=== PATIENT | female | born 1950 | race Caucasian/White ===

== ENCOUNTER 2017-04-26 21:26 | Inpatient (IN) | payer MEDICARE, MEDICAID ==
[~2017-04-26] VITALS: Ht 154.9 cm; Wt 53.8 kg
[~2017-04-26 21:26] MED LIST: 1-ME1LIQ PO; ATOR10 PO; BACL10TA PO; BUSP7.5T4 PO; CARB200 PO; CITA-48 PO; FURO1TAB93 PO; GABA600T PO; LACO100 PO; PROP40TA3 PO; SERT-132 PO; TEMA15 PO; TOPA25TA8 PO
[2017-04-26 21:36] VITALS: BP 155/82; PULSE 63; RESP 17; TEMP 98.3; O2SAT 96
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
[2017-04-26] MEDS ORDERED: SODIUM CHLOR 0.9% 1000 ML INJ 1,000 ML IV SCH (21:52)
[2017-04-26] MEDS ORDERED: SODIUM CHLORIDE 0.9% FLUSH 5 ML FLUSH IV FLUSH PRN (22:00)
[2017-04-26 22:24] LABS: AUTOMATED NEUTROPHIL # 6.6 TH/MM3 (1.8-7.7); BASOPHIL # 0.1 TH/MM3 (0-0.2); BASOPHIL % 0.7 % (0.0-2.0); EOSINOPHIL # 0.1 TH/MM3 (0-0.4); EOSINOPHIL % 1.3 % (0.0-4.0); HEMATOCRIT 46.9 % (35.0-46.0); HEMO FLAGS DIFF FINAL; LYMPH % 19.6 % (9.0-44.0); MEAN CELL VOLUME 92.7 FL (80.0-100.0); MEAN CORPUSCULAR HEMOGLOBIN 30.8 PG (27.0-34.0); MEAN CORPUSCULAR HGB CONC 33.2 % (32.0-36.0); MONO % 12.4 % (0.0-8.0); PLATELET COUNT 186 TH/MM3 (150-450); RED BLOOD COUNT 5.06 MIL/MM3 (4.00-5.30); RED CELL DISTRIBUTION WIDTH 13.2 % (11.6-17.2)
--- NOTE | 2017-04-26 22:25 | RADRPT ---
EXAM DATE/TIME: 04/26/2017 21:51 [facility] COMPARISON: CHEST SINGLE AP, June 24, 2016, 9:10. INDICATIONS : Altered mental status. MEDICAL HISTORY : Hypertension. Seizures. SURGICAL HISTORY : Fusion, cervical. Inguinal hernia repair. Brain surgery ENCOUNTER: Initial ACUITY: 1 day PAIN SCORE: Non-responsive. LOCATION: Bilateral chest FINDINGS: A single view of the chest demonstrates the lungs to be symmetrically aerated without evidence of mas s, infiltrate or effusion. The cardiomediastinal contours are unremarkable. Osseous structures are intact. CONCLUSION: No acute disease. Casa Turk MD on April 26, 2017 at 22:24 Board Certified Radiologist. This report was verified electronically.
[2017-04-26] MEDS ORDERED: NALOXONE HCL 0.4 MG/ML AMP IV PUSH ONE (22:30)
[2017-04-26 22:32] VITALS: RESP 14; O2SAT 100
[2017-04-26 22:34] VITALS: BP 141/67; PULSE 57; RESP 14; O2SAT 100
[2017-04-26 22:39] LABS: ALT (GPT) 23 U/L (10-53)
[2017-04-26] MEDS ORDERED: SODIUM CHLOR 0.9% 1000 ML INJ 1,000 ML IV ONE (22:45)
[2017-04-26 22:49] LABS: ALKALINE PHOSPHATASE 192 U/L (45-117); ANION GAP 6 MEQ/L (5-15); AST (GOT) 31 U/L (15-37); BICARBONATE 23.6 MEQ/L (21.0-32.0); BLOOD UREA NITROGEN 18 MG/DL (7-18); CHLORIDE 109 MEQ/L (98-107); GLOMERULAR FILTRATION RATE 65 ML/MIN (>89); SODIUM (NA) 139 MEQ/L (136-145); TOTAL BILIRUBIN ADULT 0.4 MG/DL (0.2-1.0)
[2017-04-26 23:02] LABS: ACETAMINOPHEN LESS THAN 2.0 MCG/ML (10.0-30.0); CREATINE KINASE 86 U/L (26-192); POTASSIUM 5.4 MEQ/L (3.5-5.1)
[2017-04-26 23:13] LABS: AMPHETAMINE, URINE NEG (NEG); BARBITURATES, URINE NEG (NEG); COCAINE, URINE NEG (NEG)
[2017-04-26 23:25] LABS: PROTHROMBIN TIME - PATIENT 10.5 SEC (9.8-11.6)
[2017-04-26 23:35] LABS: BLOOD, URINE NEG (NEG); COMMENT (UR) CATH-CULT NOT IND; CULTURE IF INDICATED CATH CULTURE NOT IND; GLUCOSE,URINE NEG (NEG); HYALINE CAST, URINE 28 /lpf (RARE); KETONE, URINE NEG (NEG); MUCUS URINE FEW /lpf (OCC); NITRITE,URINE NEG (NEG); PH, URINE 5.5 (5.0-8.5); SQUAMOUS EPITHELIAL CELL URINE 1 /hpf (0-5); URINE COLOR YELLOW (YELLW/STRAW)
[2017-04-26 23:36] VITALS: BP 146/77; PULSE 62; RESP 16; TEMP 97; O2SAT 96
--- NOTE | 2017-04-26 23:55 | RADRPT ---
EXAM DATE/TIME: 04/26/2017 23:43 [facility] COMPARISON: CT BRAIN W/O CONTRAST, July 25, 2016, 16:14. INDICATIONS : Altered mental status. RADIATION DOSE: 30.83 CTDIvol (mGy) MEDICAL HISTORY : Seizures. Cardiovascular disease Hypertension.Ulcer. Hepatitis. CVA. SURGICAL HISTORY : Tonsillectomy. Cervical surgery. ENCOUNTER: Initial ACUITY: 1 day PAIN SCALE: Non-responsive LOCATION: Bilateral cranial TECHNIQUE: Multiple contiguous axial images were obtained of the head. Using automated exposure control and adj ustment of the mA and/or kV according to patient size, radiation dose was kept as low as reasonably a chievable to obtain optimal diagnostic quality images. DICOM format image data is available electro nically for review and comparison. FINDINGS: CEREBRUM: Areas of low attenuation seen throughout the white matter. The ventricles are normal for age. No deann dence of midline shift, mass lesion, hemorrhage or acute infarction. No extra-axial fluid collection s are seen. POSTERIOR FOSSA: The cerebellum and brainstem are intact. The 4th ventricle is midline. The cerebellopontine angle i s unremarkable. EXTRACRANIAL: The visualized portion of the orbits is intact. SKULL: The calvaria is intact. No evidence of skull fracture. CONCLUSION: 1. Chronic ischemic small vessel vasculopathy. 2. No change from previous study. James Coleman MD on April 26, 2017 at 23:53 Board Certified Radiologist. This report was verified electronically.
[2017-04-27] VITALS (13 sets, daily range): BP systolic 149–210; BP diastolic 83–108; PULSE 64–74; RESP 12–20; TEMP 97.6–98.9; O2SAT 95–100
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
[2017-04-27] MEDS ORDERED: MAGNESIUM HYDROXIDE SUSP 30 ML CUP PO PRN (00:15)
[2017-04-27] MEDS ORDERED: MISCELLANEOUS NURSING INFORMATION XX SCH (00:15)
[2017-04-27] MEDS ORDERED: CHLORHEXIDINE GLUCONATE 2 % 1 PACK (2 CLOTHS) TOP PRN (00:15)
[2017-04-27] MEDS ORDERED: ONDANSETRON HCL 4 MG/2 ML VIAL IV PRN (00:15)
[2017-04-27] MEDS ORDERED: LACTULOSE SYRUP 20 GM/30 ML CUP PO PRN (00:15)
[2017-04-27] MEDS ORDERED: BISACODYL 10 MG SUPP RECTAL PRN (00:15)
[2017-04-27] MEDS ORDERED: SENNOSIDES 8.6 MG TAB PO PRN (00:15)
[2017-04-27] MEDS ORDERED: RESP: ALBUTEROL 2.5 MG/IPRATROPIUM 0.5 MG NEB (PRN) INH (00:15)
[2017-04-27] MEDS: SODIUM CHLOR 0.9% 1000 ML INJ 1,000 ML IV SCH ×2 (00:43→12:59)
[2017-04-27] MEDS: CHLORHEXIDINE GLUCONATE 2 % 1 PACK (2 CLOTHS) TOP SCH ×2 (04:00→22:39)
[2017-04-27 04:34] LABS: AUTOMATED NEUTROPHIL # 4.8 TH/MM3 (1.8-7.7); BASOPHIL % 0.5 % (0.0-2.0); EOSINOPHIL # 0.1 TH/MM3 (0-0.4); EOSINOPHIL % 1.6 % (0.0-4.0); HEMO FLAGS DIFF FINAL; LYMPH % 26.4 % (9.0-44.0); LYMPHOCYTE # 2.2 TH/MM3 (1.0-4.8); MEAN CELL VOLUME 93.6 FL (80.0-100.0); MEAN CORPUSCULAR HEMOGLOBIN 30.3 PG (27.0-34.0); MEAN CORPUSCULAR HGB CONC 32.4 % (32.0-36.0); MONO % 13.8 % (0.0-8.0); NEUT % 57.7 % (16.0-70.0); PLATELET COUNT 164 TH/MM3 (150-450); RED CELL DISTRIBUTION WIDTH 13.1 % (11.6-17.2); WHITE BLOOD COUNT 8.4 TH/MM3 (4.0-11.0)
[2017-04-27 04:59] LABS: ALKALINE PHOSPHATASE 164 U/L (45-117); ALT (GPT) 19 U/L (10-53); ANION GAP 4 MEQ/L (5-15); AST (GOT) 17 U/L (15-37); BICARBONATE 26.2 MEQ/L (21.0-32.0); BLOOD UREA NITROGEN 13 MG/DL (7-18); CHLORIDE 113 MEQ/L (98-107); GLOMERULAR FILTRATION RATE 99 ML/MIN (>89); POTASSIUM 4.3 MEQ/L (3.5-5.1); SODIUM (NA) 143 MEQ/L (136-145); TOTAL BILIRUBIN ADULT 0.3 MG/DL (0.2-1.0)
[2017-04-27] MEDS: DOCUSATE SODIUM 50 MG/SENNA 8.6 MG TAB PO SCH ×2 (08:28→20:07)
[2017-04-27] MEDS: PANTOPRAZOLE SODIUM 40 MG VIAL IV SCH (08:28)
[2017-04-27] MEDS ORDERED: PROPRANOLOL HCL 40 MG TAB PO SCH (09:00)
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
[2017-04-27] MEDS ORDERED: PROPRANOLOL HCL 40 MG TAB PO ONE (11:15)
[2017-04-27] MEDS: hydrALAZINE HCL 20 MG/ML VIAL IV PUSH PRN ×3 (13:00→20:08)
--- NOTE | 2017-04-27 13:39 | EKG ---
Date Performed: 04/26/2017 Time Performed: 22:41:12 PTAGE: 66 years EKG: SINUS BRADYCARDIA PROLONGED QT INTERVAL IRBBB ABNORMAL ECG PREVIOUS TRACING : 07/25/2016 12.43 Compared to the previous tracing, QTC is longer DOCTOR: Juancarlos Prado Interpretating Date/Time 04/27/2017 13:38:17
[2017-04-27] MEDS: PROPRANOLOL HCL 80 MG TAB PO SCH (20:07)
[2017-04-27] MEDS: ATORVASTATIN 10 MG TAB PO SCH (20:13)
[2017-04-28] VITALS (14 sets, daily range): BP systolic 145–213; BP diastolic 76–109; PULSE 65–74; RESP 14–30; TEMP 98–98.7; O2SAT 95–99
[2017-04-28] MEDS: hydrALAZINE HCL 20 MG/ML VIAL IV PUSH PRN ×3 (00:13→23:11)
[2017-04-28] MEDS: amLODIPine BESYLATE 5 MG TAB PO SCH ×2 (03:37→08:38)
[2017-04-28] MEDS: SODIUM CHLOR 0.9% 1000 ML INJ 1,000 ML IV SCH (05:32)
[2017-04-28] MEDS: LABETALOL HCL 100 MG/20 ML VIAL IV PUSH PRN ×3 (05:32→21:45)
[2017-04-28] MEDS: PROPRANOLOL HCL 80 MG TAB PO SCH ×2 (08:38→20:48)
[2017-04-28] MEDS: DOCUSATE SODIUM 50 MG/SENNA 8.6 MG TAB PO SCH (08:38)
[2017-04-28] MEDS: PANTOPRAZOLE SODIUM 40 MG VIAL IV SCH (08:38)
--- NOTE | 2017-04-28 09:20 | HHI.PR ---
Subjective Remarks Follow-up toxic encephalopathy and now labile BP 04/28/17-patient seen and examined, alert and oriented 3, taking by mouth without any compression or nausea and vomiting. Denies any headaches, visual change or heart palpitation. BP slightly. Objective Vitals Vital Signs Date Time Temp Pulse Resp B/P Pulse Ox O2 Delivery O2 Flow Rate FiO2 04/28/17 08:00 68 04/28/17 06:00 65 04/28/17 04:00 66 04/28/17 04:00 98.4 69 22 175/86 99 04/28/17 02:00 66 04/28/17 00:00 98.5 65 14 213/105 99 04/28/17 00:00 65 04/27/17 22:00 65 04/27/17 20:00 71 04/27/17 20:00 98.9 71 19 210/108 98 04/27/17 20:00 95 04/27/17 18:00 72 04/27/17 16:00 98.4 67 16 151/89 100 04/27/17 16:00 67 04/27/17 14:00 71 04/27/17 12:00 98.7 65 15 152/83 97 04/27/17 12:00 65 04/27/17 10:00 72 I/O 04/27/17 04/27/17 04/27/17 04/28/17 04/28/17 04/28/17 07:00 15:00 23:00 07:00 15:00 23:00 Intake Total 650 ml 730 ml 275 ml 580 ml Output Total 401 ml 700 ml 400 ml 451 ml Balance 249 ml 30 ml -125 ml 129 ml Intake Oral 0 ml 50 ml IV Total 650 ml 730 ml 225 ml 580 ml Output Urine Total 401 ml 700 ml 400 ml 450 ml Stool Total 1 ml # Bowel Movements 0 2 1 Result Diagram: 04/27/179 04/27/17418 Imaging Last Impressions Head CT 04/26/172151 Signed Impressions: Service Date/Time: Wednesday, April 26, 2017 23:43 - CONCLUSION: 1. Chronic ischemic small vessel vasculopathy. 2. No change from previous study. James Coleman MD Chest X-Ray 04/26/172151 Signed Impressions: Service Date/Time: Wednesday, April 26, 2017 21:51 - CONCLUSION: No acute disease. Caas Turk MD Objective Remarks GENERAL: NAD and having breakfast SKIN: Warm and dry. HEAD: Normocephalic. EYES: No scleral icterus. No injection or drainage. NECK: Supple, trachea midline. No JVD or lymphadenopathy. CARDIOVASCULAR: Regular rate and rhythm without murmurs, gallops, or rubs. RESPIRATORY: Breath sounds equal bilaterally. No accessory muscle use. GASTROINTESTINAL: Abdomen soft, non-tender, nondistended. MUSCULOSKELETAL: No cyanosis, or edema. BACK: Nontender without obvious deformity. No CVA tenderness. A/P Problem List: (1) Toxic encephalopathy ICD Code: G92 Status: Resolved (2) Benign labile hypertension ICD Code: I10 Status: Acute (3) Seizure disorder ICD Code: G40.909 Status: Chronic Assessment and Plan 66-year-old female with Toxic encephalopathy Resolved, patient's alert and oriented [address] negative on admission, UDS negative and alcohol level within normal limits Appreciate input from psychiatry, will recommend outpatient follow-up at [facility] Benign labile hypertension Hep-Lock IV fluid Continue Norvasc 5 mg and propranolol 80 mg twice a day History of seizure disorder Check EEG Resume antiepileptic drugs including Tegretol and Vimpat Hyperlipidemia Continue with statin DVT prophylaxis Bilateral SCDs Transfer to Med/Surg James Lynne MD Apr 28, 2017 09:20
[2017-04-28] MEDS: REMOVE OLD PATCH T-DERMAL SCH (10:30)
[2017-04-28] MEDS ORDERED: SERT-132 PO (11:01)
[2017-04-28] MEDS ORDERED: NEUR600T PO (11:01)
[2017-04-28] MEDS ORDERED: TOPA25TA8 PO (11:01)
[2017-04-28] MEDS ORDERED: CITA40TA4 PO (11:01)
[2017-04-28] MEDS ORDERED: BUSP1TAB PO (11:01)
[2017-04-28] MEDS ORDERED: PROP40TA3 PO (11:01)
[2017-04-28] MEDS ORDERED: VIST25CA PO (11:01)
[2017-04-28] MEDS ORDERED: AMLO10TA2 PO (11:01)
[2017-04-28] MEDS ORDERED: BACL10TA PO ×2 (11:01)
[2017-04-28] MEDS ORDERED: CARB100C PO (11:01)
[2017-04-28] MEDS: NICOTINE 14 MG/24 HR PATCH T-DERMAL SCH (11:12)
[2017-04-28] MEDS: ATORVASTATIN 10 MG TAB PO SCH (20:44)
[2017-04-28] MEDS: TOPIRAMATE 25 MG TAB PO SCH (20:45)
[2017-04-29] VITALS (23 sets, daily range): BP systolic 140–176; BP diastolic 76–95; PULSE 64–75; RESP 16–35; TEMP 97.6–98.7; O2SAT 63–96
[2017-04-29] MEDS: hydrALAZINE HCL 20 MG/ML VIAL IV PUSH PRN ×2 (03:10→07:23)
[2017-04-29] MEDS: CHLORHEXIDINE GLUCONATE 2 % 1 PACK (2 CLOTHS) TOP SCH (04:00)
[2017-04-29] MEDS ORDERED: ENALAPRILAT 2.5 MG/2 ML VIAL IV PUSH PRN ×2 (04:15→07:45)
[2017-04-29] MEDS: amLODIPine BESYLATE 5 MG TAB PO SCH ×2 (04:27→07:31)
[2017-04-29] MEDS: PANTOPRAZOLE SODIUM 40 MG VIAL IV SCH (07:31)
[2017-04-29] MEDS: PROPRANOLOL HCL 80 MG TAB PO SCH ×2 (07:31→20:58)
[2017-04-29] MEDS: NICOTINE 14 MG/24 HR PATCH T-DERMAL SCH (07:31)
[2017-04-29] MEDS: REMOVE OLD PATCH T-DERMAL SCH (07:36)
--- NOTE | 2017-04-29 09:05 | HHI.PR ---
Subjective Remarks Follow-up toxic encephalopathy and now labile BP 04/28/17-patient seen and examined, alert and oriented 3, taking by mouth without any compression or nausea and vomiting. Denies any headaches, visual change or heart palpitation. BP slightly. 04/29/17-patient seen and examined, BP up but patient denies any headache or shortness of breath. No seizure activity. Objective Vitals Vital Signs Date Time Temp Pulse Resp B/P Pulse Ox O2 Delivery O2 Flow Rate FiO2 04/29/17 08:11 63 04/29/17 06:00 71 04/29/17 04:00 66 04/29/17 04:00 98.0 69 18 172/89 96 04/29/17 02:00 65 04/29/17 00:00 98.3 64 16 169/89 94 04/29/17 00:00 64 04/28/17 22:00 66 04/28/17 20:00 74 04/28/17 20:00 98.1 74 18 175/91 95 04/28/17 19:03 95 21 04/28/17 18:00 71 04/28/17 17:00 148/76 04/28/17 16:00 98.4 66 30 182/90 95 04/28/17 16:00 72 04/28/17 14:00 71 04/28/17 12:00 67 04/28/17 12:00 98.0 67 18 145/80 97 04/28/17 10:00 68 I/O 04/28/17 04/28/17 04/28/17 04/29/17 04/29/17 04/29/17 07:00 15:00 23:00 07:00 15:00 23:00 Intake Total 580 ml 1050 ml 120 ml 60 ml Output Total 451 ml 277 ml 400 ml 250 ml Balance 129 ml 773 ml -280 ml -190 ml Intake Oral 100 ml 120 ml 60 ml IV Total 580 ml 950 ml 0 ml 0 ml Output Urine Total 450 ml 275 ml 400 ml 250 ml Stool Total 1 ml 2 ml # Bowel Movements 0 0 Result Diagram: 04/27/17 0419 04/27/17 0419 Objective Remarks GENERAL: NAD and having breakfast SKIN: Warm and dry. HEAD: Normocephalic. EYES: No scleral icterus. No injection or drainage. NECK: Supple, trachea midline. No JVD or lymphadenopathy. CARDIOVASCULAR: Regular rate and rhythm without murmurs, gallops, or rubs. RESPIRATORY: Breath sounds equal bilaterally. No accessory muscle use. GASTROINTESTINAL: Abdomen soft, non-tender, nondistended. MUSCULOSKELETAL: No cyanosis, or edema. BACK: Nontender without obvious deformity. No CVA tenderness. A/P Problem List: (1) Toxic encephalopathy ICD Code: G92 Status: Resolved (2) Benign labile hypertension ICD Code: I10 Status: Acute (3) Seizure disorder ICD Code: G40.909 Status: Chronic Assessment and Plan 66-year-old female with Toxic encephalopathy Resolved Head CT negative on admission, UDS negative and alcohol level within normal limits Appreciate input from psychiatry, will recommend outpatient follow-up at [facility] Benign labile hypertension Continue Norvasc 10 mg and propranolol 80 mg twice a day Add lisinopril 5 mg daily Clonidine and Vasotec when necessary History of seizure disorder Continue antiepileptic drug Hyperlipidemia Continue with statin DVT prophylaxis Bilateral SCDs Transfer to Med/Surg James Lynne MD Apr 29, 2017 09:05
[2017-04-29] MEDS ORDERED: cloNIDine HCL 0.1 MG TAB PO PRN (09:15)
[2017-04-29] MEDS: LISINOPRIL 5 MG TAB PO SCH (09:29)
[2017-04-29] MEDS: TOPIRAMATE 25 MG TAB PO SCH (20:58)
[2017-04-29] MEDS: ATORVASTATIN 10 MG TAB PO SCH (20:58)
[2017-04-30] VITALS (10 sets, daily range): BP systolic 155–182; BP diastolic 75–98; PULSE 57–75; RESP 16–18; TEMP 97.3–97.9; O2SAT 95–97
[2017-04-30] MEDS: CHLORHEXIDINE GLUCONATE 2 % 1 PACK (2 CLOTHS) TOP SCH (03:14)
[2017-04-30] MEDS: PANTOPRAZOLE SODIUM 40 MG VIAL IV SCH (08:13)
[2017-04-30] MEDS: amLODIPine BESYLATE 5 MG TAB PO SCH (08:13)
[2017-04-30] MEDS: LISINOPRIL 5 MG TAB PO SCH (08:13)
[2017-04-30] MEDS: NICOTINE 14 MG/24 HR PATCH T-DERMAL SCH (08:14)
[2017-04-30] MEDS: REMOVE OLD PATCH T-DERMAL SCH (08:14)
[2017-04-30] MEDS: PROPRANOLOL HCL 80 MG TAB PO SCH ×2 (09:47→20:04)
--- NOTE | 2017-04-30 12:41 | HHI.PR ---
Subjective Remarks Follow-up toxic encephalopathy and now labile BP 04/28/17-patient seen and examined, alert and oriented 3, taking by mouth without any compression or nausea and vomiting. Denies any headaches, visual change or heart palpitation. BP slightly. 04/29/17-patient seen and examined, BP up but patient denies any headache or shortness of breath. No seizure activity. 04/30/17-patient seen and examined, no acute event overnight and patient stable. BP Slightly up Objective Vitals Vital Signs Date Time Temp Pulse Resp B/P Pulse Ox O2 Delivery O2 Flow Rate FiO2 04/30/17 12:00 97.8 62 18 174/94 97 Automatic Cuff 04/30/17 10:34 170/93 04/30/17 08:51 21 04/30/17 08:00 97.9 62 18 182/87 96 04/30/17 04:00 97.9 64 18 158/93 95 04/30/17 00:00 97.7 57 18 155/75 95 04/29/17 20:00 75 04/29/17 20:00 97.6 71 18 148/82 94 04/29/17 17:41 95 21 04/29/17 16:00 98.7 67 20 167/89 95 04/29/17 13:15 98.5 69 17 150/81 95 I/O 04/29/17 04/29/17 04/29/17 04/30/17 04/30/17 04/30/17 07:00 15:00 23:00 07:00 15:00 23:00 Intake Total 60 ml Output Total 250 ml Balance -190 ml Intake Oral 60 ml IV Total 0 ml Output Urine Total 250 ml # Voids 2 3 # Bowel Movements 0 Result Diagram: 04/27/17 0419 04/27/17 0419 Imaging Last Impressions Head CT 04/26/172151 Signed Impressions: Service Date/Time: Wednesday, April 26, 2017 23:43 - CONCLUSION: 1. Chronic ischemic small vessel vasculopathy. 2. No change from previous study. James Coleman MD Chest X-Ray 04/26/172151 Signed Impressions: Service Date/Time: Wednesday, April 26, 2017 21:51 - CONCLUSION: No acute disease. Casa Turk MD Objective Remarks GENERAL: NAD SKIN: Warm and dry. HEAD: Normocephalic. EYES: No scleral icterus. No injection or drainage. NECK: Supple, trachea midline. No JVD or lymphadenopathy. CARDIOVASCULAR: Regular rate and rhythm without murmurs, gallops, or rubs. RESPIRATORY: Breath sounds equal bilaterally. No accessory muscle use. GASTROINTESTINAL: Abdomen soft, non-tender, nondistended. MUSCULOSKELETAL: No cyanosis, or edema. BACK: Nontender without obvious deformity. No CVA tenderness. Procedures None A/P Problem List: (1) Toxic encephalopathy ICD Code: G92 Status: Resolved (2) Benign labile hypertension ICD Code: I10 Status: Acute (3) Seizure disorder ICD Code: G40.909 Status: Chronic Assessment and Plan 66-year-old female with Toxic encephalopathy Resolved Head CT negative on admission, UDS negative and alcohol level within normal limits Appreciate input from psychiatry, will recommend outpatient follow-up at [facility] Benign labile hypertension Continue Norvasc 10 mg and propranolol 80 mg twice a day Increase lisinopril to 10 mg daily Clonidine and Vasotec when necessary History of seizure disorder Continue antiepileptic drug Hyperlipidemia Continue with statin DVT prophylaxis Bilateral SCDs James Lynne MD Apr 30, 2017 12:41
[2017-04-30] MEDS ORDERED: LISINOPRIL 5 MG TAB PO ONE (14:15)
[2017-04-30] MEDS: ATORVASTATIN 10 MG TAB PO SCH (20:04)
[2017-04-30] MEDS: TOPIRAMATE 25 MG TAB PO SCH (20:05)
[2017-04-30] MEDS: LISINOPRIL 10 MG TAB PO SCH (21:00)
[2017-05-01] VITALS: BP 150/92; PULSE 58; RESP 18; TEMP 97.9; O2SAT 93
[2017-05-01] MEDS: CHLORHEXIDINE GLUCONATE 2 % 1 PACK (2 CLOTHS) TOP SCH (03:15)
[2017-05-01 04:00] VITALS: BP 158/92; PULSE 59; RESP 16; TEMP 98.3; O2SAT 96
[2017-05-01 08:00] VITALS: BP 159/89; PULSE 64; PULSE 82; RESP 18; TEMP 98.1; O2SAT 96
[2017-05-01] MEDS: PANTOPRAZOLE SODIUM 40 MG VIAL IV SCH (08:31)
[2017-05-01] MEDS: amLODIPine BESYLATE 5 MG TAB PO SCH (08:31)
[2017-05-01] MEDS: NICOTINE 14 MG/24 HR PATCH T-DERMAL SCH (08:31)
[2017-05-01] MEDS: PROPRANOLOL HCL 80 MG TAB PO SCH (08:31)
[2017-05-01] MEDS: LISINOPRIL 10 MG TAB PO SCH (08:31)
--- NOTE | 2017-05-01 08:53 | HHI.PR ---
Subjective Remarks Follow-up toxic encephalopathy and now labile BP 04/28/17-patient seen and examined, alert and oriented 3, taking by mouth without any compression or nausea and vomiting. Denies any headaches, visual change or heart palpitation. BP slightly. 04/29/17-patient seen and examined, BP up but patient denies any headache or shortness of breath. No seizure activity. 04/30/17-patient seen and examined, no acute event overnight and patient stable. BP Slightly up 05/01/17-patient seen and examined, BP improving and no acute event overnight; taking by mouth without any complication nausea and vomiting. Objective Vitals Vital Signs Date Time Temp Pulse Resp B/P Pulse Ox O2 Delivery O2 Flow Rate FiO2 05/01/17 08:00 98.1 64 18 159/89 96 05/01/17 04:00 98.3 59 16 158/92 96 05/01/17 00:00 97.9 58 18 150/92 93 04/30/17 20:14 68 04/30/17 20:00 97.5 75 16 158/80 96 04/30/17 18:09 96 21 04/30/17 16:00 97.3 71 18 178/98 96 04/30/17 12:00 97.8 62 18 174/94 97 Automatic Cuff 04/30/17 10:34 170/93 I/O 04/30/17 04/30/17 04/30/17 05/01/17 05/01/17 05/01/17 07:00 15:00 23:00 07:00 15:00 23:00 Intake Total 600 ml 240 ml 186 ml Output Total 300 ml 100 ml 800 ml Balance 300 ml 140 ml -614 ml Intake Oral 600 ml 240 ml 180 ml IV Total 6 ml Output Urine Total 300 ml 100 ml 800 ml # Voids 3 # Bowel Movements 1 1 0 Result Diagram: 04/27/179 04/27/17418 Imaging Last Impressions Head CT 04/26/172151 Signed Impressions: Service Date/Time: Wednesday, April 26, 2017 23:43 - CONCLUSION: 1. Chronic ischemic small vessel vasculopathy. 2. No change from previous study. James Coleman MD Chest X-Ray 04/26/172151 Signed Impressions: Service Date/Time: Saturday, April 26, 2017 21:51 - CONCLUSION: No acute disease. Casa Turk MD Objective Remarks GENERAL: NAD SKIN: Warm and dry. HEAD: Normocephalic. EYES: No scleral icterus. No injection or drainage. NECK: Supple, trachea midline. No JVD or lymphadenopathy. CARDIOVASCULAR: Regular rate and rhythm without murmurs, gallops, or rubs. RESPIRATORY: Breath sounds equal bilaterally. No accessory muscle use. GASTROINTESTINAL: Abdomen soft, non-tender, nondistended. MUSCULOSKELETAL: No cyanosis, or edema. BACK: Nontender without obvious deformity. No CVA tenderness. Procedures None A/P Problem List: (1) Toxic encephalopathy ICD Code: G92 Status: Resolved (2) Benign labile hypertension ICD Code: I10 Status: Acute (3) Seizure disorder ICD Code: G40.909 Status: Chronic Assessment and Plan 66-year-old female with Toxic encephalopathy Resolved Head CT negative on admission, UDS negative and alcohol level within normal limits Appreciate input from psychiatry, will recommend outpatient follow-up at [facility] Benign labile hypertension-improving Continue Norvasc 10 mg, lisinopril 10 mg twice a day and propranolol 80 mg twice a day Clonidine and Vasotec when necessary History of seizure disorder Continue antiepileptic drug Hyperlipidemia Continue with statin DVT prophylaxis Bilateral SCDs James Lynne MD May 01, 2017 08:53
--- NOTE | 2017-05-01 08:55 | HHI.FF ---
Face to Face Verification Diagnosis: (1) HTN (hypertension) (2) Metabolic encephalopathy (3) Toxic encephalopathy Physical Therapy Order: Evaluate and Treat Home Health Nursing Order: Signs/symptoms of disease process I have seen patient Fiona Bone on 05/01/17. My clinical findings support the need for the requested home health care services because: Deconditioned w/ increased weakness I certify that my clinical findings support that this patient is homebound because: Poor cardiac reserve James Lynne MD May 01, 2017 08:55
[2017-05-01] MEDS ORDERED: LISI10TA3 PO (08:58)
[2017-05-01] MEDS ORDERED: PROP80TA PO (08:58)
[2017-05-01] MEDS ORDERED: LIPI10TA PO (08:58)
[2017-05-01] MEDS ORDERED: LISINOPRIL 10 MG TAB PO SCH (09:00)
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
[2017-05-01 11:50] VITALS: O2SAT 98
[2017-05-01 12:00] VITALS: BP 159/91; PULSE 59; RESP 18; TEMP 97.6; O2SAT 94
== END 2017-05-01 12:45 | disposition home health service (06) | DRG 917 ==
LOC: NEPE 21:26 → NEDA 04-27 00:04 → HIMN 04-27 01:15 → N04B 04-29 13:17
PROVIDERS: ADMIT Hospitalist; ATTEND Hospitalist
DX: T50.904A Poisoning by unspecified drugs, medicaments and biological substances, undetermined, initial encounter (principal); G92 Toxic encephalopathy; F05 Delirium due to known physiological condition; I10 Essential (primary) hypertension; F32.9 Major depressive disorder, single episode, unspecified; F41.9 Anxiety disorder, unspecified; E78.5 Hyperlipidemia, unspecified; G40.909 Epilepsy, unspecified, not intractable, without status epilepticus; F17.210 Nicotine dependence, cigarettes, uncomplicated; Z86.73 Personal history of transient ischemic attack (TIA), and cerebral infarction without residual deficits
CPT/HCPCS: 70450; 71010; 80053; 80156; 80307; 81001; 82140; 82550; 83605; 83735; 84100; 84443; 84484; 85025; 85610; 87641; 93005; 96361; 96374; C9113; J0360; J2310; J2405; J7030

== ENCOUNTER 2017-11-02 11:43 | Inpatient (IN) | payer MEDICARE, MEDICAID ==
[~2017-11-02] VITALS: Ht 160 cm; Wt 65.0 kg
[~2017-11-02 11:43] MED LIST changes: -1-ME1LIQ PO; +AMLO10TA2 PO; -ATOR10 PO; -BACL10TA PO; -BUSP7.5T4 PO; +CARB100C PO; -CARB200 PO; -CITA-48 PO; +CITA40TA4 PO; -FURO1TAB93 PO; -GABA600T PO; -LACO100 PO; +LIPI10TA PO; +LISI10TA3 PO; +NEUR600T PO; -PROP40TA3 PO; +PROP80TA PO; -TEMA15 PO; -TOPA25TA8 PO; +TOPI25 PO
[2017-11-02] MEDS ORDERED: SODIUM CHLOR 0.9% 1000 ML INJ 1,000 ML IV SCH (11:55)
[2017-11-02] MEDS ORDERED: PANTOPRAZOLE INJ 80 MG in SODIUM CHLORIDE 0.9% INJ 35 ML IV ONE (12:00)
[2017-11-02] MEDS ORDERED: SODIUM CHLOR 0.9% 250 ML INJ 250 ML IV ONE (12:00)
[2017-11-02] MEDS ORDERED: SODIUM CHLORIDE 0.9% FLUSH 10 ML FLUSH IV FLUSH PRN ×2 (12:00→16:15)
--- NOTE | 2017-11-02 12:04 | PD ---
HPI Chief Complaint: Altered Mental Status Time Seen by Provider: 11:54 Travel History International Travel<30 days: No Contact w/Intl Traveler<30days: No Traveled to known affect area: No History of Present Illness HPI 67-year-old female patient brought in by EMS with reports of altered mental status, and hemotemesis in the ambulance. Patient was unresponsive at first according to EMS, and last seen normal last evening. She was found this morning sleeping in the recliner. EMS was called. During transport the patient had sudden onset of violent hematemesis, and started to ask questions. Patient does have history of this in the past. No previous history of hematemesis. Patient has history of seizure disorder. Patient has history of possible psych issues. Patient is not a good historian. She reports no complaints of pain. She is allergic to aspirin, cyclobenzaprine, and fish. PFSH Past Medical History Arthritis: No Asthma: No Autoimmune Disease: No Blood Disorders: No Anxiety: Yes Depression: Yes Heart Rhythm Problems: No Cancer: No Cardiovascular Problems: Yes High Cholesterol: No Chest Pain: No Congestive Heart Failure: No COPD: No Cerebrovascular Accident: Yes Diabetes: No Diminished Hearing: No Endocrine: No Gastrointestinal Disorders: Yes GERD: No Glaucoma: No Genitourinary: No Headaches: Yes Hepatitis: Yes (TYPE UNKNOWN) Hiatal Hernia: No Hypertension: Yes Immune Disorder: No Implanted Vascular Access Dvce: No Kidney Stones: No Musculoskeletal: No Neurologic: Yes Psychiatric: Yes Reproductive: No Respiratory: Yes Immunizations Current: Yes Migraines: Yes Myocardial Infarction: No Renal Failure: No Seizures: Yes Sickle Cell Disease: No Sleep Apnea: No Thyroid Disease: No Ulcer: Yes Menopausal: Yes : 3 Para: 3 Past Surgical History Abdominal Surgery: No AICD: No Cardiac Surgery: No Ear Surgery: No Endocrine Surgery: No Eye Surgery: No Genitourinary Surgery: No Gynecologic Surgery: No Neurologic Surgery: Yes (S/P C4-5 SURGERY) Oral Surgery: No Pacemaker: No Thoracic Surgery: No Tonsillectomy: Yes Other Surgery: Yes (REPAIR BRAIN ANEURYSM) Social History Alcohol Use: No Tobacco Use: Yes (1 PPD) Substance Use: No (PT DENIES) Allergies-Medications (Allergen,Severity, Reaction): Coded Allergies: aspirin (Verified Allergy, Severe, Seizures/ HIVES, 11/02/17) cyclobenzaprine (Verified Allergy, Severe, 11/02/17) Uncoded Allergies: fish (Adverse Reaction, Unknown, unknown reaction at age 7, 12/04/12) Reported Meds & Prescriptions Reported Meds & Active Scripts Active Reported Phenergan (Promethazine HCl) 25 Mg Tablet 25 Mg PO ONCE Aspirin 81 Mg Chew 81 Mg CHEW DAILY Topiramate 25 Mg Tab 25 Mg PO BID Furosemide 40 Mg Tab 40 Mg PO DAILY Calcium Acetate (Phosphate Binder) 667 Mg Cap 667 Mg PO TID Trazodone (Trazodone HCl) 100 Mg Tablet 100 Mg PO HS Baclofen 10 Mg Tab 10 Mg PO TID Hydroxyzine HCl 25 Mg Tab 25 Mg PO TID Amlodipine (Amlodipine Besylate) 10 Mg Tab 10 Mg PO DAILY Neurontin (Gabapentin) 600 Mg Tab 600 Mg PO TID Carbamazepine 100 Mg Chew 100 Mg PO TID Citalopram (Citalopram Hydrobromide) 40 Mg Tab 40 Mg PO DAILY Review of Systems ROS Limitations: Clinical Condition, Altered Mental Status, Poor Historian General / Constitutional: No: Fever Eyes: No: Visual changes HENT: No: Headaches Cardiovascular: No: Chest Pain or Discomfort Respiratory: No: Shortness of Breath Gastrointestinal: No: Abdominal Pain Genitourinary: No: Dysuria Musculoskeletal: No: Pain Skin: No Rash Neurologic: No: Weakness Psychiatric: No: Depression Endocrine: No: Polydipsia Hematologic/Lymphatic: No: Easy Bruising Physical Exam Exam Limitations: Clinical Condition, Altered Mental Status, Poor Historian Narrative GENERAL: Patient appears altered, but alert. She is not answering questions appropriately. Patient, covered with hematemesis. SKIN: Warm and dry. Normal color. Normal turgor. HEAD: Atraumatic. Normocephalic. EYES: Pupils equal and round. No scleral icterus. No injection or drainage. ENT: No nasal bleeding or discharge. Mucous membranes pink and moist. Pharynx is clear. NECK: Trachea midline. Supple. CARDIOVASCULAR: Regular rate and rhythm. RESPIRATORY: No accessory muscle use. Clear to auscultation. Breath sounds equal bilaterally. GASTROINTESTINAL: Abdomen soft, non-tender, nondistended. Hepatic and splenic margins not palpable. MUSCULOSKELETAL: Extremities without clubbing, cyanosis, or edema. No obvious deformities. NEUROLOGICAL: Awake and alert. No obvious cranial nerve deficits. Motor grossly within normal limits. Five out of 5 muscle strength in the arms and legs. PSYCHIATRIC: Patient has decreased mental status, and asking the same question over and over. Appears confused, possibly postictal. Data Data Last Documented VS Vital Signs Date Time Temp Pulse Resp B/P (MAP) Pulse Ox O2 Delivery O2 Flow Rate FiO2 11/02/17 14:00 70 13 174/97 (122) 98 Nasal Cannula 2.00 11/02/17 12:11 97.8 Orders Orders Electrocardiogram (11/02/17 11:55) Ammonia (11/02/17 11:55) Complete Blood Count With Diff (11/02/17 11:55) Comprehensive Metabolic Panel (11/02/17 11:55) Creatine Kinase (Cpk) (11/02/17 11:55) Prothrombin Time / Inr (Pt) (11/02/17 11:55) Act Partial Throm Time (Ptt) (11/02/17 11:55) Troponin I (11/02/17 11:55) Urinalysis - C+S If Indicated (11/02/17 11:55) Lactic Acid Sepsis Protocol (11/02/17 11:55) Chest, Single Ap (11/02/17 11:55) Ct Brain W/O Iv Contrast(Rout) (11/02/17 11:55) Blood Glucose (11/02/17 11:55) Ecg Monitoring (11/02/17 11:55) Iv Access Insert/Monitor (11/02/17 11:55) Cath For Specimen (11/02/17 11:55) Oximetry (11/02/17 11:55) Sodium Chloride 0.9% Flush (Ns Flush) (11/02/17 12:00) Sodium Chlor 0.9% 1000 Ml Inj (Ns 1000 M (11/02/17 11:55) Drug Screen, Random Urine (11/02/17 11:55) Alcohol (Ethanol) (11/02/17 11:55) Tylenol (Acetaminophen) (11/02/17 11:55) Salicylates (Aspirin) (11/02/17 11:55) Lipase (11/02/17 11:55) Ct Abd/Pel W Iv Contrast(Rout) (11/02/17 11:55) Pantoprazole Inj (Protonix Inj) (11/02/17 12:00) Type And Screen (11/02/17 11:58) Sodium Chlor 0.9% 250 Ml Inj (Ns 250 Ml (11/02/17 12:00) Carbamazepine (Tegretol) (11/02/17 12:20) Pantoprazole Inj (Protonix Inj) (11/02/17 13:00) Lorazepam Inj (Ativan Inj) (11/02/17 14:30) Iohexol 350 Inj (Omnipaque 350 Inj) (11/02/17 14:20) Sodium Chlorid 0.9% 500 Ml Inj (Ns 500 M (11/02/17 14:30) Labs Laboratory Tests Test 11/02/17 12:30 White Blood Count 11.6 TH/MM3 Red Blood Count 4.96 MIL/MM3 Hemoglobin 15.4 GM/DL Hematocrit 45.3 % Mean Corpuscular Volume 91.4 FL Mean Corpuscular Hemoglobin 31.1 PG Mean Corpuscular Hemoglobin Concent 34.0 % Red Cell Distribution Width 13.7 % Platelet Count 218 TH/MM3 Mean Platelet Volume 8.7 FL Neutrophils (%) (Auto) 77.1 % Lymphocytes (%) (Auto) 14.8 % Monocytes (%) (Auto) 6.7 % Eosinophils (%) (Auto) 0.8 % Basophils (%) (Auto) 0.6 % Neutrophils # (Auto) 9.0 TH/MM3 Lymphocytes # (Auto) 1.7 TH/MM3 Monocytes # (Auto) 0.8 TH/MM3 Eosinophils # (Auto) 0.1 TH/MM3 Basophils # (Auto) 0.1 TH/MM3 CBC Comment DIFF FINAL Differential Comment Prothrombin Time 10.6 SEC Prothromb Time International Ratio 1.0 RATIO Activated Partial Thromboplast Time 22.1 SEC Urine Color YELLOW Urine Turbidity CLEAR Urine pH 5.5 Urine Specific [place] 1.023 Urine Protein TRACE mg/dL Urine Glucose (UA) NEG mg/dL Urine Ketones NEG mg/dL Urine Occult Blood NEG Urine Nitrite NEG Urine Bilirubin NEG Urine Urobilinogen LESS THAN 2.0 MG/DL Urine Leukocyte Esterase NEG Urine RBC 1 /hpf Urine WBC 1 /hpf Urine Squamous Epithelial Cells 1 /hpf Urine Renal Epithelial Cells <1 /hpf Urine Hyaline Casts 52 /lpf Urine Mucus FEW /lpf Microscopic Urinalysis Comment CATH-CULT NOT IND Blood Urea Nitrogen 31 MG/DL Creatinine 0.98 MG/DL Random Glucose 118 MG/DL Total Protein 8.5 GM/DL Albumin 4.1 GM/DL Calcium Level 8.8 MG/DL Alkaline Phosphatase 191 U/L Aspartate Amino Transf (AST/SGOT) 18 U/L Alanine Aminotransferase (ALT/SGPT) 34 U/L Total Bilirubin 0.3 MG/DL Sodium Level 139 MEQ/L Potassium Level 4.1 MEQ/L Chloride Level 106 MEQ/L Carbon Dioxide Level 28.0 MEQ/L Anion Gap 5 MEQ/L Estimat Glomerular Filtration Rate 57 ML/MIN Lactic Acid Level 1.1 mmol/L Ammonia 36 MCMOL/L Total Creatine Kinase 41 U/L Troponin I LESS THAN 0.02 NG/ML Lipase 71 U/L Salicylates Level 3.3 MG/DL Urine Opiates Screen NEG Acetaminophen Level LESS THAN 2.0 MCG/ML Urine Barbiturates Screen NEG Carbamazepine (Tegretol) Level 6.5 MCG/ML Urine Amphetamines Screen NEG Urine Benzodiazepines Screen NEG Urine Cocaine Screen NEG Urine Cannabinoids Screen NEG Ethyl Alcohol Level LESS THAN 3 MG/DL MDM Medical Decision Making Medical Screen Exam Complete: Yes Emergency Medical Condition: Yes Medical Record Reviewed: Yes Differential Diagnosis Altered mental status. CVA. Varicocele bleeding. Hematemesis. Pancreatitis. Renal failure. Delirium. Seizure disorder. Narrative Course Patient somewhat delirious at first exam. Not answering questions appropriately. Labs ordered including CBC, CMP, lipase, cardiac panel, PT PTT and INR, urinalysis, urine drug screen, acetaminophen level, aspirin level, EtOH level, ammonia level, phenytoin level. CT of the head, chest x-ray, EKG, and abdominal/pelvis CT with IV contrast is ordered. EKG shows normal sinus rhythm without ST changes. Chest x-ray shows mild patchy atelectasis/consolidation at the left lung base otherwise no acute findings. Labs show mild leukocytosis of 11.6, hemoglobin 15.4. Coagulation studies are normal. Chemistries show lactic acid 1.1. BUN is 31, creatinine is 0.98, GFR is 57, glucose 118. Alkaline phosphatase elevated at 191. Ammonia level is 36. First troponin is less than 0.02. Lipase is 71 Urinalysis is unremarkable. Urine drug screen is negative. Salicylates 3.3, acetaminophen less than 2.0, ethyl alcohol is less than 3. Carbamazepine level is 6.5. 1420 hrs., patient is reassessed and found to be alert and oriented. She is complaining of pain and realized and feeling that she "can't breathe". She is somewhat histrionic. She complains of some discomfort in her abdomen palpation , but it is nonspecific. I suspect some psychiatric underlying issues based on this exam. Patient is given lorazepam [address] showed no acute process per radiologist. Abdominal pelvis CT shows no acute findings. Call was placed to the hospitalist for admission. Diagnosis Primary Impression: Altered mental status Qualified Codes: R41.0 - Disorientation, unspecified Additional Impression: Hematemesis/vomiting blood Qualified Codes: K92.0 - Hematemesis Admitting Information Admitting Physician Requests: Observation Condition: Stable Jean Pierre Ricci Nov 02, 2017 12:04
[2017-11-02] MEDS ORDERED: CALC1CAP PO (12:10)
[2017-11-02] MEDS ORDERED: TOPI25TA7 PO (12:10)
[2017-11-02] MEDS ORDERED: BACL10TA PO (12:10)
[2017-11-02] MEDS ORDERED: HYDR-3133 PO (12:10)
[2017-11-02] MEDS ORDERED: PROM25TA10 PO (12:10)
[2017-11-02] MEDS ORDERED: TRAZ100T10 PO (12:10)
[2017-11-02] MEDS ORDERED: FURO40TA PO (12:10)
[2017-11-02] MEDS ORDERED: ASPI-516 CHEW (12:10)
[2017-11-02 12:11] VITALS: BP 173/116; PULSE 81; RESP 15; TEMP 97.8; TEMP 98.8; O2SAT 100
--- NOTE | 2017-11-02 12:17 | PD ---
Physical Exam Narrative I, Dr. Wheatley, have reviewed the advance practice practitioner's documentation and am in agreement, met with the patient face to face, made the diagnosis, and the medical decision making was done by me. *My assessment and Findings: Patient is a 67 year old female who comes in due to unresponsiveness and coffee ground emesis. She was found sitting in her recliner not responding appropriately by a friend. She has been here multiple times for this in the past. She does have history of seizures and alcoholism. While in the ambulance she had an episode of vomiting, and it was coffee ground emesis. She is awake and alert, but does not provide much history. She is moving all of her extremities. Abdomen is soft and nontender. Data Data Last Documented VS Vital Signs Date Time Temp Pulse Resp B/P (MAP) Pulse Ox O2 Delivery O2 Flow Rate FiO2 11/02/17 14:00 70 13 174/97 (122) 98 Nasal Cannula 2.00 11/02/17 12:11 97.8 Orders Orders Electrocardiogram (11/02/17 11:55) Ammonia (11/02/17 11:55) Complete Blood Count With Diff (11/02/17 11:55) Comprehensive Metabolic Panel (11/02/17 11:55) Creatine Kinase (Cpk) (11/02/17 11:55) Prothrombin Time / Inr (Pt) (11/02/17 11:55) Act Partial Throm Time (Ptt) (11/02/17 11:55) Troponin I (11/02/17 11:55) Urinalysis - C+S If Indicated (11/02/17 11:55) Lactic Acid Sepsis Protocol (11/02/17 11:55) Chest, Single Ap (11/02/17 11:55) Ct Brain W/O Iv Contrast(Rout) (11/02/17 11:55) Blood Glucose (11/02/17 11:55) Ecg Monitoring (11/02/17 11:55) Iv Access Insert/Monitor (11/02/17 11:55) Cath For Specimen (11/02/17 11:55) Oximetry (11/02/17 11:55) Sodium Chloride 0.9% Flush (Ns Flush) (11/02/17 12:00) Sodium Chlor 0.9% 1000 Ml Inj (Ns 1000 M (11/02/17 11:55) Drug Screen, Random Urine (11/02/17 11:55) Alcohol (Ethanol) (11/02/17 11:55) Tylenol (Acetaminophen) (11/02/17 11:55) Salicylates (Aspirin) (11/02/17 11:55) Lipase (11/02/17 11:55) Ct Abd/Pel W Iv Contrast(Rout) (11/02/17 11:55) Pantoprazole Inj (Protonix Inj) (11/02/17 12:00) Type And Screen (11/02/17 11:58) Sodium Chlor 0.9% 250 Ml Inj (Ns 250 Ml (11/02/17 12:00) Carbamazepine (Tegretol) (11/02/17 12:20) Pantoprazole Inj (Protonix Inj) (11/02/17 13:00) Lorazepam Inj (Ativan Inj) (11/02/17 14:30) Iohexol 350 Inj (Omnipaque 350 Inj) (11/02/17 14:20) Sodium Chlorid 0.9% 500 Ml Inj (Ns 500 M (11/02/17 14:30) Haloperidol Inj (Haldol Inj) (11/02/17 15:30) Admit Order (Ed Use Only) (11/02/17 15:30) Labs Laboratory Tests Test 11/02/17 12:30 White Blood Count 11.6 TH/MM3 Red Blood Count 4.96 MIL/MM3 Hemoglobin 15.4 GM/DL Hematocrit 45.3 % Mean Corpuscular Volume 91.4 FL Mean Corpuscular Hemoglobin 31.1 PG Mean Corpuscular Hemoglobin Concent 34.0 % Red Cell Distribution Width 13.7 % Platelet Count 218 TH/MM3 Mean Platelet Volume 8.7 FL Neutrophils (%) (Auto) 77.1 % Lymphocytes (%) (Auto) 14.8 % Monocytes (%) (Auto) 6.7 % Eosinophils (%) (Auto) 0.8 % Basophils (%) (Auto) 0.6 % Neutrophils # (Auto) 9.0 TH/MM3 Lymphocytes # (Auto) 1.7 TH/MM3 Monocytes # (Auto) 0.8 TH/MM3 Eosinophils # (Auto) 0.1 TH/MM3 Basophils # (Auto) 0.1 TH/MM3 CBC Comment DIFF FINAL Differential Comment Prothrombin Time 10.6 SEC Prothromb Time International Ratio 1.0 RATIO Activated Partial Thromboplast Time 22.1 SEC Urine Color YELLOW Urine Turbidity CLEAR Urine pH 5.5 Urine Specific [place] 1.023 Urine Protein TRACE mg/dL Urine Glucose (UA) NEG mg/dL Urine Ketones NEG mg/dL Urine Occult Blood NEG Urine Nitrite NEG Urine Bilirubin NEG Urine Urobilinogen LESS THAN 2.0 MG/DL Urine Leukocyte Esterase NEG Urine RBC 1 /hpf Urine WBC 1 /hpf Urine Squamous Epithelial Cells 1 /hpf Urine Renal Epithelial Cells <1 /hpf Urine Hyaline Casts 52 /lpf Urine Mucus FEW /lpf Microscopic Urinalysis Comment CATH-CULT NOT IND Blood Urea Nitrogen 31 MG/DL Creatinine 0.98 MG/DL Random Glucose 118 MG/DL Total Protein 8.5 GM/DL Albumin 4.1 GM/DL Calcium Level 8.8 MG/DL Alkaline Phosphatase 191 U/L Aspartate Amino Transf (AST/SGOT) 18 U/L Alanine Aminotransferase (ALT/SGPT) 34 U/L Total Bilirubin 0.3 MG/DL Sodium Level 139 MEQ/L Potassium Level 4.1 MEQ/L Chloride Level 106 MEQ/L Carbon Dioxide Level 28.0 MEQ/L Anion Gap 5 MEQ/L Estimat Glomerular Filtration Rate 57 ML/MIN Lactic Acid Level 1.1 mmol/L Ammonia 36 MCMOL/L Total Creatine Kinase 41 U/L Troponin I LESS THAN 0.02 NG/ML Lipase 71 U/L Salicylates Level 3.3 MG/DL Urine Opiates Screen NEG Acetaminophen Level LESS THAN 2.0 MCG/ML Urine Barbiturates Screen NEG Carbamazepine (Tegretol) Level 6.5 MCG/ML Urine Amphetamines Screen NEG Urine Benzodiazepines Screen NEG Urine Cocaine Screen NEG Urine Cannabinoids Screen NEG Ethyl Alcohol Level LESS THAN 3 MG/DL MDM Supervised Visit with IZABELLA: Yes Narrative Course CT head shows no acute abnormalities. Hgb is within normal limits. Patient had to be sedated due to agitation and pulling out her IVs, being unsafe. Given Protonix. She will be admitted for further management. Diagnosis Primary Impression: Hematemesis/vomiting blood Qualified Codes: K92.0 - Hematemesis Additional Impression: Altered mental status Qualified Codes: R41.0 - Disorientation, unspecified Admitting Information Admitting Physician Requests: Admit Lyubov Wheatley MD Nov 02, 2017 12:17
--- NOTE | 2017-11-02 12:38 | RADRPT ---
EXAM DATE/TIME: 11/02/2017 12:01 [facility] COMPARISON: CHEST SINGLE AP, April 26, 2017, 21:51. INDICATIONS : Syncope MEDICAL HISTORY : Hypertension. Seizures. SURGICAL HISTORY : Fusion, cervical. Inguinal hernia repair. Brain surgery ENCOUNTER: Initial ACUITY: 1 day PAIN SCORE: 0/10 LOCATION: chest FINDINGS: Single AP view of the chest. Patchy atelectasis versus consolidation left lung base. Lungs otherwise clear. Cardiomediastinal silhouette within normal limits. No evidence of pleural effusion or pneumoth orax. CONCLUSION: Mild patchy atelectasis/consolidation at the left lung base. Walter Mclaughlin MD on November 02, 2017 at 12:35 Board Certified Radiologist. This report was verified electronically.
[2017-11-02 12:48] LABS: BASOPHIL # 0.1 TH/MM3 (0-0.2); BASOPHIL % 0.6 % (0.0-2.0); EOSINOPHIL # 0.1 TH/MM3 (0-0.4); EOSINOPHIL % 0.8 % (0.0-4.0); HEMATOCRIT 45.3 % (35.0-46.0); HEMOGLOBIN 15.4 GM/DL (11.6-15.3); LYMPH % 14.8 % (9.0-44.0); LYMPHOCYTE # 1.7 TH/MM3 (1.0-4.8); MEAN CELL VOLUME 91.4 FL (80.0-100.0); MEAN CORPUSCULAR HEMOGLOBIN 31.1 PG (27.0-34.0); MEAN PLATELET VOLUME 8.7 FL (7.0-11.0); MONO % 6.7 % (0.0-8.0); MONOCYTE # 0.8 TH/MM3 (0-0.9); NEUT % 77.1 % (16.0-70.0); PLATELET COUNT 218 TH/MM3 (150-450); RED BLOOD COUNT 4.96 MIL/MM3 (4.00-5.30); RED CELL DISTRIBUTION WIDTH 13.7 % (11.6-17.2); WHITE BLOOD COUNT 11.6 TH/MM3 (4.0-11.0)
[2017-11-02 13:00] LABS: PROTHROMBIN TIME - PATIENT 10.6 SEC (9.8-11.6)
[2017-11-02 13:16] LABS: BILIRUBIN, URINE NEG (NEG); BLOOD, URINE NEG (NEG); GLUCOSE,URINE NEG (NEG); HYALINE CAST, URINE 52 /lpf (RARE); KETONE, URINE NEG (NEG); MUCUS URINE FEW /lpf (OCC); NITRITE,URINE NEG (NEG); PH, URINE 5.5 (5.0-8.5); RENAL EPITHELIAL CELLS <1 /hpf; SQUAMOUS EPITHELIAL CELL URINE 1 /hpf (0-5); URINE COLOR YELLOW (YELLW/STRAW); URINE LEUKOCYTE ESTERASE NEG (NEG)
[2017-11-02 13:27] LABS: ALBUMIN 4.1 GM/DL (3.4-5.0); ALKALINE PHOSPHATASE 191 U/L (45-117); ALT (GPT) 34 U/L (10-53); AST (GOT) 18 U/L (15-37); BLOOD UREA NITROGEN 31 MG/DL (7-18); CALCIUM 8.8 MG/DL (8.5-10.1); CHLORIDE 106 MEQ/L (98-107); CREATININE 0.98 MG/DL (0.50-1.00); GLOMERULAR FILTRATION RATE 57 ML/MIN (>89); GLUCOSE,RANDOM 118 MG/DL (74-106); LIPASE 71 U/L (73-393); SODIUM (NA) 139 MEQ/L (136-145); TOTAL BILIRUBIN ADULT 0.3 MG/DL (0.2-1.0); TOTAL PROTEIN 8.5 GM/DL (6.4-8.2); TROPONIN I LESS THAN 0.02 NG/ML (0.02-0.05)
[2017-11-02 13:31] LABS: ACETAMINOPHEN LESS THAN 2.0 MCG/ML (10.0-30.0)
[2017-11-02] MEDS: PANTOPRAZOLE INJ 80 MG in SODIUM CHLORIDE 0.9% INJ 100 ML IV SCH (13:53)
[2017-11-02 14:00] VITALS: BP 174/97; PULSE 70; RESP 13; O2SAT 98
[2017-11-02] MEDS ORDERED: IOHEXOL 350 MG/ML 10 ML VIAL (for RAD DIAG) IVCONTRAST ONE (14:20)
[2017-11-02] MEDS ORDERED: SODIUM CHLORID 0.9% 500 ML INJ 500 ML IV ONE (14:30)
[2017-11-02] MEDS ORDERED: LORazepam 2 MG/ML VIAL IV PUSH ONE (14:30)
--- NOTE | 2017-11-02 14:31 | RADRPT ---
EXAM DATE/TIME: 11/02/2017 13:53 [facility] COMPARISON: CT BRAIN W/O CONTRAST, April 26, 2017, 23:43. INDICATIONS : Altered mental status. RADIATION DOSE: 56.35 CTDIvol (mGy) MEDICAL HISTORY : Stroke. Seizures. Hypertension. SURGICAL HISTORY : brain aneurysm repair ENCOUNTER: Initial ACUITY: 1 day PAIN SCALE: 7/10 LOCATION: Bilateral head TECHNIQUE: Multiple contiguous axial images were obtained of the head. Using automated exposure control and adj ustment of the mA and/or kV according to patient size, radiation dose was kept as low as reasonably a chievable to obtain optimal diagnostic quality images. DICOM format image data is available electro nically for review and comparison. FINDINGS: CEREBRUM: There is mild atrophic change again noted with sulcal and ventricular prominence. Prominent decreased attenuation is noted throughout the deep white matter. This appears mildly more prominent. No eviden ce of midline shift, mass lesion, hemorrhage or acute infarction. No extra-axial fluid collections a re seen. POSTERIOR FOSSA: The cerebellum and brainstem are intact. The 4th ventricle is midline. The cerebellopontine angle i s unremarkable. EXTRACRANIAL: The visualized portion of the orbits is intact. SKULL: The calvaria is intact. No evidence of skull fracture. CONCLUSION: 1. No acute hemorrhage, mass or acute infarction. 2. Atrophy and chronic small vessel ischemic change. Casa Turk MD on November 02, 2017 at 14:27 Board Certified Radiologist. This report was verified electronically.
--- NOTE | 2017-11-02 14:47 | RADRPT ---
EXAM DATE/TIME: 11/02/2017 13:57 [facility] COMPARISON: No previous studies available for comparison. INDICATIONS : Vomiting and abdominal pain. IV CONTRAST: 75 cc Omnipaque 350 (iohexol) IV ORAL CONTRAST: No oral contrast ingested. RADIATION DOSE: 6.77 CTDIvol (mGy) MEDICAL HISTORY : Seizures. Stroke Hypertension. SURGICAL HISTORY : None. ENCOUNTER: Initial ACUITY: 1 day PAIN SCALE: 7/10 LOCATION: Bilateral abdomen TECHNIQUE: Volumetric scanning of the abdomen and pelvis was performed. Using automated exposure control and ad justment of the mA and/or kV according to patient size, radiation dose was kept as low as reasonably achievable to obtain optimal diagnostic quality images. DICOM format image data is available electro nically for review and comparison. FINDINGS: LOWER LUNGS: There are areas of consolidation in both lower lobes. There is no pleural effusion. LIVER: Homogeneous density without lesion. There is no dilation of the biliary tree. No calcified gallston es. There is mild hepatic steatosis. SPLEEN: Normal size without lesion. PANCREAS: Within normal limits. KIDNEYS: Normal in size and shape. There is no solid mass, stone or hydronephrosis. There is a small cysts ex tending off the lower pole of left kidney. ADRENAL GLANDS: There is thickening of the left adrenal gland without focal mass. VASCULAR: There is no aortic aneurysm. BOWEL/MESENTERY: There is a moderate size retrocardiac hiatal hernia. Multiple diverticuli are present greatest in the sigmoid colon with no definite inflammatory change. No oral contrast was given limiting the sensitiv ity of the exam. The stomach, small bowel, and colon demonstrate no acute abnormality. There is no f ree intraperitoneal air or fluid. ABDOMINAL WALL: Within normal limits. RETROPERITONEUM: There is no lymphadenopathy. BLADDER: No wall thickening or mass. REPRODUCTIVE: Within normal limits. INGUINAL: There is no lymphadenopathy or hernia. MUSCULOSKELETAL: Mild degenerative change and scoliosis are present. There is a sclerotic foci in the posterior left s frankie of the L4 vertebral body measuring approximately 5 mm in CONCLUSION: 1. Mild diverticulosis with no inflammatory change. 2. Moderate amount of stool present in the colon. 3. Consolidation in both posterior lung bases which could be infectious or inflammatory. 4. Moderate size retrocardiac hiatal hernia. 5. Mild hepatic cyst steatosis. 6. Mild thickening of left adrenal gland which could indicate hyperplasia. There is no focal mass. 7. Small 5 mm sclerotic foci in the left side of the L4 vertebral body which is nonspecific but likel y represents a small bone island. Casa Turk MD on November 02, 2017 at 14:37 Board Certified Radiologist. This report was verified electronically.
[2017-11-02] MEDS ORDERED: HALOPERIDOL LACTATE 5 MG/ML AMP IM ONE (15:30)
[2017-11-02 16:05] VITALS: BP 165/97; PULSE 83; RESP 16; O2SAT 99
[2017-11-02] MEDS ORDERED: NALOXONE HCL 0.4 MG/ML AMP IV PUSH PRN (16:15)
[2017-11-02] MEDS ORDERED: BISACODYL 10 MG SUPP RECTAL PRN (16:15)
[2017-11-02] MEDS ORDERED: SENNOSIDES 8.6 MG TAB PO PRN (16:15)
[2017-11-02] MEDS ORDERED: MAGNESIUM HYDROXIDE SUSP 30 ML CUP PO PRN (16:15)
[2017-11-02] MEDS ORDERED: LACTULOSE SYRUP 20 GM/30 ML CUP PO PRN (16:15)
[2017-11-02] MEDS ORDERED: LORazepam 1 MG TAB PO PRN (16:15)
[2017-11-02] MEDS ORDERED: FLUMAZENIL 0.5 MG/5 ML VIAL IV PUSH PRN (16:15)
[2017-11-02] MEDS ORDERED: LORazepam 2 MG TAB PO PRN (16:15)
[2017-11-02] MEDS ORDERED: ONDANSETRON HCL 4 MG/2 ML VIAL IVP PRN (16:15)
[2017-11-02] MEDS ORDERED: LORazepam 2 MG/ML VIAL IV PUSH PRN ×3 (16:15)
--- NOTE | 2017-11-02 17:17 | HHI.HP ---
HPI Service Family Medicine Primary Care Physician No Primary Care Physician Admission Diagnosis Altered Menatal Status/Hematemesis Diagnoses: International Travel<30 Days: No Contact w/Intl Traveler<30days: No History of Present Illness Patient received lorazepam and haloperidol prior to my evaluation. Patient is a 67-year-old female patient with history of seizure and remote brain aneurysm brought in by EMS with reports of being found at home with altered mental status (i.e. unresponsive), and hematemesis x 1 in the ambulance. Patient states she is here because "I fell" but does not answer further questions. She denies pain initially then states she has abdominal pain but does not elaborate. No other history was able to be obtained as patient falls asleep quickly. On review of medication bottles at bedside, patient's PCP is Dr. Dakota Jimenez who practices on [facility]. Patient takes carbamazepine, gabapentin, and trazodone suggesting she may have a [id number] seizure disorder. She is also on antihypertensive and antidepressant. Of note, patient was admitted in April 2017 for altered mental status, found down similar to presenting complaint today. She became responsive within 6 hr of admission. Per ED note: "Patient was unresponsive at first according to EMS, and last seen normal last evening. She was found this morning sleeping in the recliner. EMS was called. During transport the patient had sudden onset of violent hematemesis, and started to ask questions." Review of Systems ROS Limitations: Clinical Condition, Intoxication, Altered Mental Status Past Family Social History Past Medical History Unable to obtain history, per EMR: HTN Seizure Disorder Brain Aneurysm Past Surgical History Unable to obtain history, per EMR: Aneurysm clip? Reported Medications Unable to obtain history, per medications at bedside: Reported Meds & Active Scripts Active Reported Phenergan (Promethazine HCl) 25 Mg Tablet 25 Mg PO ONCE Aspirin 81 Mg Chew 81 Mg CHEW DAILY Topiramate 25 Mg Tab 25 Mg PO BID Furosemide 40 Mg Tab 40 Mg PO DAILY Calcium Acetate (Phosphate Binder) 667 Mg Cap 667 Mg PO TID Trazodone (Trazodone HCl) 100 Mg Tablet 100 Mg PO HS Baclofen 10 Mg Tab 10 Mg PO TID Hydroxyzine HCl 25 Mg Tab 25 Mg PO TID Amlodipine (Amlodipine Besylate) 10 Mg Tab 10 Mg PO DAILY Neurontin (Gabapentin) 600 Mg Tab 600 Mg PO TID Carbamazepine 100 Mg Chew 100 Mg PO TID Citalopram (Citalopram Hydrobromide) 40 Mg Tab 40 Mg PO DAILY Allergies: Coded Allergies: aspirin (Verified Allergy, Severe, Seizures/ HIVES, 11/02/17) cyclobenzaprine (Verified Allergy, Severe, 11/02/17) Uncoded Allergies: fish (Adverse Reaction, Unknown, unknown reaction at age 7, 12/04/12) Active Ordered Medications Inpatient Medications Bisacodyl (Dulcolax Supp) 10 mg DAILY PRN RECTAL SEVERE CONSITIPATION; Start at 16:15 Flumazenil (Romazicon Inj) 0.2 mg Q1M PRN IV PUSH SEE LABEL COMMENTS; Start at 16:15 Haloperidol Lactate (Haldol Inj) 5 mg ONCE ONCE IM Last administered on at 15:37; Start 11/02/17 at 15:30; Stop 11/02/17 at 15:31; Status DC Lactulose (Lactulose Liq) 30 ml DAILY PRN PO SEVERE CONSITIPATION; Start at 16:15 Lorazepam (Ativan Inj) 2 mg Q15M PRN IV PUSH CIWA > 20; Start 11/02/17 at 16:15 Lorazepam (Ativan) 2 mg Q2H PRN PO CIWA 11-14; Start 11/02/17 at 16:15 Magnesium Hydroxide (Milk Of Magnesia Liq) 30 ml Q12H PRN PO Mild constipation ; Start 11/02/17 at 16:15 Naloxone HCl (Narcan Inj) 0.4 mg UNSCH PRN IV PUSH SEE LABEL COMMENTS; Start at 16:15 Ondansetron HCl (Zofran Inj) 4 mg Q6H PRN IVP NAUSEA OR VOMITING; Start at 16:15 Pantoprazole Sodium 80 mg/ Sodium Chloride 100 ml @ 10 mls/hr CONTINUOUS IV Last administered on 11/02/17at 13:53; Start 11/02/17 at 13:00 Senna/Docusate Sodium (Skylar-Colace) 1 tab BID PO ; Start 11/02/17 at 21:00 Sennosides (Senokot) 17.2 mg Q12H PRN PO Moderate constipation; Start 11/02/17 at 16:15 Sodium Chloride (NS Flush) 2 ml BID IV FLUSH ; Start 11/02/17 at 21:00 Family History Unable to obtain history Social History Unable to obtain history Physical Exam Vital Signs Vital Signs Date Time Temp Pulse Resp B/P (MAP) Pulse Ox O2 Delivery O2 Flow Rate FiO2 11/02/17 16:05 83 16 165/97 (119) 99 Room Air 11/02/17 14:00 70 13 174/97 (122) 98 Nasal Cannula 2.00 11/02/17 12:11 100 11/02/17 12:11 97.8 81 15 173/116 (135) 100 Physical Exam GENERAL: This is a well-nourished, well-developed patient who is somnolent but intermittently arousable. SKIN: No rashes, ecchymoses or lesions. Cool and dry. No jaundice. Crusted vomitus, pink on chin. HEAD: Atraumatic. Normocephalic. No temporal or scalp tenderness. EYES: Pupils equal round and reactive, approximately 4mm. Extraocular motions intact. No scleral icterus. Mild conjunctival injection, no drainage. ENT: Nose without bleeding, purulent drainage or septal hematoma. Throat without erythema, tonsillar hypertrophy or exudate. Uvula midline. Airway patent. NECK: Trachea midline. No JVD or lymphadenopathy. Supple, nontender, no meningeal signs. CARDIOVASCULAR: Regular rate and rhythm without murmurs, gallops, or rubs. RESPIRATORY: Clear to auscultation on anterior lung foreman. Breath sounds equal bilaterally. No wheezes, rales, or rhonchi. GASTROINTESTINAL: Abdomen soft, non-tender, nondistended. Normal bowel sounds. No hepato-splenomegaly, or palpable masses. No guarding. MUSCULOSKELETAL: Extremities without clubbing, cyanosis, or edema. No joint tenderness, effusion, or edema noted. No calf tenderness. Negative Homans sign bilaterally. NEUROLOGICAL: Intermittently arousable. No obvious focal deficits but unable to perform full evaluation due to somnolence. Speech incomprehensible. Localizes to pain in UEs and LEs bilaterally. Laboratory Laboratory Tests Test 11/02/17 12:30 White Blood Count 11.6 Red Blood Count 4.96 Hemoglobin 15.4 Hematocrit 45.3 Mean Corpuscular Volume 91.4 Mean Corpuscular Hemoglobin 31.1 Mean Corpuscular Hemoglobin Concent 34.0 Red Cell Distribution Width 13.7 Platelet Count 218 Mean Platelet Volume 8.7 Neutrophils (%) (Auto) 77.1 Lymphocytes (%) (Auto) 14.8 Monocytes (%) (Auto) 6.7 Eosinophils (%) (Auto) 0.8 Basophils (%) (Auto) 0.6 Neutrophils # (Auto) 9.0 Lymphocytes # (Auto) 1.7 Monocytes # (Auto) 0.8 Eosinophils # (Auto) 0.1 Basophils # (Auto) 0.1 CBC Comment DIFF FINAL Differential Comment Prothrombin Time 10.6 Prothromb Time International Ratio 1.0 Activated Partial Thromboplast Time 22.1 Urine Color YELLOW Urine Turbidity CLEAR Urine pH 5.5 Urine Specific Landers 1.023 Urine Protein TRACE Urine Glucose (UA) NEG Urine Ketones NEG Urine Occult Blood NEG Urine Nitrite NEG Urine Bilirubin NEG Urine Urobilinogen LESS THAN 2.0 Urine Leukocyte Esterase NEG Urine RBC 1 Urine WBC 1 Urine Squamous Epithelial Cells 1 Urine Renal Epithelial Cells <1 Urine Hyaline Casts 52 Urine Mucus FEW Microscopic Urinalysis Comment CATH-CULT NOT IND Blood Urea Nitrogen 31 Creatinine 0.98 Random Glucose 118 Total Protein 8.5 Albumin 4.1 Calcium Level 8.8 Alkaline Phosphatase 191 Aspartate Amino Transf (AST/SGOT) 18 Alanine Aminotransferase (ALT/SGPT) 34 Total Bilirubin 0.3 Sodium Level 139 Potassium Level 4.1 Chloride Level 106 Carbon Dioxide Level 28.0 Anion Gap 5 Estimat Glomerular Filtration Rate 57 Lactic Acid Level 1.1 Ammonia 36 Total Creatine Kinase 41 Troponin I LESS THAN 0.02 Lipase 71 Salicylates Level 3.3 Urine Opiates Screen NEG Acetaminophen Level LESS THAN 2.0 Urine Barbiturates Screen NEG Carbamazepine (Tegretol) Level 6.5 Urine Amphetamines Screen NEG Urine Benzodiazepines Screen NEG Urine Cocaine Screen NEG Urine Cannabinoids Screen NEG Ethyl Alcohol Level LESS THAN 3 Result Diagram: 11/02/17 1230 11/02/17 1230 Imaging Last Impressions Head CT 11/02/17 1155 Signed Impressions: Service Date/Time: Thursday, November 02, 2017 13:53 - CONCLUSION: 1. No acute hemorrhage, mass or acute infarction. 2. Atrophy and chronic small vessel ischemic change. Casa Turk MD Chest X-Ray 11/02/17 1155 Signed Impressions: Service Date/Time: Thursday, November 02, 2017 12:01 - CONCLUSION: Mild patchy atelectasis/consolidation at the left lung base. Walter Mclaughlin MD Abdomen/Pelvis CT 11/02/17 1155 Signed Impressions: Service Date/Time: Thursday, November 02, 2017 13:57 - CONCLUSION: 1. Mild diverticulosis with no inflammatory change. 2. Moderate amount of stool present in the colon. 3. Consolidation in both posterior lung bases which could be infectious or inflammatory. 4. Moderate size retrocardiac hiatal hernia. 5. Mild hepatic cyst steatosis. 6. Mild thickening of left adrenal gland which could indicate hyperplasia. There is no focal mass. 7. Small 5 mm sclerotic foci in the left side of the L4 vertebral body which is nonspecific but likely represents a small bone island. MD Veda Doty VTE Risk Assessment Veda VTE Risk Assessment: Mod/High Risk (score >= 2) VTE Pharm Contraindication: Hemorrhage Caprini Risk Assessment Model Point Value = 1 Point Value = 2 Point Value = 3 Point Value = 5 Age 41-60 Minor surgery BMI > 25 kg/m2 Swollen legs Varicose veins or History of unexplained or recurrent spontaneous Oral contraceptives or hormone replacement Sepsis (< 1 month) Serious lung disease, including pneumonia (< 1 month) Abnormal pulmonary function Acute myocardial infarction Congestive heart failure (< 1 month) History of inflammatory bowel disease Medical patient at bed rest Age 61-74 Arthroscopic surgery Major open surgery (> 45 min) Laparoscopic surgery (> 45 min) Malignancy Confined to bed (> 72 hours) Immobilizing plaster cast Central venous access Age >= 75 History of VTE Family history of VTE Factor V Leiden Prothrombin [id number] Lupus anticoagulant Anticardiolipin antibodies Elevated serum homocysteine Heparin-induced thrombocytopenia Other congenital or acquired thrombophilia Stroke (< 1 month) Elective arthroplasty Hip, pelvis, or leg fracture Acute spinal cord injury (< 1 month) Prophylaxis Regimen Total Risk Factor Score Risk Level Prophylaxis Regimen 0-1 Low Early ambulation 2 Moderate Order ONE of the following: *Sequential Compression Device (SCD) *Heparin 5000 units SQ BID 3-4 Higher Order ONE of the following medications: *Heparin 5000 units SQ TID *Enoxaparin/Lovenox 40 mg SQ daily (WT < 150 kg, CrCl > 30 mL/min) *Enoxaparin/Lovenox 30 mg SQ daily (WT < 150 kg, CrCl > 10-29 mL/min) *Enoxaparin/Lovenox 30 mg SQ BID (WT < 150 kg, CrCl > 30 mL/min) AND/OR *Sequential Compression Device (SCD) 5 or more Highest Order ONE of the following medications: *Heparin 5000 units SQ TID (Preferred with Epidurals) *Enoxaparin/Lovenox 40 mg SQ daily (WT < 150 kg, CrCl > 30 mL/min) *Enoxaparin/Lovenox 30 mg SQ daily (WT < 150 kg, CrCl > 10-29 mL/min) *Enoxaparin/Lovenox 30 mg SQ BID (WT < 150 kg, CrCl > 30 mL/min) AND *Sequential Compression Device (SCD) Assessment and Plan Assessment and Plan 67 year old female with hematemesis and altered mental status. History of seizure disorder, remote aneurysm, and HTN based on EMR review and med review. Admitted as inpt for further workup. Code Status Full Code Discussed Condition With Radhames PONCE, Dr. Wheatley Problem List: (1) Hematemesis/vomiting blood ICD Codes: K92.0 - Hematemesis Status: Acute Plan: Unknown etiology CBC wnl, plts nl, INR nl Give get Hemoccult, check H&H q6hr IVF @ 125 cc/hr Monitor VS closely Gastroenterology consulted (2) Altered mental status ICD Codes: R41.82 - Altered mental status Status: Acute Plan: Altered mental status, Armando Coma Scale = 11 on my exam. Neuro exam difficult to complete but no focal deficits noted. She is also status-post Ativan and Haldol on my exam. No obvious evidence of stroke and CT head normal. Further workup indicated as she was found down in the field with unclear etiology. Differential diagnosis includes stroke/TIA, toxic disturbance, seizure , infection, electrolyte imbalance. Toxic/Electrolyte Disturbance workup * Ammonia unremarkable * UDS negative, EtOH <3 * Order TSH, magnesium * Carbamazepine level normal * CIWA protocol with Rally Pack CVA workup * NPO * Neuro checks q4hr * CT head wnl * HOB flat * PT, OT, speech evaluation * MRI/MRA/US carotids * Neuro consult * A1c, lipid profile * cardiac enzymes, EKG trending Infection workup * CBC showing no leukocytosis * CXR possible patchy infiltrate in left lung base but no hypoxia, no increased work of breathing. Will consider empiric treatment for CAP if indicated by clinical status changes. * UA wnl * Will order blood cultures (3) Seizure disorder ICD Codes: G40.909 - Seizure disorder Status: Chronic Plan: Appears to have chronic seizure disorder based on med rec. No active evidence of tonic clonic seizure. Patient may be post-ictal but was reportedly agitated on arrival to ED * Will hold home meds at this time given PO. * EEG * CVA imaging as above * Neurology consulted (4) HTN (hypertension) ICD Codes: I10 - Hypertension Status: Chronic Plan: On amlopidine at home. Will hold for now, allow permissive HTN to SBP 220 give possibility for ischemic stroke, and re-introduce antihypertensives in 24hr (5) Fluids/Electrolytes/Nutrition/Prophylaxis Status: Acute Plan: Fluids: NS @ 125ml/hr Electrolytes: monitor and replete as needed Nutrition: NPO pending workup for CVA, AMS, GIB DVT Prophylaxis: SCDs, hematemesis prior to ED arrival --> hold anticoagulation GI Prophylaxis: Protonix PRN anti-HTN: permissive HTN, enalaprilat PRN SBP > 220 Physician Certification 2 Midnight Certification Type: Admission for Inpatient Services Order for Inpatient Services The services are ordered in accordance with Medicare regulations or non- Medicare payer requirements, as applicable. In the case of services not specified as inpatient-only, they are appropriately provided as inpatient services in accordance with the 2-midnight benchmark. Estimated LOS (days): 3 days is the estimated time the patient will need to remain in the hospital, assuming treatment plan goals are met and no additional complications. Post-Hospital Plan: Not yet determined Problem Qualifiers (1) Hematemesis/vomiting blood: Qualified Codes: K92.0 - Hematemesis (2) Altered mental status: (3) HTN (hypertension): Qualified Codes: I10 - Essential (primary) hypertension Anika Waters MD Nov 02, 2017 17:17
[2017-11-02] MEDS: SODIUM CHLOR 0.9% 1000 ML INJ 1,000 ML IV SCH (17:19)
--- NOTE | 2017-11-02 18:05 | RADRPT ---
EXAM DATE/TIME: 11/02/2017 17:21 [place] COMPARISON: US CAROTID ARTERIES, July 26, 2016, 14:02. INDICATIONS : Cerebrovascular accident. MEDICAL HISTORY : CVA. Seizures. Head trama. Migraines. Hypertension. Ulcer. Hepatitis. Hemotemesis. SURGICAL HISTORY : Tonsillectomy. C4-C5 surgery. Repair brain aneurysm. ENCOUNTER: Initial ACUITY: 1 day PAIN SCORE: 0/10 LOCATION: Bilateral neck PEAK SYSTOLIC VELOCITIES (cm/sec): ICA/CCA RATIO: Right: 1.4 Left: 2.1 ICA: Right: 85 Left: 98 CCA: Right: 59 Left: 48 ECA: Right: 51 Left: 30 VERTEBRAL: Right: 49 antegrade Left: 49 antegrade Elevated flow velocities and ICA/CCA ratios have been found to correlate with increased degrees of vessel stenosis, calculated as percentage of diameter relative to a normal segment of distal ICA/CCA FINDINGS: RIGHT CAROTID: Mild facet plaquing is again noted in the carotid bulb and proximal internal carotid artery with no e vidence of stenosis. The waveforms and velocities are within normal limits with no spectral broadenin g or turbulence. LEFT CAROTID: Of moderate plaquing is present in the bulb with areas of posterior shadowing. There is no abnormal t urbulence. There is mild spectral broadening of the waveform distally. VERTEBRAL ARTERIES: Antegrade flow is seen in both vertebral arteries. MISCELLANEOUS: None. CONCLUSION: 1. Mild to moderate plaquing bilaterally with the systolic ratio on the left remaining in the 50-60% diameter stenosis range however the velocities are in the less than 50% diameter stenosis range. The findings do not appear significantly changed.milder. 2. There is milder stenosis in the right internal carotid artery. This is stable as well. Casa Turk MD on November 02, 2017 at 17:58 Board Certified Radiologist. This report was verified electronically.
[2017-11-02 18:11] VITALS: O2SAT 98
[2017-11-02 18:16] VITALS: BP 152/79; PULSE 92; RESP 16; O2SAT 98
[2017-11-02] MEDS ORDERED: MULTIVITAMIN INJ 10 ML, THIAMINE INJ 100 MG, FOLIC ACID INJ 1 MG in SODIUM CHLORID 0.9%... IV ONE (19:45)
[2017-11-02] MEDS: DOCUSATE SODIUM 50 MG/SENNA 8.6 MG TAB PO SCH (20:22)
[2017-11-02] MEDS: SODIUM CHLORIDE 0.9% FLUSH 10 ML FLUSH IV FLUSH SCH (20:22)
[2017-11-02 20:53] LABS: HEMATOCRIT 40.5 % (35.0-46.0); HEMOGLOBIN 13.5 GM/DL (11.6-15.3)
[2017-11-02 21:30] LABS: MAGNESIUM 1.9 MG/DL (1.5-2.5)
[2017-11-02 21:33] LABS: TROPONIN I LESS THAN 0.02 NG/ML (0.02-0.05)
[2017-11-02 21:50] VITALS: BP 188/87; PULSE 87; RESP 18; TEMP 98.5; O2SAT 98
[2017-11-02] MEDS: LORazepam 2 MG/ML VIAL IV PUSH PRN (23:19)
[2017-11-03 02:10] LABS: AUTOMATED NEUTROPHIL # 12.5 TH/MM3 (1.8-7.7); BASOPHIL # 0.1 TH/MM3 (0-0.2); BASOPHIL % 0.4 % (0.0-2.0); HEMATOCRIT 42.3 % (35.0-46.0); LYMPH % 5.9 % (9.0-44.0); LYMPHOCYTE # 0.8 TH/MM3 (1.0-4.8); MEAN CELL VOLUME 90.9 FL (80.0-100.0); MEAN CORPUSCULAR HEMOGLOBIN 30.2 PG (27.0-34.0); MEAN CORPUSCULAR HGB CONC 33.2 % (32.0-36.0); MEAN PLATELET VOLUME 8.3 FL (7.0-11.0); MONO % 3.9 % (0.0-8.0); MONOCYTE # 0.5 TH/MM3 (0-0.9); NEUT % 89.8 % (16.0-70.0); PLATELET COUNT 207 TH/MM3 (150-450); RED BLOOD COUNT 4.66 MIL/MM3 (4.00-5.30); RED CELL DISTRIBUTION WIDTH 13.4 % (11.6-17.2); WHITE BLOOD COUNT 13.9 TH/MM3 (4.0-11.0)
[2017-11-03 02:35] LABS: ALBUMIN 3.7 GM/DL (3.4-5.0); ALKALINE PHOSPHATASE 193 U/L (45-117); ALT (GPT) 28 U/L (10-53); AST (GOT) 21 U/L (15-37); BICARBONATE 22.8 MEQ/L (21.0-32.0); BLOOD UREA NITROGEN 24 MG/DL (7-18); CALCIUM 7.9 MG/DL (8.5-10.1); CHLORIDE 109 MEQ/L (98-107); CREATININE 0.82 MG/DL (0.50-1.00); GLOMERULAR FILTRATION RATE 70 ML/MIN (>89); GLUCOSE,RANDOM 188 MG/DL (74-106); SODIUM (NA) 141 MEQ/L (136-145); TOTAL BILIRUBIN ADULT 0.5 MG/DL (0.2-1.0); TOTAL PROTEIN 7.8 GM/DL (6.4-8.2); TROPONIN I LESS THAN 0.02 NG/ML (0.02-0.05)
[2017-11-03] MEDS: LORazepam 2 MG/ML VIAL IV PUSH PRN (03:31)
[2017-11-03 04:13] VITALS: PULSE 97
[2017-11-03 04:43] VITALS: BP 197/107; PULSE 96; RESP 18; O2SAT 96
[2017-11-03] MEDS: PANTOPRAZOLE INJ 80 MG in SODIUM CHLORIDE 0.9% INJ 100 ML IV SCH (04:53)
[2017-11-03] MEDS: SODIUM CHLOR 0.9% 1000 ML INJ 1,000 ML IV SCH ×2 (04:53→08:11)
[2017-11-03 08:39] VITALS: BP 203/108; PULSE 98; RESP 18; TEMP 97.8; O2SAT 98
[2017-11-03] MEDS ORDERED: BACLOFEN 10 MG TAB PO SCH (09:15)
[2017-11-03] MEDS ORDERED: PILL SPLITTER OTHER PRN (09:30)
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
[2017-11-03] MEDS ORDERED: ENALAPRILAT 1.25 MG/ML VIAL IV PUSH PRN (10:45)
[2017-11-03] MEDS ORDERED: LORazepam 2 MG/ML VIAL IV PUSH PRN (11:15)
[2017-11-03 11:31] VITALS: BP 211/111; PULSE 92; RESP 16; TEMP 97.8; O2SAT 98
--- NOTE | 2017-11-03 11:50 | PD.CONS ---
HPI History of Present Illness This is a 67 year old female with hx seizure disorder, brain aneurysm who was found unresponsive and brougth by EMS. GI has been consulted for hematemesis, she had 1 episode in the ambulance. She is unable to provide a history or any meaningful information. per EMR she has multiple ER visits for similar episodes of AMS and seizures. Tox screen was negative. CT abd showed diverticulosis, moderate stool in colon, consolidation post lung bases, hiatal hernia, mild fatty liver. (Carolin Trinh) PFSH Past Medical History seizure disorder HTN brain aneurysm Past Surgical History surgery for brain aneursym (Carolin Trinh) Coded Allergies: aspirin (Verified Allergy, Severe, Seizures/ HIVES, 11/02/17) cyclobenzaprine (Verified Allergy, Severe, 11/02/17) Uncoded Allergies: fish (Adverse Reaction, Unknown, unknown reaction at age 7, 12/04/12) Family History unobtainable Social History unobtainable (Carolin Trinh) Review of Systems noncontributory (Carolin Trinh) GI Exam Vitals I&O Vital Signs Date Time Temp Pulse Resp B/P (MAP) Pulse Ox O2 Delivery O2 Flow Rate FiO2 11/03/17 08:39 97.8 98 18 203/108 (139) 98 11/03/17 04:43 96 18 197/107 (137) 96 11/03/17 04:25 Nasal Cannula 3.00 11/03/17 04:13 97 11/02/17 21:50 98.5 87 18 188/87 (120) 98 11/02/17 20:01 11/02/17 18:16 92 16 152/79 (103) 98 Room Air 11/02/17 18:11 98 Nasal Cannula 3.00 11/02/17 16:05 83 16 165/97 (119) 99 Room Air 11/02/17 14:00 70 13 174/97 (122) 98 Nasal Cannula 2.00 11/02/17 12:11 100 11/02/17 12:11 97.8 81 15 173/116 (135) 100 I/O 11/02/17 11/02/17 11/02/17 11/03/17 11/03/17 11/03/17 07:00 15:00 23:00 07:00 15:00 23:00 Intake Total 1000 ml 535 ml Balance 1000 ml 535 ml Intake IV Total 1000 ml 535 ml # Voids 1 2 # Bowel Movements 2 Imaging Last Impressions Head CT 11/02/17 1155 Signed Impressions: Service Date/Time: Thursday, November 02, 2017 13:53 - CONCLUSION: 1. No acute hemorrhage, mass or acute infarction. 2. Atrophy and chronic small vessel ischemic change. Casa Turk MD Chest X-Ray 11/02/17 1155 Signed Impressions: Service Date/Time: Thursday, November 02, 2017 12:01 - CONCLUSION: Mild patchy atelectasis/consolidation at the left lung base. Walter Mclaughlin MD Abdomen/Pelvis CT 11/02/17 1155 Signed Impressions: Service Date/Time: Thursday, November 02, 2017 13:57 - CONCLUSION: 1. Mild diverticulosis with no inflammatory change. 2. Moderate amount of stool present in the colon. 3. Consolidation in both posterior lung bases which could be infectious or inflammatory. 4. Moderate size retrocardiac hiatal hernia. 5. Mild hepatic cyst steatosis. 6. Mild thickening of left adrenal gland which could indicate hyperplasia. There is no focal mass. 7. Small 5 mm sclerotic foci in the left side of the L4 vertebral body which is nonspecific but likely represents a small bone island. Casa Turk MD Carotid Artery Ultrasound 11/02/17 0000 Signed Impressions: Service Date/Time: Thursday, November 02, 2017 17:21 - CONCLUSION: 1. Mild to moderate plaquing bilaterally with the systolic ratio on the left remaining in the 50-60%% diameter stenosis range however the velocities are in the less than 50%% diameter stenosis range. The findings do not appear significantly changed.milder. 2. There is milder stenosis in the right internal carotid artery. This is stable as well. Casa Turk MD Laboratory Test 11/02/17 12:30 11/02/17 20:10 11/03/17 01:53 White Blood Count 11.6 TH/MM3 13.9 TH/MM3 Red Blood Count 4.96 MIL/MM3 4.66 MIL/MM3 Hemoglobin 15.4 GM/DL 13.5 GM/DL 14.0 GM/DL Hematocrit 45.3 % 40.5 % 42.3 % Mean Corpuscular Volume 91.4 FL 90.9 FL Mean Corpuscular Hemoglobin 31.1 PG 30.2 PG Mean Corpuscular Hemoglobin Concent 34.0 % 33.2 % Red Cell Distribution Width 13.7 % 13.4 % Platelet Count 218 TH/MM3 207 TH/MM3 Mean Platelet Volume 8.7 FL 8.3 FL Neutrophils (%) (Auto) 77.1 % 89.8 % Lymphocytes (%) (Auto) 14.8 % 5.9 % Monocytes (%) (Auto) 6.7 % 3.9 % Eosinophils (%) (Auto) 0.8 % 0.0 % Basophils (%) (Auto) 0.6 % 0.4 % Neutrophils # (Auto) 9.0 TH/MM3 12.5 TH/MM3 Lymphocytes # (Auto) 1.7 TH/MM3 0.8 TH/MM3 Monocytes # (Auto) 0.8 TH/MM3 0.5 TH/MM3 Eosinophils # (Auto) 0.1 TH/MM3 0.0 TH/MM3 Basophils # (Auto) 0.1 TH/MM3 0.1 TH/MM3 CBC Comment DIFF FINAL DIFF FINAL Differential Comment Prothrombin Time 10.6 SEC Prothromb Time International Ratio 1.0 RATIO Activated Partial Thromboplast Time 22.1 SEC Urine Color YELLOW Urine Turbidity CLEAR Urine pH 5.5 Urine Specific [place] 1.023 Urine Protein TRACE mg/dL Urine Glucose (UA) NEG mg/dL Urine Ketones NEG mg/dL Urine Occult Blood NEG Urine Nitrite NEG Urine Bilirubin NEG Urine Urobilinogen LESS THAN 2.0 MG/DL Urine Leukocyte Esterase NEG Urine RBC 1 /hpf Urine WBC 1 /hpf Urine Squamous Epithelial Cells 1 /hpf Urine Renal Epithelial Cells <1 /hpf Urine Hyaline Casts 52 /lpf Urine Mucus FEW /lpf Microscopic Urinalysis Comment CATH-CULT NOT IND Blood Urea Nitrogen 31 MG/DL 24 MG/DL Creatinine 0.98 MG/DL 0.82 MG/DL Random Glucose 118 MG/DL 188 MG/DL Total Protein 8.5 GM/DL 7.8 GM/DL Albumin 4.1 GM/DL 3.7 GM/DL Calcium Level 8.8 MG/DL 7.9 MG/DL Alkaline Phosphatase 191 U/L 193 U/L Aspartate Amino Transf (AST/SGOT) 18 U/L 21 U/L Alanine Aminotransferase (ALT/SGPT) 34 U/L 28 U/L Total Bilirubin 0.3 MG/DL 0.5 MG/DL Sodium Level 139 MEQ/L 141 MEQ/L Potassium Level 4.1 MEQ/L 3.5 MEQ/L Chloride Level 106 MEQ/L 109 MEQ/L Carbon Dioxide Level 28.0 MEQ/L 22.8 MEQ/L Anion Gap 5 MEQ/L 9 MEQ/L Estimat Glomerular Filtration Rate 57 ML/MIN 70 ML/MIN Lactic Acid Level 1.1 mmol/L Ammonia 36 MCMOL/L Total Creatine Kinase 41 U/L 39 U/L 61 U/L Troponin I LESS THAN 0.02 NG/ML LESS THAN 0.02 NG/ML LESS THAN 0.02 NG/ML Lipase 71 U/L Salicylates Level 3.3 MG/DL Urine Opiates Screen NEG Acetaminophen Level LESS THAN 2.0 MCG/ML Urine Barbiturates Screen NEG Carbamazepine (Tegretol) Level 6.5 MCG/ML Urine Amphetamines Screen NEG Urine Benzodiazepines Screen NEG Urine Cocaine Screen NEG Urine Cannabinoids Screen NEG Ethyl Alcohol Level LESS THAN 3 MG/DL Magnesium Level 1.9 MG/DL Thyroid Stimulating Hormone 3rd Gen 2.610 uIU/ML Date/Time Source Procedure Growth Status 11/02/17 20:10 Blood Peripheral Aerobic Blood Culture - Preliminary NO GROWTH IN 1 DAY Resulted 11/02/17 20:10 Blood Peripheral Anaerobic Blood Culture - Preliminary NO GROWTH IN 1 DAY Resulted 11/03/17 06:30 Stool Stool Stool Occult Blood (KIMMY) Pending Received Physical Examination HEENT: normocephalic; atraumatic; no jaundice. traces tried blood seen on face and neck CHEST: diminished CARDIAC: RRR ABDOMEN: Soft, mildly distended, nontender; no hepatosplenomegaly; bowel sounds are present in all four quadrants. EXTREMITIES: No clubbing, cyanosis, or edema. SKIN: Normal; no rash; no jaundice. 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 unable to get hx. do not see any notes or procedures from our service in EMR. HH WNL at this time. BP is elevated. CT as above. ST recs puree diet and thin liquids - isolated elevation ALP - unclear significance. ?medication vs fatty liver - leukocytosis - mild - AMS - unclear etiology, hx seizure disorder, Hypertensive PLAN - EGD when pt more alert and stable - control BP - pureed diet - monitor HH - notify GI of active bleeding - further recs to follow - supportive care pt seen by myself and Dr Hanley and this note is written on his behalf (Carolin Trinh) Physician Comments Patient seen and examined Agree with above Continue with current supportive care Monitor labs Patient still complaining of nausea and abdominal discomfort we will proceed with upper endoscopy tomorrow (Grady Hanley MD) Carolin Trinh Nov 03, 2017 11:50 Grady Hanley MD Nov 03, 2017 23:43
[2017-11-03] MEDS: GABAPENTIN 300 MG CAP PO SCH ×2 (13:00→15:17)
--- NOTE | 2017-11-03 15:12 | EKG ---
Date Performed: 11/02/2017 Time Performed: 12:13:18 PTAGE: 67 years EKG: Sinus rhythm POSSIBLE LEFT ATRIAL ENLARGEMENT Since previous tracing, no significant change noted BORDERLINE ECG PREVIOUS TRACING : 04/26/2017 22.41 DOCTOR: Shady Waters Interpretating Date/Time 11/03/2017 15:10:11
--- NOTE | 2017-11-03 15:12 | EKG ---
Date Performed: 11/02/2017 Time Performed: 18:54:36 PTAGE: 67 years EKG: Sinus rhythm POSSIBLE LEFT ATRIAL ENLARGEMENT Since previous tracing, no significant change noted BORDERLINE ECG PREVIOUS TRACING : 11/02/2017 12.13 DOCTOR: Shady Waters Interpretating Date/Time 11/03/2017 15:11:13
[2017-11-03] MEDS: SODIUM CHLORIDE 0.9% FLUSH 10 ML FLUSH IV FLUSH SCH ×2 (15:16→22:59)
[2017-11-03] MEDS: TOPIRAMATE 25 MG TAB PO SCH ×2 (15:17→22:58)
[2017-11-03] MEDS: DOCUSATE SODIUM 50 MG/SENNA 8.6 MG TAB PO SCH ×2 (15:17→22:59)
--- NOTE | 2017-11-03 15:52 | EKG ---
Date Performed: 11/03/2017 Time Performed: 01:55:49 PTAGE: 67 years EKG: Sinus rhythm Since previous tracing, no significant change noted NORMAL ECG PREVIOUS TRACING : 10/23/2017 18.54.36 DOCTOR: Shady Waters Interpretating Date/Time 11/03/2017 15:51:43
[2017-11-03 16:12] LABS: HEMATOCRIT 49.3 % (35.0-46.0); HEMOGLOBIN 16.8 GM/DL (11.6-15.3)
--- NOTE | 2017-11-03 16:13 | RADRPT ---
EXAM DATE/TIME: 11/03/2017 14:15 [facility] COMPARISON: MRI BRAIN W/O CONTRAST, November 03, 2017, 14:15. INDICATIONS : Stroke. MEDICAL HISTORY : Cerebrovascular disease. Seizures. Hypertension. SURGICAL HISTORY : Fusion, cervical. ENCOUNTER: Initial ACUITY: 1 day PAIN SCORE: Nonresponsive. LOCATION: Bilateral cranial Please note a normal MRA of the brain does not entirely exclude the possibility of a small aneurysm, nor the possibility of distal intracranial vessel disease. TECHNIQUE: 3D time of flight MRA was performed. Source images, multiplanar STS MIP, and 3D volume MIP reconstru ctions were reviewed. FINDINGS: The study is mildly degraded by patient motion. Grossly, the anterior circulation is intact without e vidence of major vessel occlusion or stenosis. No definite aneurysm or vascular malformation is ident ified. There appears to be mild tapering of the proximal basilar artery. The distal right vertebral a rtery is not seen, potentially terminating in the PICA. CONCLUSION: Motion degraded exam grossly negative for acute process. Jayro Flores MD on November 03, 2017 at 16:06 Board Certified Radiologist. This report was verified electronically.
--- NOTE | 2017-11-03 16:26 | RADRPT ---
EXAM DATE/TIME: 11/03/2017 14:15 [facility] COMPARISON: MRI BRAIN W & W/O CONTRAST, July 26, 2016, 16:26. INDICATIONS : CVA. MEDICAL HISTORY : Hypertension. Seizures. Cerebrovascular disease. SURGICAL HISTORY : Fusion, cervical. ENCOUNTER: Initial ACUITY: 1 day PAIN SCORE: 2/10 LOCATION: Bilateral cranial TECHNIQUE: Multiplanar, multisequence MRI of the brain was performed without contrast. FINDINGS: CEREBRUM: The ventricles are normal for age. No evidence of midline shift, mass lesion, hemorrhage or acute in farction. No extraaxial fluid collections are seen. The pituitary gland and suprasellar cistern are normal in configuration. WHITE MATTER: Stable pronounced T2 prolongation in the periventricular white matter. POSTERIOR FOSSA: The cerebellum and brainstem are intact. The 4th ventricle is midline. The cerebellopontine angle is unremarkable. The cerebellar tonsils are normal in position. DIFFUSION IMAGING: No focal areas of restricted diffusion are seen. No evidence of acute infarction. EXTRACRANIAL: The visualized portions of the orbits and paranasal sinuses are unremarkable. CONCLUSION: Stable prominent chronic appearing white matter signal changes. No acute intracranial findings. Jayro Flores MD on November 03, 2017 at 16:10 Board Certified Radiologist. This report was verified electronically.
--- NOTE | 2017-11-03 19:09 | MG ---
cc: GAYLE MARTIN Lab No: Date: 11/03/2017 Age: Sex: F Race: ELECTROENCEPHALOGRAM NUMBER [id number] INTRODUCTION Change in mental status. Found unresponsive. MEDICATIONS Ativan. DESCRIPTION Diffuse alpha and beta rhythms are noted. The patient appears to be in some stage II sleep with diffuse sleep spindles. The recording overall is synchronous and symmetric. No hemisphere asymmetries are noted. Diffuse 7 Hz slowing is seen with drowsiness. Hyperventilation is not performed. Some bitemporal muscle artifact is seen. Photic stimulation was performed without significant posterior driving. IMPRESSION Essentially unremarkable awake and stage II sleep EEG. No evidence for focal or diffuse abnormality. MD ROLF Vela/KK /6:26 PM /6:49 PM
[2017-11-03] MEDS ORDERED: MULTIVITAMIN INJ 10 ML, THIAMINE INJ 100 MG, FOLIC ACID INJ 1 MG in SODIUM CHLORID 0.9%... IV SCH (20:00)
[2017-11-03] MEDS ORDERED: GABAPENTIN 300 MG CAP PO SCH ×2 (21:00)
[2017-11-03 22:06] VITALS: BP 128/82; PULSE 100; RESP 16; TEMP 98.2; O2SAT 95
[2017-11-03 22:17] LABS: HEMATOCRIT 41.2 % (35.0-46.0)
--- NOTE | 2017-11-03 23:19 | MB ---
cc: LITZY CLARKE MD PHD DATE OF CONSULTATION: 11/03/2017 REASON FOR CONSULTATION: Mental status changes. History of seizure. HISTORY OF PRESENT ILLNESS: Ms. Bone is a 67 year-old woman who has a history of previous subdural hematoma and seizure disorder. She states she has been having difficulty with balance and falling, recently fell and she states struck her head. She was found at home with alteration in mental, unresponsiveness with hematemesis. PAST MEDICAL HISTORY: History of subdural hematoma operated on in the past. History of seizure disorder secondary to that. MEDICATIONS AT HOME: 1. Phenergan as needed. 2. Aspirin 81 mg daily. 3. Topamax 25 mg b.i.d. 4. Lasix 40 mg daily. 5. Calcium acetate. 6. Trazodone 100 mg daily. 7. Baclofen 10 mg t.i.d. 8. Hydroxyzine 25 mg t.i.d. 9. Amlodipine 10 mg daily. 10. Neurontin 600 mg t.i.d. 11. Carbamazepine 100 mg t.i.d. 12. Citalopram 40 milligrams daily. ALLERGIES: ASPIRIN CYCLOBENZAPRINE. FISH NEUROLOGIC EXAMINATION Blood pressure is 197/107, more recent blood pressure 188/87. Pulse 87, respirations 18, temperature 90.5 degrees. Higher cortical function, she is alert, oriented x3. Speech is normal. Follows commands. Remote memory intact. Cranial nerves are intact. Motor exam she has 5/5 strength of all extremities in both upper extremities. She is weak in the right lower extremity at 4/5 which she states is chronic from previous subdural hematoma. She has normal strength in the left leg. IMAGING STUDIES: CT scan of the brain, chronic changes, no acute change. Carotid ultrasound 50 to 60% stenosis on the left internal carotid artery, does not appear to be hemodynamically significant. MRI of the brain, chronic white matter changes consistent with ischemic demyelinization, no acute change. MRA of the brain, there is motion artifact, no gross abnormality identified. Abdomen/pelvic CT scan, mild diverticulosis with no inflammatory changes. Consolidation posterior lung bases bilaterally. Mild hepatic cystic steatosis, thickening left adrenal gland, no focal mass. LABORATORY DATA White count 11,600, hemoglobin 15.4, hematocrit 45%, platelet count 218,000. Sodium is 141, potassium 3.5, chloride 109, CO2 is 22.8. The BUN is 24, creatinine 0.82, GFR 70, glucose 188, calcium 7.9, AST 21, ALT 28, alk phos 193, TSH 2.6. Tegretol level 6.5. Salicylate 3.3. UA, pH is 5.5, specific gravity 1.023. PT 10.6, INR 1, APTT 22.1. IMPRESSION Mental status change, possible seizure with postictal state. She did have an EEG which is normal. Her Tegretol level is within the therapeutic range. For the possibility of seizure, recommend increasing gabapentin to 600 milligrams b.i.d., 1200 milligrams hs. MD ASHLEY Felipe/KIERRA /8:07 PM /10:42 PM
[2017-11-04] MEDS: SODIUM CHLOR 0.9% 1000 ML INJ 1,000 ML IV SCH (03:31)
[2017-11-04] MEDS: PANTOPRAZOLE INJ 80 MG in SODIUM CHLORIDE 0.9% INJ 100 ML IV SCH (04:29)
[2017-11-04 06:56] LABS: HEMATOCRIT 36.5 % (35.0-46.0); HEMOGLOBIN 12.4 GM/DL (11.6-15.3)
[2017-11-04] MEDS ORDERED: POVIDONE IODINE 5% (ANTISEPSIS KIT) 4 APPLICATIONS EACH NARE PRN (07:15)
[2017-11-04] MEDS ORDERED: LACTATED RINGER'S 1000 ML IV PRN (07:15)
[2017-11-04] MEDS ORDERED: METOPROLOL TARTRATE 25 MG TAB PO PRN (07:15)
[2017-11-04] MEDS ORDERED: SODIUM CHLORID 0.9% 500 ML IV PRN (07:15)
[2017-11-04] MEDS ORDERED: CHLORHEXIDINE GLUCONATE 2 % 1 PACK (2 CLOTHS) TOPICAL PRN (07:15)
[2017-11-04 07:23] LABS: BICARBONATE 26.8 MEQ/L (21.0-32.0); CREATININE 0.76 MG/DL (0.50-1.00)
[2017-11-04 08:00] VITALS: BP 126/71; PULSE 82; RESP 17; TEMP 98; O2SAT 93
[2017-11-04] MEDS: SODIUM CHLORIDE 0.9% FLUSH 10 ML FLUSH IV FLUSH SCH (08:15)
[2017-11-04] MEDS: DOCUSATE SODIUM 50 MG/SENNA 8.6 MG TAB PO SCH (08:15)
[2017-11-04] MEDS: TOPIRAMATE 25 MG TAB PO SCH (08:16)
[2017-11-04] MEDS: GABAPENTIN 300 MG CAP PO SCH ×2 (08:18→14:31)
[2017-11-04 09:40] VITALS: BP 126/71; PULSE 82; RESP 18; O2SAT 95
[2017-11-04] MEDS ORDERED: ENALAPRILAT 1.25 MG/ML VIAL IV PUSH PRN (11:00)
--- NOTE | 2017-11-04 11:15 | HHI.FPPN ---
Subjective Remarks No acute events overnight. Vital signs significant for elevated BP but this was with permissive hypertension. Now improved this morning. This morning patient is much more awake and aware of what happened. She reports that prior to this admission, she was with her boyfriend and then fell and hit her head. However she reports that she was okay at that time. She then reports being in her chair and being found with foam in her mouth. She denies taking an overdose of her medication. She believes that she had a seizure. This morning she denies any soreness and feels well enough to move around. Patient also denies any alcohol use. Reports last use was back in 1988. Patient does report feeling well enough to be discharged home today if EGD is unremarkable. (Pamela Park MD, R3) Objective Vitals Vital Signs Date Time Temp Pulse Resp B/P (MAP) Pulse Ox O2 Delivery O2 Flow Rate FiO2 11/04/17 09:40 82 18 126/71 (89) 95 11/04/17 08:00 98.0 82 17 126/71 (89) 93 11/03/17 22:06 98.2 100 16 128/82 (97) 95 11/03/17 11:31 97.8 92 16 211/111 (144) 98 I/O 11/03/17 11/03/17 11/03/17 11/04/17 11/04/17 11/04/17 07:00 15:00 23:00 07:00 15:00 23:00 # Voids 2 1 # Bowel Movements 2 (Pamela Park MD, R3) Result Diagram: 11/04/17 0535 11/04/17 0535 Objective Remarks GEN: Well-developed, well-nourished patient. No acute distress. CV: Regular rate and rhythm without obvious murmurs LUNGS: Clear to auscultation bilaterally. Normal respiratory effort. No wheezes , rales, rhonchi. GI: Non distended EXT: No edema. No calf tenderness. NEURO/PSYCH: Awake, alert. Appropriate insight and judgment. Normal speech (Pamela Park MD, R3) A/P Assessment and Plan 67 year old female with hematemesis and altered mental status. History of seizure disorder, remote aneurysm, and HTN based on EMR review and med review. Admitted as inpt for further workup. Discharge Planning Today or tomorrow pending EGD results and patient's ability to ambulate without issue. theo Welsh ([facility], R[facility]) Attending Attestation Patient seen and examined. Case reviewed and discussed with the resident team. Agree with plan of care as discussed with me and documented in the resident note. she is a different person today where she is alert and conversant and back to normal today (Myriam Welsh MD) Problem List: (1) Hematemesis/vomiting blood ICD Codes: K92.0 - Hematemesis Status: Resolved Plan: Etiology of hematemesis unknown. No recurrence while hospitalized. -H&H stable -No coagulopathy noted -Hemoccult negative Gastroenterology consulted: appreciate recommendations * EGD today (2) Altered mental status ICD Codes: R41.82 - Altered mental status Status: Resolved Plan: Altered mental status on admission that slowly improved and resolved 11/04. No obvious focal deficits on initial exam but this is difficult due to altered mental status. Stroke evaluation including MRI, MRA, head CT unremarkable. Carotid ultrasound with left stenosis around 50-60% but this is stable from prior imaging. Etiology likely post ictal due to seizure. UDS unremarkable and patient denies overdose of medication. -Electrolytes, troponins, CK, TSH unremarkable -Carbamazepine level normal -seizure precautions -UA and blood cultures unremarkable. Neuro consulted: Appreciate recommendations * EEG normal * Suspect mental changes due to possible seizure with postictal state. * Recommend increasing gabapentin 600mg BID and 1200mg HS Imaging: * Carotid US: mild to moderate plaquing bilaterally with the systolic ratio on the left reaminin in the 50-60% diameter stenosis range however the velocities are in the less than 50% diameter stenosis range. The findings do not appear significantly changed, milder. There is milder stenosis in the right internal carotid artery. This is stable as well * Head CT: no acute process * CXR: mild patchy atelectasis/consolidation at the left lung base * Head MRA: grossly negative for acute process * Brain MRI: Stable prominent chronic appearing white matter signal changes. No acute intracranial findings Medications: * Carbamazepine 100mg TID * gabapentin 600mg BID and 1200mg HS * Topiramate 25mg BID * resume home amlodipine 11/05/17 (3) Seizure disorder ICD Codes: G40.909 - Seizure disorder Status: Chronic Plan: Appears to have chronic seizure disorder based on med rec. No active evidence of tonic clonic seizure. Patient likely post ictal. -See more detailed plan above (4) HTN (hypertension) ICD Codes: I10 - Hypertension Status: Chronic Plan: Resume home amlodipine (5) Fluids/Electrolytes/Nutrition/Prophylaxis Status: Acute Plan: Fluids: PO fluidsafter EGD Electrolytes: monitor and replete as needed Nutrition: heart healthy after EGD DVT Prophylaxis: SCDs, hematemesis prior to ED arrival --> hold anticoagulation GI Prophylaxis: Protonix (Pamela Park MD, R3) Problem Qualifiers (1) Hematemesis/vomiting blood: Qualified Codes: K92.0 - Hematemesis (2) Altered mental status: (3) HTN (hypertension): Qualified Codes: I10 - Essential (primary) hypertension Pamela Park MD, R3 Nov 04, 2017 11:15 Myriam Welsh MD Nov 04, 2017 14:39
[2017-11-04] MEDS ORDERED: LIDOCAINE HCL 1% PF 5 ML SYRINGE OTHER ONE (12:00)
[2017-11-04] MEDS ORDERED: PROPOFOL 200 MG/20 ML AMP IV ONE (12:00)
[2017-11-04] MEDS ORDERED: PROT40TA PO (13:18)
[2017-11-04] MEDS ORDERED: NEUR300C PO ×2 (13:18)
--- NOTE | 2017-11-04 13:20 | HHI.DCPOC ---
Discharge Care Plan Diagnosis: (1) Seizure (2) Altered mental status (3) Gastritis (4) Hematemesis/vomiting blood Goals to Promote Your Health * To prevent worsening of your condition and complications * To maintain your health at the optimal level Directions to Meet Your Goals Take your medications as prescribed Follow your dietary instruction Follow activity as directed Keep your appointments as scheduled Take your immunizations and boosters as scheduled If your symptoms worsen call your PCP, if no PCP go to Urgent Care Center or Emergency Room Smoking is Dangerous to Your Health. Avoid second hand smoke Call the 24-hour hour crisis hotline for domestic abuse at Pamela Park MD, R3 Nov 04, 2017 13:20
--- NOTE | 2017-11-04 13:38 | PD.PROCEDR ---
GI Procedure PROCEDURE PERFORMED EGD with biopsy INDICATION FOR PROCEDURE Hematemesis, PROCEDURE: The procedure, risks and benefits were discussed with Ms. Bone and informed consent was obtained. Anesthesia sedated her with Diprivan. She was placed in the left lateral decubitus position. EGD: The Pentax videoscope was introduced through the oropharynx and advanced to the second portion of the duodenum under direct visualization. Retroflexion was performed in the stomach. FINDINGS: The esophagus this appeared to be unremarkable except for a mild Schatzki ring at the GE junction The stomach there was a [id number] hiatal hernia there was also patchy erythema in the antrum but no ulcerations and no erosions no blood or bleeding the rest of the stomach was unremarkable antral biopsies were taken further evaluation The duodenum this was normal ESTIMATED BLOOD LOSS: None SPECIMENS REMOVED: Gastric biopsy COMPLICATIONS: None IMPRESSION: Mild Schatzki ring Mild to moderate hiatal hernia Mild gastritis PLAN: Await biopsy Advance diet Continue with current supportive care Monitor labs Grady Hanley MD Nov 04, 2017 13:38
--- NOTE | 2017-11-04 13:52 | HHI.DS ---
Discharge Summary Admission Date Nov 02, 2017 at 16:17 Discharge Date: Nov 04, 2017 Admitting Diagnosis Altered Menatal Status/Hematemesis (1) Hematemesis/vomiting blood Plan: Etiology of hematemesis unknown. No recurrence while hospitalized. -H&H stable -No coagulopathy noted -Hemoccult negative Gastroenterology consulted: appreciate recommendations * EGD today ICD Codes: K92.0 - Hematemesis Status: Resolved (2) Altered mental status Plan: Altered mental status on admission that slowly improved and resolved 11/04. No obvious focal deficits on initial exam but this is difficult due to altered mental status. Stroke evaluation including MRI, MRA, head CT unremarkable. Carotid ultrasound with left stenosis around 50-60% but this is stable from prior imaging. Etiology likely post ictal due to seizure. UDS unremarkable and patient denies overdose of medication. -Electrolytes, troponins, CK, TSH unremarkable -Carbamazepine level normal -seizure precautions -UA and blood cultures unremarkable. Neuro consulted: Appreciate recommendations * EEG normal * Suspect mental changes due to possible seizure with postictal state. * Recommend increasing gabapentin 600mg BID and 1200mg HS Imaging: * Carotid US: mild to moderate plaquing bilaterally with the systolic ratio on the left reaminin in the 50-60% diameter stenosis range however the velocities are in the less than 50% diameter stenosis range. The findings do not appear significantly changed, milder. There is milder stenosis in the right internal carotid artery. This is stable as well * Head CT: no acute process * CXR: mild patchy atelectasis/consolidation at the left lung base * Head MRA: grossly negative for acute process * Brain MRI: Stable prominent chronic appearing white matter signal changes. No acute intracranial findings Medications: * Carbamazepine 100mg TID * gabapentin 600mg BID and 1200mg HS * Topiramate 25mg BID * resume home amlodipine 11/05/17 ICD Codes: R41.82 - Altered mental status Status: Resolved (3) Seizure disorder Plan: Appears to have chronic seizure disorder based on med rec. No active evidence of tonic clonic seizure. Patient likely post ictal. -See more detailed plan above ICD Codes: G40.909 - Seizure disorder Status: Chronic (4) HTN (hypertension) Plan: Resume home amlodipine ICD Codes: I10 - Hypertension Status: Chronic (5) Fluids/Electrolytes/Nutrition/Prophylaxis Plan: Fluids: PO fluidsafter EGD Electrolytes: monitor and replete as needed Nutrition: heart healthy after EGD DVT Prophylaxis: SCDs, hematemesis prior to ED arrival --> hold anticoagulation GI Prophylaxis: Protonix Status: Acute [facility]ants GI Neurology Procedures EGD Brief History Ms Bone is a 67-year-old female patient with history of seizure and remote brain aneurysm as well as incorrectly taking her meds in the past brought in by EMS with reports of being found at home with altered mental status (i.e. unresponsive), and hematemesis x 1 in the ambulance. Patient stated she was here because "I fell" but did not answer further questions. She denied pain initially then states she has abdominal pain but did not elaborate. No other history was able to be obtained as patient fell asleep quickly. On review of medication bottles at bedside, patient's PCP is Dr. Dakota Jimenez who practices on [facility]. Patient takes carbamazepine, gabapentin, and trazodone suggesting she may have a [id number] seizure disorder. She is also on antihypertensive and antidepressant. Of note, patient was admitted in April 2017 for altered mental status, found down similar to presenting complaint today. She became responsive within 6 hr of admission. She was seen by Psychiatry who did not find her to be suicidal and at that time she reported taking 2 restoril pills Today, Ms Bone was more talkative than on admission but still was oriented only to her name. Her history is therefore unreliable, but she denied taking any meds to excess at this time. She denied taking Baclofen. However, she thought she was at home with her 3 roommates. "I had a seizure and I touched it. " Per history from her boyfriend on the phone, she reportedly takes too much medicine about 3 times a year and he calls the ambulance and then she improves and is fine for awhile. I did not speak to her boyfriend but he had called and spoke to her nurse who reported this information. CBC/BMP: 11/04/17 0535 11/04/17 0535 Significant Findings Laboratory Tests Test 11/02/17 12:30 11/02/17 20:10 11/03/17 01:53 11/03/17 15:51 White Blood Count 11.6 TH/MM3 (4.0-11.0) 13.9 TH/MM3 (4.0-11.0) Hemoglobin 15.4 GM/DL (11.6-15.3) 16.8 GM/DL (11.6-15.3) Neutrophils (%) (Auto) 77.1 % (16.0-70.0) 89.8 % (16.0-70.0) Neutrophils # (Auto) 9.0 TH/MM3 (1.8-7.7) 12.5 TH/MM3 (1.8-7.7) Activated Partial Thromboplast Time 22.1 SEC (24.3-30.1) Urine Mucus FEW /lpf (OCC) Blood Urea Nitrogen 31 MG/DL (7-18) 24 MG/DL (7-18) Random Glucose 118 MG/DL (74-106) 188 MG/DL (74-106) Total Protein 8.5 GM/DL (6.4-8.2) Alkaline Phosphatase 191 U/L (45-117) 193 U/L (45-117) Estimat Glomerular Filtration Rate 57 ML/MIN (>89) 70 ML/MIN (>89) Ammonia 36 MCMOL/L (11-32) Troponin I LESS THAN 0.02 NG/ML LESS THAN 0.02 NG/ML LESS THAN 0.02 NG/ML Lipase 71 U/L (73-393) Acetaminophen Level LESS THAN 2.0 MCG/ML Lymphocytes (%) (Auto) 5.9 % (9.0-44.0) Lymphocytes # (Auto) 0.8 TH/MM3 (1.0-4.8) Calcium Level 7.9 MG/DL (8.5-10.1) Chloride Level 109 MEQ/L (98-107) Hematocrit 49.3 % (35.0-46.0) Test 11/03/17 21:53 11/04/17 05:35 Calcium Level 8.0 MG/DL (8.5-10.1) Potassium Level 3.1 MEQ/L (3.5-5.1) Chloride Level 110 MEQ/L (98-107) Estimat Glomerular Filtration Rate 76 ML/MIN (>89) Imaging Last Impressions Head Magnetic Resonance Angiography 11/03/17 0000 Signed Impressions: Service Date/Time: Friday, November 03, 2017 14:15 - CONCLUSION: Motion degraded exam grossly negative for acute process. Jayro Flores MD Brain MRI 11/03/17 0000 Signed Impressions: Service Date/Time: Friday, November 03, 2017 14:15 - CONCLUSION: Stable prominent chronic appearing white matter signal changes. No acute intracranial findings. Jayro Flores MD Head CT 11/02/17 1155 Signed Impressions: Service Date/Time: Thursday, November 02, 2017 13:53 - CONCLUSION: 1. No acute hemorrhage, mass or acute infarction. 2. Atrophy and chronic small vessel ischemic change. Casa Turk MD Chest X-Ray 11/02/17 1155 Signed Impressions: Service Date/Time: Thursday, November 02, 2017 12:01 - CONCLUSION: Mild patchy atelectasis/consolidation at the left lung base. Walter Mclaughlin MD Abdomen/Pelvis CT 11/02/17 1155 Signed Impressions: Service Date/Time: Thursday, November 02, 2017 13:57 - CONCLUSION: 1. Mild diverticulosis with no inflammatory change. 2. Moderate amount of stool present in the colon. 3. Consolidation in both posterior lung bases which could be infectious or inflammatory. 4. Moderate size retrocardiac hiatal hernia. 5. Mild hepatic cyst steatosis. 6. Mild thickening of left adrenal gland which could indicate hyperplasia. There is no focal mass. 7. Small 5 mm sclerotic foci in the left side of the L4 vertebral body which is nonspecific but likely represents a small bone island. Casa Turk MD Carotid Artery Ultrasound 11/02/17 0000 Signed Impressions: Service Date/Time: Thursday, November 02, 2017 17:21 - CONCLUSION: 1. Mild to moderate plaquing bilaterally with the systolic ratio on the left remaining in the 50-60%% diameter stenosis range however the velocities are in the less than 50%% diameter stenosis range. The findings do not appear significantly changed.milder. 2. There is milder stenosis in the right internal carotid artery. This is stable as well. Casa Turk MD PE at Discharge GEN: Well-developed, well-nourished patient. No acute distress. CV: Regular rate and rhythm without obvious murmurs LUNGS: Clear to auscultation bilaterally. Normal respiratory effort. No wheezes , rales, rhonchi. GI: Non distended EXT: No edema. No calf tenderness. NEURO/PSYCH: Awake, alert. Appropriate insight and judgment. Normal speech Hospital Course 67 year old female with hematemesis and altered mental status. History of seizure disorder, remote aneurysm, and HTN. Admitted due to hematemesis and altered mental status. Suspect symptoms were related to seizure and postictal state. Patient was also noted to have hematemesis on admission so an EGD was performed which showed mild gastritis and mild schatzki ring. In relation to patient's seizure, EEG was normal. Neurology was consulted which increased her nightly gabapentin. Altered mental status progressively improved during hospitalization and she was back to her baseline on day of discharge. Stroke workup was also initiated on admission due to altered mental status but was unremarkable. Patient was discharged in stable condition. Pt Condition on Discharge: Stable Discharge Disposition: Discharge Home Discharge Instructions DIET: Follow Instructions for: Heart Healthy Diet Activities you can perform: Regular-No Restrictions Other Activity Instructions: NO DRIVING, SWIMMING, OR BATHS UNTIL CLEARED BY NEUROLOGY Follow up Referrals: Gastroenterology - 1 Week with Grady Hanley MD Neurology - 1 Week with Gasper Scott MD PhD PCP Follow-up - 1 Week with Dakota Jimenez DO New Medications: Pantoprazole (Protonix) 40 Mg Tab 40 MG PO DAILY for Reflux, #30 TAB 0 Refills Gabapentin (Neurontin) 300 Mg Cap 600 MG PO DAILY@0900,1500, #60 CAP Gabapentin (Neurontin) 300 Mg Cap 1200 MG PO HS, #30 CAP Continued Medications: Amlodipine (Amlodipine) 10 Mg Tab 10 MG PO DAILY for Blood Pressure Management, #30 TAB 0 Refills Calcium Acetate (Phosphate Binder) (Calcium Acetate (Phosphate Binder)) 667 Mg Cap 667 MG PO TID for Hyperphosphatemia, #90 CAP 0 Refills Carbamazepine (Carbamazepine) 100 Mg Chew 100 MG PO TID, #90 TAB 0 Refills Citalopram (Citalopram) 40 Mg Tab 40 MG PO DAILY for Control Depression, #30 TAB 0 Refills Furosemide (Furosemide) 40 Mg Tab 40 MG PO DAILY, #30 TAB 0 Refills Topiramate (Topiramate) 25 Mg Tab 25 MG PO BID for Control Seizures, #60 TAB 0 Refills Discontinued Medications: Aspirin (Aspirin) 81 Mg Chew 81 MG CHEW DAILY, TAB 0 Refills Baclofen (Baclofen) 10 Mg Tab 10 MG PO TID for Muscle Spasm, TAB 0 Refills Gabapentin (Neurontin) 600 Mg Tab 600 MG PO TID, #90 TAB 0 Refills Hydroxyzine HCl (Hydroxyzine HCl) 25 Mg Tab 25 MG PO TID, TAB 0 Refills Promethazine (Phenergan) 25 Mg Tablet 25 MG PO ONCE for Nausea/Vomiting, #1 TAB 0 Refills Trazodone (Trazodone) 100 Mg Tablet 100 MG PO HS for Control Depression, #30 TAB 0 Refills Pamela Park MD, R3 Nov 04, 2017 13:52
== END 2017-11-04 15:51 | disposition home or self-care (01) | DRG 101 ==
LOC: NEPE 11:43 → NEDA 15:36 → OBSVTOIN 16:17 → NEPGCP 19:53
PROVIDERS: ADMIT Family Medicine; ATTEND Family Medicine
PROC: 0DB78ZX Excision of Stomach, Pylorus, Via Natural or Artificial Opening Endoscopic, Diagnostic (ICD-10-PCS; principal; 2017-11-04 12:37)
DX: G40.909 Epilepsy, unspecified, not intractable, without status epilepticus (principal); K92.0 Hematemesis; K76.0 Fatty (change of) liver, not elsewhere classified; K22.2 Esophageal obstruction; I10 Essential (primary) hypertension; K44.9 Diaphragmatic hernia without obstruction or gangrene; K29.70 Gastritis, unspecified, without bleeding; K57.90 Diverticulosis of intestine, part unspecified, without perforation or abscess without bleeding; F17.210 Nicotine dependence, cigarettes, uncomplicated; F32.9 Major depressive disorder, single episode, unspecified; F41.9 Anxiety disorder, unspecified; R40.2423 Glasgow coma scale score 9-12, at hospital admission; R45.1 Restlessness and agitation; Z86.73 Personal history of transient ischemic attack (TIA), and cerebral infarction without residual deficits; Z91.81 History of falling
CPT/HCPCS: 70450; 70544; 70551; 71045; 74177; 76937; 80048; 80053; 80156; 80307; 81001; 82140; 82272; 82550; 82948; 83605; 83690; 83735; 84443; 84484; 85014; 85018; 85025; 85610; 85730; 86850; 86900; 86901; 87040; 88305; 88312; 93005; 93880; 95819; 96361; 96365; 96375; C9113; J1630; J2060; J3411; J7030; J7040; P9612; Q9967

== ENCOUNTER 2017-11-28 10:02 | Inpatient (IN) | payer MEDICARE, MEDICAID ==
[~2017-11-28] VITALS: Ht 157.5 cm; Wt 62.5 kg
[2017-11-28] VITALS (11 sets, daily range): BP systolic 134–245; BP diastolic 69–119; PULSE 58–68; RESP 12–14; TEMP 98.3–98.5; O2SAT 98–100
[~2017-11-28 10:02] MED LIST changes: +CALC1CAP PO; +FURO40TA PO; -LIPI10TA PO; -LISI10TA3 PO; +NEUR300C PO; -NEUR600T PO; -PROP80TA PO; +PROT40TA PO; -SERT-132 PO; -TOPI25 PO; +TOPI25TA7 PO
[2017-11-28] MEDS ORDERED: SODIUM CHLORID 0.9% 500 ML INJ 500 ML IV ONE (10:30)
[2017-11-28] MEDS ORDERED: SODIUM CHLORIDE 0.9% FLUSH 10 ML FLUSH IV FLUSH PRN (10:30)
--- NOTE | 2017-11-28 10:30 | PD ---
HPI Chief Complaint: OD/ Ingestion Time Seen by Provider: 10:23 Travel History International Travel<30 days: No Contact w/Intl Traveler<30days: No Traveled to known affect area: No History of Present Illness HPI 67-year-old female patient with history of seizures, hypertension, multiple episodes of altered mental status suspected to be either seizure related or overdoses, brought in by EMS today because boyfriend found her disoriented and lethargic. Patient was not able to give me any further history in the ER. She was given Narcan in the field without significant improvement in mental status. There is no history that we know off of her having a seizure today. Modifying Factors: None Associated Signs & Symptoms: Altered mental status Risk Factors: Previous admission for altered mental status, history of seizures PFSH Past Medical History Medical History: Unable to Obtain Arthritis: No Asthma: No Autoimmune Disease: No Blood Disorders: No Anxiety: Yes Depression: Yes Heart Rhythm Problems: No Cancer: No Cardiovascular Problems: Yes High Cholesterol: No Chest Pain: No Congestive Heart Failure: No COPD: No Cerebrovascular Accident: Yes Diabetes: No Diminished Hearing: No Endocrine: No Gastrointestinal Disorders: Yes GERD: No Glaucoma: No Genitourinary: No Headaches: Yes Hepatitis: Yes (TYPE UNKNOWN) Hiatal Hernia: No Hypertension: Yes Immune Disorder: No Implanted Vascular Access Dvce: No Kidney Stones: No Musculoskeletal: No Neurologic: Yes Psychiatric: Yes Reproductive: No Respiratory: Yes Immunizations Current: Yes Migraines: Yes Myocardial Infarction: No Renal Failure: No Seizures: Yes Sickle Cell Disease: No Sleep Apnea: No Thyroid Disease: No Ulcer: Yes Tetanus Vaccination: > 5 Years ?: Unknown Menopausal: Yes : 3 Para: 3 Past Surgical History Surgical History: Unable to Obtain Abdominal Surgery: No AICD: No Cardiac Surgery: No Ear Surgery: No Endocrine Surgery: No Eye Surgery: No Genitourinary Surgery: No Gynecologic Surgery: No Neurologic Surgery: Yes (S/P C4-5 SURGERY) Oral Surgery: No Pacemaker: No Thoracic Surgery: No Tonsillectomy: Yes Other Surgery: Yes (REPAIR BRAIN ANEURYSM) Social History Alcohol Use: No Tobacco Use: No Substance Use: Yes Allergies-Medications (Allergen,Severity, Reaction): Coded Allergies: aspirin (Verified Allergy, Severe, Seizures/ HIVES, 11/02/17) cyclobenzaprine (Verified Allergy, Severe, 11/02/17) Uncoded Allergies: fish (Adverse Reaction, Unknown, unknown reaction at age 7, 12/04/12) Reported Meds & Prescriptions Reported Meds & Active Scripts Active Protonix (Pantoprazole Sodium) 40 Mg Tab 40 Mg PO DAILY Neurontin (Gabapentin) 300 Mg Cap 1,200 Mg PO HS Neurontin (Gabapentin) 300 Mg Cap 600 Mg PO DAILY@0900,1500 Reported Topiramate 25 Mg Tab 25 Mg PO BID Furosemide 40 Mg Tab 40 Mg PO DAILY Calcium Acetate (Phosphate Binder) 667 Mg Cap 667 Mg PO TID Amlodipine (Amlodipine Besylate) 10 Mg Tab 10 Mg PO DAILY Carbamazepine 100 Mg Chew 100 Mg PO TID Citalopram (Citalopram Hydrobromide) 40 Mg Tab 40 Mg PO DAILY Review of Systems ROS Limitations: Altered Mental Status Physical Exam Narrative GENERAL: Well-developed elderly white female patient currently in mild distress. Poorly arousable to painful stimuli. SKIN: Focused skin assessment warm/dry. HEAD: Atraumatic. Normocephalic. EYES: Pupils equal and round. No scleral icterus. No injection or drainage. ENT: No nasal bleeding or discharge. Mucous membranes pink and moist. Poor gag reflex. But present. Airway intact. NECK: Trachea midline. No JVD. CARDIOVASCULAR: Regular rate and rhythm. No murmur appreciated. RESPIRATORY: No accessory muscle use. Clear to auscultation. Breath sounds equal bilaterally. GASTROINTESTINAL: Abdomen soft, non-tender, nondistended. Hepatic and splenic margins not palpable. MUSCULOSKELETAL: No obvious deformities. No clubbing. No cyanosis. No edema. NEUROLOGICAL: Lethargic, not following commands. PSYCHIATRIC: Lethargic, unable to evaluate Data Data Last Documented VS Vital Signs Date Time Temp Pulse Resp B/P (MAP) Pulse Ox O2 Delivery O2 Flow Rate FiO2 11/28/17 12:16 61 12 190/98 (128) 98 Nasal Cannula 2.00 11/28/17 10:20 98.3 Orders Orders Electrocardiogram (11/28/17 10:23) Complete Blood Count With Diff (11/28/17 10:23) Comprehensive Metabolic Panel (11/28/17 10:23) Prothrombin Time / Inr (Pt) (11/28/17 10:23) Act Partial Throm Time (Ptt) (11/28/17 10:23) Troponin I (11/28/17 10:23) Thyroid Stimulating Hormone (11/28/17 10:23) Urinalysis - C+S If Indicated (11/28/17 10:23) Blood Culture (11/28/17 10:23) Chest, Single Ap (11/28/17 10:23) Ct Brain W/O Iv Contrast(Rout) (11/28/17 10:23) Blood Glucose (11/28/17 10:23) Ecg Monitoring (11/28/17 10:23) Iv Access Insert/Monitor (11/28/17 10:23) Cath For Specimen (11/28/17 10:23) Oximetry (11/28/17 10:23) Sodium Chloride 0.9% Flush (Ns Flush) (11/28/17 10:30) Drug Screen, Random Urine (11/28/17 10:23) Alcohol (Ethanol) (11/28/17 10:23) Sodium Chlorid 0.9% 500 Ml Inj (Ns 500 M (11/28/17 10:30) Naloxone Inj (Narcan Inj) (11/28/17 11:00) Admit Order (Ed Use Only) (11/28/17 13:04) Labs Laboratory Tests Test 11/28/17 10:33 White Blood Count 10.0 TH/MM3 Red Blood Count 4.65 MIL/MM3 Hemoglobin 14.5 GM/DL Hematocrit 42.9 % Mean Corpuscular Volume 92.2 FL Mean Corpuscular Hemoglobin 31.2 PG Mean Corpuscular Hemoglobin Concent 33.9 % Red Cell Distribution Width 13.3 % Platelet Count 233 TH/MM3 Mean Platelet Volume 9.0 FL Neutrophils (%) (Auto) 61.3 % Lymphocytes (%) (Auto) 25.2 % Monocytes (%) (Auto) 9.9 % Eosinophils (%) (Auto) 2.8 % Basophils (%) (Auto) 0.8 % Neutrophils # (Auto) 6.1 TH/MM3 Lymphocytes # (Auto) 2.5 TH/MM3 Monocytes # (Auto) 1.0 TH/MM3 Eosinophils # (Auto) 0.3 TH/MM3 Basophils # (Auto) 0.1 TH/MM3 CBC Comment AUTO DIFF Differential Comment AUTO DIFF CONFIRMED Platelet Estimate NORMAL Platelet Morphology Comment NORMAL Red Cell Morphology Comment NORMAL Urine Color YELLOW Urine Turbidity CLEAR Urine pH 5.5 Urine Specific [place] 1.015 Urine Protein NEG mg/dL Urine Glucose (UA) NEG mg/dL Urine Ketones NEG mg/dL Urine Occult Blood NEG Urine Nitrite NEG Urine Bilirubin NEG Urine Urobilinogen 2.0 MG/DL Urine Leukocyte Esterase TRACE Urine RBC LESS THAN 1 /hpf Urine WBC 1 /hpf Urine Hyaline Casts 18 /lpf Urine Mucus FEW /lpf Microscopic Urinalysis Comment CULT NOT INDICATED Blood Urea Nitrogen 18 MG/DL Creatinine 0.80 MG/DL Random Glucose 83 MG/DL Total Protein 6.7 GM/DL Albumin 3.2 GM/DL Calcium Level 7.4 MG/DL Alkaline Phosphatase 143 U/L Aspartate Amino Transf (AST/SGOT) 23 U/L Alanine Aminotransferase (ALT/SGPT) 15 U/L Total Bilirubin 0.3 MG/DL Sodium Level 142 MEQ/L Potassium Level 3.9 MEQ/L Chloride Level 109 MEQ/L Carbon Dioxide Level 27.8 MEQ/L Anion Gap 5 MEQ/L Estimat Glomerular Filtration Rate 72 ML/MIN Protein Corrected Calcium 7.6 MG/DL Troponin I LESS THAN 0.02 NG/ML Thyroid Stimulating Hormone 3rd Gen 4.410 uIU/ML Urine Opiates Screen NEG Urine Barbiturates Screen NEG Urine Amphetamines Screen NEG Urine Benzodiazepines Screen NEG Urine Cocaine Screen NEG Urine Cannabinoids Screen NEG Ethyl Alcohol Level LESS THAN 3 MG/DL MDM Medical Decision Making Medical Screen Exam Complete: Yes Emergency Medical Condition: Yes Medical Record Reviewed: Yes Interpretation(s) EKG shows sinus rhythm at a rate of 60 bpm with no signs of acute ST changes. Laboratory Tests Test 11/28/17 10:33 Monocytes (%) (Auto) 9.9 % (0.0-8.0) Monocytes # (Auto) 1.0 TH/MM3 (0-0.9) Urine Leukocyte Esterase TRACE (NEG) Urine Mucus FEW /lpf (OCC) Albumin 3.2 GM/DL (3.4-5.0) Calcium Level 7.4 MG/DL (8.5-10.1) Alkaline Phosphatase 143 U/L (45-117) Chloride Level 109 MEQ/L (98-107) Estimat Glomerular Filtration Rate 72 ML/MIN (>89) Protein Corrected Calcium 7.6 MG/DL (8.5-10.1) Troponin I LESS THAN 0.02 NG/ML Thyroid Stimulating Hormone 3rd Gen 4.410 uIU/ML (0.358-3.740) Last [address] 11/28/17 1023 Signed Impressions: Service Date/Time: Tuesday, November 28, 2017 11:25 - CONCLUSION: Negative for acute process. Emerson Pulido MD FACR Chest X-Ray 11/28/17 1023 Signed Impressions: Service Date/Time: Tuesday, November 28, 2017 10:42 - CONCLUSION: 1. Bibasilar streakiness consistent with atelectasis and/or mild infiltrates. Clinical correlation is recommended. 2. Small hiatal hernia. Waldo Morales MD Differential Diagnosis Altered mental status: Post ictal versus acute intracranial processes versus medication overdose Narrative Course CAT scan does not show any signs of acute intracranial injuries. Lab work did not indicate significant metabolic issues. She is not intoxicated. She was observed in the ER for several hours without improvement. I have reviewed previous admissions and she has had similar admissions before. At this point, my plan would be to admit her for further evaluation. Case is discussed with [facility] hospitalist for admission. Diagnosis Primary Impression: Altered mental status Admitting Information Admitting Physician Requests: Admit Riley Raymond MD Nov 28, 2017 10:30
[2017-11-28 10:58] LABS: AUTOMATED NEUTROPHIL # 6.1 TH/MM3 (1.8-7.7); BASOPHIL # 0.1 TH/MM3 (0-0.2); BASOPHIL % 0.8 % (0.0-2.0); EOSINOPHIL # 0.3 TH/MM3 (0-0.4); EOSINOPHIL % 2.8 % (0.0-4.0); HEMATOCRIT 42.9 % (35.0-46.0); HEMOGLOBIN 14.5 GM/DL (11.6-15.3); LYMPH % 25.2 % (9.0-44.0); LYMPHOCYTE # 2.5 TH/MM3 (1.0-4.8); MEAN CELL VOLUME 92.2 FL (80.0-100.0); MEAN CORPUSCULAR HEMOGLOBIN 31.2 PG (27.0-34.0); MEAN CORPUSCULAR HGB CONC 33.9 % (32.0-36.0); MONO % 9.9 % (0.0-8.0); NEUT % 61.3 % (16.0-70.0); PLATELET COUNT 233 TH/MM3 (150-450); RED BLOOD COUNT 4.65 MIL/MM3 (4.00-5.30); RED CELL DISTRIBUTION WIDTH 13.3 % (11.6-17.2)
[2017-11-28] MEDS ORDERED: NALOXONE HCL 2 MG/2 ML VIAL IV PUSH ONE (11:00)
[2017-11-28 11:03] LABS: BILIRUBIN, URINE NEG (NEG); BLOOD, URINE NEG (NEG); GLUCOSE,URINE NEG (NEG); HYALINE CAST, URINE 18 /lpf (RARE); KETONE, URINE NEG (NEG); MUCUS URINE FEW /lpf (OCC); NITRITE,URINE NEG (NEG); PH, URINE 5.5 (5.0-8.5); URINE COLOR YELLOW (YELLW/STRAW); URINE LEUKOCYTE ESTERASE TRACE (NEG)
[2017-11-28 11:24] LABS: ALBUMIN 3.2 GM/DL (3.4-5.0); ALT (GPT) 15 U/L (10-53); AST (GOT) 23 U/L (15-37); BICARBONATE 27.8 MEQ/L (21.0-32.0); BLOOD UREA NITROGEN 18 MG/DL (7-18); CALCIUM 7.4 MG/DL (8.5-10.1); CHLORIDE 109 MEQ/L (98-107); GLOMERULAR FILTRATION RATE 72 ML/MIN (>89); GLUCOSE,RANDOM 83 MG/DL (74-106); SODIUM (NA) 142 MEQ/L (136-145)
[2017-11-28 11:30] LABS: ALKALINE PHOSPHATASE 143 U/L (45-117); CALCIUM-PROTEIN CORRECTED 7.6 MG/DL (8.5-10.1); TOTAL BILIRUBIN ADULT 0.3 MG/DL (0.2-1.0); TOTAL PROTEIN 6.7 GM/DL (6.4-8.2); TROPONIN I LESS THAN 0.02 NG/ML (0.02-0.05)
--- NOTE | 2017-11-28 11:44 | RADRPT ---
EXAM DATE/TIME: 11/28/2017 11:25 [facility] COMPARISON: CT BRAIN W/O CONTRAST, November 02, 2017, 13:53. INDICATIONS : Altered mental status, possible overdose. RADIATION DOSE: 44.34 CTDIvol (mGy) MEDICAL HISTORY : Cerebrovascular disease. Seizures. Cardiovascular diseaseHypertension, Hepatitis SURGICAL HISTORY : None. ENCOUNTER: Initial ACUITY: 1 day PAIN SCALE: 0/10 LOCATION: cranial TECHNIQUE: Multiple contiguous axial images were obtained of the head. Using automated exposure control and adj ustment of the mA and/or kV according to patient size, radiation dose was kept as low as reasonably a chievable to obtain optimal diagnostic quality images. DICOM format image data is available electro nically for review and comparison. FINDINGS: CEREBRUM: The ventricles are normal for age. No evidence of midline shift, mass lesion, hemorrhage or acute in farction. No extra-axial fluid collections are seen. Minimal white matter changes. POSTERIOR FOSSA: The cerebellum and brainstem are intact. The 4th ventricle is midline. The cerebellopontine angle i s unremarkable. EXTRACRANIAL: The visualized portion of the orbits is intact. SKULL: The calvaria is intact. No evidence of skull fracture. CONCLUSION: Negative for acute process. Emerson Pulido MD FACR on November 28, 2017 at 11:41 Board Certified Radiologist. This report was verified electronically.
--- NOTE | 2017-11-28 11:54 | RADRPT ---
EXAM DATE/TIME: 11/28/2017 10:42 [facility] COMPARISON: CT ABDOMEN & PELVIS W CONTRAST, November 02, 2017, 13:57. CHEST SINGLE AP, November 02, 2017, 12:01. INDICATIONS : Altered mental status. MEDICAL HISTORY : Unresponsive. SURGICAL HISTORY : Unresponsive. ENCOUNTER: Initial ACUITY: 1 day PAIN SCORE: Non-responsive. LOCATION: Bilateral chest FINDINGS: Bibasilar streakiness is noted consistent with atelectasis and/or mild infiltrates. Clinical correlat ion is recommended. The heart is stable. A small hiatal hernia is noted. Hardware is noted within the lower cervical spine. CONCLUSION: 1. Bibasilar streakiness consistent with atelectasis and/or mild infiltrates. Clinical correlation is recommended. 2. Small hiatal hernia. Waldo Morales MD on November 28, 2017 at 11:51 Board Certified Radiologist. This report was verified electronically.
--- NOTE | 2017-11-28 14:39 | EKG ---
Date Performed: 11/28/2017 Time Performed: 10:21:02 PTAGE: 67 years EKG: Sinus rhythm POSSIBLE LEFT ATRIAL ENLARGEMENT POSSIBLE RIGHT VENTRICULAR CONDUCTION DELAY PROLONGED QT INTERVAL S danitza previous tracing, no significant change noted ABNORMAL ECG PREVIOUS TRACING : 11/03/2017 01.55 DOCTOR: Moni Glez Interpretating Date/Time 11/28/2017 14:39:38
[2017-11-28] MEDS: GABAPENTIN 300 MG CAP PO SCH (15:16)
--- NOTE | 2017-11-28 15:18 | HHI.HP ---
HPI Service [facility] Primary Care Physician Dakota Jimenez DO Admission Diagnosis Altered mental status Diagnoses: Chief Complaint: change in mental status Travel History International Travel<30 Days: No Contact w/Intl Traveler <30 Da: No Traveled to Known Affected Are: No History of Present Illness Patient is a 67 years old female with known history of hypertension, Seizure disorder who was brought in by apparently for change in mental status. She was found by sitting outside their home unresponsive. [facility] was called and was given Narcan IV with no response. At the ER- was given another dose on Narcan with no response, Head CT was negative. Urine tox screen was negative. Earlier per staff- a family member was here- and no reported witnessed seizure. On initial evaluation by ER- was obtunded- BPs were elevated with highest BP recorded at 245/119 Right now on evaluation,seen with ER staff nurse, patient awakened to call of her name,now ff simple commands. She denies any headaches, nausea or vomiting. she is amnesic of event. She did remember that she took a sleeping pill last evening. Does not recall name though. She states she up and ambulates independently. Denies any recent fever, URI symptoms. Patient admitted for evaluation and management. Review of Systems Constitutional: DENIES: Fever, Weight loss, Chills, Change in appetite Eyes: DENIES: Blurred vision, Double Vision Ears, nose, mouth, throat: DENIES: Tinnitus, Ear Pain, Epistaxis, Odynophagia Respiratory: DENIES: Cough, Hemoptysis, Sputum production, Shortness of breath Cardiovascular: DENIES: Chest pain, Palpitations, Dyspnea on Exertion, Lower Extremity Edema, Orthopnea Gastrointestinal: DENIES: Black stools, Bloody stools, Difficulty Swallowing, Anorexia Genitourinary: DENIES: Urgency, Hematuria, Vaginal discharge Musculoskeletal: DENIES: Joint pain, Stiffness Integumentary: DENIES: Pruritus Hematologic/lymphatic: DENIES: Bruising Immunologic/allergic: DENIES: Urticaria Neurologic: DENIES: Headache, Speech Problems, Tremor Psychiatric: DENIES: Suicidal Ideation, Homicidal Ideation Past Family Social History Past Medical History HYpertension Seziure disorder Allergies: Coded Allergies: aspirin (Verified Allergy, Severe, Seizures/ HIVES, 11/02/17) cyclobenzaprine (Verified Allergy, Severe, 11/02/17) Uncoded Allergies: fish (Adverse Reaction, Unknown, unknown reaction at age 7, 12/04/12) Social History sttes smokes 1/2-1 pack per day denies any alcohol or substance use or any pain meds use Physical Exam Vital Signs Vital Signs Date Time Temp Pulse Resp B/P (MAP) Pulse Ox O2 Delivery O2 Flow Rate FiO2 11/28/17 14:38 59 12 206/100 (135) 99 Nasal Cannula 2.00 11/28/17 13:08 62 13 191/108 (135) 100 Nasal Cannula 2.00 11/28/17 12:16 61 12 190/98 (128) 98 Nasal Cannula 2.00 11/28/17 11:22 68 12 182/101 (128) 98 Room Air 11/28/17 10:23 61 16 98 Room Air 11/28/17 10:20 98.3 61 14 182/105 (130) 98 Physical Exam GENERAL: more awake and able to stte her name, year 2019, "L[place]" and "Trump - president", ff all simple commands SKIN: No rashes, ecchymoses or lesions. Cool and dry. HEAD: Atraumatic. Normocephalic. No temporal or scalp tenderness. EYES: Pupils equal round and reactive. Extraocular motions intact. No scleral icterus. ENT: Nose without bleeding, Throat without erythema, tonsillar hypertrophy or exudate. Uvula midline. Airway patent. Good gag NECK: Trachea midline. No JVD or lymphadenopathy. Supple, nontender, no meningeal signs. CARDIOVASCULAR: Regular rate and rhythm without murmurs, RESPIRATORY: Clear to auscultation. Breath sounds equal bilaterally. No wheezes , rales, or rhonchi. GASTROINTESTINAL: Abdomen soft, non-tender, MUSCULOSKELETAL: Extremities without clubbing, cyanosis, or edema. No joint tenderness, effusion, or edema noted. No calf tenderness. Negative Homans sign bilaterally. NEUROLOGICAL: Cranial nerves II through XII intact. Motor and sensory grossly within normal limits. Five out of 5 muscle strength in all muscle groups. Normal speech. Laboratory Laboratory Tests Test 11/28/17 10:33 11/28/17 13:50 White Blood Count 10.0 Red Blood Count 4.65 Hemoglobin 14.5 Hematocrit 42.9 Mean Corpuscular Volume 92.2 Mean Corpuscular Hemoglobin 31.2 Mean Corpuscular Hemoglobin Concent 33.9 Red Cell Distribution Width 13.3 Platelet Count 233 Mean Platelet Volume 9.0 Neutrophils (%) (Auto) 61.3 Lymphocytes (%) (Auto) 25.2 Monocytes (%) (Auto) 9.9 Eosinophils (%) (Auto) 2.8 Basophils (%) (Auto) 0.8 Neutrophils # (Auto) 6.1 Lymphocytes # (Auto) 2.5 Monocytes # (Auto) 1.0 Eosinophils # (Auto) 0.3 Basophils # (Auto) 0.1 CBC Comment AUTO DIFF Differential Comment AUTO DIFF CONFIRMED Platelet Estimate NORMAL Platelet Morphology Comment NORMAL Red Cell Morphology Comment NORMAL Urine Color YELLOW Urine Turbidity CLEAR Urine pH 5.5 Urine Specific [place] 1.015 Urine Protein NEG Urine Glucose (UA) NEG Urine Ketones NEG Urine Occult Blood NEG Urine Nitrite NEG Urine Bilirubin NEG Urine Urobilinogen 2.0 Urine Leukocyte Esterase TRACE Urine RBC LESS THAN 1 Urine WBC 1 Urine Hyaline Casts 18 Urine Mucus FEW Microscopic Urinalysis Comment CULT NOT INDICATED Blood Urea Nitrogen 18 Creatinine 0.80 Random Glucose 83 Total Protein 6.7 Albumin 3.2 Calcium Level 7.4 Alkaline Phosphatase 143 Aspartate Amino Transf (AST/SGOT) 23 Alanine Aminotransferase (ALT/SGPT) 15 Total Bilirubin 0.3 Sodium Level 142 Potassium Level 3.9 Chloride Level 109 Carbon Dioxide Level 27.8 Anion Gap 5 Estimat Glomerular Filtration Rate 72 Protein Corrected Calcium 7.6 Troponin I LESS THAN 0.02 Thyroid Stimulating Hormone 3rd Gen 4.410 Urine Opiates Screen NEG Urine Barbiturates Screen NEG Urine Amphetamines Screen NEG Urine Benzodiazepines Screen NEG Urine Cocaine Screen NEG Urine Cannabinoids Screen NEG Ethyl Alcohol Level LESS THAN 3 Blood Gas Puncture Site RT BRACHIAL Blood Gas Patient Temperature 98.6 Blood Gas HCO3 30 Blood Gas Base Excess 4.8 Blood Gas Oxygen Saturation 91 Arterial Blood pH 7.37 Arterial Blood Partial Pressure CO2 54 Arterial Blood Partial Pressure O2 137 Arterial Blood Oxygen Content 17.4 Arterial Blood Carboxyhemoglobin 7.2 Arterial Blood Methemoglobin 0.8 Blood Gas Hemoglobin 13.4 Oxygen Delivery Device NASAL CANNULA Blood Gas Liter Flow 2 Blood Gas Inspired Oxygen 28 Date/Time Source Procedure Growth Status 11/28/17 11:17 Blood Peripheral Aerobic Blood Culture Pending Received 11/28/17 11:17 Blood Peripheral Anaerobic Blood Culture Pending Received Result Diagram: 11/28/17 1033 11/28/17 1033 Caprini VTE Risk Assessment Caprini VTE Risk Assessment: No/Low Risk (score <= 1) Caprini Risk Assessment Model Point Value = 1 Point Value = 2 Point Value = 3 Point Value = 5 Age 41-60 Minor surgery BMI > 25 kg/m2 Swollen legs Varicose veins or History of unexplained or recurrent spontaneous Oral contraceptives or hormone replacement Sepsis (< 1 month) Serious lung disease, including pneumonia (< 1 month) Abnormal pulmonary function Acute myocardial infarction Congestive heart failure (< 1 month) History of inflammatory bowel disease Medical patient at bed rest Age 61-74 Arthroscopic surgery Major open surgery (> 45 min) Laparoscopic surgery (> 45 min) Malignancy Confined to bed (> 72 hours) Immobilizing plaster cast Central venous access Age >= 75 History of VTE Family history of VTE Factor V Leiden Prothrombin 10205P Lupus anticoagulant Anticardiolipin antibodies Elevated serum homocysteine Heparin-induced thrombocytopenia Other congenital or acquired thrombophilia Stroke (< 1 month) Elective arthroplasty Hip, pelvis, or leg fracture Acute spinal cord injury (< 1 month) Prophylaxis Regimen Total Risk Factor Score Risk Level Prophylaxis Regimen 0-1 Low Early ambulation 2 Moderate Order ONE of the following: *Sequential Compression Device (SCD) *Heparin 5000 units SQ BID 3-4 Higher Order ONE of the following medications: *Heparin 5000 units SQ TID *Enoxaparin/Lovenox 40 mg SQ daily (WT < 150 kg, CrCl > 30 mL/min) *Enoxaparin/Lovenox 30 mg SQ daily (WT < 150 kg, CrCl > 10-29 mL/min) *Enoxaparin/Lovenox 30 mg SQ BID (WT < 150 kg, CrCl > 30 mL/min) AND/OR *Sequential Compression Device (SCD) 5 or more Highest Order ONE of the following medications: *Heparin 5000 units SQ TID (Preferred with Epidurals) *Enoxaparin/Lovenox 40 mg SQ daily (WT < 150 kg, CrCl > 30 mL/min) *Enoxaparin/Lovenox 30 mg SQ daily (WT < 150 kg, CrCl > 10-29 mL/min) *Enoxaparin/Lovenox 30 mg SQ BID (WT < 150 kg, CrCl > 30 mL/min) AND *Sequential Compression Device (SCD) Assessment and Plan Assessment and Plan 67 years old female admitted for Altered mental status- Hypertensive encephalopathy History of seizure disorder - no reported seiziures start HCTZ 25 mg po daily start IV Vasotec 1.25 mg IV q 6 prn SBP > 150. Transition to po in am when fully awake start on home Amlodipine 10 mg po daily continue on SZ medications- Topamax, Carbamazepine, Neurontin consider Cardene drip if no improvement in BP and DC amlodipine if initiated Check CK level Hypocalcemia check vitamin d levels Mildly elevated TSH- possible subclinical hypothyroidism check free thryoid hormone level, recheck TSH start replacement if confirms or recheck TSH in 6-8 weeks as OP PT/OT consult TEDs PPI Nursing - requested to do a bedside swallowing- if pass- start diet Physician Certification 2 Midnight Certification Type: Admission for Inpatient Services Order for Inpatient Services The services are ordered in accordance with Medicare regulations or non- Medicare payer requirements, as applicable. In the case of services not specified as inpatient-only, they are appropriately provided as inpatient services in accordance with the 2-midnight benchmark. Estimated LOS (days): 3 days is the estimated time the patient will need to remain in the hospital, assuming treatment plan goals are met and no additional complications. Post-Hospital Plan: Sergio Álvarez MD Nov 28, 2017 15:18
[2017-11-28] MEDS: ENALAPRILAT 1.25 MG/ML VIAL IV PUSH PRN ×2 (15:29→19:41)
[2017-11-28] MEDS ORDERED: niCARdipine INJ 25 MG in SODIUM CHLOR 0.9% 250 ML INJ 240 ML IV PRN (15:45)
[2017-11-28] MEDS: HYDROCHLOROTHIAZIDE 25 MG TAB PO SCH (17:46)
[2017-11-28] MEDS: TOPIRAMATE 25 MG TAB PO SCH (19:41)
[2017-11-28 21:08] LABS: PROTHROMBIN TIME - PATIENT 10.4 SEC (9.8-11.6)
[2017-11-29] VITALS (13 sets, daily range): BP systolic 130–168; BP diastolic 64–96; PULSE 59–71; RESP 12–22; TEMP 97.5–98.2; O2SAT 96–100
[2017-11-29] MEDS ORDERED: hydrALAZINE HCL 20 MG/ML VIAL IV PUSH ONE (00:15)
[2017-11-29] MEDS: ENALAPRILAT 1.25 MG/ML VIAL IV PUSH PRN (06:19)
--- NOTE | 2017-11-29 07:59 | HHI.PR ---
Subjective Remarks patient now is very much awake and alert, very interactive and spontaneous in speech vehemently denied any substance abuse or taking pain meds states she takes Amlodipine for BP and occasionally Baclofen- - no pain meds at all Objective Vitals Vital Signs Date Time Temp Pulse Resp B/P (MAP) Pulse Ox O2 Delivery O2 Flow Rate FiO2 11/29/17 06:00 67 11/29/17 04:00 65 11/29/17 04:00 98.0 65 15 165/81 (109) 97 11/29/17 02:00 71 11/29/17 00:00 98.1 59 22 168/82 (110) 96 11/29/17 00:00 59 11/28/17 22:00 59 11/28/17 20:00 98.5 58 12 134/69 (90) 99 11/28/17 20:00 99 Nasal Cannula 2.00 11/28/17 20:00 58 11/28/17 19:17 60 16 169/82 (111) 100 Nasal Cannula 2.00 11/28/17 17:53 62 12 158/88 (111) 100 Nasal Cannula 2.00 11/28/17 15:56 61 14 158/85 (109) 100 Nasal Cannula 2.00 11/28/17 15:32 63 12 245/119 (161) 100 Nasal Cannula 2.00 11/28/17 14:38 59 12 206/100 (135) 99 Nasal Cannula 2.00 11/28/17 13:08 62 13 191/108 (135) 100 Nasal Cannula 2.00 11/28/17 12:16 61 12 190/98 (128) 98 Nasal Cannula 2.00 11/28/17 11:22 68 12 182/101 (128) 98 Room Air 11/28/17 10:23 61 16 98 Room Air 11/28/17 10:20 98.3 61 14 182/105 (130) 98 I/O 11/28/17 11/28/17 11/28/17 11/29/17 11/29/17 11/29/17 07:00 15:00 23:00 07:00 15:00 23:00 Intake Total 500 ml 240 ml Output Total 800 ml Balance 500 ml -560 ml Intake Oral 240 ml IV Total 500 ml Output Urine Total 800 ml # Voids 2 # Bowel Movements 2 Result Diagram: 11/28/17 1033 11/28/17 1033 Imaging Last Impressions Head CT 11/28/17 1023 Signed Impressions: Service Date/Time: Tuesday, November 28, 2017 11:25 - CONCLUSION: Negative for acute process. Emerson Pulido MD FACR Chest X-Ray 11/28/17 1023 Signed Impressions: Service Date/Time: Tuesday, November 28, 2017 10:42 - CONCLUSION: 1. Bibasilar streakiness consistent with atelectasis and/or mild infiltrates. Clinical correlation is recommended. 2. Small hiatal hernia. Waldo Morales MD Objective Remarks awake and alert, speech clear and spontaneousl anicteric lungs clear regular rhythm abdomen soft, nontender extremities no edema neuro exam- unremarkable A/P Assessment and Plan 67 years old female admitted for Altered mental status- Hypertensive encephalopathy- MS improved History of seizure disorder - no reported seizures HCTZ 25 mg po daily continue home Amlodipine 10 mg po daily Add enalapril 5 mg po bid continue on SZ medications- Topamax, Carbamazepine, Neurontin Hypocalcemia check vitamin d levels- pending Mildly elevated TSH- possible subclinical hypothyroidism check free thryoid hormone level, recheck TSH- pending start replacement if confirms or recheck TSH in 6-8 weeks as OP PT/OT consult . Out of bed- ambulate TEDs PPI Transfer to medical floor Sergio Ramirez MD Nov 29, 2017 07:59
[2017-11-29] MEDS: HYDROCHLOROTHIAZIDE 25 MG TAB PO SCH (08:14)
[2017-11-29] MEDS: PANTOPRAZOLE SOD 40 MG DELAYED RELEASE TAB PO SCH (08:14)
[2017-11-29] MEDS: TOPIRAMATE 25 MG TAB PO SCH ×2 (08:14→21:53)
[2017-11-29] MEDS: GABAPENTIN 300 MG CAP PO SCH ×2 (08:18→18:08)
[2017-11-29 09:10] LABS: BICARBONATE 28.7 MEQ/L (21.0-32.0); CALCIUM 8.8 MG/DL (8.5-10.1); CHOLESTEROL/ HDL RATIO 4.73 RATIO; CREATININE 0.68 MG/DL (0.50-1.00); FREE T3 2.13 PG/ML (2.18-3.98); FREE T4 0.71 NG/DL (0.76-1.46); HDL CHOLESTEROL 53.4 MG/DL (40.0-60.0)
[2017-11-29] MEDS ORDERED: INFLUENZA VIRUS VACCINE (QUADRIVALENT) 0.5 ML SYR IM ONE (10:00)
[2017-11-29] MEDS ORDERED: PNEUMOCOCCAL POLYVALENT INJ 25 MCG/0.5 ML SYR IM ONE (10:00)
[2017-11-29] MEDS: ENALAPRIL MALEATE 5 MG TAB PO SCH ×2 (10:17→21:53)
[2017-11-29] MEDS ORDERED: POTASSIUM CHLORIDE 10 MEQ CONTROLLED RELEASE TAB PO ONE (18:00)
--- NOTE | 2017-11-29 20:44 | MG ---
cc: EREN STEINBERG M.D. Lab No: [id number] Date: Age: 67 Sex: F Race: REFERRING: Ashley. ROOM: 520. With photic stimulation. Awake, drowsy, asleep study. Alert and oriented. CT negative. EEG 11/03/17 shows awake study with stage II sleep. Was found by her boyfriend disoriented, lethargic, given Narcan without improvement with a history of seizures and change in mental status suspected to be due to seizures. On Apresoline, Pravachol, Topamax, Norvasc. DESCRIPTION OF THE RECORD: The patient has a background rhythm of 8-9 Hz and 20 to 30 microvolts. The senior mechanical technician is asking her to relax. She was breathing heavily. There is muscle artifact from that but overall symmetrical background when she is relaxed. EKG looks sinus. She tends to fall asleep. There is some background slowing and continuous muscle artifact. Photic stimulation does elicit a posterior driving response. Towards the end, there were a couple of stage reversals seen at F3, C3, C3, P3 and P301 as well as FV17, F7, F3. This all corresponds to the left hemisphere. This is towards the end of epoch 122. I did not see any other ones after that or before. There may be a focus for seizures in the patient but she already is on antiepileptic medication. No active event; however clinical correlation. MD DARRON Golden/MONIKA /8:07 PM /8:26 PM
[2017-11-29] MEDS: CALCIUM/VITAMIN D 250 MG/125 U TAB PO SCH (21:54)
[2017-11-30] VITALS: PULSE 65
[2017-11-30 04:00] VITALS: PULSE 66
[2017-11-30 05:30] VITALS: BP 122/62; PULSE 64; RESP 18; TEMP 97.6; O2SAT 97
[2017-11-30 08:00] VITALS: BP 149/83; PULSE 65; PULSE 75; RESP 18; TEMP 98.7; O2SAT 95
[2017-11-30] MEDS: HYDROCHLOROTHIAZIDE 25 MG TAB PO SCH (08:04)
[2017-11-30] MEDS: CALCIUM/VITAMIN D 250 MG/125 U TAB PO SCH (08:04)
[2017-11-30] MEDS: PANTOPRAZOLE SOD 40 MG DELAYED RELEASE TAB PO SCH (08:04)
[2017-11-30] MEDS: ENALAPRIL MALEATE 5 MG TAB PO SCH (08:05)
[2017-11-30] MEDS: GABAPENTIN 300 MG CAP PO SCH (08:05)
[2017-11-30] MEDS: TOPIRAMATE 25 MG TAB PO SCH (08:05)
[2017-11-30] MEDS ORDERED: LEVOTHYROXINE SODIUM 25 MCG TAB PO SCH (08:45)
--- NOTE | 2017-11-30 08:50 | HHI.PR ---
Subjective Remarks awake and alert, no complains of headaches, nausea or vomiting no neck pain up and ambulating no swallowing difficulties Objective Vitals Vital Signs Date Time Temp Pulse Resp B/P (MAP) Pulse Ox O2 Delivery O2 Flow Rate FiO2 11/30/17 08:00 98.7 75 18 149/83 (105) 95 11/30/17 05:30 97.6 64 18 122/62 (82) 97 11/30/17 04:00 66 11/30/17 00:00 65 11/29/17 23:45 98.1 69 19 130/64 (86) 97 11/29/17 21:50 98.2 70 18 139/69 (92) 98 11/29/17 18:00 66 11/29/17 16:00 66 11/29/17 16:00 98.2 66 14 149/74 (99) 99 11/29/17 14:00 71 11/29/17 12:00 97.5 65 13 153/74 (100) 100 11/29/17 12:00 65 11/29/17 10:00 67 I/O 11/29/17 11/29/17 11/29/17 11/30/17 11/30/17 11/30/17 07:00 15:00 23:00 07:00 15:00 23:00 Intake Total 240 ml 650 ml 450 ml Output Total 800 ml 1000 ml Balance -560 ml -350 ml 450 ml Intake Oral 240 ml 650 ml 450 ml Output Urine Total 800 ml 1000 ml # Voids 2 1 3 # Bowel Movements 2 0 0 Result Diagram: 11/28/17 1033 11/29/17 0721 Imaging Last Impressions Head CT 11/28/17 1023 Signed Impressions: Service Date/Time: Tuesday, November 28, 2017 11:25 - CONCLUSION: Negative for acute process. Emerson Pulido MD FACR Chest X-Ray 11/28/17 1023 Signed Impressions: Service Date/Time: Tuesday, November 28, 2017 10:42 - CONCLUSION: 1. Bibasilar streakiness consistent with atelectasis and/or mild infiltrates. Clinical correlation is recommended. 2. Small hiatal hernia. Waldo Morales MD Objective Remarks awake and alert, speech clear and spontaneous, interactive anicteric lungs clear, no rales or wheezes regular rhythm abdomen soft, nontender extremities no edema neuro exam- unremarkable gait steady A/P Assessment and Plan 67 years old female admitted for Altered mental status- Hypertensive encephalopathy- MS improved. BP improved History of seizure disorder - no reported seizures HCTZ 25 mg po daily continue home Amlodipine 10 mg po daily Added enalapril 5 mg po bid continue on SZ medications- Topamax, Carbamazepine, Neurontin advise patient to ff up with neurologist- states from last visit - she was supoose to ff up with Dr. Choe- advise her to call for appt ff up with PCP- Dr. Jimenez HYpokalemia- replaced recheck pending Hypocalcemia Vit D deficiency Oscal + VIt supplements HYpothyroidism start synthroid 25 mcg po daily recheck thyroid hormones in 6 weeks as OP c/o PCP Home with Incentive spirometry- instructions Up and ambulating possible DC today Sergio Ramirez MD Nov 30, 2017 08:50
[2017-11-30] MEDS ORDERED: HYDR25TA5 PO (09:17)
[2017-11-30] MEDS ORDERED: ENAL5TAB PO (09:17)
[2017-11-30] MEDS ORDERED: LEVO25TA4 PO (09:17)
[2017-11-30] MEDS ORDERED: LIPI10TA PO (09:17)
[2017-11-30 09:39] LABS: BICARBONATE 29.1 MEQ/L (21.0-32.0); CREATININE 0.93 MG/DL (0.50-1.00)
[2017-11-30] MEDS ORDERED: ATORVASTATIN 10 MG TAB PO SCH (21:00)
[2017-11-30] MEDS ORDERED: GABAPENTIN 400 MG CAP PO SCH (21:00)
== END 2017-11-30 13:00 | disposition home or self-care (01) | DRG 79 ==
LOC: NEPE 10:02 → NEDA 13:07 → OBSVTOIN 13:08 → HIMN 19:25 → N05A 11-29 19:19
PROVIDERS: ADMIT Internal Medicine; ATTEND Internal Medicine
DX: I67.4 Hypertensive encephalopathy (principal); E55.9 Vitamin D deficiency, unspecified; G40.909 Epilepsy, unspecified, not intractable, without status epilepticus; E03.9 Hypothyroidism, unspecified; F17.210 Nicotine dependence, cigarettes, uncomplicated; E87.6 Hypokalemia
CPT/HCPCS: 36600; 70450; 71045; 80048; 80053; 80061; 80307; 81001; 82306; 82550; 82652; 82805; 84439; 84443; 84481; 84484; 85025; 85610; 85730; 87040; 87641; 93005; 95819; 96361; 96374; J0360; J2310; J7040; P9612

== ENCOUNTER 2018-02-10 12:47 | Inpatient (IN) | payer MEDICARE, MEDICAID ==
[2018-02-10] VITALS (7 sets, daily range): BP systolic 161–240; BP diastolic 75–119; PULSE 64–89; RESP 12–22; TEMP 97.7; O2SAT 92–98
[~2018-02-10 12:47] MED LIST changes: +ENAL5TAB PO; -FURO40TA PO; +HYDR25TA5 PO; +LEVO25TA4 PO; +LIPI10TA PO
[2018-02-10] MEDS ORDERED: SODIUM CHLORIDE 0.9% FLUSH 10 ML FLUSH IVF PRN (13:15)
[2018-02-10] MEDS ORDERED: ONDANSETRON HCL 4 MG/2 ML VIAL IV PUSH ONE ×2 (13:15→16:00)
[2018-02-10] MEDS ORDERED: hydrALAZINE HCL 20 MG/ML VIAL IV PUSH ONE ×4 (13:15→22:30)
[2018-02-10] MEDS ORDERED: SODIUM CHLOR 0.9% 1000 ML INJ 1,000 ML IV ONE (13:45)
--- NOTE | 2018-02-10 13:56 | RADRPT ---
EXAM DATE/TIME: 02/10/2018 13:27 [place] COMPARISON: CHEST SINGLE AP, November 28, 2017, 10:42. INDICATIONS : Syncope, brought in by evac MEDICAL HISTORY : Cerebrovascular disease. Cardiovascular disease. Hypertension. seizures, hepatitis SURGICAL HISTORY : None. ENCOUNTER: Initial ACUITY: 1 day PAIN SCORE: Non-responsive. LOCATION: Bilateral chest FINDINGS: The lungs are clear. Cardiomediastinal silhouette within normal limits. No evidence of pleural effusi on or pneumothorax. CONCLUSION: No acute cardiopulmonary disease identified. Walter Mclaughlin MD on February 10, 2018 at 13:53 Board Certified Radiologist. This report was verified electronically.
--- NOTE | 2018-02-10 13:58 | PD ---
HPI Chief Complaint: Altered Mental Status Time Seen by Provider: 13:08 Travel History International Travel<30 days: No Contact w/Intl Traveler<30days: No Traveled to known affect area: No History of Present Illness HPI 67-year-old female that presents to the ED for evaluation of altered mental status. Report given by EVAC is the patient apparently became altered today. Patient has a history of seizures and per medical record substance abuse. She has been here before with similar symptoms. Unclear history however. Patient apparently had an injury to her head but nobody is able to tell how it happened. Apparently patient lives with 2 other individuals and they could not really give us a history as to what happened to her head. Apparently patient has been altered and has been vomiting. Patient herself cannot give much history. She appears to be dry heaving as well as vomiting on my exam. There is question whether patient has been off her medications for 2 days. Per report that was given she has been off her Tegretol for 2 days. She does appear to have a significant bruise to the left side of her eye. Denies take any blood thinners. No abdominal pain. No chest pain. Patient was put in a cervical collar by ED. History again is limited as patient herself is altered and cannot really give much history. PFSH Past Medical History Arthritis: No Asthma: No Autoimmune Disease: No Blood Disorders: No Anxiety: Yes Depression: Yes Heart Rhythm Problems: No Cancer: No Cardiovascular Problems: Yes High Cholesterol: No Chest Pain: No Congestive Heart Failure: No COPD: No Cerebrovascular Accident: Yes Diabetes: No Diminished Hearing: No Endocrine: No Gastrointestinal Disorders: Yes GERD: No Glaucoma: No Genitourinary: No Headaches: Yes Hepatitis: Yes (TYPE UNKNOWN) Hiatal Hernia: No Hypertension: Yes Immune Disorder: No Implanted Vascular Access Dvce: No Kidney Stones: No Musculoskeletal: No Neurologic: Yes Psychiatric: Yes Reproductive: No Respiratory: Yes Immunizations Current: Yes Migraines: Yes Myocardial Infarction: No Renal Failure: No Seizures: Yes Sickle Cell Disease: No Sleep Apnea: No Thyroid Disease: No Ulcer: Yes Menopausal: Yes : 3 Para: 3 Past Surgical History Abdominal Surgery: No AICD: No Cardiac Surgery: No Ear Surgery: No Endocrine Surgery: No Eye Surgery: No Genitourinary Surgery: No Gynecologic Surgery: No Neurologic Surgery: Yes (S/P C4-5 SURGERY) Oral Surgery: No Pacemaker: No Thoracic Surgery: No Tonsillectomy: Yes Other Surgery: Yes (REPAIR BRAIN ANEURYSM) Social History Alcohol Use: No Tobacco Use: No Substance Use: No Allergies-Medications (Allergen,Severity, Reaction): Coded Allergies: aspirin (Verified Allergy, Severe, Seizures/ HIVES, 11/02/17) cyclobenzaprine (Verified Allergy, Severe, 11/02/17) Uncoded Allergies: fish (Adverse Reaction, Unknown, unknown reaction at age 7, 12/04/12) Reported Meds & Prescriptions Reported Meds & Active Scripts Active Reported Hydroxyzine Pamoate 25 Mg Cap 25 Mg PO Q8HR PRN Omeprazole 20 Mg Tab 20 Mg PO DAILY Zoloft (Sertraline HCl) 50 Mg Tab 50 Mg PO HS Neurontin (Gabapentin) 600 Mg Tab 600 Mg PO TID Aspirin Adult Low Strength (Aspirin) 81 Mg Tabdr 81 Mg PO DAILY Lasix (Furosemide) 40 Mg Tab 40 Mg PO DAILY Phenergan (Promethazine HCl) 25 Mg Tablet 25 Mg PO Q8HR PRN Amlodipine (Amlodipine Besylate) 10 Mg Tab 10 Mg PO DAILY Carbamazepine 100 Mg Chew 100 Mg PO TID Citalopram (Citalopram Hydrobromide) 40 Mg Tab 40 Mg PO DAILY Review of Systems ROS Limitations: Altered Mental Status, Poor Historian Except as stated in HPI: all other systems reviewed are Neg Physical Exam Exam Limitations: Altered Mental Status, Poor Historian Narrative GENERAL: SKIN: Warm and dry. HEAD: Atraumatic. Normocephalic. EYES: Pupils equal and round 4 mm reactive to light and accommodation. No scleral icterus. No injection or drainage. ENT: No nasal bleeding or discharge. Mucous membranes pink and moist. Tongue is midline. No uvula deviation. NECK: Trachea midline. No JVD. CARDIOVASCULAR: Regular rate and rhythm. No murmurs, S3, S4. RESPIRATORY: No accessory muscle use. Clear to auscultation. Breath sounds equal bilaterally. GASTROINTESTINAL: Abdomen soft, non-tender, nondistended. Hepatic and splenic margins not palpable. MUSCULOSKELETAL: Extremities without clubbing, cyanosis, or edema. No obvious deformities. Full range of motion of the upper and lower extremities bilaterally. 2+ pulses bilaterally. NEUROLOGICAL: Awake and alert. No obvious cranial nerve deficits. Motor grossly within normal limits. Five out of 5 muscle strength in the arms and legs. Normal speech. PSYCHIATRIC: Altered mood and affect; insight and judgment minimal Data Data Last Documented VS Vital Signs Date Time Temp Pulse Resp B/P (MAP) Pulse Ox O2 Delivery O2 Flow Rate FiO2 02/10/18 17:24 81 16 161/75 (103) 98 Room Air 02/10/18 16:20 2.00 02/10/18 12:59 97.7 Orders Orders Complete Blood Count With Diff (02/10/18 13:04) Prothrombin Time / Inr (Pt) (02/10/18 13:04) Act Partial Throm Time (Ptt) (02/10/18 13:04) Type And Screen (02/10/18 13:04) Ct Brain W/O Iv Contrast(Rout) (02/10/18 13:04) Ct Cerv Spine W/O Contrast (02/10/18 13:04) Iv Access Insert/Monitor (02/10/18 13:04) Ecg Monitoring (02/10/18 13:04) Oximetry (02/10/18 13:04) Oxygen Administration (02/10/18 13:04) Sodium Chloride 0.9% Flush (Ns Flush) (02/10/18 13:15) Ondansetron Inj (Zofran Inj) (02/10/18 13:15) Ckmb (Isoenzyme) Profile (02/10/18 13:08) Troponin I (02/10/18 13:08) Blood Culture (02/10/18 13:08) Lipase (02/10/18 13:08) Urinalysis - C+S If Indicated (02/10/18 13:08) Cath For Specimen (02/10/18 13:08) Magnesium (Mg) (02/10/18 13:08) Thyroid Stimulating Hormone (02/10/18 13:08) Chest, Single Ap (02/10/18 13:08) Topiramate (Topamax) (02/10/18 13:11) Carbamazepine (Tegretol) (02/10/18 13:11) Drug Screen, Random Urine (02/10/18 13:12) Hydralazine Inj (Apresoline Inj) (02/10/18 13:15) Sodium Chlor 0.9% 1000 Ml Inj (Ns 1000 M (02/10/18 13:45) Hepatic Functional Panel (02/10/18 14:17) Alcohol (Ethanol) (02/10/18 14:17) Basic Metabolic Panel (Bmp) (02/10/18 14:17) Ondansetron Inj (Zofran Inj) (02/10/18 16:00) Hydralazine Inj (Apresoline Inj) (02/10/18 16:00) Ammonia (02/10/18 16:03) Ct Abd/Pel W Iv Contrast(Rout) (02/10/18 ) Lactic Acid (02/10/18 17:11) Hydralazine Inj (Apresoline Inj) (02/10/18 17:15) Metoclopramide Inj (Reglan Inj) (02/10/18 17:45) Iohexol 350 Inj (Omnipaque 350 Inj) (02/10/18 18:00) Ciprofloxacin 400 Mg Premix (Cipro 400 M (02/10/18 18:30) Metronidazole 500 Mg Inj (Flagyl 500 Mg (02/10/18 18:30) Mra Brain W/O Contrast (Cow) (02/10/18 ) Admit Order (Ed Use Only) (02/10/18 19:38) Labs Laboratory Tests Test 02/10/18 14:17 02/10/18 16:09 02/10/18 17:30 02/10/18 18:30 White Blood Count 17.5 TH/MM3 Red Blood Count 4.75 MIL/MM3 Hemoglobin 14.5 GM/DL Hematocrit 44.0 % Mean Corpuscular Volume 92.5 FL Mean Corpuscular Hemoglobin 30.4 PG Mean Corpuscular Hemoglobin Concent 32.9 % Red Cell Distribution Width 12.6 % Platelet Count 303 TH/MM3 Mean Platelet Volume 8.9 FL Neutrophils (%) (Auto) 69.9 % Lymphocytes (%) (Auto) 19.0 % Monocytes (%) (Auto) 5.6 % Eosinophils (%) (Auto) 4.8 % Basophils (%) (Auto) 0.7 % Neutrophils # (Auto) 12.2 TH/MM3 Lymphocytes # (Auto) 3.3 TH/MM3 Monocytes # (Auto) 1.0 TH/MM3 Eosinophils # (Auto) 0.8 TH/MM3 Basophils # (Auto) 0.1 TH/MM3 CBC Comment DIFF FINAL Differential Comment Prothrombin Time 10.1 SEC Prothromb Time International Ratio 1.0 RATIO Activated Partial Thromboplast Time 21.0 SEC Blood Urea Nitrogen 20 MG/DL Creatinine 0.92 MG/DL Random Glucose 156 MG/DL Total Protein 7.6 GM/DL Albumin 3.8 GM/DL Calcium Level 8.9 MG/DL Magnesium Level 2.2 MG/DL Alkaline Phosphatase 165 U/L Aspartate Amino Transf (AST/SGOT) 22 U/L Alanine Aminotransferase (ALT/SGPT) 21 U/L Total Bilirubin 0.3 MG/DL Direct Bilirubin 0.1 MG/DL Sodium Level 146 MEQ/L Potassium Level 3.4 MEQ/L Chloride Level 111 MEQ/L Carbon Dioxide Level 25.7 MEQ/L Anion Gap 9 MEQ/L Estimat Glomerular Filtration Rate 61 ML/MIN Indirect Bilirubin 0.2 MG/DL Total Creatine Kinase 92 U/L Troponin I LESS THAN 0.02 NG/ML Lipase 124 U/L Thyroid Stimulating Hormone 3rd Gen 1.650 uIU/ML Carbamazepine (Tegretol) Level 8.5 MCG/ML Ethyl Alcohol Level LESS THAN 3 MG/DL Ammonia 16 MCMOL/L Urine Color YELLOW Urine Turbidity CLEAR Urine pH 5.5 Urine Specific [place] 1.020 Urine Protein TRACE mg/dL Urine Glucose (UA) NEG mg/dL Urine Ketones NEG mg/dL Urine Occult Blood NEG Urine Nitrite NEG Urine Bilirubin NEG Urine Urobilinogen LESS THAN 2.0 MG/DL Urine Leukocyte Esterase NEG Urine RBC 2 /hpf Urine WBC 2 /hpf Urine Squamous Epithelial Cells <1 /hpf Urine Hyaline Casts 5 /lpf Urine Mucus FEW /lpf Microscopic Urinalysis Comment CULT NOT INDICATED Urine Opiates Screen NEG Urine Barbiturates Screen NEG Urine Amphetamines Screen NEG Urine Benzodiazepines Screen NEG Urine Cocaine Screen NEG Urine Cannabinoids Screen NEG Lactic Acid Level 1.6 mmol/L [facility] Medical Decision Making Medical Screen Exam Complete: Yes Emergency Medical Condition: Yes Medical Record Reviewed: Yes Interpretation(s) CBC & BMP Diagram 02/10/18 14:17 Total Protein 7.6, Albumin 3.8, Calcium Level 8.9, Magnesium Level 2.2, Alkaline Phosphatase 165 H, Aspartate Amino Transf (AST/SGOT) 22, Alanine Aminotransferase (ALT/SGPT) 21, Total Bilirubin 0.3, Direct Bilirubin 0.1 Last Impressions Chest X-Ray 02/10/18 1308 Signed Impressions: Service Date/Time: Saturday, February 10, 2018 13:27 - CONCLUSION: No acute cardiopulmonary disease identified. Walter Mclaughlin MD Head CT 02/10/18 1304 Signed Impressions: Service Date/Time: Saturday, February 10, 2018 14:32 - CONCLUSION: Left frontal scalp hematoma and superior aspect left intraorbital hematoma. No acute intracranial findings. Walter Mclaughlin MD Cervical Spine CT 02/10/18 1304 Signed Impressions: Service Date/Time: Saturday, February 10, 2018 14:32 - CONCLUSION: 1. No evidence of fracture. 2. Status post anterior fusion C5-6. 3. Multilevel degenerative findings unchanged from 06/24/2016 Walter Mclaughlin MD Abdomen/Pelvis CT 02/10/18 0000 Signed Impressions: Service Date/Time: Saturday, February 10, 2018 17:54 - CONCLUSION: 1. Apparent acute proctitis, etiology uncertain but presumably infectious or inflammatory. No abscess, perforation or obstruction. 2. Diverticulosis of the sigmoid colon without diverticulitis. 3. Moderate to large hiatal hernia again noted. Jayro Fisher MD troponin and CKMB WNL EKG shows sinus rhythm with no sign of acute ischemia or arrythmia read by me and attending. Differential Diagnosis Altered mental status versus seizure versus drug abuse versus delirium versus metabolic encephalopathy versus weakness versus hypertensive emergency Narrative Course 67-year-old female that presents to the ED for evaluation of altered mental status. Patient was properly examined and was found to have signs and symptoms consistent appears to be altered mental status. Unclear etiology. Patient does have multiple comorbidities. Labs and imaging order. Patient was given IV fluids as well as Zofran here. Given hydralazine for hypertension. Labs and imaging showed what appears to be injury to the left thigh with possible intra- orbital hematoma on the superior orbit as well as elevated white blood cell count and proctitis. My attending evaluated the patient and recommends admission for further eval. Patient still altered although her blood pressure has improved with the hydralazine. Patient still having some nausea and vomiting. Case was discussed with Dr. Cheng who recommended that we speak with ophthalmology and have MRA as per Dr. Cheng she is concerned for possible aneurysm as patient has a history of it on her chart. She did had recent MRIs that were essentially unremarkable for this in October but the MRI was not the best modality secondary to patient moving. I discussed the case with Dr. Kraus who recommends that at this time there is no much to do out other than observe. She states that she will follow the patient while admitted. Case discussed with Dr. Lieberman who agrees to admission. MRI has been ordered but has not been done yet. Diagnosis Primary Impression: Altered mental status Qualified Codes: R41.82 - Altered mental status, unspecified Additional Impressions: Seizure disorder Traumatic hematoma of left orbit Qualified Codes: S05.12XA - Contusion of eyeball and orbital tissues, left eye , initial encounter Head injury, acute Qualified Codes: S09.90XA - Unspecified injury of head, initial encounter Admitting Information Admitting Physician Requests: Observation Eloy Fry Feb 10, 2018 13:58
[2018-02-10 14:34] LABS: AUTOMATED NEUTROPHIL # 12.2 TH/MM3 (1.8-7.7); BASOPHIL # 0.1 TH/MM3 (0-0.2); BASOPHIL % 0.7 % (0.0-2.0); EOSINOPHIL # 0.8 TH/MM3 (0-0.4); EOSINOPHIL % 4.8 % (0.0-4.0); HEMOGLOBIN 14.5 GM/DL (11.6-15.3); LYMPHOCYTE # 3.3 TH/MM3 (1.0-4.8); MEAN CELL VOLUME 92.5 FL (80.0-100.0); MEAN CORPUSCULAR HEMOGLOBIN 30.4 PG (27.0-34.0); MEAN CORPUSCULAR HGB CONC 32.9 % (32.0-36.0); MEAN PLATELET VOLUME 8.9 FL (7.0-11.0); MONO % 5.6 % (0.0-8.0); NEUT % 69.9 % (16.0-70.0); PLATELET COUNT 303 TH/MM3 (150-450); RED BLOOD COUNT 4.75 MIL/MM3 (4.00-5.30); RED CELL DISTRIBUTION WIDTH 12.6 % (11.6-17.2); WHITE BLOOD COUNT 17.5 TH/MM3 (4.0-11.0)
[2018-02-10 14:49] LABS: PROTHROMBIN TIME - PATIENT 10.1 SEC (9.8-11.6)
[2018-02-10 15:05] LABS: ALBUMIN 3.8 GM/DL (3.4-5.0); ALT (GPT) 21 U/L (10-53); AST (GOT) 22 U/L (15-37); BICARBONATE 25.7 MEQ/L (21.0-32.0); BLOOD UREA NITROGEN 20 MG/DL (7-18); CALCIUM 8.9 MG/DL (8.5-10.1); CHLORIDE 111 MEQ/L (98-107); CREATININE 0.92 MG/DL (0.50-1.00); DIRECT BILIRUBIN ADULT 0.1 MG/DL (0.0-0.2); GLOMERULAR FILTRATION RATE 61 ML/MIN (>89); GLUCOSE,RANDOM 156 MG/DL (74-106); MAGNESIUM 2.2 MG/DL (1.5-2.5); SODIUM (NA) 146 MEQ/L (136-145)
[2018-02-10 15:13] LABS: ALKALINE PHOSPHATASE 165 U/L (45-117); INDIRECT BILIRUBIN 0.2 MG/DL (0.0-0.8); TOTAL BILIRUBIN ADULT 0.3 MG/DL (0.2-1.0); TOTAL PROTEIN 7.6 GM/DL (6.4-8.2); TROPONIN I LESS THAN 0.02 NG/ML (0.02-0.05)
--- NOTE | 2018-02-10 15:17 | RADRPT ---
EXAM DATE/TIME: 02/10/2018 14:32 [facility] COMPARISON: CT BRAIN W/O CONTRAST, November 28, 2017, 11:25. INDICATIONS : Left facial hematoma with unknown injury. RADIATION DOSE: 65.35 CTDIvol (mGy) MEDICAL HISTORY : Cerebrovascular disease. Seizures. Hypertension. SURGICAL HISTORY : Spine surgery ENCOUNTER: Initial ACUITY: 1 day PAIN SCALE: 4/10 LOCATION: cranial TECHNIQUE: Multiple contiguous axial images were obtained of the head. Using automated exposure control and adj ustment of the mA and/or kV according to patient size, radiation dose was kept as low as reasonably a chievable to obtain optimal diagnostic quality images. DICOM format image data is available electro nically for review and comparison. FINDINGS: CEREBRUM: The ventricles are normal for age. No evidence of midline shift, mass lesion, hemorrhage or acute in farction. No extra-axial fluid collections are seen. Symmetric prominent periventricular white matte r hypodensity unchanged. POSTERIOR FOSSA: The cerebellum and brainstem are intact. The 4th ventricle is midline. The cerebellopontine angle i s unremarkable. EXTRACRANIAL: Prominent left preorbital soft tissue hematoma. SKULL: Prominent left frontal scalp hematoma. Hyperdensity is seen at the superior aspect of the left orbit likely representing intraorbital hematoma. The globe is round and symmetric. CONCLUSION: Left frontal scalp hematoma and superior aspect left intraorbital hematoma. No acute intracranial findings. Walter Mclaughlin MD on February 10, 2018 at 15:11 Board Certified Radiologist. This report was verified electronically.
--- NOTE | 2018-02-10 15:21 | RADRPT ---
EXAM DATE/TIME: 02/10/2018 14:32 [facility] COMPARISON: CT CERVICAL SPINE W/O CONTRAST, June 24, 2016, 8:57. INDICATIONS : Left facial hematoma with unknown injury. RADIATION DOSE: 37.10 CTDIvol (mGy) MEDICAL HISTORY : Cerebrovascular disease. Seizures. SURGICAL HISTORY : Spine surgery ENCOUNTER: Initial ACUITY: 1 day PAIN SCALE: 4/10 LOCATION: neck TECHNIQUE: Volumetric scanning of the cervical spine was performed. Multiplanar reconstructions i n the sagittal, coronal and oblique axial planes were performed. Using automated exposure control a nd adjustment of the mA and/or kV according to patient size, radiation dose was kept as low as reason ably achievable to obtain optimal diagnostic quality images. DICOM format image data is available e lectronically for review and comparison. FINDINGS: VERTEBRAE: Anterior fusion hardware at C5-6. Hardware intact. Advanced bone bridging between the vertebral bodies at this level. No evidence of fracture. ALIGNMENT: No evidence of subluxation. Multilevel degenerative findings are unchanged from the prior study of 06/24/2016. CONCLUSION: 1. No evidence of fracture. 2. Status post anterior fusion C5-6. 3. Multilevel degenerative findings unchanged from 06/24/2016 Walter Mclaughlin MD on February 10, 2018 at 15:15 Board Certified Radiologist. This report was verified electronically.
[2018-02-10] MEDS ORDERED: METOCLOPRAMIDE HCL 10 MG/2 ML VIAL IV PUSH ONE (17:45)
[2018-02-10] MEDS ORDERED: IOHEXOL 350 MG/ML 10 ML VIAL (for RAD DIAG) IVCONTRAST ONE (18:00)
[2018-02-10 18:18] LABS: BILIRUBIN, URINE NEG (NEG); BLOOD, URINE NEG (NEG); GLUCOSE,URINE NEG (NEG); HYALINE CAST, URINE 5 /lpf (RARE); KETONE, URINE NEG (NEG); MUCUS URINE FEW /lpf (OCC); NITRITE,URINE NEG (NEG); PH, URINE 5.5 (5.0-8.5); SQUAMOUS EPITHELIAL CELL URINE <1 /hpf (0-5); URINE COLOR YELLOW (YELLW/STRAW); URINE LEUKOCYTE ESTERASE NEG (NEG)
--- NOTE | 2018-02-10 18:28 | RADRPT ---
EXAM DATE/TIME: 02/10/2018 17:54 [facility] COMPARISON: CT ABDOMEN & PELVIS W CONTRAST, November 02, 2017, 13:57. INDICATIONS : Abdominal pain IV CONTRAST: 92 cc Omnipaque 350 (iohexol) IV ORAL CONTRAST: No oral contrast ingested. RADIATION DOSE: 16.26 CTDIvol (mGy) MEDICAL HISTORY : Seizures. Hypertension. Hepatitis.Ulcer SURGICAL HISTORY : Brain anerurysm repair, c4-c5 surgery ENCOUNTER: Initial ACUITY: 1 day PAIN SCALE: 7/10 LOCATION: Abdomen TECHNIQUE: Volumetric scanning of the abdomen and pelvis was performed. Using automated exposure control and ad justment of the mA and/or kV according to patient size, radiation dose was kept as low as reasonably achievable to obtain optimal diagnostic quality images. DICOM format image data is available electro nically for review and comparison. FINDINGS: LOWER LUNGS: The visualized lower lungs are clear. LIVER: Homogeneous density without lesion. There is no dilation of the biliary tree. No calcified gallston es. SPLEEN: Normal size without lesion. PANCREAS: Within normal limits. KIDNEYS: Normal in size and shape. 12 mm cyst left lower pole unchanged. There is no solid mass, stone or hyd ronephrosis. ADRENAL GLANDS: Within normal limits. VASCULAR: There is no aortic aneurysm. BOWEL/MESENTERY: The perirectal fat is mildly indurated, for example series 2 image 74. Rectal wall has mild to modera te thickening Moderate to large hiatal hernia again noted. There is diverticulosis of the sigmoid col on without evidence of acute diverticulitis. ABDOMINAL WALL: Within normal limits. RETROPERITONEUM: There is no lymphadenopathy. BLADDER: No wall thickening or mass. REPRODUCTIVE: Within normal limits. INGUINAL: There is no lymphadenopathy or hernia. MUSCULOSKELETAL: No acute bony abnormality. CONCLUSION: 1. Apparent acute proctitis, etiology uncertain but presumably infectious or inflammatory. No abscess , perforation or obstruction. 2. Diverticulosis of the sigmoid colon without diverticulitis. 3. Moderate to large hiatal hernia again noted. Jayro Fisher MD on February 10, 2018 at 18:22 Board Certified Radiologist. This report was verified electronically.
[2018-02-10] MEDS ORDERED: CIPROFLOXACIN 400 MG PREMIX 200 ML IV ONE (18:30)
[2018-02-10] MEDS ORDERED: metroNIDAZOLE 500 MG INJ 100 ML IV ONE (18:30)
--- NOTE | 2018-02-10 18:53 | PD ---
Physical Exam Narrative GENERAL: 67-year-old female who appears drowsy but awakens to voice SKIN: Focused skin assessment warm/dry. HEAD: Atraumatic. Normocephalic. EYES: Pupils equal and round. No scleral icterus. No injection or drainage. ENT: No nasal bleeding or discharge. Mucous membranes pink and moist.extraocular movements intact, Extraocular movement intact NECK: Trachea midline. No meningeal signs CARDIOVASCULAR: Regular rate and rhythm. No murmur appreciated. RESPIRATORY: No accessory muscle use. Clear to auscultation. Breath sounds equal bilaterally. GASTROINTESTINAL: Abdomen soft, non-tender, nondistended MUSCULOSKELETAL: No obvious deformities. No clubbing. No cyanosis. NEUROLOGICAL: Awake and alert to name. Follows commands, moves extremities. Clear speech. Data Data Last Documented VS Vital Signs Date Time Temp Pulse Resp B/P (MAP) Pulse Ox O2 Delivery O2 Flow Rate FiO2 02/10/18 17:24 81 16 161/75 (103) 98 Room Air 02/10/18 16:20 2.00 02/10/18 12:59 97.7 Orders Orders Complete Blood Count With Diff (02/10/18 13:04) Prothrombin Time / Inr (Pt) (02/10/18 13:04) Act Partial Throm Time (Ptt) (02/10/18 13:04) Type And Screen (02/10/18 13:04) Ct Brain W/O Iv Contrast(Rout) (02/10/18 13:04) Ct Cerv Spine W/O Contrast (02/10/18 13:04) Iv Access Insert/Monitor (02/10/18 13:04) Ecg Monitoring (02/10/18 13:04) Oximetry (02/10/18 13:04) Oxygen Administration (02/10/18 13:04) Sodium Chloride 0.9% Flush (Ns Flush) (02/10/18 13:15) Ondansetron Inj (Zofran Inj) (02/10/18 13:15) Ckmb (Isoenzyme) Profile (02/10/18 13:08) Troponin I (02/10/18 13:08) Blood Culture (02/10/18 13:08) Lipase (02/10/18 13:08) Urinalysis - C+S If Indicated (02/10/18 13:08) Cath For Specimen (02/10/18 13:08) Magnesium (Mg) (02/10/18 13:08) Thyroid Stimulating Hormone (02/10/18 13:08) Chest, Single Ap (02/10/18 13:08) Topiramate (Topamax) (02/10/18 13:11) Carbamazepine (Tegretol) (02/10/18 13:11) Drug Screen, Random Urine (02/10/18 13:12) Hydralazine Inj (Apresoline Inj) (02/10/18 13:15) Sodium Chlor 0.9% 1000 Ml Inj (Ns 1000 M (02/10/18 13:45) Hepatic Functional Panel (02/10/18 14:17) Alcohol (Ethanol) (02/10/18 14:17) Basic Metabolic Panel (Bmp) (02/10/18 14:17) Ondansetron Inj (Zofran Inj) (02/10/18 16:00) Hydralazine Inj (Apresoline Inj) (02/10/18 16:00) Ammonia (02/10/18 16:03) Ct Abd/Pel W Iv Contrast(Rout) (02/10/18 ) Lactic Acid (02/10/18 17:11) Hydralazine Inj (Apresoline Inj) (02/10/18 17:15) Metoclopramide Inj (Reglan Inj) (02/10/18 17:45) Iohexol 350 Inj (Omnipaque 350 Inj) (02/10/18 18:00) Ciprofloxacin 400 Mg Premix (Cipro 400 M (02/10/18 18:30) Metronidazole 500 Mg Inj (Flagyl 500 Mg (02/10/18 18:30) Labs Laboratory Tests Test 02/10/18 14:17 02/10/18 16:09 02/10/18 17:30 02/10/18 18:30 White Blood Count 17.5 TH/MM3 Red Blood Count 4.75 MIL/MM3 Hemoglobin 14.5 GM/DL Hematocrit 44.0 % Mean Corpuscular Volume 92.5 FL Mean Corpuscular Hemoglobin 30.4 PG Mean Corpuscular Hemoglobin Concent 32.9 % Red Cell Distribution Width 12.6 % Platelet Count 303 TH/MM3 Mean Platelet Volume 8.9 FL Neutrophils (%) (Auto) 69.9 % Lymphocytes (%) (Auto) 19.0 % Monocytes (%) (Auto) 5.6 % Eosinophils (%) (Auto) 4.8 % Basophils (%) (Auto) 0.7 % Neutrophils # (Auto) 12.2 TH/MM3 Lymphocytes # (Auto) 3.3 TH/MM3 Monocytes # (Auto) 1.0 TH/MM3 Eosinophils # (Auto) 0.8 TH/MM3 Basophils # (Auto) 0.1 TH/MM3 CBC Comment DIFF FINAL Differential Comment Prothrombin Time 10.1 SEC Prothromb Time International Ratio 1.0 RATIO Activated Partial Thromboplast Time 21.0 SEC Blood Urea Nitrogen 20 MG/DL Creatinine 0.92 MG/DL Random Glucose 156 MG/DL Total Protein 7.6 GM/DL Albumin 3.8 GM/DL Calcium Level 8.9 MG/DL Magnesium Level 2.2 MG/DL Alkaline Phosphatase 165 U/L Aspartate Amino Transf (AST/SGOT) 22 U/L Alanine Aminotransferase (ALT/SGPT) 21 U/L Total Bilirubin 0.3 MG/DL Direct Bilirubin 0.1 MG/DL Sodium Level 146 MEQ/L Potassium Level 3.4 MEQ/L Chloride Level 111 MEQ/L Carbon Dioxide Level 25.7 MEQ/L Anion Gap 9 MEQ/L Estimat Glomerular Filtration Rate 61 ML/MIN Indirect Bilirubin 0.2 MG/DL Total Creatine Kinase 92 U/L Troponin I LESS THAN 0.02 NG/ML Lipase 124 U/L Thyroid Stimulating Hormone 3rd Gen 1.650 uIU/ML Carbamazepine (Tegretol) Level 8.5 MCG/ML Ethyl Alcohol Level LESS THAN 3 MG/DL Ammonia 16 MCMOL/L Urine Color YELLOW Urine Turbidity CLEAR Urine pH 5.5 Urine Specific [place] 1.020 Urine Protein TRACE mg/dL Urine Glucose (UA) NEG mg/dL Urine Ketones NEG mg/dL Urine Occult Blood NEG Urine Nitrite NEG Urine Bilirubin NEG Urine Urobilinogen LESS THAN 2.0 MG/DL Urine Leukocyte Esterase NEG Urine RBC 2 /hpf Urine WBC 2 /hpf Urine Squamous Epithelial Cells <1 /hpf Urine Hyaline Casts 5 /lpf Urine Mucus FEW /lpf Microscopic Urinalysis Comment CULT NOT INDICATED Urine Opiates Screen NEG Urine Barbiturates Screen NEG Urine Amphetamines Screen NEG Urine Benzodiazepines Screen NEG Urine Cocaine Screen NEG Urine Cannabinoids Screen NEG MDM Supervised Visit with IZABELLA: Yes Interpretation(s) CBC & BMP Diagram 02/10/18 14:17 Total Protein 7.6, Albumin 3.8, Calcium Level 8.9, Magnesium Level 2.2, Alkaline Phosphatase 165 H, Aspartate Amino Transf (AST/SGOT) 22, Alanine Aminotransferase (ALT/SGPT) 21, Total Bilirubin 0.3, Direct Bilirubin 0.1 Last 24 hours Impressions Chest X-Ray 02/10/18 1308 Signed Impressions: Service Date/Time: Saturday, February 10, 2018 13:27 - CONCLUSION: No acute cardiopulmonary disease identified. Walter Mclaughlin MD Head CT 02/10/18 1304 Signed Impressions: Service Date/Time: Saturday, February 10, 2018 14:32 - CONCLUSION: Left frontal scalp hematoma and superior aspect left intraorbital hematoma. No acute intracranial findings. Walter Mclaughlin MD Cervical Spine CT 02/10/18 1304 Signed Impressions: Service Date/Time: Saturday, February 10, 2018 14:32 - CONCLUSION: 1. No evidence of fracture. 2. Status post anterior fusion C5-6. 3. Multilevel degenerative findings unchanged from 06/24/2016 Walter Mclaughlin MD Abdomen/Pelvis CT 02/10/18 0000 Signed Impressions: Service Date/Time: Saturday, February 10, 2018 17:54 - CONCLUSION: 1. Apparent acute proctitis, etiology uncertain but presumably infectious or inflammatory. No abscess, perforation or obstruction. 2. Diverticulosis of the sigmoid colon without diverticulitis. 3. Moderate to large hiatal hernia again noted. Jayro Fisher MD Narrative Course I, Dr. mendzoa, have reviewed the advance practice practitioner's documentation and am in agreement, met with the patient face to face, made the diagnosis, and the medical decision making was done by me. *My assessment and Findings: 67-year-old female presents with altered mental status and vomiting. Patient has had to receive multiple doses of antiemetics here. Patient has also had to receive IV antihypertensives as patient cannot keep down her oral home medications. Patient has leukocytosis and proctitis also found and was given antibiotic coverage for this. She will be admitted for further care. Will discuss intraorbital hematoma with ophthalmology Diagnosis Primary Impression: Altered mental status Qualified Codes: R41.82 - Altered mental status, unspecified Additional Impressions: Proctitis Vomiting Qualified Codes: R11.10 - Vomiting, unspecified Hypertensive urgency Fall Qualified Codes: W19.XXXA - Unspecified fall, initial encounter Alyssa Mendoza MD Feb 10, 2018 18:53
[2018-02-10] MEDS ORDERED: OMEP20TA93 PO (19:03)
[2018-02-10] MEDS ORDERED: HYDR1CAP30 PO (19:03)
[2018-02-10] MEDS ORDERED: FURO1TAB60 PO (19:03)
[2018-02-10] MEDS ORDERED: PROM25TA10 PO (19:03)
[2018-02-10] MEDS ORDERED: NEUR600T PO (19:03)
[2018-02-10] MEDS ORDERED: ASPI81TA16 PO (19:03)
[2018-02-10] MEDS ORDERED: ZOLO50TA PO (19:03)
[2018-02-10] MEDS ORDERED: LORazepam 2 MG/ML VIAL IV PUSH PRN (20:30)
[2018-02-10] MEDS ORDERED: SODIUM CHLORIDE 0.9% FLUSH 10 ML FLUSH IV FLUSH PRN (20:30)
[2018-02-10] MEDS ORDERED: NALOXONE HCL 0.4 MG/ML AMP IV PUSH PRN (20:30)
[2018-02-10] MEDS ORDERED: LORazepam 2 MG/ML VIAL IV PUSH ONE ×2 (20:45→22:30)
[2018-02-10] MEDS: SODIUM CHLORIDE 0.9% FLUSH 10 ML FLUSH IV FLUSH SCH (20:49)
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
[2018-02-10] MEDS ORDERED: POTASSIUM CHLORIDE 20 MEQ CONTROLLED RELEASE TAB PO ONE (22:00)
[2018-02-10] MEDS ORDERED: AZITHROMYCIN 250 MG TAB PO ONE (22:00)
--- NOTE | 2018-02-10 22:16 | RADRPT ---
EXAM DATE/TIME: 02/10/2018 20:48 This report includes an Addendum and supersedes previous reports for this exam. [facility] COMPARISON: No previous studies available for comparison. INDICATIONS : Aneurysm. MEDICAL HISTORY : Hypertension. Cardiovascular disease Cerebrovascular disease. SURGICAL HISTORY : Fusion, cervical. Tonsillectomy. Brain aneurysm repair. ENCOUNTER: Initial ACUITY: 1 day PAIN SCORE: Nonresponsive. LOCATION: Bilateral cranial TECHNIQUE: Multiplanar, multisequence MRI of the brain was performed without contrast. FINDINGS: CEREBRUM: The ventricles are normal for age. No evidence of midline shift, mass lesion, hemorrhage or acute in farction. No extraaxial fluid collections are seen. The pituitary gland and suprasellar cistern are normal in configuration. WHITE MATTER: Moderate to severe chronic-appearing flair signal abnormality seen in the periventricular white matte r of both cerebral hemispheres. POSTERIOR FOSSA: The cerebellum and brainstem are intact. The 4th ventricle is midline. The cerebellopontine angle is unremarkable. The cerebellar tonsils are normal in position. DIFFUSION IMAGING: No focal areas of restricted diffusion are seen. No evidence of acute infarction. EXTRACRANIAL: Diffuse but frontal predominant scalp hematoma demonstrated. Patient has had previous collin hole's of the left cranial vertex. CONCLUSION: Large scalp hematoma and diffuse chronic white matter changes. No acute intracranial abnormality demo nstrated. No perceptible aneurysm. MRA to follow. Jayro Fisher MD on February 10, 2018 at 22:12 Board Certified Radiologist. This report was verified electronically. ADDENDUM: Crescentic shaped mass without perceptible enhancement seen in the superior aspect of the left orbit. This is extraconal. It measures approximately 13 mm in maximal thickness and approximately 33 mm in diameter. This appears to be a hematoma. There is some mass effect on the extraocular muscles, especi ally superior rectus. The optic nerve and orbital apex are not significantly involved. Jayro Fisher MD on February 10, 2018 at 22:40 Board Certified Radiologist. This report was verified electronically.
--- NOTE | 2018-02-10 22:18 | RADRPT ---
EXAM DATE/TIME: 02/10/2018 20:48 [facility] COMPARISON: No previous studies available for comparison. INDICATIONS : Aneurysm. MEDICAL HISTORY : Hypertension. Cerebrovascular disease. Cardiovascular disease. SURGICAL HISTORY : Tonsillectomy. Fusion, cervical. Repair Brain Aneurysm. ENCOUNTER: Initial ACUITY: 1 day PAIN SCORE: Nonresponsive. LOCATION: Bilateral cranial Please note a normal MRA of the brain does not entirely exclude the possibility of a small aneurysm, nor the possibility of distal intracranial vessel disease. TECHNIQUE: 3D time of flight MRA was performed. Source images, multiplanar STS MIP, and 3D volume MIP reconstru ctions were reviewed. FINDINGS: There is excellent visualization of the major intracranial arteries out to the second-order branch ve ssels. There is no evidence for aneurysm, vessel truncation or stenosis, and no evidence for vascula r malformation. CONCLUSION: No acute abnormality seen of the intracranial arteries. No aneurysm. Jayro Fisher MD on February 10, 2018 at 22:15 Board Certified Radiologist. This report was verified electronically.
[2018-02-10] MEDS: SERTRALINE HCL 50 MG TAB PO SCH (23:50)
[2018-02-10] MEDS: SODIUM CHLOR 0.9% 1000 ML INJ 1,000 ML IV SCH (23:51)
[2018-02-10] MEDS: PANTOPRAZOLE SOD 20 MG DELAYED RELEASE TAB PO SCH (23:51)
[2018-02-11] VITALS (10 sets, daily range): BP systolic 152–191; BP diastolic 74–92; PULSE 68–88; RESP 13–24; TEMP 98.1–98.9; O2SAT 95–99
[2018-02-11] MEDS ORDERED: LORazepam 2 MG/ML VIAL IV PUSH ONE (02:00)
[2018-02-11] MEDS: ONDANSETRON HCL 4 MG/2 ML VIAL IVP PRN ×4 (04:55→20:37)
[2018-02-11 06:14] LABS: AUTOMATED NEUTROPHIL # 14.1 TH/MM3 (1.8-7.7); BASOPHIL % 0.1 % (0.0-2.0); HEMATOCRIT 41.5 % (35.0-46.0); HEMOGLOBIN 13.8 GM/DL (11.6-15.3); LYMPH % 5.3 % (9.0-44.0); LYMPHOCYTE # 0.8 TH/MM3 (1.0-4.8); MEAN CELL VOLUME 92.9 FL (80.0-100.0); MEAN CORPUSCULAR HEMOGLOBIN 30.9 PG (27.0-34.0); MEAN CORPUSCULAR HGB CONC 33.3 % (32.0-36.0); MEAN PLATELET VOLUME 8.5 FL (7.0-11.0); MONOCYTE # 0.9 TH/MM3 (0-0.9); NEUT % 88.6 % (16.0-70.0); PLATELET COUNT 257 TH/MM3 (150-450); RED BLOOD COUNT 4.47 MIL/MM3 (4.00-5.30); RED CELL DISTRIBUTION WIDTH 13.2 % (11.6-17.2); WHITE BLOOD COUNT 15.9 TH/MM3 (4.0-11.0)
[2018-02-11 06:37] LABS: BICARBONATE 25.7 MEQ/L (21.0-32.0); CALCIUM 8.1 MG/DL (8.5-10.1); CREATININE 0.67 MG/DL (0.50-1.00)
[2018-02-11] MEDS ORDERED: GABAPENTIN 300 MG CAP PO SCH (09:00)
[2018-02-11] MEDS: SODIUM CHLORIDE 0.9% FLUSH 10 ML FLUSH IV FLUSH SCH ×2 (09:00→20:37)
--- NOTE | 2018-02-11 09:23 | MB ---
cc: Shady Mayers MD DATE: 02/11/2018 HISTORY OF PRESENT ILLNESS: I actually saw the patient back in 2015 with a history of seizures. She was seeing Dr. Giles on and off for a history of grand mal seizures with some incontinence and tongue biting. She has been admitted several times with confusion here thought to be postictal state including at that time. I noted that her sedimentation rate had been normal in 2004. SUNG and rheumatoid factor had been negative. Urine drug screen in the past negative. Alcohol level normal. She had been on Tegretol and had a Tegretol level of 3.2 when I saw her. UA was unremarkable. Troponin, CPK, B12, ABG in the past have been normal. MRA of the [place] had been negative. Carotid ultrasound showed some mild stenosis on the left 50-69%. Had extensive white matter changes on MRI films, possibly a small cortically based infarct on the left. Old craniotomy on the left. Old subdural hematoma I thought. She was also seen by and 10/2017, she had been falling. She was found unresponsive with hematemesis at home. She was weak in the right leg, he thought which was old. MRI of the brain showed no acute change. Carotid ultrasound showed 50 to 60% stenosis on the left. CT was negative. MRA of the brain was normal. Sodium was normal. TSH normal. Tegretol was 6.5. He increased the gabapentin to 600 b.i.d. and 1200 at bedtime. She was on Topamax 25 b.i.d. at that time, trazodone, Baclofen 10 mg t.i.d., amlodipine, Neurontin 600 t.i.d. and Tegretol 100 t.i.d. along with 40 of citalopram. On this current admission, she came in for mental status change, unable to answer questions, brought in by EMS. She lives with 2 roommates. She has bilateral ecchymosis. She had been off her medications for the previous 2 days according to the roommate. Recent medications: Hydroxyzine, omeprazole, Zoloft 50 at bedtime, Neurontin 600 t.i.d., 81 of aspirin, Lasix, Phenergan, amlodipine, Tegretol 100 t.i.d., and citalopram. She had some phase reverses on the left frontocentral head region on an EEG in 11/2017. The ER noted that she had been vomiting on this admission. She was dry heaving and vomiting in the ER. She had been off her Tegretol for 2 days. PHYSICAL EXAM: On exam, afebrile 88, 16, blood pressure 240/119 to 161/81, sinus rhythm. HEENT: She has bilateral ecchymosis around her eyes. NEUROLOGIC: She moves all of her extremities well. She will not let me examine her. She says "get away from me" when I try to examine her and yells out. Does not open her eyes for me. She will not follow any commands for me currently. LABORATORY DATA: CBC shows a white count of 15.9, otherwise normal. ABG 7.37, 54, 137 in November. RPR has been negative in the past. SUNG and rheumatoid factor has been negative in the past. Urine drug screen yesterday normal. UA yesterday negative. Tegretol yesterday 8.5. Basic metabolic profile was essentially normal. Calcium was 8.1. LFTs are normal. Ammonia level 16. CPK and troponin normal. Lipase, TSH normal. B12 was normal in 2007. Coags are negative. She had a chest x-ray yesterday that was negative. She had a cervical spine CT that showed anterior fusion C5-6 with no fracture. She had a CAT scan of the brain done. Left frontal scalp hematoma, left intraorbital hematoma according to the report. CT does show a lot of white matter changes and possibly some blood in the superior aspect of the orbit on the left. She had an MRI of her brain done yesterday that showed basically the same thing as the CT. MRA [place] was read as normal. She had an MRA of her neck done in 2016 that showed mild plaque bilaterally. No major stenosis. Review of the MRI of the brain films shows white matter changes, no major or new abnormalities noted. No intracranial hemorrhage is seen, but on the GRE there is one small spot in the right frontal lobe deep which I suspect is probably old and in fact does show up on an old MRI from 2016. IMPRESSION: Probably another seizure. She has not been well controlled as far as I can tell. She is in here about every year or every other year with a seizure or at least postictal. We will recheck an EEG on her. Increase her Tegretol to 2 pills twice a day. Follow her Tegretol level, increase her gabapentin to 1200 t.i.d. Have physical therapy ambulate her and also check a standing blood pressure on her. I would recommend having ophthalmology see her with the changes on the CT in the orbit. MD ROLF Byrd/DANIELLE , 08:51 AM , 09:22 AM
[2018-02-11] MEDS: GABAPENTIN 300 MG CAP PO SCH ×3 (10:02→18:00)
[2018-02-11] MEDS: PANTOPRAZOLE SOD 20 MG DELAYED RELEASE TAB PO SCH (10:02)
[2018-02-11] MEDS: FUROSEMIDE 40 MG TAB PO SCH (10:02)
[2018-02-11] MEDS: CITALOPRAM HYDROBROMIDE 40 MG TAB PO SCH (10:02)
[2018-02-11] MEDS: SODIUM CHLOR 0.9% 1000 ML INJ 1,000 ML IV SCH (10:03)
[2018-02-11 11:34] LABS: CARBAMAZEPINE (TEGRETOL) 4.1 MCG/ML (4.0-12.0)
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
[2018-02-11] MEDS ORDERED: hydrALAZINE HCL 20 MG/ML VIAL IV PUSH PRN (12:00)
[2018-02-11] MEDS ORDERED: PROCHLORPERAZINE INJ 10 MG/2 ML VIAL IV PUSH ONE (13:00)
[2018-02-11] MEDS: 1/2 NS + KCL 20 MEQ INJ 1,000 ML IV SCH ×2 (13:41→20:41)
--- NOTE | 2018-02-11 13:47 | PD.CONS ---
History of Present Illness Service Ophthalmology Consult Requested By Reason for Consult orbital hematoma OS Primary Care Physician Unknown Diagnoses: History of Present Illness 67 yo F with a h/o hypertension and seizure disorder brought to the ED for evaluation of altered mental status. Working diagnosis is most likely another seizure. She is currently having projectile vomiting and has restraints on, so answering questions and being cooperative with the exam was difficult. She does not complain of any pain or change in vision. No significant ocular history. CT Head - Left frontal scalp hematoma and superior aspect left intraorbital hematoma. No acute intracranial findings. MRI brain - Crescentic shaped mass without perceptible enhancement seen in the superior aspect of the left orbit. This is extraconal. It measures approximately 13 mm in maximal thickness and approximately 33 mm in diameter. This appears to be a hematoma. There is some mass effect on the extraocular muscles, especially superior rectus. The optic nerve and orbital apex are not significantly involved. Past Family Social History Allergies: Coded Allergies: aspirin (Verified Allergy, Severe, Seizures/ HIVES, 11/02/17) cyclobenzaprine (Verified Allergy, Severe, 11/02/17) Uncoded Allergies: fish (Adverse Reaction, Unknown, unknown reaction at age 7, 12/04/12) Physical Exam Vital Signs Vital Signs Date Time Temp Pulse Resp B/P (MAP) Pulse Ox O2 Delivery O2 Flow Rate FiO2 02/11/18 11:07 98.9 81 20 179/84 (115) 95 02/11/18 07:46 98.5 88 16 191/92 (125) 95 02/11/18 05:25 98.2 75 16 161/81 (107) 97 02/11/18 00:35 98.9 84 16 183/84 (117) 99 02/10/18 22:50 74 16 186/92 (123) 94 Nasal Cannula 2.00 02/10/18 21:49 79 18 202/96 (131) 98 Room Air 02/10/18 21:38 89 22 195/118 (143) 98 Nasal Cannula 2.00 02/10/18 17:24 81 16 161/75 (103) 98 Room Air 02/10/18 16:20 67 12 223/98 (139) 98 Nasal Cannula 2.00 02/10/18 16:19 98 Nasal Cannula 2.00 02/10/18 13:54 64 21 221/109 (146) 92 Nasal Cannula 2.00 Physical Exam Va sc at near OD 20/200, OS 20/200 EOM full OU, no diplopia CVF unable Pupils 2-1 no APD OU IOP normal to palpation OU Anterior exam OD - eyelid ecchymoses, BRODY, K clear, AC deep, pupil round, lens clear OS - eyelid ecchymoses and edema, BRODY, K clear, AC deep, pupil round, lens clear Laboratory Laboratory Tests Test 02/10/18 14:17 02/10/18 16:09 02/10/18 17:30 02/10/18 18:30 White Blood Count 17.5 Red Blood Count 4.75 Hemoglobin 14.5 Hematocrit 44.0 Mean Corpuscular Volume 92.5 Mean Corpuscular Hemoglobin 30.4 Mean Corpuscular Hemoglobin Concent 32.9 Red Cell Distribution Width 12.6 Platelet Count 303 Mean Platelet Volume 8.9 Neutrophils (%) (Auto) 69.9 Lymphocytes (%) (Auto) 19.0 Monocytes (%) (Auto) 5.6 Eosinophils (%) (Auto) 4.8 Basophils (%) (Auto) 0.7 Neutrophils # (Auto) 12.2 Lymphocytes # (Auto) 3.3 Monocytes # (Auto) 1.0 Eosinophils # (Auto) 0.8 Basophils # (Auto) 0.1 CBC Comment DIFF FINAL Differential Comment Prothrombin Time 10.1 Prothromb Time International Ratio 1.0 Activated Partial Thromboplast Time 21.0 Blood Urea Nitrogen 20 Creatinine 0.92 Random Glucose 156 Total Protein 7.6 Albumin 3.8 Calcium Level 8.9 Magnesium Level 2.2 Alkaline Phosphatase 165 Aspartate Amino Transf (AST/SGOT) 22 Alanine Aminotransferase (ALT/SGPT) 21 Total Bilirubin 0.3 Direct Bilirubin 0.1 Sodium Level 146 Potassium Level 3.4 Chloride Level 111 Carbon Dioxide Level 25.7 Anion Gap 9 Estimat Glomerular Filtration Rate 61 Indirect Bilirubin 0.2 Total Creatine Kinase 92 Troponin I LESS THAN 0.02 Lipase 124 Thyroid Stimulating Hormone 3rd Gen 1.650 Carbamazepine (Tegretol) Level 8.5 Ethyl Alcohol Level LESS THAN 3 Ammonia 16 Urine Color YELLOW Urine Turbidity CLEAR Urine pH 5.5 Urine Specific [place] 1.020 Urine Protein TRACE Urine Glucose (UA) NEG Urine Ketones NEG Urine Occult Blood NEG Urine Nitrite NEG Urine Bilirubin NEG Urine Urobilinogen LESS THAN 2.0 Urine Leukocyte Esterase NEG Urine RBC 2 Urine WBC 2 Urine Squamous Epithelial Cells <1 Urine Hyaline Casts 5 Urine Mucus FEW Microscopic Urinalysis Comment CULT NOT INDICATED Urine Opiates Screen NEG Urine Barbiturates Screen NEG Urine Amphetamines Screen NEG Urine Benzodiazepines Screen NEG Urine Cocaine Screen NEG Urine Cannabinoids Screen NEG Chlamydia trachomatis DNA (PCR) NOT DETECTED Neisseria gonorrhoeae DNA (PCR) NOT DETECTED Lactic Acid Level 1.6 Test 02/11/18 05:09 02/11/18 10:30 White Blood Count 15.9 Red Blood Count 4.47 Hemoglobin 13.8 Hematocrit 41.5 Mean Corpuscular Volume 92.9 Mean Corpuscular Hemoglobin 30.9 Mean Corpuscular Hemoglobin Concent 33.3 Red Cell Distribution Width 13.2 Platelet Count 257 Mean Platelet Volume 8.5 Neutrophils (%) (Auto) 88.6 Lymphocytes (%) (Auto) 5.3 Monocytes (%) (Auto) 6.0 Eosinophils (%) (Auto) 0.0 Basophils (%) (Auto) 0.1 Neutrophils # (Auto) 14.1 Lymphocytes # (Auto) 0.8 Monocytes # (Auto) 0.9 Eosinophils # (Auto) 0.0 Basophils # (Auto) 0.0 CBC Comment DIFF FINAL Differential Comment Blood Urea Nitrogen 14 Creatinine 0.67 Random Glucose 146 Calcium Level 8.1 Sodium Level 145 Potassium Level 3.3 Chloride Level 109 Carbon Dioxide Level 25.7 Anion Gap 10 Estimat Glomerular Filtration Rate 88 Erythrocyte Sedimentation Rate 15 Vitamin B12 Level 486 Carbamazepine (Tegretol) Level 4.1 Date/Time Source Procedure Growth Status 02/10/18 14:17 Blood Peripheral Aerobic Blood Culture - Preliminary NO GROWTH IN 1 DAY Resulted 02/10/18 14:17 Blood Peripheral Anaerobic Blood Culture - Preliminary NO GROWTH IN 1 DAY Resulted 02/11/18 12:03 Gastric Gastric Occult Blood Pending Received Result Diagram: 02/11/18 0509 02/11/18 0509 Assessment and Plan Problem List: (1) Traumatic hematoma of left orbit ICD Codes: S05.12XA - Contusion of eyeball and orbital tissues, left eye, initial encounter Status: Acute Plan: No mass effect on left eye causing any change in vision, pupils, or IOP. No emergent surgery needed at this time. Will watch closely. Problem Qualifiers (1) Traumatic hematoma of left orbit: Qualified Codes: S05.12XA - Contusion of eyeball and orbital tissues, left eye , initial encounter Angely Kraus MD Feb 11, 2018 13:47
[2018-02-11] MEDS: ACETAMINOPHEN 325 MG TAB PO PRN ×2 (15:28→20:37)
--- NOTE | 2018-02-11 17:25 | PD.CONS ---
HPI History of Present Illness This is a 67 year old female with hx seizure disorder who presented with AMS. Circumstances are unclear. She has sustained head trauma. GI isconsulted for projectile vomit with positive gastroccult. Pt says she has "spit up" some red blood. She denies any nausea. Reportedly had an episode of projectile vomiting earlier. Current RN has not seen any n/v. Pt is c/o some epigastric tenderness. She had a solid BM yesterday, no blood. CT showed proctitis, no obstruction, hiatal hernia. She was evaluated by our service in 10/2017 for hematemesis and EGD found schatzki ring, hiatal hernia, gastritis. Never had colonoscopy. Limited historian. (Carolin Trinh) PFSH Past Medical History Hypertension Seizure disorder Past Surgical History surgery for brain aneursym (Carolin Trinh) Coded Allergies: aspirin (Verified Allergy, Severe, Seizures/ HIVES, 11/02/17) cyclobenzaprine (Verified Allergy, Severe, 11/02/17) Uncoded Allergies: fish (Adverse Reaction, Unknown, unknown reaction at age 7, 12/04/12) Family History Unable to obtain Social History Unable to obtain (Carolin Trinh) Review of Systems Gastrointestinal: COMPLAINS OF: Abdominal pain, DENIES: Black stools, Bloody stools, Nausea, Vomiting, Hematemesis Neurologic: COMPLAINS OF: Headache otherwise noncontributory (Carolin Trinh) GI Exam Vitals I&O Vital Signs Date Time Temp Pulse Resp B/P (MAP) Pulse Ox O2 Delivery O2 Flow Rate FiO2 02/11/18 16:00 86 02/11/18 16:00 98.9 86 24 152/74 (100) 97 02/11/18 14:00 98.7 68 13 189/89 (122) 98 02/11/18 14:00 77 02/11/18 11:07 98.9 81 20 179/84 (115) 95 02/11/18 07:46 98.5 88 16 191/92 (125) 95 02/11/18 05:25 98.2 75 16 161/81 (107) 97 02/11/18 00:35 98.9 84 16 183/84 (117) 99 02/10/18 22:50 74 16 186/92 (123) 94 Nasal Cannula 2.00 02/10/18 21:49 79 18 202/96 (131) 98 Room Air 02/10/18 21:38 89 22 195/118 (143) 98 Nasal Cannula 2.00 02/10/18 17:24 81 16 161/75 (103) 98 Room Air I/O 02/10/18 02/10/18 02/10/18 02/11/18 02/11/18 02/11/18 07:00 15:00 23:00 07:00 15:00 23:00 Intake Total 1300 ml Balance 1300 ml Intake IV Total 1300 ml Imaging Last Impressions Chest X-Ray 02/10/18 1308 Signed Impressions: Service Date/Time: Saturday, February 10, 2018 13:27 - CONCLUSION: No acute cardiopulmonary disease identified. Walter Mclaughlin MD Head CT 02/10/18 1304 Signed Impressions: Service Date/Time: Saturday, February 10, 2018 14:32 - CONCLUSION: Left frontal scalp hematoma and superior aspect left intraorbital hematoma. No acute intracranial findings. Walter Mclaughlin MD Cervical Spine CT 02/10/18 1304 Signed Impressions: Service Date/Time: Saturday, February 10, 2018 14:32 - CONCLUSION: 1. No evidence of fracture. 2. Status post anterior fusion C5-6. 3. Multilevel degenerative findings unchanged from 06/24/2016 Walter Mclaughlin MD Head Magnetic Resonance Angiography 02/10/18 0000 Signed Impressions: Service Date/Time: Saturday, February 10, 2018 20:48 - CONCLUSION: No acute abnormality seen of the intracranial arteries. No aneurysm. Jayro Fisher MD Brain MRI 02/10/18 0000 Signed Impressions: Service Date/Time: Saturday, February 10, 2018 20:48 - CONCLUSION: Large scalp hematoma and diffuse chronic white matter changes. No acute intracranial abnormality demonstrated. No perceptible aneurysm. MRA to follow. Jayro Fisher MD ADDENDUM: Crescentic shaped mass without perceptible enhancement seen in the superior aspect of the left orbit. This is extraconal. It measures approximately 13 mm in maximal thickness and approximately 33 mm in diameter. This appears to be a hematoma. There is some mass effect on the extraocular muscles, especially superior rectus. The optic nerve and orbital apex are not significantly involved. Jayro Fisher MD Abdomen/Pelvis CT 02/10/18 0000 Signed Impressions: Service Date/Time: Saturday, February 10, 2018 17:54 - CONCLUSION: 1. Apparent acute proctitis, etiology uncertain but presumably infectious or inflammatory. No abscess, perforation or obstruction. 2. Diverticulosis of the sigmoid colon without diverticulitis. 3. Moderate to large hiatal hernia again noted. Jayro Fisher MD Laboratory Test 02/10/18 17:30 02/10/18 18:30 02/11/18 05:09 02/11/18 10:30 Urine Color YELLOW Urine Turbidity CLEAR Urine pH 5.5 Urine Specific [place] 1.020 Urine Protein TRACE mg/dL Urine Glucose (UA) NEG mg/dL Urine Ketones NEG mg/dL Urine Occult Blood NEG Urine Nitrite NEG Urine Bilirubin NEG Urine Urobilinogen LESS THAN 2.0 MG/DL Urine Leukocyte Esterase NEG Urine RBC 2 /hpf Urine WBC 2 /hpf Urine Squamous Epithelial Cells <1 /hpf Urine Hyaline Casts 5 /lpf Urine Mucus FEW /lpf Microscopic Urinalysis Comment CULT NOT INDICATED Urine Opiates Screen NEG Urine Barbiturates Screen NEG Urine Amphetamines Screen NEG Urine Benzodiazepines Screen NEG Urine Cocaine Screen NEG Urine Cannabinoids Screen NEG Chlamydia trachomatis DNA (PCR) NOT DETECTED Neisseria gonorrhoeae DNA (PCR) NOT DETECTED Lactic Acid Level 1.6 mmol/L White Blood Count 15.9 TH/MM3 Red Blood Count 4.47 MIL/MM3 Hemoglobin 13.8 GM/DL Hematocrit 41.5 % Mean Corpuscular Volume 92.9 FL Mean Corpuscular Hemoglobin 30.9 PG Mean Corpuscular Hemoglobin Concent 33.3 % Red Cell Distribution Width 13.2 % Platelet Count 257 TH/MM3 Mean Platelet Volume 8.5 FL Neutrophils (%) (Auto) 88.6 % Lymphocytes (%) (Auto) 5.3 % Monocytes (%) (Auto) 6.0 % Eosinophils (%) (Auto) 0.0 % Basophils (%) (Auto) 0.1 % Neutrophils # (Auto) 14.1 TH/MM3 Lymphocytes # (Auto) 0.8 TH/MM3 Monocytes # (Auto) 0.9 TH/MM3 Eosinophils # (Auto) 0.0 TH/MM3 Basophils # (Auto) 0.0 TH/MM3 CBC Comment DIFF FINAL Differential Comment Blood Urea Nitrogen 14 MG/DL Creatinine 0.67 MG/DL Random Glucose 146 MG/DL Calcium Level 8.1 MG/DL Sodium Level 145 MEQ/L Potassium Level 3.3 MEQ/L Chloride Level 109 MEQ/L Carbon Dioxide Level 25.7 MEQ/L Anion Gap 10 MEQ/L Estimat Glomerular Filtration Rate 88 ML/MIN Erythrocyte Sedimentation Rate 15 mm/hr Vitamin B12 Level 486 PG/ML Carbamazepine (Tegretol) Level 4.1 MCG/ML Date/Time Source Procedure Growth Status 02/10/18 14:17 Blood Peripheral Aerobic Blood Culture - Preliminary NO GROWTH IN 1 DAY Resulted 02/10/18 14:17 Blood Peripheral Anaerobic Blood Culture - Preliminary NO GROWTH IN 1 DAY Resulted 02/11/18 12:03 Gastric Gastric Occult Blood - Final GASTROCCULT POSITIVE Complete Physical Examination HEENT: ecchymoses bilat orbits CHEST: CTA CARDIAC: Rrr ABDOMEN: Soft, nondistended, mild epigastric TTP; no hepatosplenomegaly; bowel sounds are present in all four quadrants. EXTREMITIES: No clubbing, cyanosis, or edema. SKIN: Normal; no rash; no jaundice. 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 oriented x 3 (Carolin Trinh) Assessment and Plan Plan ASSESSMENT - report of projectile vomiting with pos gastroccult - none witnessed today by pts nurse. Pt denies n/v, says she was spitting up some blood. she has significant orbital bruising and its very possibly blood coming from oropharynx rather than GI source. EGD 10/2017 showed schatzki ring, hiatal hernia, gastritis. she is not anemic at this time. CT showed proctitis, no obstruction. - epigastric TTP - unk etiology. pt cannot provide much detail on this but is tender on exam. PLAN - could consider EGD - monitor labs - notify GI of active bleeding, vomiting - diet per [employer] - further recs to follow pt seen by myself and Dr Hanley and this note is on his behalf (Carolin Trinh) Physician Comments Patient seen and examined Agree with above Continue with current supportive care Monitor labs We will plan on an upper endoscopy tomorrow (Grady Hanley MD) Carolin Trinh Feb 11, 2018 17:25 Grady Hanley MD Feb 11, 2018 21:25
[2018-02-11] MEDS: SERTRALINE HCL 50 MG TAB PO SCH (20:36)
[2018-02-11] MEDS: PANTOPRAZOLE SODIUM 40 MG VIAL IV PUSH SCH (20:37)
[2018-02-12] VITALS (11 sets, daily range): BP systolic 140–173; BP diastolic 68–89; PULSE 71–87; RESP 14–24; TEMP 98.1–98.5; O2SAT 94–98
[2018-02-12 05:43] LABS: HEMATOCRIT 32.7 % (35.0-46.0); HEMOGLOBIN 11.1 GM/DL (11.6-15.3); MEAN CELL VOLUME 91.1 FL (80.0-100.0); MEAN CORPUSCULAR HEMOGLOBIN 30.9 PG (27.0-34.0); MEAN CORPUSCULAR HGB CONC 33.9 % (32.0-36.0); MEAN PLATELET VOLUME 8.5 FL (7.0-11.0); PLATELET COUNT 247 TH/MM3 (150-450); RED BLOOD COUNT 3.59 MIL/MM3 (4.00-5.30); RED CELL DISTRIBUTION WIDTH 13.1 % (11.6-17.2)
[2018-02-12 06:05] LABS: ALBUMIN 3.5 GM/DL (3.4-5.0); BICARBONATE 25.8 MEQ/L (21.0-32.0); CALCIUM 8.4 MG/DL (8.5-10.1); CREATININE 0.91 MG/DL (0.50-1.00); MAGNESIUM 1.7 MG/DL (1.5-2.5)
[2018-02-12 06:06] LABS: DIRECT BILIRUBIN ADULT 0.1 MG/DL (0.0-0.2)
[2018-02-12 06:09] LABS: CARBAMAZEPINE (TEGRETOL) 5.9 MCG/ML (4.0-12.0); INDIRECT BILIRUBIN 0.3 MG/DL (0.0-0.8); TOTAL BILIRUBIN ADULT 0.4 MG/DL (0.2-1.0); TOTAL PROTEIN 6.5 GM/DL (6.4-8.2)
--- NOTE | 2018-02-12 07:30 | HHI.PR ---
Objective Vital Signs Date Time Temp Pulse Resp B/P (MAP) Pulse Ox O2 Delivery O2 Flow Rate FiO2 02/12/18 06:00 87 02/12/18 04:00 85 02/12/18 04:00 98.5 85 24 170/80 (110) 96 02/12/18 02:00 82 02/12/18 00:00 75 02/12/18 00:00 98.4 82 19 140/68 (92) 96 02/11/18 22:00 74 02/11/18 21:37 16 02/11/18 21:00 167/79 (108) 159/79 (105) 155/76 (102) 02/11/18 20:00 85 02/11/18 20:00 98.1 85 16 167/79 (108) 96 02/11/18 18:00 79 02/11/18 16:00 86 02/11/18 16:00 98.9 86 24 152/74 (100) 97 02/11/18 14:00 98.7 68 13 189/89 (122) 98 02/11/18 14:00 77 02/11/18 11:07 98.9 81 20 179/84 (115) 95 02/11/18 07:46 98.5 88 16 191/92 (125) 95 I/O 02/11/18 02/11/18 02/11/18 02/12/18 02/12/18 02/12/18 07:00 15:00 23:00 07:00 15:00 23:00 Intake Total 412 ml 120 ml Balance 412 ml 120 ml Intake Oral 120 ml IV Total 412 ml # Voids 2 2 # Bowel Movements 0 0 Result Diagram: 02/12/18 0510 02/12/18 0510 Objective Remarks awake alert dizzy no vertogo no nystag od os swollen shut moves all ext well alert awake nl speech Assessment and Plan Assessment and Plan imp sz recurrent add vimpat cbz neurontin improved fu eeg Shady Mayers MD Feb 12, 2018 07:30
[2018-02-12] MEDS: CITALOPRAM HYDROBROMIDE 40 MG TAB PO SCH (07:56)
[2018-02-12] MEDS: ONDANSETRON HCL 4 MG/2 ML VIAL IVP PRN (07:56)
[2018-02-12] MEDS: GABAPENTIN 300 MG CAP PO SCH ×3 (07:56→17:26)
[2018-02-12] MEDS: ACETAMINOPHEN 325 MG TAB PO PRN ×3 (07:57→22:04)
[2018-02-12] MEDS: FUROSEMIDE 40 MG TAB PO SCH (07:57)
[2018-02-12] MEDS: PANTOPRAZOLE SODIUM 40 MG VIAL IV PUSH SCH ×2 (07:57→22:03)
[2018-02-12] MEDS: SODIUM CHLORIDE 0.9% FLUSH 10 ML FLUSH IV FLUSH SCH ×2 (08:53→21:00)
[2018-02-12] MEDS: 1/2 NS + KCL 20 MEQ INJ 1,000 ML IV SCH ×2 (09:00→18:00)
[2018-02-12] MEDS ORDERED: PNEUMOCOCCAL POLYVALENT INJ 25 MCG/0.5 ML SYR IM ONE (10:00)
[2018-02-12] MEDS ORDERED: INFLUENZA VIRUS VACCINE (QUADRIVALENT) 0.5 ML SYR IM ONE (10:00)
[2018-02-12] MEDS ORDERED: SUCCINYLCHOLINE CHLORIDE 100 MG/5 ML SYRINGE IV PUSH ONE (12:00)
[2018-02-12] MEDS ORDERED: DEXAMETHASONE SOD PHOS 4 MG/ML VIAL IV ONE (12:00)
[2018-02-12] MEDS ORDERED: ONDANSETRON HCL 4 MG/2 ML VIAL IV ONE (12:00)
[2018-02-12] MEDS ORDERED: LIDOCAINE HCL 1% PF 5 ML SYRINGE OTHER ONE (12:00)
[2018-02-12] MEDS ORDERED: PROPOFOL 200 MG/20 ML AMP IV ONE (12:00)
[2018-02-12] MEDS ORDERED: METOPROLOL TARTRATE 5 MG/5 ML VIAL IV ONE (12:00)
--- NOTE | 2018-02-12 12:34 | PD.PROCEDR ---
GI Procedure PROCEDURE PERFORMED EGD with biopsy INDICATION FOR PROCEDURE Nausea vomiting epigastric pain PROCEDURE: The procedure, risks and benefits were discussed with Patient/POA and informed consent was obtained. Anesthesia sedated Patient with Diprivan. Patient was placed in the left lateral decubitus position. EGD: The Pentax videoscope was introduced through the oropharynx and advanced to the second portion of the duodenum under direct visualization. Retroflexion was performed in the stomach. FINDINGS: The esophagus there was a mid esophageal polypoid lesion measuring about 3-4 mm this was excised using cold biopsy forceps otherwise the esophagus appeared to be unremarkable The stomach there was a small hiatal hernia otherwise gastric mucosa unremarkable The duodenum this also appeared to be unremarkable and within normal limits ESTIMATED BLOOD LOSS: None SPECIMENS REMOVED: Esophageal biopsy COMPLICATIONS: None IMPRESSION: Esophageal polypoid lesion excised Small hiatal hernia PLAN: Await biopsies Continue PPI Continue with current supportive care Advance diet Grady Hanley MD Feb 12, 2018 12:34
[2018-02-12] MEDS ORDERED: MIDAZOLAM HCL 2 MG/2 ML VIAL ONE (12:43)
[2018-02-12] MEDS ORDERED: DO NOT ADM ANY ANTICOAGULANT DRUGS PRN (13:00)
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
[2018-02-12] MEDS: LACOSAMIDE 100 MG TAB PO SCH ×2 (17:26→22:17)
[2018-02-12] MEDS: SERTRALINE HCL 50 MG TAB PO SCH (22:04)
[2018-02-13] VITALS (11 sets, daily range): BP systolic 137–171; BP diastolic 70–82; PULSE 62–74; RESP 12–23; TEMP 98–98.7; O2SAT 94–97
[2018-02-13] MEDS: 1/2 NS + KCL 20 MEQ INJ 1,000 ML IV SCH ×2 (04:00→14:00)
[2018-02-13 05:21] LABS: AUTOMATED NEUTROPHIL # 7.8 TH/MM3 (1.8-7.7); BASOPHIL # 0.1 TH/MM3 (0-0.2); BASOPHIL % 0.6 % (0.0-2.0); EOSINOPHIL # 0.3 TH/MM3 (0-0.4); EOSINOPHIL % 2.6 % (0.0-4.0); HEMATOCRIT 31.2 % (35.0-46.0); HEMOGLOBIN 10.3 GM/DL (11.6-15.3); LYMPHOCYTE # 3.4 TH/MM3 (1.0-4.8); MEAN CELL VOLUME 91.9 FL (80.0-100.0); MEAN CORPUSCULAR HEMOGLOBIN 30.5 PG (27.0-34.0); MEAN CORPUSCULAR HGB CONC 33.2 % (32.0-36.0); MEAN PLATELET VOLUME 8.7 FL (7.0-11.0); MONO % 8.7 % (0.0-8.0); MONOCYTE # 1.1 TH/MM3 (0-0.9); NEUT % 61.1 % (16.0-70.0); PLATELET COUNT 210 TH/MM3 (150-450); RED BLOOD COUNT 3.39 MIL/MM3 (4.00-5.30); RED CELL DISTRIBUTION WIDTH 12.8 % (11.6-17.2); WHITE BLOOD COUNT 12.7 TH/MM3 (4.0-11.0)
[2018-02-13 05:51] LABS: BICARBONATE 26.6 MEQ/L (21.0-32.0); CALCIUM 8.2 MG/DL (8.5-10.1); CREATININE 0.72 MG/DL (0.50-1.00)
[2018-02-13 05:52] LABS: CARBAMAZEPINE (TEGRETOL) 6.2 MCG/ML (4.0-12.0)
[2018-02-13] MEDS: ACETAMINOPHEN 325 MG TAB PO PRN (06:36)
--- NOTE | 2018-02-13 07:40 | HHI.PR ---
Subjective Remarks feels better daily Objective Vital Signs Date Time Temp Pulse Resp B/P (MAP) Pulse Ox O2 Delivery O2 Flow Rate FiO2 02/13/18 06:38 72 02/13/18 04:06 62 18 137/70 (92) 97 02/13/18 04:05 62 02/13/18 02:17 65 02/13/18 00:00 98.0 65 12 138/79 (98) 97 02/12/18 22:57 72 02/12/18 20:00 98.1 71 21 165/83 (110) 96 02/12/18 18:00 76 02/12/18 16:00 76 02/12/18 16:00 98.3 76 14 154/74 (100) 98 02/12/18 14:00 75 02/12/18 13:00 78 14 147/76 (99) 96 Nasal Cannula 2 02/12/18 13:00 98.1 76 16 145/75 (98) 97 02/12/18 12:45 80 14 143/73 (96) 95 Nasal Cannula 2 02/12/18 12:37 98.5 86 14 143/82 (102) 96 Nasal Cannula 2 02/12/18 08:00 80 02/12/18 08:00 98.3 80 19 173/89 (117) 94 170/89 (116) 166/82 (110) I/O 02/12/18 02/12/18 02/12/18 02/13/18 02/13/18 02/13/18 07:00 15:00 23:00 07:00 15:00 23:00 Intake Total 120 ml 400 ml 240 ml 480 ml Balance 120 ml 400 ml 240 ml 480 ml Intake Oral 120 ml 240 ml 480 ml Other 400 ml # Voids 2 5 6 # Bowel Movements 0 2 0 Result Diagram: 02/13/1844102/13/18441 Objective Remarks awake alert os swollen shut moves all ext well alert awake nl speech Assessment and Plan Assessment and Plan imp sz recurrent add vimpat cbz neurontin improved fu eeg could dc and fu office if eeg ok she had run out of cbz Shady Mayers MD Feb 13, 2018 07:40
[2018-02-13] MEDS: SODIUM CHLORIDE 0.9% FLUSH 10 ML FLUSH IV FLUSH SCH ×3 (07:41→21:35)
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
[2018-02-13] MEDS: PANTOPRAZOLE SODIUM 40 MG VIAL IV PUSH SCH ×2 (08:51→21:35)
[2018-02-13] MEDS: GABAPENTIN 300 MG CAP PO SCH ×3 (08:52→18:09)
[2018-02-13] MEDS: FUROSEMIDE 40 MG TAB PO SCH (08:52)
[2018-02-13] MEDS: CITALOPRAM HYDROBROMIDE 40 MG TAB PO SCH (09:12)
[2018-02-13] MEDS: LACOSAMIDE 100 MG TAB PO SCH ×2 (11:11→21:35)
[2018-02-13] MEDS: ACETAMIN 325 MG/BUTALBITAL 50 MG/CAFFEINE 40 MG TAB PO PRN ×2 (11:13→21:36)
--- NOTE | 2018-02-13 12:54 | HHI.GIFU ---
Subjective Remarks Pt OOB to chair. c/o right foot pain. Says she has some gas and feels like she needs to have a BM but can't. No further hematemesis. She is also complaining of double vision. (Carolin Trinh) Objective Vitals I&O Vital Signs Date Time Temp Pulse Resp B/P (MAP) Pulse Ox O2 Delivery O2 Flow Rate FiO2 02/13/18 12:00 98.6 70 21 166/74 (104) 96 Automatic Cuff 02/13/18 12:00 70 02/13/18 10:00 69 02/13/18 08:00 98.7 67 16 161/79 (106) 95 02/13/18 08:00 67 02/13/18 06:38 72 02/13/18 04:06 62 18 137/70 (92) 97 02/13/18 04:05 62 02/13/18 02:17 65 02/13/18 00:00 98.0 65 12 138/79 (98) 97 02/12/18 22:57 72 02/12/18 20:00 98.1 71 21 165/83 (110) 96 02/12/18 18:00 76 02/12/18 16:00 76 02/12/18 16:00 98.3 76 14 154/74 (100) 98 02/12/18 14:00 75 02/12/18 13:00 78 14 147/76 (99) 96 Nasal Cannula 2 02/12/18 13:00 98.1 76 16 145/75 (98) 97 I/O 02/12/18 02/12/18 02/12/18 02/13/18 02/13/18 02/13/18 07:00 15:00 23:00 07:00 15:00 23:00 Intake Total 120 ml 400 ml 240 ml 480 ml Balance 120 ml 400 ml 240 ml 480 ml Intake Oral 120 ml 240 ml 480 ml Other 400 ml # Voids 2 5 6 # Bowel Movements 0 2 0 Laboratory Laboratory Tests Test 02/13/18 04:42 White Blood Count 12.7 Red Blood Count 3.39 Hemoglobin 10.3 Hematocrit 31.2 Mean Corpuscular Volume 91.9 Mean Corpuscular Hemoglobin 30.5 Mean Corpuscular Hemoglobin Concent 33.2 Red Cell Distribution Width 12.8 Platelet Count 210 Mean Platelet Volume 8.7 Neutrophils (%) (Auto) 61.1 Lymphocytes (%) (Auto) 27.0 Monocytes (%) (Auto) 8.7 Eosinophils (%) (Auto) 2.6 Basophils (%) (Auto) 0.6 Neutrophils # (Auto) 7.8 Lymphocytes # (Auto) 3.4 Monocytes # (Auto) 1.1 Eosinophils # (Auto) 0.3 Basophils # (Auto) 0.1 CBC Comment DIFF FINAL Differential Comment Blood Urea Nitrogen 13 Creatinine 0.72 Random Glucose 99 Calcium Level 8.2 Sodium Level 143 Potassium Level 3.9 Chloride Level 108 Carbon Dioxide Level 26.6 Anion Gap 8 Estimat Glomerular Filtration Rate 81 Carbamazepine (Tegretol) Level 6.2 Date/Time Source Procedure Growth Status 02/10/18 14:17 Blood Peripheral Aerobic Blood Culture - Preliminary NO GROWTH IN 3 DAYS Resulted 02/10/18 14:17 Blood Peripheral Anaerobic Blood Culture - Preliminary NO GROWTH IN 3 DAYS Resulted 02/11/18 12:03 Gastric Gastric Occult Blood - Final GASTROCCULT POSITIVE Complete Imaging Last Impressions Chest X-Ray 02/10/18 1308 Signed Impressions: Service Date/Time: Saturday, February 10, 2018 13:27 - CONCLUSION: No acute cardiopulmonary disease identified. Walter Mclaughlin MD Head CT 02/10/18 1304 Signed Impressions: Service Date/Time: Saturday, February 10, 2018 14:32 - CONCLUSION: Left frontal scalp hematoma and superior aspect left intraorbital hematoma. No acute intracranial findings. Walter Mclaughlin MD Cervical Spine CT 02/10/18 1304 Signed Impressions: Service Date/Time: Saturday, February 10, 2018 14:32 - CONCLUSION: 1. No evidence of fracture. 2. Status post anterior fusion C5-6. 3. Multilevel degenerative findings unchanged from 06/24/2016 Walter Mclaughlin MD Head Magnetic Resonance Angiography 02/10/18 0000 Signed Impressions: Service Date/Time: Saturday, February 10, 2018 20:48 - CONCLUSION: No acute abnormality seen of the intracranial arteries. No aneurysm. Jayro Fisher MD Brain MRI 02/10/18 0000 Signed Impressions: Service Date/Time: Saturday, February 10, 2018 20:48 - CONCLUSION: Large scalp hematoma and diffuse chronic white matter changes. No acute intracranial abnormality demonstrated. No perceptible aneurysm. MRA to follow. Jayro Fisher MD ADDENDUM: Crescentic shaped mass without perceptible enhancement seen in the superior aspect of the left orbit. This is extraconal. It measures approximately 13 mm in maximal thickness and approximately 33 mm in diameter. This appears to be a hematoma. There is some mass effect on the extraocular muscles, especially superior rectus. The optic nerve and orbital apex are not significantly involved. Jayro Fisher MD Abdomen/Pelvis CT 02/10/18 0000 Signed Impressions: Service Date/Time: Saturday, February 10, 2018 17:54 - CONCLUSION: 1. Apparent acute proctitis, etiology uncertain but presumably infectious or inflammatory. No abscess, perforation or obstruction. 2. Diverticulosis of the sigmoid colon without diverticulitis. 3. Moderate to large hiatal hernia again noted. Jayro Fisher MD Physical Exam HEENT: bilateral orbital bruising, swelling CHEST: wheezes CARDIAC: RRR ABDOMEN: Soft, nondistended, nontender; no hepatosplenomegaly; bowel sounds are present in all four quadrants. EXTREMITIES: No clubbing, cyanosis, or edema. bruising right foot SKIN: Normal; no rash; no jaundice. DROP WIRE ALINER: No focal deficits; alert and oriented times three. (Carolin Trinh) Assessment and Plan Plan ASSESSMENT - report of projectile vomiting with pos gastroccult - none witnessed today by pts nurse. Pt denies n/v, says she was spitting up some blood. she has significant orbital bruising and its very possibly blood coming from oropharynx rather than GI source. EGD 10/2017 showed schatzki ring, hiatal hernia, gastritis. she is not anemic at this time. CT showed proctitis, no obstruction. - epigastric TTP - unk etiology. pt cannot provide much detail on this but is tender on exam. 02/13/18 s/p EGD found esophageal polypoid lesion, small hiatal hernia. no further hematemesis. hgb declined a bit today. pt complaining of right foot pain and double vison PLAN - JOHANA - await bx - monitor HH - transfuse as needed - notify GI of active bleeding - PPI pt seen by myself and Dr Hanley and this note is on his behalf (Carolin Trinh) Physician Comments Patient seen and examined Agree with above Continue with current supportive care Monitor labs No obvious GI bleed at this point Not much to add from a GI perspective we will sign off (Grady Hanley MD) Carolin Trinh Feb 13, 2018 12:54 Grady Hanley MD Feb 13, 2018 13:14
[2018-02-13] MEDS ORDERED: DOCUSATE SODIUM 100 MG CAP PO ONE (13:00)
--- NOTE | 2018-02-13 14:59 | MG ---
cc: Gasper Scott MD, PhD DATE OF STUDY: 02/12/2018 TEST NUMBER: [id number] TECHNIQUE: This is a 17-channel EEG. DESCRIPTION: The background rhythm reveals slowing in the theta range at approximately 6 Hz amplitude, 20 microvolts. There are some sleep spindles present and vertex sharp waves. Occasional muscle artifact is identified. There are no lateralizing features seen. No epileptiform discharges. Photic results in a modest driving response symmetrically. Later in the tracing, there does appear to be a normal alpha rhythm during wakefulness. INTERPRETATION: Normal sleep electroencephalogram. Gasper Scott MD, PhD ASHLEY/MATTHEW , 02:49 PM , 02:58 PM
[2018-02-13] MEDS: SERTRALINE HCL 50 MG TAB PO SCH (21:35)
[2018-02-14] VITALS (7 sets, daily range): BP systolic 130–181; BP diastolic 63–96; PULSE 63–84; RESP 16–25; TEMP 98–98.9; O2SAT 92–98
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
[2018-02-14] MEDS: CITALOPRAM HYDROBROMIDE 40 MG TAB PO SCH (09:39)
[2018-02-14] MEDS: ACETAMIN 325 MG/BUTALBITAL 50 MG/CAFFEINE 40 MG TAB PO PRN ×2 (09:39→21:19)
[2018-02-14] MEDS: FUROSEMIDE 40 MG TAB PO SCH (09:42)
[2018-02-14] MEDS: GABAPENTIN 300 MG CAP PO SCH ×3 (09:42→17:06)
[2018-02-14] MEDS: LACOSAMIDE 100 MG TAB PO SCH ×2 (09:42→21:19)
[2018-02-14] MEDS: PANTOPRAZOLE SODIUM 40 MG VIAL IV PUSH SCH ×2 (09:43→21:20)
[2018-02-14] MEDS: hydrALAZINE HCL 10 MG TAB PO PRN (17:06)
[2018-02-14] MEDS: SERTRALINE HCL 50 MG TAB PO SCH (21:19)
[2018-02-14] MEDS: SODIUM CHLORIDE 0.9% FLUSH 10 ML FLUSH IV FLUSH SCH (21:20)
[2018-02-15 00:20] VITALS: BP 150/86; PULSE 71; RESP 20; TEMP 98.6; O2SAT 100
[2018-02-15 04:36] VITALS: BP 167/68; PULSE 73; RESP 20; TEMP 98.5; O2SAT 95
[2018-02-15 04:48] VITALS: BP 167/77
[2018-02-15] MEDS: hydrALAZINE HCL 10 MG TAB PO PRN (04:48)
[2018-02-15 07:39] VITALS: BP 176/94; PULSE 75; RESP 19; TEMP 98.4; O2SAT 97
[2018-02-15] MEDS: FUROSEMIDE 40 MG TAB PO SCH (07:52)
[2018-02-15] MEDS: CITALOPRAM HYDROBROMIDE 40 MG TAB PO SCH (07:52)
[2018-02-15] MEDS: LACOSAMIDE 100 MG TAB PO SCH (07:53)
[2018-02-15] MEDS: GABAPENTIN 300 MG CAP PO SCH (07:53)
[2018-02-15] MEDS: PANTOPRAZOLE SODIUM 40 MG VIAL IV PUSH SCH (07:54)
[2018-02-15] MEDS: SODIUM CHLORIDE 0.9% FLUSH 10 ML FLUSH IV FLUSH SCH (07:54)
[2018-02-15 08:27] VITALS: PULSE 69
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
[2018-02-15] MEDS ORDERED: CARB100C PO (08:57)
[2018-02-15] MEDS ORDERED: NEUR600T PO (08:57)
[2018-02-15] MEDS ORDERED: LACO100 PO (08:57)
[2018-02-15] MEDS ORDERED: OMEP20TA93 PO (08:57)
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
--- NOTE | 2018-02-15 09:00 | HHI.FF ---
Face to Face Verification Diagnosis: (1) Anxiety (2) Musculoskeletal pain (3) Hypertension (4) Carbamazepine toxicity (5) Diarrhea (6) Migraine (7) Major depressive disorder (8) Syncope (9) Seizure (10) Hyperlipidemia (11) Gastritis (12) Fall (13) Traumatic hematoma of left orbit (14) Head injury, acute Physical Therapy Order: Evaluate and Treat Occupational Therapy Order: Evaluate and Treat Home Health Nursing Order: Medical education Signs/symptoms of disease process Medication education-adverse effect Nursing assessment with vital signs [employer] Order: To Evaluate: Living conditions/environment, Support services I have seen patient Fiona Bone on 02/15/18. My clinical findings support the need for the requested home health care services because: Ltd mobility - disease progression I certify that my clinical findings support that this patient is homebound because: Post-op weakness Vera Reyes MD Feb 15, 2018 09:00
[2018-02-15] MEDS: ACETAMIN 325 MG/BUTALBITAL 50 MG/CAFFEINE 40 MG TAB PO PRN (09:29)
[2018-02-15] MEDS ORDERED: BUTA1CAP PO (11:06)
[2018-02-17] MEDS ORDERED: TRAZ100T10 PO (15:52)
[2018-02-17] MEDS ORDERED: BACL10TA PO (15:52)
[2018-02-17] MEDS ORDERED: LEVO25TA4 PO (15:52)
[2018-02-17] MEDS ORDERED: ALBUAER3 INH (15:52)
[2018-02-17] MEDS ORDERED: NEUR600T PO (15:53)
== END 2018-02-15 12:09 | disposition home health service (06) | DRG 100 ==
LOC: NEPE 12:47 → NEDA 19:40 → NEPGCP 23:25 → OBSVTOIN 02-11 11:42 → N03A 02-11 13:20 → N03B 02-12 19:34 → N05A 02-14 15:51
PROVIDERS: ADMIT Hospitalist; ATTEND Hospitalist
PROC: 0DB28ZZ Excision of Middle Esophagus, Via Natural or Artificial Opening Endoscopic (ICD-10-PCS; principal; 2018-02-12 11:48)
DX: G40.409 Other generalized epilepsy and epileptic syndromes, not intractable, without status epilepticus (principal); G93.41 Metabolic encephalopathy; K92.0 Hematemesis; I16.1 Hypertensive emergency; K22.2 Esophageal obstruction; I10 Essential (primary) hypertension; S00.03XA Contusion of scalp, initial encounter; S05.12XA Contusion of eyeball and orbital tissues, left eye, initial encounter; S05.11XA Contusion of eyeball and orbital tissues, right eye, initial encounter; S90.32XA Contusion of left foot, initial encounter; K62.89 Other specified diseases of anus and rectum; K44.9 Diaphragmatic hernia without obstruction or gangrene; K29.70 Gastritis, unspecified, without bleeding; D13.0 Benign neoplasm of esophagus; E87.6 Hypokalemia; H53.2 Diplopia; E78.5 Hyperlipidemia, unspecified; F32.9 Major depressive disorder, single episode, unspecified; F41.9 Anxiety disorder, unspecified; W19.XXXA Unspecified fall, initial encounter; Z23 Encounter for immunization; Z78.1 Physical restraint status; Z86.73 Personal history of transient ischemic attack (TIA), and cerebral infarction without residual deficits; Z88.6 Allergy status to analgesic agent; Z91.013 Allergy to seafood; Z91.14 Patient's other noncompliance with medication regimen; Z98.1 Arthrodesis status
CPT/HCPCS: 70450; 70544; 70551; 71045; 72125; 74177; 80048; 80076; 80156; 80201; 80307; 81001; 82140; 82270; 82550; 82607; 83605; 83690; 83735; 84425; 84443; 84484; 85025; 85027; 85610; 85652; 85730; 86850; 86900; 86901; 87040; 87491; 87591; 88305; 90686; 90732; 95819; C9113; G8987-GP; G8988-GP; J0330; J0360; J0744; J0780; J1100; J2060; J2250; J2405; J2765; J7030; Q2038; Q9967

== ENCOUNTER 2018-02-17 11:22 | Inpatient (IN) | payer MEDICARE, MEDICAID ==
[2018-02-17] MEDS ORDERED: ONDANSETRON HCL 4 MG/2 ML VIAL (12:22)
[2018-02-17] MEDS: MORPHINE SULFATE 4 MG/ML INJ IV PUSH (12:23)
[2018-02-17] MEDS: ONDANSETRON HCL 4 MG/2 ML VIAL IV PUSH (12:32)
[2018-02-17 12:38] LABS: AUTOMATED NEUTROPHIL # 14.4 TH/MM3 (1.8-7.7); BASOPHIL # 0.1 TH/MM3 (0-0.2); BASOPHIL % 0.6 % (0.0-2.0); EOSINOPHIL # 0.1 TH/MM3 (0-0.4); EOSINOPHIL % 0.4 % (0.0-4.0); HEMATOCRIT 37.4 % (35.0-46.0); HEMO FLAGS DIFF FINAL; HEMOGLOBIN 12.6 GM/DL (11.6-15.3); LYMPH % 9.1 % (9.0-44.0); LYMPHOCYTE # 1.6 TH/MM3 (1.0-4.8); MEAN CELL VOLUME 91.5 FL (80.0-100.0); MEAN CORPUSCULAR HEMOGLOBIN 30.8 PG (27.0-34.0); MEAN CORPUSCULAR HGB CONC 33.6 % (32.0-36.0); MEAN PLATELET VOLUME 8.5 FL (7.0-11.0); MONO % 7.3 % (0.0-8.0); MONOCYTE # 1.3 TH/MM3 (0-0.9); NEUT % 82.6 % (16.0-70.0); PLATELET COUNT 356 TH/MM3 (150-450); RED BLOOD COUNT 4.09 MIL/MM3 (4.00-5.30); RED CELL DISTRIBUTION WIDTH 12.9 % (11.6-17.2); WHITE BLOOD COUNT 17.4 TH/MM3 (4.0-11.0)
[2018-02-17 12:44] LABS: APTT (PATIENT) 23.6 SEC (24.3-30.1); PROTHROMBIN TIME - PATIENT 10.2 SEC (9.8-11.6)
[2018-02-17 12:54] LABS: ANION GAP 8 MEQ/L (5-15); BICARBONATE 29.7 MEQ/L (21.0-32.0); BLOOD UREA NITROGEN 27 MG/DL (7-18); CALCIUM 8.7 MG/DL (8.5-10.1); CHLORIDE 101 MEQ/L (98-107); CREATININE 0.86 MG/DL (0.50-1.00); GLOMERULAR FILTRATION RATE 66 ML/MIN (>89); GLUCOSE,RANDOM 115 MG/DL (74-106); POTASSIUM 3.7 MEQ/L (3.5-5.1); SODIUM (NA) 139 MEQ/L (136-145)
[2018-02-17] MEDS ORDERED: ACETAMINOPHEN 325 MG TAB PO ×2 (14:45)
[2018-02-17] MEDS ORDERED: SENNOSIDES 8.6 MG TAB PO (14:45)
[2018-02-17] MEDS ORDERED: LACTULOSE SYRUP 20 GM/30 ML CUP PO (14:45)
[2018-02-17] MEDS ORDERED: NALOXONE HCL 0.4 MG/ML AMP IV PUSH (14:45)
[2018-02-17] MEDS ORDERED: BISACODYL 10 MG SUPP RECTAL (14:45)
[2018-02-17] MEDS ORDERED: MORPHINE SULFATE 4 MG/ML INJ IV (15:15)
[2018-02-17] MEDS: NS + KCL 20 MEQ INJ 1,000 ML IV (16:18)
[2018-02-17] MEDS ORDERED: hydrOXYzine PAMOATE 25 MG CAP PO (19:15)
[2018-02-17] MEDS ORDERED: PILL SPLITTER OTHER (19:15)
[2018-02-17] MEDS: LACOSAMIDE 100 MG TAB PO (21:00)
[2018-02-17] MEDS ORDERED: NON-FORMULARY DRUG (Trazodone 100 MG) PO (21:00)
[2018-02-17] MEDS ORDERED: SODIUM CHLORID 0.9% 500 ML IV (21:30)
[2018-02-17] MEDS ORDERED: POVIDONE IODINE 5% (ANTISEPSIS KIT) 4 APPLICATIONS EACH NARE (21:30)
[2018-02-17] MEDS ORDERED: CHLORHEXIDINE GLUCONATE 2 % 1 PACK (2 CLOTHS) TOPICAL (21:30)
[2018-02-17] MEDS: ONDANSETRON HCL 4 MG/2 ML VIAL IVP (22:32)
[2018-02-17] MEDS: DOCUSATE SODIUM 50 MG/SENNA 8.6 MG TAB PO (22:32)
[2018-02-17] MEDS: SERTRALINE HCL 50 MG TAB PO (22:33)
[2018-02-17] MEDS: traZODone HCL 100 MG TAB PO (22:34)
[2018-02-17] MEDS: MORPHINE SULFATE 2 MG/ML SYRINGE IV PUSH (23:52)
[2018-02-17] MEDS: SODIUM CHLORIDE 0.9% FLUSH 10 ML FLUSH IVF (23:52)
[2018-02-18] MEDS: MORPHINE SULFATE 2 MG/ML SYRINGE IV PUSH ×2 (02:54→09:38)
[2018-02-18] MEDS: cloNIDine HCL 0.1 MG TAB PO (03:47)
[2018-02-18] MEDS: PROCHLORPERAZINE INJ 10 MG/2 ML VIAL IV PUSH ×2 (03:51→09:17)
[2018-02-18] MEDS: LEVOTHYROXINE SODIUM 25 MCG TAB PO (06:20)
[2018-02-18] MEDS: NS + KCL 20 MEQ INJ 1,000 ML IV ×2 (06:24→19:36)
[2018-02-18 07:04] LABS: AUTOMATED NEUTROPHIL # 10.7 TH/MM3 (1.8-7.7); BASOPHIL # 0.1 TH/MM3 (0-0.2); BASOPHIL % 0.5 % (0.0-2.0); EOSINOPHIL % 0.3 % (0.0-4.0); HEMO FLAGS DIFF FINAL; HEMOGLOBIN 11.7 GM/DL (11.6-15.3); LYMPH % 9.5 % (9.0-44.0); LYMPHOCYTE # 1.2 TH/MM3 (1.0-4.8); MEAN CELL VOLUME 90.8 FL (80.0-100.0); MEAN CORPUSCULAR HEMOGLOBIN 31.2 PG (27.0-34.0); MEAN CORPUSCULAR HGB CONC 34.4 % (32.0-36.0); MEAN PLATELET VOLUME 8.9 FL (7.0-11.0); MONO % 7.4 % (0.0-8.0); NEUT % 82.3 % (16.0-70.0); PLATELET COUNT 305 TH/MM3 (150-450); RED BLOOD COUNT 3.75 MIL/MM3 (4.00-5.30); RED CELL DISTRIBUTION WIDTH 12.7 % (11.6-17.2)
[2018-02-18 07:23] LABS: ANION GAP 7 MEQ/L (5-15); BICARBONATE 30.9 MEQ/L (21.0-32.0); BLOOD UREA NITROGEN 17 MG/DL (7-18); CALCIUM 8.6 MG/DL (8.5-10.1); CHLORIDE 103 MEQ/L (98-107); CREATININE 0.65 MG/DL (0.50-1.00); GLOMERULAR FILTRATION RATE 91 ML/MIN (>89); GLUCOSE,RANDOM 121 MG/DL (74-106); POTASSIUM 3.6 MEQ/L (3.5-5.1); SODIUM (NA) 141 MEQ/L (136-145)
[2018-02-18] MEDS ORDERED: NON-FORMULARY DRUG (Omeprazole 40 MG) PO (09:00)
[2018-02-18] MEDS: BACLOFEN 10 MG TAB PO ×3 (09:03→17:57)
[2018-02-18] MEDS: PANTOPRAZOLE SOD 40 MG DELAYED RELEASE TAB PO (09:03)
[2018-02-18] MEDS: GABAPENTIN 300 MG CAP PO ×3 (09:04→17:58)
[2018-02-18] MEDS: LACOSAMIDE 100 MG TAB PO ×2 (09:04→20:01)
[2018-02-18] MEDS: DOCUSATE SODIUM 50 MG/SENNA 8.6 MG TAB PO ×2 (09:04→20:01)
[2018-02-18] MEDS: FUROSEMIDE 40 MG TAB PO (09:05)
[2018-02-18] MEDS: CITALOPRAM HYDROBROMIDE 40 MG TAB PO (09:05)
[2018-02-18] MEDS: LACTATED RINGER'S 1000 ML IV (10:19)
[2018-02-18] MEDS: SODIUM CHLORIDE 0.9% 10 ML VIAL IV (12:00)
[2018-02-18] MEDS: ROCURONIUM INJ 50 MG/5 ML SYRINGE IV PUSH (12:00)
[2018-02-18] MEDS: GLYCOPYRROLATE 1 MG/5 ML SYRINGE IV PUSH (12:00)
[2018-02-18] MEDS: LIDOCAINE HCL 1% PF 5 ML SYRINGE OTHER (12:00)
[2018-02-18] MEDS: PROPOFOL 200 MG/20 ML AMP IV (12:00)
[2018-02-18] MEDS: DEXAMETHASONE SOD PHOS 4 MG/ML VIAL IV (12:00)
[2018-02-18] MEDS: NEOSTIGMINE 5 MG/5 ML SYRINGE IV PUSH (12:00)
[2018-02-18] MEDS: ePHEDrine/NS 25 MG/5 ML SYRINGE IV (12:00)
[2018-02-18] MEDS: ENALAPRILAT 1.25 MG/ML VIAL IV PUSH (13:02)
[2018-02-18] MEDS: SODIUM CHLORIDE 0.9% FLUSH 10 ML FLUSH IVF (13:52)
[2018-02-18] MEDS: FAMOTIDINE 20 MG/2 ML VIAL (14:24)
[2018-02-18] MEDS: APREPITANT 40 MG CAP PO (14:30)
[2018-02-18] MEDS: APREPITANT 40 MG CAP (14:32)
[2018-02-18] MEDS: ONDANSETRON HCL 4 MG/2 ML VIAL IV PUSH (14:32)
[2018-02-18] MEDS: FAMOTIDINE 20 MG/2 ML VIAL IV (14:35)
[2018-02-18] MEDS: ceFAZolin INJ 1,000 MG VIAL (14:49)
[2018-02-18] MEDS: VANCOMYCIN HCL 1000 MG VIAL (14:51)
[2018-02-18] MEDS ORDERED: NALOXONE HCL 0.4 MG/ML AMP IV PUSH (15:15)
[2018-02-18] MEDS: Post-op Orders (for Pharmacy) XX (15:15)
[2018-02-18] MEDS: PHARMACY INFORMATION XX (15:15)
[2018-02-18] MEDS ORDERED: NURSING INFORMATION XX (15:15)
[2018-02-18] MEDS ORDERED: diphenhydrAMINE HCL 25 MG CAP PO (15:15)
[2018-02-18] MEDS: GENTAMICIN SULFATE 80 MG/2 ML VIAL (15:28)
[2018-02-18] MEDS ORDERED: DEXT 5%-NACL 0.45% 1000 ML INJ 1,000 ML IV (16:00)
[2018-02-18] MEDS ORDERED: DO NOT ADM ANY ANTICOAGULANT DRUGS (16:55)
[2018-02-18] MEDS ORDERED: MORPHINE SULFATE 4 MG/ML INJ IV PUSH (17:00)
[2018-02-18] MEDS: MIDAZOLAM HCL 2 MG/2 ML VIAL (17:05)
[2018-02-18] MEDS: ACETAMINOPHEN/HYDROcodone 325 MG/5 MG TAB PO (20:00)
[2018-02-18] MEDS: traZODone HCL 100 MG TAB PO (20:01)
[2018-02-18] MEDS: MAGNESIUM HYDROXIDE SUSP 30 ML CUP PO (20:01)
[2018-02-18] MEDS: SERTRALINE HCL 50 MG TAB PO (20:01)
[2018-02-19] MEDS: ACETAMINOPHEN/HYDROcodone 325 MG/5 MG TAB PO ×5 (00:08→21:16)
[2018-02-19] MEDS: LEVOTHYROXINE SODIUM 25 MCG TAB PO (04:28)
[2018-02-19] MEDS: PANTOPRAZOLE SOD 40 MG DELAYED RELEASE TAB PO (08:42)
[2018-02-19] MEDS: BACLOFEN 10 MG TAB PO ×3 (08:42→17:24)
[2018-02-19] MEDS: LACOSAMIDE 100 MG TAB PO ×2 (08:42→21:17)
[2018-02-19] MEDS: DOCUSATE SODIUM 50 MG/SENNA 8.6 MG TAB PO ×2 (08:42→21:17)
[2018-02-19] MEDS: FUROSEMIDE 40 MG TAB PO (08:42)
[2018-02-19] MEDS: CITALOPRAM HYDROBROMIDE 40 MG TAB PO (08:42)
[2018-02-19] MEDS: MAGNESIUM HYDROXIDE SUSP 30 ML CUP PO (08:42)
[2018-02-19] MEDS: MULTIVITAMINS/MINERALS THERAPEUTIC TAB PO (08:43)
[2018-02-19] MEDS: GABAPENTIN 300 MG CAP PO ×3 (08:43→17:24)
[2018-02-19] MEDS: NS + KCL 20 MEQ INJ 1,000 ML IV (09:54)
[2018-02-19 13:04] LABS: HEMOGLOBIN 9.5 GM/DL (11.6-15.3)
[2018-02-19 13:04] LABS: HEMATOCRIT 27.4 % (35.0-46.0); REVIEW FLAG FINAL
[2018-02-19] MEDS: ENOXAPARIN SODIUM 40 MG/0.4 ML SYRINGE SQ (17:23)
[2018-02-19] MEDS: traZODone HCL 100 MG TAB PO (21:17)
[2018-02-19] MEDS: SERTRALINE HCL 50 MG TAB PO (21:17)
[2018-02-20] MEDS: ACETAMINOPHEN/HYDROcodone 325 MG/5 MG TAB PO ×3 (05:07→17:56)
[2018-02-20] MEDS: LEVOTHYROXINE SODIUM 25 MCG TAB PO (05:13)
[2018-02-20] MEDS: NS + KCL 20 MEQ INJ 1,000 ML IV ×2 (05:15→13:33)
[2018-02-20 06:55] LABS: BASOPHIL # 0.1 TH/MM3 (0-0.2); BASOPHIL % 0.4 % (0.0-2.0); EOSINOPHIL # 0.4 TH/MM3 (0-0.4); EOSINOPHIL % 2.9 % (0.0-4.0); HEMATOCRIT 27.6 % (35.0-46.0); HEMOGLOBIN 9.4 GM/DL (11.6-15.3); LYMPH % 20.7 % (9.0-44.0); LYMPHOCYTE # 3.2 TH/MM3 (1.0-4.8); MEAN CELL VOLUME 92.4 FL (80.0-100.0); MEAN CORPUSCULAR HEMOGLOBIN 31.3 PG (27.0-34.0); MEAN CORPUSCULAR HGB CONC 33.9 % (32.0-36.0); MONO % 10.7 % (0.0-8.0); MONOCYTE # 1.7 TH/MM3 (0-0.9); NEUT % 65.3 % (16.0-70.0); PLATELET COUNT 318 TH/MM3 (150-450); RED BLOOD COUNT 2.99 MIL/MM3 (4.00-5.30); RED CELL DISTRIBUTION WIDTH 12.6 % (11.6-17.2); WHITE BLOOD COUNT 15.4 TH/MM3 (4.0-11.0)
[2018-02-20 07:10] LABS: HEMO FLAGS AUTO DIFF
[2018-02-20 08:29] LABS: BANDS 1 % (0-6); BASOPHILS 1 % (0-2); EOSINOPHILS 2 % (0-4); LYMPHOCYTES 18 % (9-44); METAMYELOCYTES 2 % (0-1); MONOCYTES 7 % (0-8); MYELOCYTES 2 % (0-0); NEUTROPHIL # MANUAL DIFF 10.9 TH/MM3 (1.8-7.7); PLASMA CELLS 1 % (0-0); POLYS (SEG NEUTROPHILS) 66 % (16-70); WBC DIFF SAMPLE 100
[2018-02-20 08:30] LABS: PLATELET ESTIMATE SMEAR NORMAL (NORMAL); PLATELET MORPHOLOGY NORMAL (NORMAL); SCAN/DIFF FINAL DIFF MANUAL
[2018-02-20] MEDS: GABAPENTIN 300 MG CAP PO ×3 (10:20→17:56)
[2018-02-20] MEDS: MULTIVITAMINS/MINERALS THERAPEUTIC TAB PO (10:20)
[2018-02-20] MEDS: LACOSAMIDE 100 MG TAB PO ×2 (10:21→22:20)
[2018-02-20] MEDS: BACLOFEN 10 MG TAB PO ×3 (10:21→17:56)
[2018-02-20] MEDS: CITALOPRAM HYDROBROMIDE 40 MG TAB PO (10:21)
[2018-02-20] MEDS: DOCUSATE SODIUM 50 MG/SENNA 8.6 MG TAB PO ×2 (10:21→22:21)
[2018-02-20] MEDS: PANTOPRAZOLE SOD 40 MG DELAYED RELEASE TAB PO (10:22)
[2018-02-20] MEDS: FUROSEMIDE 40 MG TAB PO (10:22)
[2018-02-20] MEDS: ENOXAPARIN SODIUM 40 MG/0.4 ML SYRINGE SQ (17:57)
[2018-02-20] MEDS: traZODone HCL 100 MG TAB PO (22:21)
[2018-02-20] MEDS: SERTRALINE HCL 50 MG TAB PO (22:22)
[2018-02-21] MEDS: ACETAMINOPHEN/HYDROcodone 325 MG/5 MG TAB PO ×2 (02:46→09:09)
[2018-02-21] MEDS: NS + KCL 20 MEQ INJ 1,000 ML IV (04:48)
[2018-02-21] MEDS: LEVOTHYROXINE SODIUM 25 MCG TAB PO (06:50)
[2018-02-21] MEDS: PANTOPRAZOLE SOD 40 MG DELAYED RELEASE TAB PO (09:07)
[2018-02-21] MEDS: DOCUSATE SODIUM 50 MG/SENNA 8.6 MG TAB PO (09:07)
[2018-02-21] MEDS: BACLOFEN 10 MG TAB PO ×2 (09:08→13:39)
[2018-02-21] MEDS: FUROSEMIDE 40 MG TAB PO (09:08)
[2018-02-21] MEDS: GABAPENTIN 300 MG CAP PO ×2 (09:08→13:39)
[2018-02-21] MEDS: CITALOPRAM HYDROBROMIDE 40 MG TAB PO (09:08)
[2018-02-21] MEDS: LACOSAMIDE 100 MG TAB PO (09:08)
[2018-02-21] MEDS: MULTIVITAMINS/MINERALS THERAPEUTIC TAB PO (09:08)
== END 2018-02-21 16:00 | disposition left against medical advice (07) | DRG 494 ==
LOC: NEPD 11:22 → NEDA 14:43 → N06B 20:09
PROC: 0QSG06Z Reposition Right Tibia with Intramedullary Internal Fixation Device, Open Approach (ICD-10-PCS; principal; 2018-02-18 14:40)
DX: S82.251A Displaced comminuted fracture of shaft of right tibia, initial encounter for closed fracture (principal); I10 Essential (primary) hypertension; S00.83XA Contusion of other part of head, initial encounter; D64.9 Anemia, unspecified; F32.9 Major depressive disorder, single episode, unspecified; D72.829 Elevated white blood cell count, unspecified; S82.831A Other fracture of upper and lower end of right fibula, initial encounter for closed fracture; G40.909 Epilepsy, unspecified, not intractable, without status epilepticus; E03.9 Hypothyroidism, unspecified; E78.5 Hyperlipidemia, unspecified; K21.9 Gastro-esophageal reflux disease without esophagitis; F41.9 Anxiety disorder, unspecified; W01.0XXA Fall on same level from slipping, tripping and stumbling without subsequent striking against object, initial encounter; Y92.009 Unspecified place in unspecified non-institutional (private) residence as the place of occurrence of the external cause; G43.909 Migraine, unspecified, not intractable, without status migrainosus; Z72.0 Tobacco use; Z86.73 Personal history of transient ischemic attack (TIA), and cerebral infarction without residual deficits; Z88.6 Allergy status to analgesic agent; Z91.013 Allergy to seafood
CPT/HCPCS: 70450; 71045; 72125; 73590; 76000; 76937; 80048; 85007; 85014; 85018; 85025; 85027; 85610; 85730; 93005; 94150; 96374; 96375; 97110-GP; 97116-GP; 97162-GP; 99285-25

== ENCOUNTER 2018-03-10 10:55 | Emergency (ER) | payer MEDICARE, MEDICAID ==
[~2018-03-10] VITALS: Ht 162.6 cm; Wt 62.0 kg
[~2018-03-10 10:55] MED LIST changes: +ALBUAER3 INH; +ASPI81TA16 PO; +BACL10TA PO; +BUTA1CAP PO; -CALC1CAP PO; +COMMODE 3-IN-11 MIS; -ENAL5TAB PO; +ENOX40P SQ; +FURO1TAB60 PO; +HYDR1CAP30 PO; -HYDR25TA5 PO; +LACO100 PO; -LIPI10TA PO; -NEUR300C PO; +NEUR600T PO; +NORC5TAB PO; +OMEP20TA93 PO; +PROM25TA10 PO; -PROT40TA PO; -TOPI25TA7 PO; +TRAZ100T10 PO; +WALKER WHEELS/F1 MIS; +WHEEMIS3; +ZOLO50TA PO
[2018-03-10 11:00] VITALS: BP 190/94; PULSE 58; RESP 16; TEMP 98.4; O2SAT 94
[2018-03-10] MEDS ORDERED: SODIUM CHLOR 0.9% 1000 ML INJ 1,000 ML IV ONE (11:06)
--- NOTE | 2018-03-10 11:11 | PD ---
HPI Chief Complaint: seizure Time Seen by Provider: 11:05 Travel History International Travel<30 days: No Contact w/Intl Traveler<30days: No History of Present Illness HPI Patient is a 67-year-old female with history of seizures currently taking Vimpat , history of hepatitis, anxiety, depression, hypothyroidism, hypertension, presents the emergency room postictal after a seizure. As per EMS, patient's housemates called ems after patient had a witnessed seizure episode. Reports that patient did take her seizure medications today - while she was having her seizures - bystanders reported giving her seizure medications as well. BS WNL by EMS. Patient postictal and unable to provide HPI. PFSH Past Medical History Arthritis: No Asthma: No Autoimmune Disease: No Blood Disorders: No Anxiety: Yes Depression: Yes Heart Rhythm Problems: No Cancer: No Cardiovascular Problems: Yes High Cholesterol: No Chest Pain: No Congestive Heart Failure: No COPD: Yes Cerebrovascular Accident: Yes Diabetes: No Diminished Hearing: No Endocrine: No Gastrointestinal Disorders: Yes GERD: Yes Glaucoma: No Genitourinary: No Headaches: Yes Hepatitis: Yes (TYPE UNKNOWN) Hiatal Hernia: No Hypertension: Yes Immune Disorder: No Implanted Vascular Access Dvce: No Kidney Stones: No Musculoskeletal: No Neurologic: Yes Psychiatric: Yes Reproductive: No Respiratory: Yes Immunizations Current: Yes Migraines: Yes Myocardial Infarction: No Renal Failure: No Seizures: Yes Sickle Cell Disease: No Sleep Apnea: No Thyroid Disease: No Ulcer: Yes Menopausal: Yes : 3 Para: 3 Past Surgical History Abdominal Surgery: No AICD: No Cardiac Surgery: No Ear Surgery: No Endocrine Surgery: No Eye Surgery: No Genitourinary Surgery: No Gynecologic Surgery: No Neurologic Surgery: Yes (S/P C4-5 SURGERY) Oral Surgery: Yes (TONCILECTOMY) Pacemaker: No Thoracic Surgery: No Tonsillectomy: Yes Other Surgery: Yes (REPAIR BRAIN ANEURYSM) Social History Alcohol Use: No Tobacco Use: Yes (1/2 ppd) Substance Use: No Allergies-Medications (Allergen,Severity, Reaction): Coded Allergies: aspirin (Verified Allergy, Severe, Seizures/ HIVES, 03/10/18) cyclobenzaprine (Verified Allergy, Severe, 03/10/18) Uncoded Allergies: fish (Adverse Reaction, Unknown, unknown reaction at age 7, 12/04/12) Reported Meds & Prescriptions Reported Meds & Active Scripts Active Wheelchair Elevated Leg (Device) 1 Mis Mis Ea .XX DIRECTED [place] (Hydrocodone-Acetaminophen) 5 Mg-325 Mg Tab 1-2 Tab PO Q4H PRN Lovenox Inj (Enoxaparin Sodium) 40 Mg/0.4 Ml Syr 40 Mg SQ DAILY Walker with Front Wheels (Device) 1 Mis Mis Ea .XX DIRECTED Commode 3-in-1 (Device) 1 Mis Mis Ea .XX DIRECTED Fioricet (Ycaehnjygg-Sphbubaghwxet-Xqnakxsp) 50-300-40 Mg Cap 1 Cap PO Q6HR PRN Vimpat (Lacosamide) 100 Mg Tab 100 Mg PO BID Omeprazole 20 Mg Tab 40 Mg PO DAILY Carbamazepine 100 Mg Chew 200 Mg PO BID Reported Neurontin (Gabapentin) 600 Mg Tab 600 Mg PO TID Levothyroxine (Levothyroxine Sodium) 25 Mcg Tab 25 Mcg PO DAILY Proair Hfa 8.5 GM Inh (Albuterol Sulfate) 90 Mcg/Act Aer 1-2 Puff INH Q6H PRN 108 mcg/actuation Trazodone (Trazodone HCl) 100 Mg Tablet 100 Mg PO HS Baclofen 10 Mg Tab 5 Mg PO TID Hydroxyzine Pamoate 25 Mg Cap 25 Mg PO Q8HR PRN Zoloft (Sertraline HCl) 50 Mg Tab 50 Mg PO HS Aspirin Adult Low Strength (Aspirin) 81 Mg Tabdr 81 Mg PO DAILY Lasix (Furosemide) 40 Mg Tab 40 Mg PO DAILY Phenergan (Promethazine HCl) 25 Mg Tablet 25 Mg PO Q8HR PRN Amlodipine (Amlodipine Besylate) 10 Mg Tab 10 Mg PO DAILY Citalopram (Citalopram Hydrobromide) 40 Mg Tab 40 Mg PO DAILY Review of Systems ROS Limitations: Altered Mental Status General / Constitutional: No: Fever Eyes: No: Visual changes HENT: No: Headaches Cardiovascular: No: Chest Pain or Discomfort Respiratory: No: Shortness of Breath Gastrointestinal: No: Abdominal Pain Genitourinary: No: Dysuria Musculoskeletal: No: Pain Skin: No Rash Neurologic: No: Weakness Psychiatric: No: Depression Endocrine: No: Polydipsia Hematologic/Lymphatic: No: Easy Bruising Physical Exam Exam Limitations: Altered Mental Status Narrative GENERAL: Moderate distress SKIN: Focused skin assessment warm/dry. HEAD: Atraumatic. Normocephalic. EYES: Pupils equal and round. No scleral icterus. No injection or drainage. ENT: No nasal bleeding or discharge. Mucous membranes pink and moist. NECK: Trachea midline. No JVD. CARDIOVASCULAR: Regular rate and rhythm. No murmur appreciated. RESPIRATORY: No accessory muscle use. Clear to auscultation. Breath sounds equal bilaterally. GASTROINTESTINAL: Abdomen soft, non-tender, nondistended. Hepatic and splenic margins not palpable. MUSCULOSKELETAL: No obvious deformities. No clubbing. No cyanosis. No edema. NEUROLOGICAL: patient confused - altered - postictal Data Data Last Documented VS Vital Signs Date Time Temp Pulse Resp B/P (MAP) Pulse Ox O2 Delivery O2 Flow Rate FiO2 03/10/18 11:24 16 97 Nasal Cannula 2.00 03/10/18 11:00 98.4 58 190/94 (126) Orders Orders Complete Blood Count With Diff (03/10/18 11:06) Electrocardiogram (03/10/18 ) Blood Glucose (03/10/18 11:06) Ecg Monitoring (03/10/18 11:06) Iv Access Insert/Monitor (03/10/18 11:06) Oximetry (03/10/18 11:06) Oxygen Administration (03/10/18 11:06) Comprehensive Metabolic Panel (03/10/18 11:06) Sodium Chlor 0.9% 1000 Ml Inj (Ns 1000 M (03/10/18 11:06) Sodium Chloride 0.9% Flush (Ns Flush) (03/10/18 11:15) Ct Brain W/O Iv Contrast(Rout) (03/10/18 ) Potassium Chlor 20 Meq Premix (Kcl 20 Me (03/10/18 13:15) Labs Laboratory Tests Test 03/10/18 11:15 White Blood Count 8.9 TH/MM3 Red Blood Count 4.28 MIL/MM3 Hemoglobin 12.8 GM/DL Hematocrit 38.7 % Mean Corpuscular Volume 90.4 FL Mean Corpuscular Hemoglobin 29.9 PG Mean Corpuscular Hemoglobin Concent 33.0 % Red Cell Distribution Width 13.4 % Platelet Count 416 TH/MM3 Mean Platelet Volume 8.0 FL Neutrophils (%) (Auto) 71.7 % Lymphocytes (%) (Auto) 18.1 % Monocytes (%) (Auto) 7.2 % Eosinophils (%) (Auto) 2.2 % Basophils (%) (Auto) 0.8 % Neutrophils # (Auto) 6.4 TH/MM3 Lymphocytes # (Auto) 1.6 TH/MM3 Monocytes # (Auto) 0.6 TH/MM3 Eosinophils # (Auto) 0.2 TH/MM3 Basophils # (Auto) 0.1 TH/MM3 CBC Comment DIFF FINAL Differential Comment Blood Urea Nitrogen 23 MG/DL Creatinine 0.86 MG/DL Random Glucose 133 MG/DL Total Protein 7.9 GM/DL Albumin 3.6 GM/DL Calcium Level 9.1 MG/DL Alkaline Phosphatase 285 U/L Aspartate Amino Transf (AST/SGOT) 21 U/L Alanine Aminotransferase (ALT/SGPT) 23 U/L Total Bilirubin 0.3 MG/DL Sodium Level 144 MEQ/L Potassium Level 3.4 MEQ/L Chloride Level 110 MEQ/L Carbon Dioxide Level 22.5 MEQ/L Anion Gap 12 MEQ/L Estimat Glomerular Filtration Rate 66 ML/MIN MDM Medical Decision Making Medical Screen Exam Complete: Yes Emergency Medical Condition: Yes Medical Record Reviewed: Yes Interpretation(s) EKG at 1114: NSR at 66, qt/qtc: 426/439, nonspecific t wave changes Vital Signs Date Time Temp Pulse Resp B/P (MAP) Pulse Ox O2 Delivery O2 Flow Rate FiO2 03/10/18 11:24 16 97 Nasal Cannula 2.00 03/10/18 11:00 98.4 58 16 190/94 (126) 94 03/10/18 11:00 94 Nasal Cannula 2.00 Differential Diagnosis Seizure disorder, electrolyte abnormality, ich, infection Narrative Course Patient is a 67 year old female who presents to the ER postical after a seizure episode today, patient with known seizures taking vinpat During the course of the patients emergency department visit, the patients history, examination, and differential diagnosis were reviewed with the patient. The patient was placed on a case monitor with oximetry and frequent blood pressure monitoring. The patient had an IV access obtained and blood work sent for analysis. The patient was initially provided IVF The patients laboratory studies were reviewed and remarkable for Laboratory Tests Test 03/10/18 11:15 White Blood Count 8.9 TH/MM3 (4.0-11.0) Red Blood Count 4.28 MIL/MM3 (4.00-5.30) Hemoglobin 12.8 GM/DL (11.6-15.3) Hematocrit 38.7 % (35.0-46.0) Mean Corpuscular Volume 90.4 FL (80.0-100.0) Mean Corpuscular Hemoglobin 29.9 PG (27.0-34.0) Mean Corpuscular Hemoglobin Concent 33.0 % (32.0-36.0) Red Cell Distribution Width 13.4 % (11.6-17.2) Platelet Count 416 TH/MM3 (150-450) Mean Platelet Volume 8.0 FL (7.0-11.0) Neutrophils (%) (Auto) 71.7 % (16.0-70.0) Lymphocytes (%) (Auto) 18.1 % (9.0-44.0) Monocytes (%) (Auto) 7.2 % (0.0-8.0) Eosinophils (%) (Auto) 2.2 % (0.0-4.0) Basophils (%) (Auto) 0.8 % (0.0-2.0) Neutrophils # (Auto) 6.4 TH/MM3 (1.8-7.7) Lymphocytes # (Auto) 1.6 TH/MM3 (1.0-4.8) Monocytes # (Auto) 0.6 TH/MM3 (0-0.9) Eosinophils # (Auto) 0.2 TH/MM3 (0-0.4) Basophils # (Auto) 0.1 TH/MM3 (0-0.2) CBC Comment DIFF FINAL Differential Comment Blood Urea Nitrogen 23 MG/DL (7-18) Creatinine 0.86 MG/DL (0.50-1.00) Random Glucose 133 MG/DL (74-106) Total Protein 7.9 GM/DL (6.4-8.2) Albumin 3.6 GM/DL (3.4-5.0) Calcium Level 9.1 MG/DL (8.5-10.1) Alkaline Phosphatase 285 U/L (45-117) Aspartate Amino Transf (AST/SGOT) 21 U/L (15-37) Alanine Aminotransferase (ALT/SGPT) 23 U/L (10-53) Total Bilirubin 0.3 MG/DL (0.2-1.0) Sodium Level 144 MEQ/L (136-145) Potassium Level 3.4 MEQ/L (3.5-5.1) Chloride Level 110 MEQ/L (98-107) Carbon Dioxide Level 22.5 MEQ/L (21.0-32.0) Anion Gap 12 MEQ/L (5-15) Estimat Glomerular Filtration Rate 66 ML/MIN (>89) Radiology studies were reviewed and remarkable for CT the head: Stable brain appearance Patient was initially postictal upon presentation the emergency room. Patient is currently back to her normal mental status; she is alert and oriented 3.. Patient reports that she feels much better now like to be discharged home. Patient understands need to follow-up with a neurologist as well as her primary care doctor, she understands importance of medication compliance. Patient will follow-up with her primary care doctor and neurologist and will return to the emergency room as needed. Diagnosis Primary Impression: Seizure disorder Patient Instructions: General Instructions Additional Instructions: Please take all medications as prescribed Please follow-up with your neurologist as soon as possible Please follow up with your primary care doctor in 2-3 days Return to the ER if symptoms worsen or progress Return to the ER as needed Disposition: 01 DISCHARGE HOME Condition: Stable Candi Velazquez DO March 10, 2018 11:11
[2018-03-10] MEDS ORDERED: SODIUM CHLORIDE 0.9% FLUSH 10 ML FLUSH IVF PRN (11:15)
[2018-03-10 11:24] VITALS: RESP 16; O2SAT 97
[2018-03-10 11:45] LABS: AUTOMATED NEUTROPHIL # 6.4 TH/MM3 (1.8-7.7); BASOPHIL # 0.1 TH/MM3 (0-0.2); BASOPHIL % 0.8 % (0.0-2.0); EOSINOPHIL # 0.2 TH/MM3 (0-0.4); EOSINOPHIL % 2.2 % (0.0-4.0); HEMATOCRIT 38.7 % (35.0-46.0); HEMOGLOBIN 12.8 GM/DL (11.6-15.3); LYMPH % 18.1 % (9.0-44.0); LYMPHOCYTE # 1.6 TH/MM3 (1.0-4.8); MEAN CELL VOLUME 90.4 FL (80.0-100.0); MEAN CORPUSCULAR HEMOGLOBIN 29.9 PG (27.0-34.0); MONO % 7.2 % (0.0-8.0); MONOCYTE # 0.6 TH/MM3 (0-0.9); NEUT % 71.7 % (16.0-70.0); PLATELET COUNT 416 TH/MM3 (150-450); RED BLOOD COUNT 4.28 MIL/MM3 (4.00-5.30); RED CELL DISTRIBUTION WIDTH 13.4 % (11.6-17.2); WHITE BLOOD COUNT 8.9 TH/MM3 (4.0-11.0)
[2018-03-10 12:05] LABS: ALBUMIN 3.6 GM/DL (3.4-5.0); ALT (GPT) 23 U/L (10-53); AST (GOT) 21 U/L (15-37); BICARBONATE 22.5 MEQ/L (21.0-32.0); CALCIUM 9.1 MG/DL (8.5-10.1); CHLORIDE 110 MEQ/L (98-107); CREATININE 0.86 MG/DL (0.50-1.00); GLOMERULAR FILTRATION RATE 66 ML/MIN (>89); GLUCOSE,RANDOM 133 MG/DL (74-106); SODIUM (NA) 144 MEQ/L (136-145)
[2018-03-10 12:12] LABS: ALKALINE PHOSPHATASE 285 U/L (45-117); BLOOD UREA NITROGEN 23 MG/DL (7-18); TOTAL BILIRUBIN ADULT 0.3 MG/DL (0.2-1.0); TOTAL PROTEIN 7.9 GM/DL (6.4-8.2)
[2018-03-10 13:00] VITALS: BP 150/78; PULSE 56; RESP 18; O2SAT 98
[2018-03-10] MEDS ORDERED: POTASSIUM CHLOR 20 MEQ PREMIX 100 ML IV ONE (13:15)
--- NOTE | 2018-03-10 13:37 | RADRPT ---
EXAM DATE: 03/10/2018 1:07 PM EDT AGE/SEX: 67 years / Female INDICATIONS: Generalized weakness. CLINICAL DATA: This is the patient's initial encounter. Patient reports that signs and symptoms have been present for 1 day and indicates a pain score of Nonresponsive. MEDICAL/SURGICAL HISTORY: Cerebrovascular disease. Hypertension. None. RADIATION DOSE: 56.35 CTDI (mGy) COMPARISON: [place], CT BRAIN W/O CONTRAST, 02/17/2018. . TECHNIQUE: CT of the head without contrast. Using automated exposure control and adjustment of the mA and/or kV according to patient size, radiation dose was kept as low as reasonably achievable to ob tain optimal diagnostic quality images. FINDINGS: The ventricles are stable and symmetric. There is moderate periventricular white matter hy podensity which appears stable and chronic. There is no evidence of intracranial mass or hemorrhage. There is nothing to suggest acute infarction. Previous bur holes in the high convexity left calvarium extracranial structures are otherwise benign in intact. CONCLUSION: Stable brain appearance. No acute findings. Electronically signed by: Jayro Flores MD 03/10/2018 1:36 PM EDT
--- NOTE | 2018-03-10 14:03 | EKG ---
Date Performed: 03/10/2018 Time Performed: 11:25:54 PTAGE: 67 years EKG: SINUS BRADYCARDIA INCOMPLETE RIGHT BUNDLE BRANCH BLOCK BORDERLINE ECG No significant change from prior electrocardiogram. PREVIOUS TRACING : 02/17/2018 12.06 DOCTOR: Jeremiah Aguirre Interpretating Date/Time 03/10/2018 14:03:18
[2018-03-10] MEDS ORDERED: METOCLOPRAMIDE HCL 10 MG/2 ML VIAL IV PUSH ONE (15:15)
[2018-03-10 15:30] VITALS: BP 148/74; PULSE 66; RESP 18; O2SAT 98
== END 2018-03-10 16:08 | disposition home or self-care (01) ==
LOC: NEPE 10:55
DX: G40.909 Epilepsy, unspecified, not intractable, without status epilepticus (principal); F17.200 Nicotine dependence, unspecified, uncomplicated; I10 Essential (primary) hypertension; E03.9 Hypothyroidism, unspecified; F32.9 Major depressive disorder, single episode, unspecified; F41.9 Anxiety disorder, unspecified
CPT/HCPCS: 70450; 80053; 85025; 93005; 96361; 96365; 96366; 96375; 99285; J2765; J3480; J7030

== ENCOUNTER 2018-07-02 11:58 | Observation (INO) ==
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
[2018-07-02 12:51] LABS: ABG Base Excess 2.7 mmol/L (-2-2); ABG PCO2 40 mmHg (38-42); ABG PO2 52 mmHg (61-120)
[2018-07-02 13:12] LABS: Baso # (Auto) 0.1 th/mm3 (0.0-0.2); Baso % (Auto) 0.8 % (0.0-2.0); Eos # (Auto) 0.2 th/mm3 (0.0-0.4); Eos % (Auto) 1.3 % (0.0-4.0); Hematocrit 42.7 % (35.0-46.0); Lymph # (Auto) 1.4 th/mm3 (1.0-4.8); Mean Corpuscular HGB Conc 32.7 % (32.0-36.0); Mean Corpuscular Hemoglobin 30.6 pg (27.0-34.0); Mean Corpuscular Volume 93.6 fL (80.0-100.0); Mono # (Auto) 1.2 th/mm3 (0.0-0.9); Mono % (Auto) 8.3 % (0.0-8.0); Neut # (Auto) 11.3 th/mm3 (1.8-7.7); Neut % (Auto) 79.6 % (16.0-70.0); Platelet Count 258 th/mm3 (150-450); Red Blood Count 4.57 mil/mm3 (4.00-5.30); Red Cell Distribution Width 14.3 % (11.6-17.2); White Blood Count 14.1 th/mm3 (4.0-11.0)
[2018-07-02 13:19] LABS: Activated Partial Thrombo Time 25.4 sec (24.3-30.1); INR 1.1 Ratio; Prothrombin Time 10.7 sec (9.8-11.6)
--- NOTE | 2018-07-02 13:19 | XR ---
EXAM DATE: 07/02/2018 1:14 PM EDT AGE/SEX: 68 years / Female INDICATIONS: Unresponsive CLINICAL DATA: This is the patient's initial encounter. Patient reports that signs and symptoms have been present for 1 day and indicates a pain score of Nonresponsive. MEDICAL/SURGICAL HISTORY: Non-responsive. Non-responsive. COMPARISON: [facility] – [place], CHEST SINGLE AP, 02/17/2018. . FINDINGS: A single AP view of the chest demonstrates the lungs to be symmetrically aerated without evidence of mass, infiltrate or effusion. Minimal linear atelectasis within the right base. The cardiomediastinal contours are unremarkable. Osseous structures are intact. Cervical spinal fusion plate. CONCLUSION: No acute cardiopulmonary disease. Electronically signed by: Bryan Walker MD 07/02/2018 1:17 PM EDT
--- NOTE | 2018-07-02 13:21 | XR ---
EXAM DATE: 07/02/2018 1:15 PM EDT AGE/SEX: 68 years / Female INDICATIONS: Swelling Left hand CLINICAL DATA: This is the patient's initial encounter. Patient reports that signs and symptoms have been present for 1 day and indicates a pain score of Nonresponsive. MEDICAL/SURGICAL HISTORY: Non-responsive. Non-responsive. [place] [facility] [place] AP&LAT 2V, [place]/02[place]2018. . FINDINGS: Bony structures are intact and in normal alignment. Osseous density is reduced. Mild soft tissue swel ling involving the second through fifth digits. No radiopaque foreign bodies seen. CONCLUSION: Osteopenia . Mild soft tissue swelling involving the second through fifth digits. Electronically signed by: Bryan Walker MD 07/02/2018 1:20 PM EDT
--- NOTE | 2018-07-02 13:30 | XR ---
EXAM DATE: 07/02/2018 1:18 PM EDT AGE/SEX: 68 years / Female INDICATIONS: Swelling right wrist CLINICAL DATA: This is the patient's subsequent encounter. Patient reports that signs and symptoms h ave been present for 1 day and indicates a pain score of Nonresponsive. MEDICAL/SURGICAL HISTORY: Non-responsive. Non-responsive. COMPARISON: No prior exams available for comparison. FINDINGS: The bony mineralization is within normal limits. There are mild arthritic changes in the carpal/metac arpal joints of the base of the thumb. There is no acute fracture identified. No retained foreign bod y or destructive lesion is present. CONCLUSION: Mild arthritic changes. No acute abnormality identified. Electronically signed by: Zurdo Pulido MD 07/02/2018 1:28 PM EDT
[2018-07-02 13:35] LABS: Calcium 8.4 mg/dL (8.5-10.1); Carbon Dioxide 26.9 meq/L (21.0-32.0); Potassium 3.8 meq/L (3.5-5.1)
--- NOTE | 2018-07-02 13:37 | CT ---
EXAM DATE: 07/02/2018 1:30 PM EDT AGE/SEX: 68 years / Female INDICATIONS: Patient found unresponsive CLINICAL DATA: This is the patient's initial encounter. Patient reports that signs and symptoms have been present for 1 day and indicates a pain score of Nonresponsive. MEDICAL/SURGICAL HISTORY: None. None. RADIATION DOSE: 56.35 CTDI (mGy) COMPARISON: [facility] – [place] BRAIN W/O CONTRAST, 03/10/2018. . TECHNIQUE: CT of the head without contrast. Using automated exposure control and adjustment of the mA and/or kV according to patient size, radiation dose was kept as low as reasonably achievable to ob tain optimal diagnostic quality images. DICOM format image data is available electronically for revi ew and comparison. FINDINGS: The ventricles are normal in size and configuration. The examination does demonstrate decreased atten uation in the periventricular white matter most consistent with microvascular ischemic demyelinative change. No acute intracranial hemorrhage is seen. No mass lesion is identified. No extra-axial fluid collections are present. The posterior fossa is unremarkable in appearance. The osseous structures of the skull demonstrate 2 small collin holes on the left consistent with previo us surgery. No acute skull fracture is seen. CONCLUSION: 1. Microvascular ischemic demyelinative change. No acute abnormality is evident. Electronically signed by: Zurdo Pulido MD 07/02/2018 1:36 PM EDT
[2018-07-02] MEDS ORDERED: Labetalol HCl Inj 100 MG/20 ML Vial IV.PUSH ONE (13:59)
[2018-07-02] MEDS ORDERED: Naloxone Inj 0.4 MG/ML Vial IV.PUSH ONE (13:59)
[2018-07-02] MEDS ORDERED: Bisacodyl 10 MG Supp RECTAL PRN (14:23)
--- NOTE | 2018-07-02 14:43 | CT ---
EXAM DATE: 07/02/2018 1:41 PM EDT AGE/SEX: 68 years / Female INDICATIONS: Patient found unresponsive CLINICAL DATA: This is the patient's initial encounter. Patient reports that signs and symptoms have been present for 1 day and indicates a pain score of Nonresponsive. MEDICAL/SURGICAL HISTORY: None. None. RADIATION DOSE: 17.91 CTDI (mGy) COMPARISON: [facility] – [place], [place] CERVICAL SPINE W/O CONTRAST, 02/17/2018. . TECHNIQUE: Contiguous axial images were obtained using helical multirow detector technique. The vol umetric data was post-processed with multiplanar reconstruction in oblique axial, sagittal, and coron al planes. Using automated exposure control and adjustment of the mA and/or kV according to patient s ize, radiation dose was kept as low as reasonably achievable to obtain optimal diagnostic quality johny ges. DICOM format image data is available electronically for review and comparison. FINDINGS: Ventral hardware fusion is present across C5 and C6. The bony fusion appears solid. Minutes is satisfactory. There is no evidence of cervical spine fracture. There is disc space narrowi ng most prominent at C4-5 and C6-7 with prominent ventral and small dorsal endplate osteophytes prese nt. No significant bony canal or foraminal stenosis is identified. There is no evidence of paraspinal hematoma. CONCLUSION: Degenerative changes in the cervical spine. No evidence of acute bony injury. Electronically signed by: Jayro Flores MD 07/02/2018 2:42 PM EDT
[2018-07-02 16:28] LABS: Amphetamine Screen,Urine Neg (Neg); Barbiturate Screen,Urine Neg (Neg); Cannabinoid Screen,Urine Neg (Neg); Cocaine Screen,Urine Neg (Neg)
[2018-07-02 16:31] LABS: Opiate Screen,Urine Neg (Neg)
[2018-07-02 16:51] LABS: Clarity,Urine Clear (Clear); Color,Urine Amber (Yellw/Straw); Glucose,Urine (UA) Negative (Negative); Hyaline Casts,Urine 5 /lpf (0-3); Leukocyte Esterase,Urine Negative (Negative); Nitrite,Urine Negative (Negative); Specific Gravity,Urine 1.024 (1.002-1.035); Squamous Epithelial Cell,Urine <1 /hpf (0-5); Urobilinogen,Urine 4 or Greater mg/dL (Less than 2)
[2018-07-02 16:56] LABS: Bilirubin,Urine Negative (Negative); Ictotest,Urine Negative (Negative)
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
[2018-07-02] MEDS: amLODIPine 10 MG Tablet PO SCH (18:16)
[2018-07-02] MEDS: carBAMazepine 200 MG Tablet PO SCH (20:46)
[2018-07-02] MEDS: Lacosamide 100 MG Tablet PO SCH (22:57)
[2018-07-03 08:18] VITALS: PULSE 72
[2018-07-03] MEDS: Lacosamide 100 MG Tablet PO SCH (08:52)
[2018-07-03] MEDS: carBAMazepine 200 MG Tablet PO SCH (08:52)
[2018-07-03] MEDS: amLODIPine 10 MG Tablet PO SCH (08:52)
[2018-07-03 11:28] LABS: Baso # (Auto) 0.1 th/mm3 (0.0-0.2); Baso % (Auto) 0.7 % (0.0-2.0); Eos # (Auto) 0.2 th/mm3 (0.0-0.4); Eos % (Auto) 2.2 % (0.0-4.0); Hematocrit 39.7 % (35.0-46.0); Hemoglobin 13.4 gm/dL (11.6-15.3); Lymph # (Auto) 1.8 th/mm3 (1.0-4.8); Lymph % (Auto) 16.7 % (9.0-44.0); Mean Corpuscular HGB Conc 33.7 % (32.0-36.0); Mean Corpuscular Hemoglobin 31.3 pg (27.0-34.0); Mean Corpuscular Volume 92.8 fL (80.0-100.0); Mono # (Auto) 0.7 th/mm3 (0.0-0.9); Neut # (Auto) 7.8 th/mm3 (1.8-7.7); Neut % (Auto) 73.4 % (16.0-70.0); Platelet Count 232 th/mm3 (150-450); Red Blood Count 4.27 mil/mm3 (4.00-5.30); Red Cell Distribution Width 13.8 % (11.6-17.2); White Blood Count 10.6 th/mm3 (4.0-11.0)
--- NOTE | 2018-07-03 11:45 | P.PN ---
Subjective Interval history: Nursing reports that night nursing from last night indicated that the patient went from being agitated and combative to quickly being somnolent and hard to wake up yesterday evening. This morning the patient is quite oriented. Her drug screen is actually negative. Patient feels fine and adamantly wants to go home. Says she has 2 roommates, one including her boyfriend. Says that she has a seizure about once every 6 months. Says that she supposed to take her Tegretol 3 times a day but only takes it twice a day because otherwise the the medication makes her feel "loopy ". Physical Exam Vital signs: Vital Signs 07/02/18 12:38 07/02/18 13:00 07/02/18 13:06 Temperature 98 F Pulse Rate 75 72 Respiratory Rate 14 15 Blood Pressure 201/100 H 179/89 H Pulse Oximetry 95 97 98 07/02/18 14:00 07/02/18 14:23 07/02/18 14:43 Temperature Pulse Rate 68 60 61 Respiratory Rate 14 14 14 Blood Pressure 207/103 H 183/92 H 189/93 H Pulse Oximetry 99 97 97 07/02/18 15:40 07/02/18 16:37 07/02/18 19:20 Temperature 98.7 F Pulse Rate 62 64 Respiratory Rate 18 16 Blood Pressure 174/93 H 180/87 H Pulse Oximetry 98 98 98 07/02/18 19:53 07/02/18 20:00 07/03/18 00:00 Temperature 97.7 F 98.0 F Pulse Rate 67 63 Respiratory Rate 16 16 Blood Pressure 162/86 H 148/88 H Pulse Oximetry 97 98 99 07/03/18 03:52 07/03/18 08:00 07/03/18 08:14 Temperature 98.0 F 97.9 F Pulse Rate 68 72 Respiratory Rate 16 16 Blood Pressure 156/88 H 167/84 H Pulse Oximetry 100 92 L 100 Intake & Output 07/02/18 07/03/18 07/03/18 18:59 06:59 18:59 Intake Total 180 / 180 Balance 180 / 180 Weight 68.039 kg Intake: Oral 180 / 180 Other: Date of Last Bowel Movement 07/02/18 07/02/18 Narrative: Alert and oriented x3, intact insight No facial droop, no slurred speech Has a chronic droop of her left eyebrow which the patient says has been there from a previous injury 5/5 proximal upper and lower extremity strength grossly Results - Labs CBC & Chem 7: 07/03/18 11:10 07/03/18 11:10 Laboratory Results - last 24 hr 07/02/18 07/02/18 07/02/18 12:30 12:30 12:30 WBC 14.1 H RBC 4.57 Hgb 14.0 Hct 42.7 MCV 93.6 MCH 30.6 MCHC 32.7 RDW 14.3 Plt Count 258 MPV 9.0 Neut % (Auto) 79.6 H Lymph % (Auto) 10.0 [place] % (Auto) 8.3 H Eos % (Auto) 1.3 Baso % (Auto) 0.8 Neut # (Auto) 11.3 H Lymph # (Auto) 1.4 [place] # (Auto) 1.2 H Eos # (Auto) 0.2 Baso # (Auto) 0.1 WBC Differential . Differential Comment Auto diff final PT 10.7 INR 1.1 APTT 25.4 Puncture Site Patient Temperature O2 Saturation ABG pH ABG pCO2 ABG pO2 ABG HCO3 ABG O2 Content ABG Base Excess ABG Methemoglobin [place] Test Hemoglobin Carboxyhemoglobin Inspired O2 Critical Value Sodium 146 H Potassium 3.8 Chloride 112 H Carbon Dioxide 26.9 Anion Gap 7 BUN 21 H Creatinine 0.92 Estimated GFR 61 L POC Glucose Random Glucose 126 H Calcium 8.4 L Urine Color Urine Clarity Urine pH Ur Specific [place] Urine Protein Urine Glucose (UA) Urine Ketones Urine Occult Blood Urine Nitrate Urine Bilirubin Urine Ictotest Urine Urobilinogen Ur Leukocyte Esterase Urine RBC Urine WBC Ur Squamous Epith Cells Hyaline Casts Micro UA Comment Ur Microscopic Review Urine Culture Comments Urine Opiates Screen Ur Barbiturates Screen Carbamazepine Ur Amphetamines Screen U Benzodiazepines Scrn Urine Cocaine Screen U Cannabinoids Screen 07/02/18 07/02/18 07/02/18 12:30 12:42 14:45 WBC RBC Hgb Hct MCV MCH MCHC RDW Plt Count MPV Neut % (Auto) Lymph % (Auto) [place] % (Auto) Eos % (Auto) Baso % (Auto) Neut # (Auto) Lymph # (Auto) [place] # (Auto) Eos # (Auto) Baso # (Auto) WBC Differential Differential Comment PT INR APTT Puncture Site Left radial Patient Temperature 98.6 O2 Saturation 83 L* ABG pH 7.44 H ABG pCO2 40 ABG pO2 52 L* ABG HCO3 27 H ABG O2 Content 15.7 ABG Base Excess 2.7 H ABG Methemoglobin 0.8 [place] Test Present Hemoglobin 13.5 Carboxyhemoglobin 4.6 H Inspired O2 21 Critical Value Yes Sodium Potassium Chloride Carbon Dioxide Anion Gap BUN Creatinine Estimated GFR POC Glucose Random Glucose Calcium Urine Color Urine Clarity Urine pH Ur Specific [place] Urine Protein Urine Glucose (UA) Urine Ketones Urine Occult Blood Urine Nitrate Urine Bilirubin Urine Ictotest Urine Urobilinogen Ur Leukocyte Esterase Urine RBC Urine WBC Ur Squamous Epith Cells Hyaline Casts Micro UA Comment Ur Microscopic Review Urine Culture Comments Urine Opiates Screen Neg Ur Barbiturates Screen Neg Carbamazepine 5.7 Ur Amphetamines Screen Neg U Benzodiazepines Scrn Neg Urine Cocaine Screen Neg U Cannabinoids Screen Neg 07/02/18 07/02/18 07/03/18 14:45 17:53 11:10 WBC 10.6 RBC 4.27 Hgb 13.4 Hct 39.7 MCV 92.8 MCH 31.3 MCHC 33.7 RDW 13.8 Plt Count 232 MPV 9.0 Neut % (Auto) 73.4 H Lymph % (Auto) 16.7 [place] % (Auto) 7.0 Eos % (Auto) 2.2 Baso % (Auto) 0.7 Neut # (Auto) 7.8 H Lymph # (Auto) 1.8 [place] # (Auto) 0.7 Eos # (Auto) 0.2 Baso # (Auto) 0.1 WBC Differential . Differential Comment Auto diff final PT INR APTT Puncture Site Patient Temperature O2 Saturation ABG pH ABG pCO2 ABG pO2 ABG HCO3 ABG O2 Content ABG Base Excess ABG Methemoglobin [place] Test Hemoglobin Carboxyhemoglobin Inspired O2 Critical Value Sodium Potassium Chloride Carbon Dioxide Anion Gap BUN Creatinine Estimated GFR POC Glucose 101 Random Glucose Calcium Urine Color Lesia Urine Clarity Clear Urine pH 6.0 Ur Specific [place] 1.024 Urine Protein 30 H Urine Glucose (UA) Negative Urine Ketones Trace H Urine Occult Blood Negative Urine Nitrate Negative Urine Bilirubin Negative Urine Ictotest Negative Urine Urobilinogen 4 or greater Ur Leukocyte Esterase Negative Urine RBC 4 H Urine WBC Less than 1 Ur Squamous Epith Cells <1 Hyaline Casts 5 Micro UA Comment Cath-culture not ind Ur Microscopic Review Not Reportable Urine Culture Comments Cath-cult not ind Urine Opiates Screen Ur Barbiturates Screen Carbamazepine Ur Amphetamines Screen U Benzodiazepines Scrn Urine Cocaine Screen U Cannabinoids Screen - Imaging Impressions Cervical Spine CT 07/02/18 12:28 CONCLUSION: Degenerative changes in the cervical spine. No evidence of acute bony injury. Chest X-Ray 07/02/18 12:28 CONCLUSION: No acute cardiopulmonary disease. Head CT 07/02/18 12:28 CONCLUSION: 1. Microvascular ischemic demyelinative change. No acute abnormality is evident. Wrist X-Ray 07/02/18 12:28 CONCLUSION: Mild arthritic changes. No acute abnormality identified. Hand X-Ray 07/02/18 12:33 CONCLUSION: Osteopenia . Mild soft tissue swelling involving the second through fifth digits. Assessment and Plan - Plan Loss of consciousness Possibly breakthrough seizure, Tegretol level in the lower end of normal -We will consider starting a second antiepileptic drug -Pending EEG results -EKG is unremarkable, telemetry strips reviewed, no acute findings overnight Loss of consciousness is fully resolved at this time since this morning. EEG results have been negative per nursing's signout that neurology called and says overall is unremarkable. Patient was counseled to start her second medication of Keppra as an outpatient continue all of her previous medications. Patient has met maximal benefit from hospitalization and is clinically stable for discharge. Patient assured me that she does not operate any heavy machinery or drive.
[2018-07-03 11:46] LABS: Calcium 8.2 mg/dL (8.5-10.1); Carbon Dioxide 31.4 meq/L (21.0-32.0); Potassium 3.8 meq/L (3.5-5.1)
[2018-07-03 11:50] LABS: Troponin I 0.05 ng/mL (0.02-0.05)
[2018-07-03 12:34] VITALS: BP 149/72; RESP 20; TEMP 98.1; O2SAT 93
--- NOTE | 2018-07-03 14:19 | MG ---
cc: Gasper Scott MD, PhD TEST NUMBER: [id number] TECHNIQUE: This is a 17-channel EEG. DESCRIPTION: The background rhythm reveals a symmetrical alpha rhythm, frequency of 8 Hz. During drowsiness, there is slowing in the theta range. Occasional muscle artifact is present. Some eye movement artifact is present. No epileptiform discharges are seen. There was some sharp activity bilaterally, but I think this is artifactual. Hyperventilation was performed with a poor effort with no change in background rhythm. Photic results in a normal driving response. There does appear to be some sleep activity as well. There are some vertex sharp waves, normal for sleep. INTERPRETATION: Overall normal EEG. Gasper Scott MD, PhD ASHLEY/peter , 01:58 PM , 02:02 PM
--- NOTE | 2018-07-04 22:17 | ECG ---
Date Performed: 07/03/2018 Time Performed: 15:02:15 PTAGE: 68 years EKG: Sinus rhythm POSSIBLE RIGHT VENTRICULAR CONDUCTION DELAY PROLONGED QT INTERVAL ABNORMAL ECG INTERPRETATION BASED ON A DEFAULT AGE OF 40 YEARS PREVIOUS TRACING : 03/10/2018 11.25 DOCTOR: Zaina Carmona Interpretating Date/Time 07/04/2018 22:12:09
== END 2018-07-03 15:37 | disposition home or self-care (01) ==
LOC: NEPD 11:58 → NEDA 11:58 → NEPGCP 16:32
PROVIDERS: ADMIT Hospitalist; ATTEND Hospitalist
DX: F32.9 Major depressive disorder, single episode, unspecified; M47.812 Spondylosis without myelopathy or radiculopathy, cervical region; M54.2 Cervicalgia; W18.39XA Other fall on same level, initial encounter; E03.9 Hypothyroidism, unspecified; R41.82 Altered mental status, unspecified; I10 Essential (primary) hypertension; F41.9 Anxiety disorder, unspecified; R09.02 Hypoxemia; E87.0 Hyperosmolality and hypernatremia; R55 Syncope and collapse; G40.909 Epilepsy, unspecified, not intractable, without status epilepticus; Y92.007 Garden or yard of unspecified non-institutional (private) residence as the place of occurrence of the external cause; M85.841 Other specified disorders of bone density and structure, right hand; R40.0 Somnolence; M25.431 Effusion, right wrist

== ENCOUNTER 2018-07-05 15:06 | Inpatient (IN) ==
[2018-07-05] MEDS ORDERED: Succinylcholine Inj 100 MG/5 ML Syringe IV.PUSH ONE (15:16)
[2018-07-05] MEDS ORDERED: Etomidate Inj 20 MG/10 ML Ampul IV.PUSH ONE (15:16)
[2018-07-05] MEDS ORDERED: Propofol 1000 mg/100 ml Inj 1,000 MG/100 ML BOTTLE IV.CONT PRN (15:21)
[2018-07-05] MEDS ORDERED: Sod Chloride 0.9% Inj 2,000 ML IV.SIG ONE (15:21)
[2018-07-05] MEDS ORDERED: Propofol Inj 500 MG/50 ML Vial ONE (15:26)
--- NOTE | 2018-07-05 15:53 | XR ---
EXAM DATE: 07/05/2018 3:48 PM EDT AGE/SEX: 68 years / Female INDICATIONS: Intubation. CLINICAL DATA: This is the patient's initial encounter. Patient reports that signs and symptoms have been present for 1 day and indicates a pain score of Nonresponsive. MEDICAL/SURGICAL HISTORY: Non-responsive. Non-responsive. COMPARISON: [facility] – [place], CHEST 1V SINGLE AP, 07/02/2018. . FINDINGS: A single AP view of the chest demonstrates an endotracheal tube with the tip 4 cm from the shelly. Na sogastric tube tip just past the GE junction. Intra-alveolar opacities involving the right upper lobe , medial aspects left upper lobe, and lateral aspects of the right lower lobe. These are new from the prior study. No effusions. Heart is normal in size. Cervical spinal fusion plate. CONCLUSION: New bilateral pulmonary infiltrates. Electronically signed by: Bryan Walker MD 07/05/2018 3:51 PM EDT
[2018-07-05 16:01] LABS: ABG Base Excess -1.8 mmol/L (-2-2); ABG PCO2 39 mmHg (38-42); ABG PO2 352 mmHg (61-120)
[2018-07-05] MEDS ORDERED: Azithromycin Inj 500 MG in Sodium Chlor 0.9% Inj 250 ML IV.SIG STA (16:10)
[2018-07-05] MEDS ORDERED: Piperacil/Tazo 4.5 GM Premix 4.5 GM/100 ML BAG IV.SIG STA (16:10)
[2018-07-05 16:17] LABS: Baso # (Auto) 0.1 th/mm3 (0.0-0.2); Baso % (Auto) 0.3 % (0.0-2.0); Hematocrit 44.6 % (35.0-46.0); Hemoglobin 14.9 gm/dL (11.6-15.3); Lymph # (Auto) 1.2 th/mm3 (1.0-4.8); Lymph % (Auto) 5.2 % (9.0-44.0); Mean Corpuscular HGB Conc 33.4 % (32.0-36.0); Mean Corpuscular Hemoglobin 31.2 pg (27.0-34.0); Mean Corpuscular Volume 93.4 fL (80.0-100.0); Mean Platelet Volume 9.7 fL (7.0-11.0); Mono # (Auto) 1.1 th/mm3 (0.0-0.9); Mono % (Auto) 4.7 % (0.0-8.0); Neut # (Auto) 20.8 th/mm3 (1.8-7.7); Neut % (Auto) 89.8 % (16.0-70.0); Platelet Count 281 th/mm3 (150-450); Red Blood Count 4.78 mil/mm3 (4.00-5.30); Red Cell Distribution Width 14.1 % (11.6-17.2); White Blood Count 23.2 th/mm3 (4.0-11.0)
[2018-07-05 16:25] LABS: Activated Partial Thrombo Time 22.4 sec (24.3-30.1); INR 1.1 Ratio; Prothrombin Time 10.7 sec (9.8-11.6)
[2018-07-05 16:26] LABS: Bacteria,Urine Few /hpf; Clarity,Urine Cloudy (Clear); Color,Urine Amber (Yellw/Straw); Glucose,Urine (UA) Negative (Negative); Leukocyte Esterase,Urine Trace (Negative); Mucus,Urine Few /lpf (Occasional); Nitrite,Urine Negative (Negative); Specific Gravity,Urine 1.032 (1.002-1.035); Squamous Epithelial Cell,Urine 20 /hpf (0-5); Urobilinogen,Urine 4 or Greater mg/dL (Less than 2)
[2018-07-05 16:27] LABS: Bilirubin,Urine Negative (Negative); Ictotest,Urine Negative (Negative)
--- NOTE | 2018-07-05 16:34 | ED ---
HPI General Chief complaint: Altered Mental Status Stated complaint: Medical Time Seen by Provider: 07/05/18 15:12 Source: EMS, RN notes reviewed and old records reviewed Mode of arrival: EMS Limitations: altered mental status History of Present Illness HPI narrative: 68yF found outside of her home, unresponsive. The patient was admitted from 07/02-07/03 for possible seizure, started on keppra (in addition to tegratol) and discharged home. The patient was found lying in the sun for an unknown period of time with GCS of 3, had no response to IO placement or narcan by EMS. The patient arrived to the ED unresponsive, unable to elicit any further history. Related Data Home Medications Medication Instructions Recorded Confirmed albuterol sulfate [ProAir HFA] 2 puff INHALATION Q6H PRN 07/03/18 07/03/18 aspirin 81 mg PO DAILY 07/03/18 07/03/18 baclofen 5 mg PO TID 07/03/18 07/03/18 buspirone 7.5 mg PO BID 07/03/18 07/03/18 carbamazepine [Tegretol] 100 mg PO TID 07/03/18 07/03/18 citalopram 40 mg PO DAILY 07/03/18 07/03/18 furosemide [Lasix] 40 mg PO DAILY 07/03/18 07/03/18 gabapentin 600 mg PO TID 07/03/18 07/03/18 hydroxyzine HCl 25 mg PO TID PRN 07/03/18 07/03/18 meloxicam 15 mg PO DAILY 07/03/18 07/03/18 omeprazole 20 mg PO DAILY 07/03/18 07/03/18 trazodone 100 mg PO DAILY 07/03/18 07/03/18 Previous Rx's Medication Instructions Recorded levetiracetam [Keppra] 500 mg PO Q12H #60 tab 07/03/18 propranolol 40 mg PO BID #0 tab 07/03/18 topiramate [Topamax] 25 mg PO HS PRN #0 tab 07/03/18 Allergies Allergy/AdvReac Type Severity Reaction Status Date / Time aspirin Allergy Severe Seizures/ Verified 03/10/18 11:21 HIVES cyclobenzaprine Allergy Severe Verified 03/10/18 11:21 fish AdvReac Unknown unknown Uncoded 12/04/12 15:28 reaction at age 7 Review of Systems ROS Unobtainable ROS Unobtainable: unobtainable due to mental status [facility] Medical History Medical History Depression (Acute) Hypertension (Acute) Seizures (Acute) Social History Social History Substance History: Active Abuse Second Hand Smoke Exposure: No Smoking Status: Unknown if ever smoked Tobacco Type: Cigarettes How Often Do You Have a Drink Containing Alcohol: Unable to Obtain Recent Travel in [place] within the Last 8 Weeks: No Recent Out of Country Travel within the Last 8 Weeks: No Substance Abuse Detail Opiates: Substance Use Status: Active Substance Abuse Comment: PER EMS Immunization History Tetanus Immunization: Unable to Assess Hx Influenza Vaccine This Season: Unable to Assess Exam Narrative Exam Narrative: Ill-appearing, somnolent NCAT, pupils 2 mm and sluggish Trachea midline Tachy, regular Snoring respirations, diminished breath sounds bilaterally Abdomen soft, no guarding GCS 3, no gag reflex Procedures Central Line Placement Right IJ: Time Out Performed: Yes Patient Placed on Monitor/Pulse Ox: Yes MD Prep: mask, gown and gloves Central Line Prep: Chlorhexidine scrub and sterile drapes applied Ultrasound Used for Placement: Yes Central Line Lumen Inserted: triple Post Procedure: sutured in place, good blood return, all ports aspirated, flushed, capped and sterile dressing applied Post Procedure X-Ray: tip of catheter in good position Patient Tolerated Procedure: well and no complications Intubation Time Out Performed: Yes Sedative: etomidate Mg Given: 20 Paralytic: succinylcholine Mg Given: 100 Laryngoscope: other (C MAC) ET Tube Size: 7.5 ET Tube Uncuffed: Yes Tube Secured Depth (cm): 26 Tube Secured Location: lips Tube Placement Confirmation: visualized tube passing through cords, equal breath sounds bilaterally, no breath sounds over epigastrium and confirmation by capnometry Patient Tolerated Procedure: well and no complications Course Initial Documented Vital Signs Respiratory Rate 21 07/05/18 15:33 Pulse Oximetry 98 07/05/18 15:33 Last Documented Vital Signs Temperature 100.8 F H 07/05/18 16:57 Pulse Rate 91 H 07/05/18 16:57 Respiratory Rate 17 07/05/18 16:57 Blood Pressure 135/87 07/05/18 16:57 Pulse Oximetry 98 07/05/18 16:57 Critical Care Time Critical Care Time: Yes Total Critical Care Time: 55 Attestation: Total critical care time 55 minutes. This includes examining and stabilizing the patient, gathering a history from a source other than the patient (i.e., chart review), formulating a differential diagnosis, ordering and interpreting laboratory tests and EKG, ordering and interpreting radiology tests, discussing the patient's care with other providers ([facility]), management of mechanical ventilation and sedation, re-evaluation at frequent intervals, and documentation. Amount of time is separate from teaching, counseling the patient and/or family, and exclusive of procedures. Medical Decision Making MDM Narrative Medical decision making narrative: Assessment: 68yF presenting with unresponsiveness Plan: Intubated on arrival EKG and monitor Labs, including EtOH, urine drug screen, sepsis workup IV fluids CXR CTH Patient requires ICU level of care, case discussed with Dr. Dean of [facility] Medical Screen Exam Complete: Yes Emergency Medical Condition: Yes Differential Diagnosis Differential Diagnosis: Differential diagnosis includes, but is not limited to: ICH, sepsis, rhabdomyolysis, heat exposure, non-convulsive status epilepticus, intoxication/ withdrawal, renal failure Medical Records Medical records reviewed: Yes I reviewed the patient's medical records. Lab Data Lab results reviewed: Yes I reviewed the patient's lab results. Result diagrams: 07/05/18 15:55 07/05/18 15:55 Lab Results 07/05/18 07/05/18 07/05/18 Range/Units 15:34 15:34 15:40 WBC (4.0-11.0) th/mm3 RBC (4.00-5.30) mil/mm3 Hgb (11.6-15.3) gm/dL Hct (35.0-46.0) % MCV (80.0-100.0) fL MCH (27.0-34.0) pg MCHC (32.0-36.0) % RDW (11.6-17.2) % Plt Count (150-450) th/mm3 MPV (7.0-11.0) fL Neut % (Auto) (16.0-70.0) % Lymph % (Auto) (9.0-44.0) % Citrus % (Auto) (0.0-8.0) % Eos % (Auto) (0.0-4.0) % Baso % (Auto) (0.0-2.0) % Neut # (Auto) (1.8-7.7) th/mm3 Lymph # (Auto) (1.0-4.8) th/mm3 Citrus # (Auto) (0.0-0.9) th/mm3 Eos # (Auto) (0.0-0.4) th/mm3 Baso # (Auto) (0.0-0.2) th/mm3 WBC Differential Differential Comment PT (9.8-11.6) sec INR Ratio APTT (24.3-30.1) sec Puncture Site Left radial Patient Temperature 98.6 O2 Saturation 97 (90-100) % ABG pH 7.38 (7.380-7.420) ABG pCO2 39 (38-42) mmHg ABG pO2 352 H (61-120) mmHg ABG HCO3 23 (22-26) mmol/L ABG O2 Content 22.0 H (12.0-20.0) Vol % ABG Base Excess -1.8 (-2-2) mmol/L ABG Methemoglobin 0.9 (0-2) % [place] Test Present Hemoglobin 15.4 (12.0-16.0) G/DL Carboxyhemoglobin 1.5 (0-4) % O2 Delivery Device Ventilator Vent Setting Ac16/500/+8 Inspired O2 100 % Critical Value No Sodium (136-145) meq/L Potassium (3.5-5.1) meq/L Chloride (98-107) meq/L Carbon Dioxide (21.0-32.0) meq/L Anion Gap (5-15) meq/L BUN (7-18) mg/dL Creatinine (0.50-1.00) mg/dL Estimated GFR (>89) mL/min Random Glucose (74-106) mg/dL Lactic Acid (0.4-2.0) mmol/L Calcium (8.5-10.1) mg/dL Phosphorus (2.5-4.9) mg/dL Magnesium (1.5-2.5) mg/dL Total Bilirubin (0.2-1.0) mg/dL AST (15-37) U/L ALT (10-53) U/L Alkaline Phosphatase (45-117) U/L Ammonia (11-32) mcmol/L Total Creatine Kinase (26-192) U/L Troponin I (0.02-0.05) ng/mL Total Protein (6.4-8.2) g/dL Albumin (3.4-5.0) g/dL Urine Color Lesia (Yellw/Straw) Urine Clarity Cloudy H (Clear) Urine pH 5.0 (5.0-8.5) Ur Specific Portal 1.032 (1.002-1.035) Urine Protein 100 H (Neg-Trace) mg/dL Urine Glucose (UA) Negative (Negative) mg/dL Urine Ketones Negative (Negative) mg/dL Urine Occult Blood Negative (Negative) Urine Nitrate Negative (Negative) Urine Bilirubin Negative (Negative) Urine Ictotest Negative (Negative) Urine Urobilinogen 4 or greater (Less than 2) mg/dL Ur Leukocyte Esterase Trace H (Negative) Urine RBC 3 (0-3) /hpf Urine WBC 5 (0-5) /hpf Ur Squamous Epith Cells 20 (0-5) /hpf Urine Bacteria Few H (None) /hpf Urine Mucus Few H (Occasional) /lpf Micro UA Comment Cath-culture ind Ur Microscopic Review Not Reportable Urine Culture Comments Cath-cult indicated Urine Opiates Screen Neg (Neg) Ur Barbiturates Screen Neg (Neg) Carbamazepine (4.0-12.0) mcg/mL Ur Amphetamines Screen Neg (Neg) U Benzodiazepines Scrn Neg (Neg) Urine Cocaine Screen Neg (Neg) U Cannabinoids Screen Pos H (Neg) Serum Alcohol (0-5) mg/dL 07/05/18 07/05/18 07/05/18 Range/Units 15:55 15:55 15:55 WBC 23.2 H (4.0-11.0) th/mm3 RBC 4.78 (4.00-5.30) mil/mm3 Hgb 14.9 (11.6-15.3) gm/dL Hct 44.6 (35.0-46.0) % MCV 93.4 (80.0-100.0) fL MCH 31.2 (27.0-34.0) pg MCHC 33.4 (32.0-36.0) % RDW 14.1 (11.6-17.2) % Plt Count 281 (150-450) th/mm3 MPV 9.7 (7.0-11.0) fL Neut % (Auto) 89.8 H (16.0-70.0) % Lymph % (Auto) 5.2 L (9.0-44.0) % Citrus % (Auto) 4.7 (0.0-8.0) % Eos % (Auto) 0.0 (0.0-4.0) % Baso % (Auto) 0.3 (0.0-2.0) % Neut # (Auto) 20.8 H (1.8-7.7) th/mm3 Lymph # (Auto) 1.2 (1.0-4.8) th/mm3 Citrus # (Auto) 1.1 H (0.0-0.9) th/mm3 Eos # (Auto) 0.0 (0.0-0.4) th/mm3 Baso # (Auto) 0.1 (0.0-0.2) th/mm3 WBC Differential . Differential Comment Auto diff final PT 10.7 (9.8-11.6) sec INR 1.1 Ratio APTT 22.4 L (24.3-30.1) sec Puncture Site Patient Temperature O2 Saturation (90-100) % ABG pH (7.380-7.420) ABG pCO2 (38-42) mmHg ABG pO2 (61-120) mmHg ABG HCO3 (22-26) mmol/L ABG O2 Content (12.0-20.0) Vol % ABG Base Excess (-2-2) mmol/L ABG Methemoglobin (0-2) % [place] Test Hemoglobin (12.0-16.0) G/DL Carboxyhemoglobin (0-4) % O2 Delivery Device Vent Setting Inspired O2 % Critical Value Sodium 144 (136-145) meq/L Potassium 5.0 (3.5-5.1) meq/L Chloride 109 H (98-107) meq/L Carbon Dioxide 22.6 (21.0-32.0) meq/L Anion Gap 12 (5-15) meq/L BUN 38 H (7-18) mg/dL Creatinine 1.09 H (0.50-1.00) mg/dL Estimated GFR 50 L (>89) mL/min Random Glucose 136 H (74-106) mg/dL Lactic Acid (0.4-2.0) mmol/L Calcium 8.9 (8.5-10.1) mg/dL Phosphorus 4.7 (2.5-4.9) mg/dL Magnesium 2.7 H (1.5-2.5) mg/dL Total Bilirubin 0.8 (0.2-1.0) mg/dL AST 61 H (15-37) U/L ALT 45 (10-53) U/L Alkaline Phosphatase 364 H (45-117) U/L Ammonia (11-32) mcmol/L Total Creatine Kinase 981 H (26-192) U/L Troponin I 2.62 H* D (0.02-0.05) ng/mL Total Protein 8.7 H (6.4-8.2) g/dL Albumin 3.5 (3.4-5.0) g/dL Urine Color (Yellw/Straw) Urine Clarity (Clear) Urine pH (5.0-8.5) Ur Specific Portal (1.002-1.035) Urine Protein (Neg-Trace) mg/dL Urine Glucose (UA) (Negative) mg/dL Urine Ketones (Negative) mg/dL Urine Occult Blood (Negative) Urine Nitrate (Negative) Urine Bilirubin (Negative) Urine Ictotest (Negative) Urine Urobilinogen (Less than 2) mg/dL Ur Leukocyte Esterase (Negative) Urine RBC (0-3) /hpf Urine WBC (0-5) /hpf Ur Squamous Epith Cells (0-5) /hpf Urine Bacteria (None) /hpf Urine Mucus (Occasional) /lpf Micro UA Comment Ur Microscopic Review Urine Culture Comments Urine Opiates Screen (Neg) Ur Barbiturates Screen (Neg) Carbamazepine 3.5 L (4.0-12.0) mcg/mL Ur Amphetamines Screen (Neg) U Benzodiazepines Scrn (Neg) Urine Cocaine Screen (Neg) U Cannabinoids Screen (Neg) Serum Alcohol Less than 3 (0-5) mg/dL 07/05/18 07/05/18 Range/Units 15:55 15:55 WBC (4.0-11.0) th/mm3 RBC (4.00-5.30) mil/mm3 Hgb (11.6-15.3) gm/dL Hct (35.0-46.0) % MCV (80.0-100.0) fL MCH (27.0-34.0) pg MCHC (32.0-36.0) % RDW (11.6-17.2) % Plt Count (150-450) th/mm3 MPV (7.0-11.0) fL Neut % (Auto) (16.0-70.0) % Lymph % (Auto) (9.0-44.0) % Citrus % (Auto) (0.0-8.0) % Eos % (Auto) (0.0-4.0) % Baso % (Auto) (0.0-2.0) % Neut # (Auto) (1.8-7.7) th/mm3 Lymph # (Auto) (1.0-4.8) th/mm3 Citrus # (Auto) (0.0-0.9) th/mm3 Eos # (Auto) (0.0-0.4) th/mm3 Baso # (Auto) (0.0-0.2) th/mm3 WBC Differential Differential Comment PT (9.8-11.6) sec INR Ratio APTT (24.3-30.1) sec Puncture Site Patient Temperature O2 Saturation (90-100) % ABG pH (7.380-7.420) ABG pCO2 (38-42) mmHg ABG pO2 (61-120) mmHg ABG HCO3 (22-26) mmol/L ABG O2 Content (12.0-20.0) Vol % ABG Base Excess (-2-2) mmol/L ABG Methemoglobin (0-2) % [place] Test Hemoglobin (12.0-16.0) G/DL Carboxyhemoglobin (0-4) % O2 Delivery Device Vent Setting Inspired O2 % Critical Value Sodium (136-145) meq/L Potassium (3.5-5.1) meq/L Chloride (98-107) meq/L Carbon Dioxide (21.0-32.0) meq/L Anion Gap (5-15) meq/L BUN (7-18) mg/dL Creatinine (0.50-1.00) mg/dL Estimated GFR (>89) mL/min Random Glucose (74-106) mg/dL Lactic Acid 1.4 (0.4-2.0) mmol/L Calcium (8.5-10.1) mg/dL Phosphorus (2.5-4.9) mg/dL Magnesium (1.5-2.5) mg/dL Total Bilirubin (0.2-1.0) mg/dL AST (15-37) U/L ALT (10-53) U/L Alkaline Phosphatase (45-117) U/L Ammonia 15 (11-32) mcmol/L Total Creatine Kinase (26-192) U/L Troponin I (0.02-0.05) ng/mL Total Protein (6.4-8.2) g/dL Albumin (3.4-5.0) g/dL Urine Color (Yellw/Straw) Urine Clarity (Clear) Urine pH (5.0-8.5) Ur Specific Portal (1.002-1.035) Urine Protein (Neg-Trace) mg/dL Urine Glucose (UA) (Negative) mg/dL Urine Ketones (Negative) mg/dL Urine Occult Blood (Negative) Urine Nitrate (Negative) Urine Bilirubin (Negative) Urine Ictotest (Negative) Urine Urobilinogen (Less than 2) mg/dL Ur Leukocyte Esterase (Negative) Urine RBC (0-3) /hpf Urine WBC (0-5) /hpf Ur Squamous Epith Cells (0-5) /hpf Urine Bacteria (None) /hpf Urine Mucus (Occasional) /lpf Micro UA Comment Ur Microscopic Review Urine Culture Comments Urine Opiates Screen (Neg) Ur Barbiturates Screen (Neg) Carbamazepine (4.0-12.0) mcg/mL Ur Amphetamines Screen (Neg) U Benzodiazepines Scrn (Neg) Urine Cocaine Screen (Neg) U Cannabinoids Screen (Neg) Serum Alcohol (0-5) mg/dL Imaging Data Radiologist's impression: Chest X-Ray 07/05/18 15:16 CONCLUSION: New bilateral pulmonary infiltrates. Head CT 07/05/18 15:16 CONCLUSION: 1. No acute intracranial abnormality. 2. Extensive chronic small vessel ischemic change. . ECG Data Attestation: I personally reviewed and interpreted this ECG as follows: Interpretation: Rate: 93 BPM Rhythm: Sinus Gypsy: Left Intervals: Normal intervals, no blocks, QTc 470 ms Q waves: aVL and V2 T waves: Inverted in aVL and V2 ST segments: No significant elevations or depressions Impression: Non-specific EKG, Q wave/ T wave inversion in aVL is new when compared to EKG from 03/10/2018. Discharge Plan Discharge Disposition Patient Disposition: 30 Still Patient Discharge Condition Condition: Critical Discharge Details Diagnosis: Altered mental status, Sepsis, Pneumonia, Rhabdomyolysis, Acute respiratory failure with hypoxia, Non-ST elevation TN (NSTEMI) Physicians Team ED Provider: Mirta Bray Primary Care Provider: Yasmine Navarro Attending Provider: Jerome Dean Discharge Interventions Interventions: Vital Signs Last Done: 07/05/18 15:59 Status ED Status: Admitted Patient
[2018-07-05 16:38] LABS: Amphetamine Screen,Urine Neg (Neg); Barbiturate Screen,Urine Neg (Neg); Cannabinoid Screen,Urine Pos (Neg); Cocaine Screen,Urine Neg (Neg)
[2018-07-05 16:40] LABS: Opiate Screen,Urine Neg (Neg)
[2018-07-05 16:46] LABS: Alanine Aminotransferase 45 U/L (10-53); Albumin 3.5 g/dL (3.4-5.0); Alkaline Phosphatase 364 U/L (45-117); Anion Gap 12 meq/L (5-15); Aspartate Aminotransferase 61 U/L (15-37); Blood Urea Nitrogen 38 mg/dL (7-18); Calcium 8.9 mg/dL (8.5-10.1); Carbamazepine (Tegretol) 3.5 mcg/mL (4.0-12.0); Carbon Dioxide 22.6 meq/L (21.0-32.0); Chloride 109 meq/L (98-107); Creatine Kinase 981 U/L (26-192); Glomerular Filtration Rate 50 mL/min (>89); Glucose,Random 136 mg/dL (74-106); Magnesium 2.7 mg/dL (1.5-2.5); Phosphorus 4.7 mg/dL (2.5-4.9); Sodium 144 meq/L (136-145); Total Protein 8.7 g/dL (6.4-8.2)
[2018-07-05 16:48] LABS: Troponin I 2.62 ng/mL (0.02-0.05)
--- NOTE | 2018-07-05 16:53 | CT ---
EXAM DATE: 07/05/2018 4:44 PM EDT AGE/SEX: 68 years / Female INDICATIONS: Altered mental status CLINICAL DATA: This is the patient's initial encounter. Patient reports that signs and symptoms have been present for 1 day and indicates a pain score of Nonresponsive. MEDICAL/SURGICAL HISTORY: Hypertension. Seizures. Non-responsive. RADIATION DOSE: 34.25 CTDI (mGy) COMPARISON: [facility], CT HEAD W/O CONTRAST, 07/02/2018. . TECHNIQUE: CT of the head without contrast. Using automated exposure control and adjustment of the mA and/or kV according to patient size, radiation dose was kept as low as reasonably achievable to ob tain optimal diagnostic quality images. DICOM format image data is available electronically for revi ew and comparison. FINDINGS: Cerebrum: Periventricular low attenuation change involving both cerebral hemispheres The ventricles are normal for age. No evidence of midline shift, mass lesion, hemorrhage or acute infarction. No e xtraaxial fluid collections are seen. Posterior Fossa: The cerebellum and brainstem are intact. The 4th ventricle is midline. The cerebe llopontine angle is unremarkable. Extracranial: The visualized portion of the orbits is intact. Skull: Prior collin holes on the left. The calvaria is intact. No evidence of skull fracture. CONCLUSION: 1. No acute intracranial abnormality. 2. Extensive chronic small vessel ischemic change. . Electronically signed by: Bryan Walker MD 07/05/2018 4:51 PM EDT
[2018-07-05] MEDS ORDERED: Bisacodyl 10 MG Supp RECTAL PRN (17:01)
[2018-07-05] MEDS ORDERED: Potassium Phosphate Inj 30 MMOL in Sodium Chlor 0.9% Inj 250 ML IV.SIG PRN (17:01)
[2018-07-05] MEDS ORDERED: Sodium Phosphate Inj 30 MMOL in Sodium Chlor 0.9% Inj 250 ML IV.SIG PRN (17:01)
[2018-07-05] MEDS ORDERED: Potassium Chlor 40 mEq Premix 40 MEQ/100 ML PIGGYBACK IV.SIG PRN (17:01)
[2018-07-05] MEDS ORDERED: Acetaminophen 325 MG Tablet PO PRN (17:01)
[2018-07-05] MEDS ORDERED: Magnesium Sulfate Inj 2 GM in Sodium Chlor 0.9% Inj 96 ML IV.SIG PRN (17:01)
[2018-07-05] MEDS ORDERED: Potassium Chloride 25 MEQ Effervescent Tablet PO PRN (17:01)
[2018-07-05] MEDS ORDERED: Magnesium Sulfate Inj 4 GM in Sodium Chlor 0.9% Inj 92 ML IV.SIG PRN (17:01)
[2018-07-05] MEDS ORDERED: Potassium Phosphate 500 MG Soluble Tablet PO PRN (17:01)
[2018-07-05] MEDS ORDERED: Magnesium Oxide 400 MG Tablet PO PRN (17:01)
[2018-07-05] MEDS ORDERED: Potassium Chlor 20 mEq Premix 20 MEQ/100 ML PIGGYBACK IV.SIG PRN (17:01)
[2018-07-05] MEDS ORDERED: Topiramate 25 MG Tablet PO PRN (17:08)
[2018-07-05] MEDS ORDERED: levETIRAcetam 1000mg/100mL Inj 100 ML IV.SIG ONE (17:10)
--- NOTE | 2018-07-05 17:12 | P.HPCC ---
History of Present Illness Service: Critical Care Medicine Primary Care Physician: Yasmine Navarro Chief Complaint: obtundation History of Present Illness: 68yF with history of epilepsy and medication non-compliance who was recently admitted last week for seizures in the setting of medication noncompliance, presents by EMS after being found unresponsive outside on the ground for an unknown amount of time. She was intubated in the emergency department. She has elevated CK, trop. She has a subtherapeutic tegretol level. No additional information is available from the patient. ROS unobtainable. Review of Systems unobtainable due to endotracheal tube, unobtainable due to mental status PMFSH - History History Provided By: Medical Record, Property Technician / EMT - Medical / Surgical Hx Neg / Unobtainable Medical Problems Denied: Unable to Obtain Surgical History: Unable to Obtain - Medical History Medical History: Medical History (Last Reviewed 07/05/18 @ 17:44 by Jerome Dean MD) Depression Hypertension Seizures - Social History I have reviewed the patient's Social History: Yes - Tobacco History Second Hand Smoke Exposure: No Smoking Status: Unknown if ever smoked Tobacco Type: Cigarettes - Alcohol History How Often Do You Have a Drink Containing Alcohol: Unable to Obtain - Substance Use History Substance History: Active Abuse - Substance Use Type Opiates Status: Active Comment: PER EMS - Travel History Recent Travel in the [place] Within the Last 8 Weeks: No Recent Travel Out of the Country Within the Last 8 Weeks: No - Immunization History Tetanus Immunization: Unable to Assess Hx Influenza Vaccine This Season: Unable to Assess Medications and Allergies Active Medications: Active Medications Propofol (Diprivan 1000 Mg/100 Ml Inj) 1,000 mg in 100 mls @ 1.8 mls/hr IV.CONT TITRATE PRN; Protocol PRN Reason: Per Protocol Allergies Allergy/AdvReac Type Severity Reaction Status Date / Time aspirin Allergy Severe Seizures/ Verified 03/10/18 11:21 HIVES cyclobenzaprine Allergy Severe Verified 03/10/18 11:21 fish AdvReac Unknown unknown Uncoded 12/04/12 15:28 reaction at age 7 Home Medications Medication Instructions Recorded Confirmed Type albuterol sulfate [ProAir HFA] 2 puff INHALATION Q6H PRN 07/03/18 07/03/18 History aspirin 81 mg PO DAILY 07/03/18 07/03/18 History baclofen 5 mg PO TID 07/03/18 07/03/18 History buspirone 7.5 mg PO BID 07/03/18 07/03/18 History carbamazepine [Tegretol] 100 mg PO TID 07/03/18 07/03/18 History citalopram 40 mg PO DAILY 07/03/18 07/03/18 History furosemide [Lasix] 40 mg PO DAILY 07/03/18 07/03/18 History gabapentin 600 mg PO TID 07/03/18 07/03/18 History hydroxyzine HCl 25 mg PO TID PRN 07/03/18 07/03/18 History meloxicam 15 mg PO DAILY 07/03/18 07/03/18 History omeprazole 20 mg PO DAILY 07/03/18 07/03/18 History trazodone 100 mg PO DAILY 07/03/18 07/03/18 History Results - Labs CBC & Chem 7: 07/05/18 15:55 07/05/18 15:55 Labs: Short CBC 07/05/18 Range/Units 15:55 WBC 23.2 H (4.0-11.0) th/mm3 Hgb 14.9 (11.6-15.3) gm/dL Hct 44.6 (35.0-46.0) % Plt Count 281 (150-450) th/mm3 BMP 07/05/18 15:55 Sodium 144 Potassium 5.0 Chloride 109 H Carbon Dioxide 22.6 BUN 38 H Creatinine 1.09 H Calcium 8.9 Cardiac Enzymes 07/05/18 Range/Units 15:55 Total Creatine Kinase 981 H (26-192) U/L Troponin I 2.62 H* D (0.02-0.05) ng/mL Liver Function 07/05/18 Range/Units 15:55 Total Bilirubin 0.8 (0.2-1.0) mg/dL AST 61 H (15-37) U/L ALT 45 (10-53) U/L Alkaline Phosphatase 364 H (45-117) U/L Albumin 3.5 (3.4-5.0) g/dL Urine 07/05/18 Range/Units 15:34 Urine Color Lesia (Yellw/Straw) Urine Clarity Cloudy H (Clear) Urine pH 5.0 (5.0-8.5) Ur Specific [place] 1.032 (1.002-1.035) Urine Protein 100 H (Neg-Trace) mg/dL Urine Glucose (UA) Negative (Negative) mg/dL - Imaging Impressions Chest X-Ray 07/05/18 15:16 CONCLUSION: New bilateral pulmonary infiltrates. Head CT 07/05/18 15:16 CONCLUSION: 1. No acute intracranial abnormality. 2. Extensive chronic small vessel ischemic change. . Exam Vital signs: Vital Signs 07/05/18 15:33 07/05/18 15:54 07/05/18 15:59 Temperature Pulse Rate 98 H 98 H Respiratory Rate 21 16 17 Blood Pressure 120/84 Pulse Oximetry 98 98 100 07/05/18 16:57 Temperature 38.2 C H Pulse Rate 91 H Respiratory Rate 17 Blood Pressure 135/87 Pulse Oximetry 98 Intake & Output 07/04/18 07/05/18 07/05/18 18:59 06:59 18:59 Weight 60 kg Narrative: gen: middle-aged women who appears much older than stated age, lying in bed, obtunded, intubated heent: nc. at. perrl. mucous membranes dry. neck: no jvd. trachea midline. chest: equal chest rise. prvc. clear to auscultation cv: tachycardic rate, regular rhythm. sinus. abd: soft, nontender, nondistended. no guarding. extr: no edema. distal pulses 2+. multiple abrasions on lower extremities. neuro: RASS -5. GCS 3. intubated, sedated. Septic Shock Reassessment Septic shock perfusion: reassessment completed Caprini VTE Risk Assessment Caprini VTE Risk Assessment: Moderate/High Risk (score >= 2) Caprini Risk Assessment Model: Point Value = 1 Point Value = 2 Point Value = 3 Point Value = 5 Age 41-60 Minor surgery BMI > 25 kg/m2 Swollen legs Varicose veins or History of unexplained or recurrent spontaneous Oral contraceptives or hormone replacement Sepsis (< 1 month) Serious lung disease, including pneumonia (< 1 month) Abnormal pulmonary function Acute myocardial infarction Congestive heart failure (< 1 month) History of inflammatory bowel disease Medical patient at bed rest Age 61-74 Arthroscopic surgery Major open surgery (> 45 min) Laparoscopic surgery (> 45 min) Malignancy Confined to bed (> 72 hours) Immobilizing plaster cast Central venous access Age >= 75 History of VTE Family history of VTE Factor V Leiden Prothrombin [id number] Lupus anticoagulant Anticardiolipin antibodies Elevated serum homocysteine Heparin-induced thrombocytopenia Other congenital or acquired thrombophilia Stroke (< 1 month) Elective arthroplasty Hip, pelvis, or leg fracture Acute spinal cord injury (< 1 month) Prophylaxis Regimen: Total Risk Factor Score Risk Level Prophylaxis Regimen 0-1 Low Early ambulation 2 Moderate Order ONE of the following: *Sequential Compression Device (SCD) *Heparin 5000 units SQ BID 3-4 Higher Order ONE of the following medications: *Heparin 5000 units SQ TID *Enoxaparin/Lovenox 40 mg SQ daily (WT < 150 kg, CrCl > 30 mL/min) *Enoxaparin/Lovenox 30 mg SQ daily (WT < 150 kg, CrCl > 10-29 mL/min) *Enoxaparin/Lovenox 30 mg SQ BID (WT < 150 kg, CrCl > 30 mL/min) AND/OR *Sequential Compression Device (SCD) 5 or more Highest Order ONE of the following medications: *Heparin 5000 units SQ TID (Preferred with Epidurals) *Enoxaparin/Lovenox 40 mg SQ daily (WT < 150 kg, CrCl > 30 mL/min) *Enoxaparin/Lovenox 30 mg SQ daily (WT < 150 kg, CrCl > 10-29 mL/min) *Enoxaparin/Lovenox 30 mg SQ BID (WT < 150 kg, CrCl > 30 mL/min) AND *Sequential Compression Device (SCD) Assessment and Plan - Assessment and Plan Plan: Assessment: 68yF with history of epilepsy and medication non-compliance presents with subtherapeutic anti-epileptic levels and acute metabolic encephalopathy concerning for ongoing seizures. Also with fever and leukocytosis concerning for pneumonia. Critically ill with organ failure. admit to ICU. Neuro: Acute metabolic encephalopathy Possible Status Epilepticus Seizure Disorder Medication non-compliance frequent neuro checks avoiding long-acting sedatives restart home tegretol and keppra check levels in AM stat EEG repeat EEG in AM CT head: negative for acute disease Resp: Acute hypoxic and hypercarbic respiratory failure vent bundle hob elevated nebs wean fio2 for goal spo2 > 90% no weaning of mechanical ventilation until neuro exam improves CV: Type II NSTEMI secondary to demand ischemia troponin elevation most likely combination of rhabdo and demand ischemia no EKG changes to suggest ischemia/infarction will hold off on heparin and ASA unlikely to be ACS trend troponins. Renal: Acute Rhabdomyolysis place lugo q1h uop 3L crystalloid bolus LR @ 200cc/hr serial CK trend daily Cr, electrolytes FEN/GI: Acute protein calorie malnutrition- severe Acute intravascular volume depletion Severe dehydration NPO OG tube to LIWS will need to start tube feeds once more stable ivf as above ICU Electrolyte Protocol daily bmp, mg, phos Heme/ID: Severe sepsis with end-organ dysfunction HCAP Aspiration Pneumonia given recent health-care association, will cover with vanc, zosyn, azithromycin sputum, blood, urine cultures daily cbc Endo: SSI Prophylaxis: pepcid, scd's, lovenox Lines: 07/05 right IJ TLC 07/05 Lugo Dispo: admit to ICU. critically ill. Critical care time: 49 minutes, exclusive of separately billable procedures.
[2018-07-05] MEDS ORDERED: Vancomycin Consult Pharmacy OTHER PRN (17:13)
--- NOTE | 2018-07-05 17:22 | XR ---
EXAM DATE: 07/05/2018 5:13 PM EDT AGE/SEX: 68 years / Female INDICATIONS: Right internal jugular central line placement. CLINICAL DATA: This is the patient's subsequent encounter. Patient reports that signs and symptoms h ave been present for 1 day and indicates a pain score of Nonresponsive. MEDICAL/SURGICAL HISTORY: Cerebrovascular disease. Seizures. Hypertension. Hepatitis Tonsi llectomy. Fusion, cervical. Cerebral aneurysm repair. COMPARISON: [facility] – [place]ST 1V SINGLE AP, 07/05/2018. . FINDINGS: Single AP view of the chest. Endotracheal tube and nasogastric tube remain in place. Right IJ central venous catheter is now in place with the tip in the mid SVC region. No evidence of pneumothorax. Soto ateral upper lung zone opacity unchanged. CONCLUSION: 1. New right IJ central venous catheter. No evidence of pneumothorax. 2. Bilateral upper lung zone pulmonary opacity unchanged. Electronically signed by: Walter Mclaughlin MD 07/05/2018 5:21 PM EDT
[2018-07-05] MEDS ORDERED: Enoxaparin Inj 60 MG/0.6 ML Syringe SQ SCH (18:06)
[2018-07-05] MEDS ORDERED: Pharmacy Ordered Lab Info OTHER ONE (19:00)
[2018-07-05] MEDS ORDERED: Vancomycin Inj 1,250 MG in Sodium Chlor 0.9% Inj 250 ML IV.SIG ONE (19:00)
--- NOTE | 2018-07-05 19:41 | P.CONNEU ---
History of Present Illness Service: EEG Consult date: 07/05/18 Reason for Consult: AMS Primary Care Provider: Yasmine Navarro Family Provider: Yasmine Navarro Chief Complaint: obtundation History of Present Illness: EEG REPORT NAME VIKAS KU 1950 AGE 68F MEDICATION DARRYLTIN JIA NUMBER [id number] EEG DESCRIPTION THIS IS A 22 CHANNEL EEG, THE PREDOMINANT RHYTHM DURING THE RECORDING CONSISTS OF 6.5 HZ MEDIUM AMPLITUDE POTENTIALS SEEN OCCIPITAL REGION BILATERALLY. THERE IS NO SPIKE OR SHARP WAVE SEEN DURING THE RECORDING HYPERVENTILATION NOT PERFORMED 3HZ HPOTIC STIMULATION PRODUCE NO CHANGES IMPRESSION THIS IS AN ABNORMAL EEG RECORDING DUE TO THE PRECENCE OF GENERAZLIZED SLOWING C/ W ENCEPHALOPATHY, NO EPILEPTIC DISCHARGES PMFSH - History History Provided By: Medical Record, Dairy Inspector / EMT - Medical / Surgical Hx Neg / Unobtainable Medical Problems Denied: Unable to Obtain - Medical History Medical History: Medical History (Last Reviewed 07/05/18 @ 17:44 by Jerome Dean MD) Depression Hypertension Seizures - Tobacco History Second Hand Smoke Exposure: No Smoking Status: Unknown if ever smoked Tobacco Type: Cigarettes - Alcohol History How Often Do You Have a Drink Containing Alcohol: Unable to Obtain - Substance Use History Substance History: Active Abuse - Substance Use Type Opiates Status: Active Comment: PER EMS - Travel History Recent Travel in the [place] Within the Last 8 Weeks: No Recent Travel Out of the Country Within the Last 8 Weeks: No - Immunization History Tetanus Immunization: Unable to Assess Hx Influenza Vaccine This Season: Unable to Assess Medications and Allergies Active Medications: Active Medications Acetaminophen (Tylenol) 650 mg PO Q6H PRN PRN Reason: TEMPERATURE > 101 F Albuterol (Duoneb Neb (Prn)) 1 ampul NEB Q2HR NEB PRN PRN Reason: WHEEZING Albuterol (Duoneb Neb (Su)) 1 ampul NEB Q6HR NEB SU Baclofen (Lioresal) 5 mg PO TID SU Bisacodyl (Dulcolax Supp) 10 mg RECTAL DAILY PRN PRN Reason: if no BM in last 24h Buspirone HCl (Buspar) 7.5 mg PO BID SU Carbamazepine (Tegretol Chewable) 100 mg PO TID SU Chlorhexidine Gluconate (Peridex 0.12% Oral Kit) 15 ml OROPHARYNG BID@0800, 2000 SU Chlorhexidine Gluconate (Chlorhexidine 2% Cloth) 3 pack TOPICAL DAILY@0400 SU Stop: 07/11/18 03:59 Chlorhexidine Gluconate (Chlorhexidine 2% Cloth) 3 pack TOPICAL DAILY@0400 PRN PRN Reason: Extra cloth needed Stop: 07/11/18 03:59 Citalopram Hydrobromide (Celexa) 40 mg PO DAILY SU Dextrose (D50w Syringe) 50 ml IV.PUSH UNSCH PRN PRN Reason: PER HYPOGLYCEMIA PROTOCOL Enoxaparin Sodium (Lovenox Inj) 40 mg SQ DAILY SU Famotidine (Pepcid Pf Inj) 20 mg IV.PUSH Q12HR SU Glucagon (Glucagon Inj) 1 mg IM ONCE PRN PRN Reason: blood sugar < 60, no iv access Propofol (Diprivan 1000 Mg/100 Ml Inj) 1,000 mg in 100 mls @ 1.8 mls/hr IV.CONT TITRATE PRN; Protocol PRN Reason: Per Protocol Last Titration: 07/05/18 16:40 Dose: 10 mcg/kg/min, 3.6 mls/hr Levetiracetam 500 mg/ Sodium (Chloride) 105 mls @ 400 mls/hr IV.SIG Q12H SU Lactated Ringer's (Lr 1000 Ml Inj) 1,000 mls @ 999 mls/hr IV.CONT .Q1H1M SU Last Admin: 07/05/18 18:34 Dose: 999 mls/hr Lactated Ringer's (Lr 1000 Ml Inj) 1,000 mls @ 200 mls/hr IV.CONT .Q5H SU Magnesium Sulfate Inj 4 gm/ (Sodium Chloride) 100 mls @ 50 mls/hr IV.SIG UNSCH PRN PRN Reason: For Magnesium 0.9 - 1.1 mg/dL Magnesium Sulfate Inj 2 gm/ (Sodium Chloride) 100 mls @ 50 mls/hr IV.SIG UNSCH PRN PRN Reason: For Magnesium 1.2 - 1.6 mg/dL Potassium Chloride (Kcl 40 Meq Premix Inj) 40 meq in 100 mls @ 25 mls/hr IV.SIG Q2H PRN PRN Reason: For Potassium 2.8 - 3.2 mEq/L Potassium Chloride (Kcl 20 Meq Premix Inj) 20 meq in 100 mls @ 50 mls/hr IV.SIG Q2H PRN PRN Reason: For Potassium 3.3 - 3.5 mEq/L Potassium Chloride (Kcl 40 Meq Premix Inj) 40 meq in 100 mls @ 25 mls/hr IV.SIG UNSCH PRN PRN Reason: For Potassium 3.3 - 3.5 mEq/L Potassium Chloride (Kcl 20 Meq Premix Inj) 20 meq in 100 mls @ 50 mls/hr IV.SIG Q2H PRN PRN Reason: For Potassium 2.8 - 3.2 mEq/L Potassium Phosphate 30 mmol/ (Sodium Chloride) 260 mls @ 42 mls/hr IV.SIG UNSCH PRN PRN Reason: SEE LABEL COMMENTS Sodium Phosphate 30 mmol/ (Sodium Chloride) 260 mls @ 42 mls/hr IV.SIG UNSCH PRN PRN Reason: For Phosphorus < 2.5 mg/dL Azithromycin 500 mg/ Sodium (Chloride) 250 mls @ 250 mls/hr IV.SIG Q24H SU Vancomycin HCl 1,250 mg/ (Sodium Chloride) 262.5 mls @ 250 mls/hr IV.SIG ONCE ONE Stop: 07/05/18 20:02 Last Admin: 07/05/18 18:34 Dose: 250 mls/hr Piperacillin/Tazobactam/Dextrose (Zosyn 4.5 Gm Premix) 4.5 gm in 100 mls @ 200 mls/hr IV.SIG Q6H SU Vancomycin HCl 1,000 mg/ (Sodium Chloride) 250 mls @ 250 mls/hr IV.SIG Q24H SU Insulin Human Regular (Novolin R Inj) 1 units SQ Q6HR SU; Protocol Lactulose (Lactulose Liq) 30 ml PO BID SU Magnesium Oxide (Mag-Ox) 800 mg PO UNSCH PRN PRN Reason: For Magnesium 1.2 - 1.6 mg/dL Miscellaneous (Pill Splitter) 1 each OTHER UNSCH [facility] Miscellaneous Information ([facility] Ordered Lab Info) 1 each OTHER ONCE ONE Stop: 07/08/18 17:46 Ondansetron HCl (Zofran Inj) 4 mg IV.PUSH Q6H PRN PRN Reason: NAUSEA OR VOMITING Pharmacy Profile Note (Vancomycin Consult Pharmacy) 1 each OTHER UNSCH PRN PRN Reason: Pharmacy to dose Polyethylene Glycol (Miralax) 17 gm PO BID SU Potassium Bicarb/Potassium Chloride (K-Lyte Cl Eff) 50 meq PO UNSCH PRN PRN Reason: For Potassium 3.3 - 3.5 mEq/L Potassium Phosphate (K-Phos Original) 2,000 mg PO Q4H PRN PRN Reason: Phosphorus Less Than 2.5 mg/dL Potassium Phosphate (K-Phos Original) 2,000 mg PO UNSCH PRN PRN Reason: SEE LABEL COMMENTS Senna/Docusate Sodium (Skylar-Colace) 1 tab PO BID SU Sodium Chloride (Ns Flush) 2 ml IV.FLUSH UNSCH PRN PRN Reason: FLUSH AFTER USING IV ACCESS Topiramate (Topamax) 25 mg PO HS PRN PRN Reason: Hypertension Allergies Allergy/AdvReac Type Severity Reaction Status Date / Time aspirin Allergy Severe Seizures/ Verified 03/10/18 11:21 HIVES cyclobenzaprine Allergy Severe Verified 03/10/18 11:21 fish AdvReac Unknown unknown Uncoded 12/04/12 15:28 reaction at age 7 Home Medications Medication Instructions Recorded Confirmed Type albuterol sulfate [ProAir HFA] 2 puff INHALATION Q6H PRN 07/03/18 07/03/18 History aspirin 81 mg PO DAILY 07/03/18 07/03/18 History baclofen 5 mg PO TID 07/03/18 07/03/18 History buspirone 7.5 mg PO BID 07/03/18 07/03/18 History carbamazepine [Tegretol] 100 mg PO TID 07/03/18 07/03/18 History citalopram 40 mg PO DAILY 07/03/18 07/03/18 History furosemide [Lasix] 40 mg PO DAILY 07/03/18 07/03/18 History gabapentin 600 mg PO TID 07/03/18 07/03/18 History hydroxyzine HCl 25 mg PO TID PRN 07/03/18 07/03/18 History meloxicam 15 mg PO DAILY 07/03/18 07/03/18 History omeprazole 20 mg PO DAILY 07/03/18 07/03/18 History trazodone 100 mg PO DAILY 07/03/18 07/03/18 History Exam Vital signs: Vital Signs 07/05/18 15:33 07/05/18 15:54 07/05/18 15:59 Temperature Pulse Rate 98 H 98 H Respiratory Rate 21 16 17 Blood Pressure 120/84 Pulse Oximetry 98 98 100 07/05/18 16:57 07/05/18 17:15 07/05/18 18:00 Temperature 100.8 F H Pulse Rate 91 H Respiratory Rate 17 Blood Pressure 135/87 Pulse Oximetry 98 100 100 Intake & Output 07/05/18 07/05/18 07/06/18 06:59 18:59 06:59 Intake Total 2099 Output Total 450 / 450 Balance -450 / -450 2099 Weight 60 kg Intake: IV 2099 Azithromycin Inj 500 MG In NS 0 / 0 Inj 250 ML @ 250 mls/hr IV.SIG STAT STA Rx#:[id number] Zosyn 4.5 GM Premix 4.5 gm In 100 / 100 100 ml @ 200 mls/hr IV.SIG STAT STA Rx#:[id number] NS Inj 2,000 ML @ Wide Open IV. 1999 SIG BOLUS ONE Rx#:[id number] Output: Urine Amount (Catheter) 450 / 450 Indwelling Urethral Catheter 450 / 450 Results - Labs CBC & Chem 7: 07/05/18 15:55 07/05/18 15:55 Labs: Laboratory Results - last 24 hr 07/05/18 07/05/18 07/05/18 15:34 15:34 15:40 WBC RBC Hgb Hct MCV MCH MCHC RDW Plt Count MPV Neut % (Auto) Lymph % (Auto) [place] % (Auto) Eos % (Auto) Baso % (Auto) Neut # (Auto) Lymph # (Auto) [place] # (Auto) Eos # (Auto) Baso # (Auto) WBC Differential Differential Comment PT INR APTT Puncture Site Left radial Patient Temperature 98.6 O2 Saturation 97 ABG pH 7.38 ABG pCO2 39 ABG pO2 352 H ABG HCO3 23 ABG O2 Content 22.0 H ABG Base Excess -1.8 ABG Methemoglobin 0.9 [place] Test Present Hemoglobin 15.4 Carboxyhemoglobin 1.5 O2 Delivery Device Ventilator Vent Setting Ac16/500/+8 Inspired O2 100 Critical Value No Sodium Potassium Chloride Carbon Dioxide Anion Gap BUN Creatinine Estimated GFR POC Glucose Random Glucose Lactic Acid Calcium Phosphorus Magnesium Total Bilirubin AST ALT Alkaline Phosphatase Ammonia Total Creatine Kinase CK-MB (CK-2) CK-MB (CK-2) % Troponin I Total Protein Albumin Urine Color Lesia Urine Clarity Cloudy H Urine pH 5.0 Ur Specific [place] 1.032 Urine Protein 100 H Urine Glucose (UA) Negative Urine Ketones Negative Urine Occult Blood Negative Urine Nitrate Negative Urine Bilirubin Negative Urine Ictotest Negative Urine Urobilinogen 4 or greater Ur Leukocyte Esterase Trace H Urine RBC 3 Urine WBC 5 Ur Squamous Epith Cells 20 Urine Bacteria Few H Urine Mucus Few H Micro UA Comment Cath-culture ind Ur Microscopic Review Not Reportable Urine Culture Comments Cath-cult indicated Urine Opiates Screen Neg Ur Barbiturates Screen Neg Carbamazepine Ur Amphetamines Screen Neg U Benzodiazepines Scrn Neg Urine Cocaine Screen Neg U Cannabinoids Screen Pos H Serum Alcohol 07/05/18 07/05/18 07/05/18 15:55 15:55 15:55 WBC 23.2 H RBC 4.78 Hgb 14.9 Hct 44.6 MCV 93.4 MCH 31.2 MCHC 33.4 RDW 14.1 Plt Count 281 MPV 9.7 Neut % (Auto) 89.8 H Lymph % (Auto) 5.2 L [place] % (Auto) 4.7 Eos % (Auto) 0.0 Baso % (Auto) 0.3 Neut # (Auto) 20.8 H Lymph # (Auto) 1.2 [place] # (Auto) 1.1 H Eos # (Auto) 0.0 Baso # (Auto) 0.1 WBC Differential . Differential Comment Auto diff final PT 10.7 INR 1.1 APTT 22.4 L Puncture Site Patient Temperature O2 Saturation ABG pH ABG pCO2 ABG pO2 ABG HCO3 ABG O2 Content ABG Base Excess ABG Methemoglobin [place] Test Hemoglobin Carboxyhemoglobin O2 Delivery Device Vent Setting Inspired O2 Critical Value Sodium 144 Potassium 5.0 Chloride 109 H Carbon Dioxide 22.6 Anion Gap 12 BUN 38 H Creatinine 1.09 H Estimated GFR 50 L POC Glucose Random Glucose 136 H Lactic Acid Calcium 8.9 Phosphorus 4.7 Magnesium 2.7 H Total Bilirubin 0.8 AST 61 H ALT 45 Alkaline Phosphatase 364 H Ammonia Total Creatine Kinase 981 H CK-MB (CK-2) 10.0 H CK-MB (CK-2) % 1.0 Troponin I 2.62 H* D Total Protein 8.7 H Albumin 3.5 Urine Color Urine Clarity Urine pH Ur Specific [place] Urine Protein Urine Glucose (UA) Urine Ketones Urine Occult Blood Urine Nitrate Urine Bilirubin Urine Ictotest Urine Urobilinogen Ur Leukocyte Esterase Urine RBC Urine WBC Ur Squamous Epith Cells Urine Bacteria Urine Mucus Micro UA Comment Ur Microscopic Review Urine Culture Comments Urine Opiates Screen Ur Barbiturates Screen Carbamazepine 3.5 L Ur Amphetamines Screen U Benzodiazepines Scrn Urine Cocaine Screen U Cannabinoids Screen Serum Alcohol Less than 3 07/05/18 07/05/18 07/05/18 15:55 15:55 19:17 WBC RBC Hgb Hct MCV MCH MCHC RDW Plt Count MPV Neut % (Auto) Lymph % (Auto) [place] % (Auto) Eos % (Auto) Baso % (Auto) Neut # (Auto) Lymph # (Auto) [place] # (Auto) Eos # (Auto) Baso # (Auto) WBC Differential Differential Comment PT INR APTT Puncture Site Patient Temperature O2 Saturation ABG pH ABG pCO2 ABG pO2 ABG HCO3 ABG O2 Content ABG Base Excess ABG Methemoglobin [place] Test Hemoglobin Carboxyhemoglobin O2 Delivery Device Vent Setting Inspired O2 Critical Value Sodium Potassium Chloride Carbon Dioxide Anion Gap BUN Creatinine Estimated GFR POC Glucose 152 H Random Glucose Lactic Acid 1.4 Calcium Phosphorus Magnesium Total Bilirubin AST ALT Alkaline Phosphatase Ammonia 15 Total Creatine Kinase CK-MB (CK-2) CK-MB (CK-2) % Troponin I Total Protein Albumin Urine Color Urine Clarity Urine pH Ur Specific [place] Urine Protein Urine Glucose (UA) Urine Ketones Urine Occult Blood Urine Nitrate Urine Bilirubin Urine Ictotest Urine Urobilinogen Ur Leukocyte Esterase Urine RBC Urine WBC Ur Squamous Epith Cells Urine Bacteria Urine Mucus Micro UA Comment Ur Microscopic Review Urine Culture Comments Urine Opiates Screen Ur Barbiturates Screen Carbamazepine Ur Amphetamines Screen U Benzodiazepines Scrn Urine Cocaine Screen U Cannabinoids Screen Serum Alcohol - Imaging Impressions Chest X-Ray 07/05/18 15:16 CONCLUSION: New bilateral pulmonary infiltrates. Head CT 07/05/18 15:16 CONCLUSION: 1. No acute intracranial abnormality. 2. Extensive chronic small vessel ischemic change. . Chest X-Ray 07/05/18 16:11 CONCLUSION: 1. New right IJ central venous catheter. No evidence of pneumothorax. 2. Bilateral upper lung zone pulmonary opacity unchanged.
[2018-07-05 19:54] LABS: Troponin I 5.03 ng/mL (0.02-0.05)
[2018-07-05] MEDS: Senna/Docusate Sodium 8.6/50 MG Tablet PO SCH (20:06)
[2018-07-05 20:07] LABS: CKMB Percent 0.9 % (0.0-4.0); Creatine Kinase MB 13.4 ng/mL (0.5-3.6)
[2018-07-05] MEDS: Polyethylene Glycol 3350 17 GM Packet PO SCH (20:07)
[2018-07-05] MEDS: Baclofen 10 MG Tablet PO SCH (20:08)
[2018-07-05] MEDS: Famotidine PF Inj 20 MG/2 ML Vial IV.PUSH SCH (20:08)
[2018-07-05] MEDS: Chlorhexidine 0.12% Oral Kit 15 ML UDC OROPHARYNG SCH (20:10)
[2018-07-05] MEDS ORDERED: Heparin 10,000 UNITS/10 ML Vial (for IV use) IV.PUSH STA (21:12)
[2018-07-05] MEDS ORDERED: Heparin Drip 25,000 UNIT/250 ML BAG IV.CONT PRN (21:12)
[2018-07-05 21:53] LABS: Hematocrit 37.5 % (35.0-46.0); Hemoglobin 12.3 gm/dL (11.6-15.3); Mean Corpuscular HGB Conc 32.7 % (32.0-36.0); Mean Corpuscular Hemoglobin 30.6 pg (27.0-34.0); Mean Corpuscular Volume 93.8 fL (80.0-100.0); Mean Platelet Volume 9.7 fL (7.0-11.0); Platelet Count 186 th/mm3 (150-450); Red Cell Distribution Width 13.7 % (11.6-17.2); White Blood Count 20.2 th/mm3 (4.0-11.0)
[2018-07-05 22:14] LABS: Activated Partial Thrombo Time 21.9 sec (24.3-30.1); INR 1.1 Ratio; Prothrombin Time 10.7 sec (9.8-11.6)
[2018-07-05 22:27] LABS: Albumin 2.4 g/dL (3.4-5.0); Calcium 7.4 mg/dL (8.5-10.1); Carbamazepine (Tegretol) 2.4 mcg/mL (4.0-12.0); Carbon Dioxide 21.9 meq/L (21.0-32.0); Phosphorus 3.3 mg/dL (2.5-4.9); Potassium 3.4 meq/L (3.5-5.1); Total Protein 5.6 g/dL (6.4-8.2)
[2018-07-05 22:29] LABS: Troponin I 4.28 ng/mL (0.02-0.05)
[2018-07-05 22:49] LABS: Creatine Kinase MB 15.9 ng/mL (0.5-3.6)
[2018-07-05] MEDS: carBAMazepine 100 MG Chewable Tablets PO SCH (22:52)
[2018-07-06] MEDS: Piperacil/Tazo 4.5 GM Premix 4.5 GM/100 ML BAG IV.SIG SCH ×2 (00:17→05:44)
[2018-07-06] MEDS: Oral Hygiene Kit OROPHARYNG SCH ×4 (00:17→17:07)
[2018-07-06] MEDS: Chlorhexidine Gluconate 2% 1 Pack (2 Cloths) TOPICAL SCH (03:20)
[2018-07-06] MEDS ORDERED: Chlorhexidine Gluconate 2% 1 Pack (2 Cloths) TOPICAL PRN (04:00)
[2018-07-06 05:19] LABS: ABG Base Excess -2.9 mmol/L (-2-2); ABG PCO2 33 mmHg (38-42); ABG PO2 102 mmHG (61-120)
[2018-07-06 05:56] LABS: Baso # (Auto) 0.1 th/mm3 (0.0-0.2); Baso % (Auto) 0.6 % (0.0-2.0); Eos # (Auto) 0.1 th/mm3 (0.0-0.4); Eos % (Auto) 0.4 % (0.0-4.0); Hematocrit 36.9 % (35.0-46.0); Hemoglobin 12.1 gm/dL (11.6-15.3); Lymph # (Auto) 2.3 th/mm3 (1.0-4.8); Lymph % (Auto) 13.4 % (9.0-44.0); Mean Corpuscular HGB Conc 32.7 % (32.0-36.0); Mean Corpuscular Hemoglobin 30.8 pg (27.0-34.0); Mean Corpuscular Volume 94.3 fL (80.0-100.0); Mean Platelet Volume 9.4 fL (7.0-11.0); Mono % (Auto) 5.6 % (0.0-8.0); Platelet Count 176 th/mm3 (150-450); Red Blood Count 3.91 mil/mm3 (4.00-5.30); Red Cell Distribution Width 13.7 % (11.6-17.2); White Blood Count 17.5 th/mm3 (4.0-11.0)
[2018-07-06 06:42] LABS: Troponin I 1.87 ng/mL (0.02-0.05)
[2018-07-06 06:55] LABS: CKMB Percent 0.9 % (0.0-4.0); Creatine Kinase MB 10.9 ng/mL (0.5-3.6)
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
[2018-07-06] MEDS: Famotidine PF Inj 20 MG/2 ML Vial IV.PUSH SCH ×2 (10:33→20:48)
[2018-07-06] MEDS: Polyethylene Glycol 3350 17 GM Packet PO SCH ×2 (10:34→21:14)
[2018-07-06] MEDS: Baclofen 10 MG Tablet PO SCH ×3 (10:55→17:07)
[2018-07-06] MEDS: Senna/Docusate Sodium 8.6/50 MG Tablet PO SCH ×2 (10:57→20:49)
[2018-07-06] MEDS: carBAMazepine 100 MG Chewable Tablets PO SCH (10:57)
[2018-07-06] MEDS: Chlorhexidine 0.12% Oral Kit 15 ML UDC OROPHARYNG SCH ×2 (10:58→20:50)
[2018-07-06] MEDS ORDERED: Fosphenytoin Inj 1,000 MGPE in Sodium Chlor 0.9% Inj 50 ML IV.SIG ONE (11:00)
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
[2018-07-06 14:34] LABS: Troponin I 1.22 ng/mL (0.02-0.05)
[2018-07-06 14:46] LABS: CKMB Percent 0.7 % (0.0-4.0); Creatine Kinase MB 5.5 ng/mL (0.5-3.6)
--- NOTE | 2018-07-06 16:16 | MR ---
EXAM DATE: 07/06/2018 4:09 PM EDT AGE/SEX: 68 years / Female INDICATIONS: . Unresponsiveness. CLINICAL DATA: This is the patient's initial encounter. Patient reports that signs and symptoms have been present for 2 days and indicates a pain score of Nonresponsive. MEDICAL/SURGICAL HISTORY: . Unknown. Cleared by Rad. . Unknown. COMPARISON: [facility] – [place], MRA BRAIN W/O CONTRAST, 02/10/2018. [facility] – [place], MRI BRAIN W/O CONTRAST, 02/10/2018. . TECHNIQUE: Multiplanar, multisequence examination of the brain was performed without and with 6 ml Ga davist (gadobutrol) contrast as a single exam dose. FINDINGS: Cerebrum: The ventricles are normal for age. No evidence of midline shift, mass lesion, hemorrhage or acute infarction. No extraaxial fluid collections are seen. Scattered old tiny lacunar infarcts are noted within the bilateral basal ganglia. The pituitary gland and suprasellar cistern are normal in configuration. White Matter: Severe diffuse small vessel ischemic disease is noted throughout the periventricular a nd subcortical white matter bilaterally. Posterior Fossa: Bilateral pontine ischemic changes are noted. The cerebellum is intact. The 4th susie tricle is midline. The cerebellopontine angle is unremarkable. The cerebellar tonsils are normal in position. Diffusion Imaging: No focal areas of restricted diffusion are seen. No evidence of acute infarction . Extracranial: The visualized portions of the orbits and paranasal sinuses are unremarkable. Post Contrast: No abnormal areas of parenchymal or dural enhancement. No evidence of blood-brain ba rrier breakdown. CONCLUSION: 1. Severe diffuse small vessel ischemic disease throughout the periventricular and subcortical white matter bilaterally. 2. Diffuse bilateral pontine ischemic changes. 3. No acute infarct, acute hemorrhage, midline shift or extra-axial fluid collections. 4. No abnormal enhancing mass lesion. Electronically signed by: Waldo Morales MD 07/06/2018 4:15 PM EDT
[2018-07-06] MEDS ORDERED: Protamine Sulfate Inj 50 MG/5 ML Vial ONE (16:38)
--- NOTE | 2018-07-06 16:46 | ECHRPT ---
Indication: CHEST PAIN CONCLUSIONS The left ventricular systolic function is severely reduced with an estimated ejection fraction in th e range of 30-35%. Normal left ventricular size and wall thickness. Normal right ventricular size and systolic function. Regional wall motion abnormalities present. There is apical hypokinesis. No significant valvular abnormalities. Estimated RVSP is 53 mmHg. The inferior vena cava is dilated with less than 50% collapse with inspiration. No previous echo for comparision. BP: / HR: 87 Rhythm: sinus MEASUREMENTS (Male / Female) Normal Values Technical Quality: 2D ECHO LV Diastolic Diameter PLAX 4.2 cm 4.2 - 5.9 / 3.9 - 5.3 cm LV Systolic Diameter PLAX 3.5 cm IVS Diastolic Thickness 0.9 cm 0.6 - 1.0 / 0.6 - 0.9 cm LVPW Diastolic Thickness 0.9 cm 0.6 - 1.0 / 0.6 - 0.9 cm LV Relative Wall Thickness 0.4 RV Internal Dim ED PLAX 2.9 cm LVOT Diameter 1.6 cm LV Ejection Fraction MOD BP 46.9 % >= 55 % LV Ejection Fraction MOD 4C 36.8 % LV Ejection Fraction 4C AL 30.0 % LV Ejection Fraction MOD 2C 56.5 % LV Ejection Fraction 2C AL 54.3 % M-MODE Aortic Root Diameter MM 2.7 cm LA Systolic Diameter MM 3.9 cm LA Ao Ratio MM 1.4 AV Cusp Separation MM 1.6 cm DOPPLER AV Peak Velocity 110.0 cm/s AV Peak Gradient 4.8 mmHg LVOT Peak Velocity 85.4 cm/s LVOT Peak Gradient 2.9 mmHg AV Area Cont Eq pk 1.6 cm Mitral E Point Velocity 86.9 cm/s Mitral A Point Velocity 66.6 cm/s Mitral E to A Ratio 1.3 LV E' Lateral Velocity 7.6 cm/s Mitral E to LV E' Lateral Ratio 11.4 LV E' Septal Velocity 6.5 cm/s Mitral E to LV E' Septal Ratio 13.3 TV Peak Velocity 310.0 cm/s TR Peak Velocity 310.0 cm/s TR Peak Gradient 38.4 mmHg Right Atrial Pressure 10.0 mmHg Pulmonary Artery Systolic Pressu 48.4 mmHg Right Ventricular Systolic Press 48.4 mmHg PV Peak Velocity 73.3 cm/s PV Peak Gradient 2.1 mmHg FINDINGS LEFT VENTRICLE Normal left ventricular size. Wall thickness is normal. The left ventricular systolic function is severely reduced with an estimated ejection fraction in th e range of 30-35%. There is apical hypokinesis with distinct regional wall motion abnormalities. RIGHT VENTRICLE Normal right ventricular size and systolic function. LEFT ATRIUM The left atrial size is normal. RIGHT ATRIUM The right atrial size is normal. ATRIAL SEPTUM Normal atrial septal thickness without atrial level shunting by limited color doppler interrogation. AORTA The aortic root and proximal ascending aorta are normal in size on limited imaging. MITRAL VALVE Trace mitral valve regurgitation. AORTIC VALVE Trileaflet aortic valve. No aortic valve stenosis or regurgitation. TRICUSPID VALVE There is trace tricuspid valve regurgitation. PULMONARY VALVE No pulmonary valve regurgitation or stenosis. VESSELS The inferior vena cava is dilated. PERICARDIUM No pericardial effusion. Tom Kraus MD (Electronically Signed) Final Date:06 July 2018 16:45
[2018-07-06] MEDS ORDERED: Gadobutrol PF 2 MMOL/2 ML Vial (for RAD) IV.SIG ONE (16:48)
[2018-07-06] MEDS ORDERED: Protamine Sulfate Inj 50 MG/5 ML Vial IV.PUSH ONE (16:51)
[2018-07-06] MEDS: Vancomycin Inj 1,250 MG in Sodium Chlor 0.9% Inj 250 ML IV.SIG SCH (17:08)
[2018-07-06] MEDS ORDERED: Vancomycin Inj 1,000 MG in Sodium Chlor 0.9% Inj 250 ML IV.SIG SCH (18:00)
--- NOTE | 2018-07-06 18:32 | P.PCN ---
Date of procedure: 07/06/18 Pre-op diagnosis: Acute encephalopathy Procedure: Lumbar Puncture Diagnosis: Acute encephalopathy Indications: Acute encephalopathy with need to rule out infectious cause Consent: Emergent Anesthesia: 1% lidocaine locally Description of the Procedure: The patient was placed in the supine, left lateral decubitus position. The patient was prepped and draped sterilely. 1% lidocaine was infiltrated subcutaneously. A 20g Quincke needle was inserted into the L3-4 interspace and advanced until CSF was obtained. Opening pressure was obtained. CSF was drained in 4 incremental vials. The needle was removed and a dressing was applied. The patient was returned to the supine position. Instructions were given to remain flat x 2 hours. There were no immediate complications noted. There was minimal EBL. The patient tolerated the procedure well. Opening Pressure: 19 mmHg Amount of CSF removed: 10 mL's Findings: Clear CSF I personally performed the procedure.
--- NOTE | 2018-07-06 18:58 | MG ---
cc: Petey Rosa MD EEG RECORD NUMBER: [id number]. DESCRIPTION: Periodic complexes, sharp waves occurring; clusters 2-5 per epoch. Inter-ictus suppressed delta activity occurring for 1-2 seconds. Changes in voltage and frequency. Frontal sharp waves epoch 112. Limited driving with photic stimulation. Single lead EKG showing sinus rhythm. Further tactile stimulation produced a change in posterior frequencies; increased 4-5 Hz. Single EKG showing sinus rhythm. INTERPRETATION: Moderate encephalopathy with pseudo-periodic sharp complexes; however, did not appear to have any active seizures. Clinical correlation. Petey Rosa MD MG/ld/do , 04:41 PM , 04:47 PM
[2018-07-06 19:48] LABS: Total Protein,CSF 33.8 mg/dL (15.0-45.0)
[2018-07-06] MEDS: Azithromycin Inj 500 MG in Sodium Chlor 0.9% Inj 250 ML IV.SIG SCH (19:55)
[2018-07-06 20:32] LABS: RBC on Tube 4 0 /mm3
[2018-07-06 20:33] LABS: Lymphocytes, CSF 83 %; Monocytes,CSF 17 %; Neutrophils,CSF 0 %
--- NOTE | 2018-07-06 20:47 | ECG ---
Date Performed: 07/05/2018 Time Performed: 16:17:24 PTAGE: 68 years EKG: Sinus rhythm POSSIBLE LEFT ATRIAL ENLARGEMENT MARKED LEFT AXIS DEVIATION POSSIBLE RIGHT VENTRICULAR CONDUCTION DE LAY NONSPECIFIC ST ELEVATION Mild Prolongation od the QT interval for the heart rate ABNORMAL ECG PREVIOUS TRACING : 07/03/2018 15.02 Compared to previous tracing, there has been a leftward virgilio ft in the axis and a slight increase inthe heart rate , but no other significant serial change. P-wav e changes in the high lateral wall are slightly more pronounced. DOCTOR: Moni Glez Interpretating Date/Time 07/06/2018 20:46:43
[2018-07-06] MEDS ORDERED: carBAMazepine 200 MG Tablet PO SCH (21:00)
[2018-07-06] MEDS: Fosphenytoin Inj 100 MGPE in Sodium Chlor 0.9% Inj 50 ML IV.SIG SCH (21:14)
[2018-07-07] MEDS: Oral Hygiene Kit OROPHARYNG SCH ×5 (00:35→23:51)
[2018-07-07 01:37] LABS: Alanine Aminotransferase 25 U/L (10-53); Alkaline Phosphatase 183 U/L (45-117); Anion Gap 8 meq/L (5-15); Aspartate Aminotransferase 33 U/L (15-37); Blood Urea Nitrogen 15 mg/dL (7-18); Calcium 7.4 mg/dL (8.5-10.1); Carbamazepine (Tegretol) 3.4 mcg/mL (4.0-12.0); Carbon Dioxide 25.5 meq/L (21.0-32.0); Chloride 112 meq/L (98-107); Creatine Kinase 604 U/L (26-192); Glomerular Filtration Rate Greater Than 89 mL/min (>89); Glucose,Random 142 mg/dL (74-106); Magnesium 1.7 mg/dL (1.5-2.5); Phosphorus 2.2 mg/dL (2.5-4.9); Potassium 3.6 meq/L (3.5-5.1); Sodium 145 meq/L (136-145); Total Protein 5.2 g/dL (6.4-8.2)
[2018-07-07] MEDS: Potassium Phosphate 500 MG Soluble Tablet PO PRN ×2 (02:05→05:30)
[2018-07-07 02:30] LABS: CKMB Percent 0.6 % (0.0-4.0); Creatine Kinase MB 3.5 ng/mL (0.5-3.6)
[2018-07-07] MEDS: Fosphenytoin Inj 100 MGPE in Sodium Chlor 0.9% Inj 50 ML IV.SIG SCH ×3 (03:29→20:52)
[2018-07-07] MEDS: Chlorhexidine Gluconate 2% 1 Pack (2 Cloths) TOPICAL SCH (03:55)
[2018-07-07 04:02] LABS: Baso # (Auto) 0.1 th/mm3 (0.0-0.2); Baso % (Auto) 0.4 % (0.0-2.0); Eos % (Auto) 0.2 % (0.0-4.0); Hematocrit 34.2 % (35.0-46.0); Lymph # (Auto) 1.9 th/mm3 (1.0-4.8); Lymph % (Auto) 11.5 % (9.0-44.0); Mean Corpuscular HGB Conc 32.2 % (32.0-36.0); Mean Corpuscular Hemoglobin 30.5 pg (27.0-34.0); Mean Corpuscular Volume 94.5 fL (80.0-100.0); Mean Platelet Volume 10.1 fL (7.0-11.0); Mono # (Auto) 1.2 th/mm3 (0.0-0.9); Mono % (Auto) 7.3 % (0.0-8.0); Neut # (Auto) 13.4 th/mm3 (1.8-7.7); Neut % (Auto) 80.6 % (16.0-70.0); Platelet Count 150 th/mm3 (150-450); Red Blood Count 3.62 mil/mm3 (4.00-5.30); Red Cell Distribution Width 13.5 % (11.6-17.2); White Blood Count 16.7 th/mm3 (4.0-11.0)
[2018-07-07 06:10] LABS: ABG Base Excess -1.7 mmol/L (-2-2); ABG PCO2 30 mmHg (38-42); ABG PO2 90 mmHG (61-120)
--- NOTE | 2018-07-07 07:20 | P.PNNEU ---
Subjective Subjective Comments: no sz overnoc Active Medications: Active Medications Acetaminophen (Tylenol) 650 mg PO Q6H PRN PRN Reason: TEMPERATURE > 101 F Albuterol (Duoneb Neb (Prn)) 1 ampul NEB Q2HR NEB PRN PRN Reason: WHEEZING Albuterol (Duoneb Neb (Su)) 1 ampul NEB Q6HR NEB [facility] Last Admin: 07/07/18 03:47 Dose: 1 ampul Baclofen (Lioresal) 5 mg PO TID [facility] Last Admin: 07/06/18 17:07 Dose: 5 mg Bisacodyl (Dulcolax Supp) 10 mg RECTAL DAILY PRN PRN Reason: if no BM in last 24h Buspirone HCl (Buspar) 7.5 mg PO BID [facility] Last Admin: 07/06/18 20:48 Dose: 7.5 mg Carbamazepine (Tegretol) 200 mg PO BID [facility] Last Admin: 07/06/18 20:49 Dose: 200 mg Chlorhexidine Gluconate (Peridex 0.12% Oral Kit) 15 ml OROPHARYNG BID@0800, 2000 [facility] Last Admin: 07/06/18 20:50 Dose: 15 ml Chlorhexidine Gluconate (Chlorhexidine 2% Cloth) 3 pack TOPICAL DAILY@0400 [facility] Stop: 07/11/18 03:59 Last Admin: 07/07/18 03:55 Dose: 3 pack Chlorhexidine Gluconate (Chlorhexidine 2% Cloth) 3 pack TOPICAL DAILY@0400 PRN PRN Reason: Extra cloth needed Stop: 07/11/18 03:59 Citalopram Hydrobromide (Celexa) 40 mg PO DAILY [facility] Last Admin: 07/06/18 10:57 Dose: 40 mg Dextrose (D50w Syringe) 50 ml IV.PUSH UNSCH PRN PRN Reason: PER HYPOGLYCEMIA PROTOCOL Famotidine (Pepcid Pf Inj) 20 mg IV.PUSH Q12HR [facility] Last Admin: 07/06/18 20:48 Dose: 20 mg Glucagon (Glucagon Inj) 1 mg IM ONCE PRN PRN Reason: blood sugar < 60, no iv access Propofol (Diprivan 1000 Mg/100 Ml Inj) 1,000 mg in 100 mls @ 1.8 mls/hr IV.CONT TITRATE PRN; Protocol PRN Reason: Per Protocol Last Titration: 07/06/18 19:00 Dose: Infused Levetiracetam 500 mg/ Sodium (Chloride) 105 mls @ 400 mls/hr IV.SIG Q12H SU Last Infusion: 07/06/18 21:30 Dose: Infused Lactated Ringer's (Lr 1000 Ml Inj) 1,000 mls @ 200 mls/hr IV.CONT .Q5H SU Last Admin: 07/07/18 04:42 Dose: 200 mls/hr Magnesium Sulfate Inj 4 gm/ (Sodium Chloride) 100 mls @ 50 mls/hr IV.SIG UNSCH PRN PRN Reason: For Magnesium 0.9 - 1.1 mg/dL Magnesium Sulfate Inj 2 gm/ (Sodium Chloride) 100 mls @ 50 mls/hr IV.SIG UNSCH PRN PRN Reason: For Magnesium 1.2 - 1.6 mg/dL Potassium Chloride (Kcl 40 Meq Premix Inj) 40 meq in 100 mls @ 25 mls/hr IV.SIG Q2H PRN PRN Reason: For Potassium 2.8 - 3.2 mEq/L Potassium Chloride (Kcl 20 Meq Premix Inj) 20 meq in 100 mls @ 50 mls/hr IV.SIG Q2H PRN PRN Reason: For Potassium 3.3 - 3.5 mEq/L Potassium Chloride (Kcl 40 Meq Premix Inj) 40 meq in 100 mls @ 25 mls/hr IV.SIG UNSCH PRN PRN Reason: For Potassium 3.3 - 3.5 mEq/L Potassium Chloride (Kcl 20 Meq Premix Inj) 20 meq in 100 mls @ 50 mls/hr IV.SIG Q2H PRN PRN Reason: For Potassium 2.8 - 3.2 mEq/L Potassium Phosphate 30 mmol/ (Sodium Chloride) 260 mls @ 42 mls/hr IV.SIG UNSCH PRN PRN Reason: SEE LABEL COMMENTS Sodium Phosphate 30 mmol/ (Sodium Chloride) 260 mls @ 42 mls/hr IV.SIG UNSCH PRN PRN Reason: For Phosphorus < 2.5 mg/dL Azithromycin 500 mg/ Sodium (Chloride) 250 mls @ 250 mls/hr IV.SIG Q24H SU Last Infusion: 07/06/18 20:30 Dose: Infused Metronidazole/Sodium Chloride (Flagyl 500 Mg Inj) 100 mls @ 100 mls/hr IV.SIG Q6H SU Last Infusion: 07/07/18 05:48 Dose: Infused Cefepime HCl 2,000 mg/ Sodium (Chloride) 100 mls @ 200 mls/hr IV.SIG Q8H [facility] Last Infusion: 07/07/18 03:56 Dose: Infused Fosphenytoin Sodium 100 mgpe/ (Sodium Chloride) 52 mls @ 208 mls/hr IV.SIG Q8H SU Last Infusion: 07/07/18 03:56 Dose: Infused Vancomycin HCl 1,250 mg/ (Sodium Chloride) 262.5 mls @ 250 mls/hr IV.SIG Q24H [facility] Last Infusion: 07/06/18 20:26 Dose: Infused Insulin Human Regular (Novolin R Inj) 1 units SQ Q6HR [facility]; Protocol Last Admin: 07/07/18 05:49 Dose: Not Given Lactulose (Lactulose Liq) 30 ml PO BID [facility] Last Admin: 07/06/18 20:49 Dose: 30 ml Magnesium Oxide (Mag-Ox) 800 mg PO UNSCH PRN PRN Reason: For Magnesium 1.2 - 1.6 mg/dL Miscellaneous (Pill Splitter) 1 each OTHER [facility] Miscellaneous Information ([facility] Ordered Lab Info) 1 each OTHER ONCE ONE Stop: 07/08/18 17:46 Ondansetron HCl (Zofran Inj) 4 mg IV.PUSH Q6H PRN PRN Reason: NAUSEA OR VOMITING Pharmacy Profile Note (Vancomycin Consult Pharmacy) 1 each OTHER UNSCH PRN PRN Reason: Pharmacy to dose Polyethylene Glycol (Miralax) 17 gm PO BID [facility] Last Admin: 07/06/18 21:14 Dose: 17 gm Potassium Bicarb/Potassium Chloride (K-Lyte Cl Eff) 50 meq PO UNSCH PRN PRN Reason: For Potassium 3.3 - 3.5 mEq/L Last Admin: 07/06/18 03:19 Dose: 50 meq Potassium Phosphate (K-Phos Original) 2,000 mg PO Q4H PRN PRN Reason: Phosphorus Less Than 2.5 mg/dL Last Admin: 07/07/18 05:30 Dose: 2,000 mg Potassium Phosphate (K-Phos Original) 2,000 mg PO UNSCH PRN PRN Reason: SEE LABEL COMMENTS Senna/Docusate Sodium (Skylar-Colace) 1 tab PO BID [facility] Last Admin: 07/06/18 20:49 Dose: 1 tab Sodium Chloride (Ns Flush) 2 ml IV.FLUSH UNSCH PRN PRN Reason: FLUSH AFTER USING IV ACCESS Topiramate (Topamax) 25 mg PO HS PRN PRN Reason: Hypertension Allergies/Adverse Reactions: Allergies Allergy/AdvReac Type Severity Reaction Status Date / Time aspirin Allergy Severe Seizures/ Verified 03/10/18 11:21 HIVES cyclobenzaprine Allergy Severe Verified 03/10/18 11:21 fish AdvReac Unknown unknown Uncoded 12/04/12 15:28 reaction at age 7 Physical Exam Vital signs: Vital Signs 07/06/18 08:00 07/06/18 09:00 07/06/18 10:58 Temperature Pulse Rate 86 87 Respiratory Rate 16 17 Blood Pressure 125/78 Pulse Oximetry 99 99 07/06/18 12:00 07/06/18 15:15 07/06/18 16:00 Temperature 99.7 F H 98.4 F Pulse Rate 92 H 101 H Respiratory Rate 18 20 Blood Pressure 145/94 H 138/82 Pulse Oximetry 97 100 07/06/18 16:21 07/06/18 16:22 07/06/18 18:45 Temperature Pulse Rate 106 H Respiratory Rate 22 21 Blood Pressure 124/84 Pulse Oximetry 99 07/06/18 19:00 07/06/18 19:15 07/06/18 19:30 Temperature 99.0 F Pulse Rate 95 H 97 H 98 H Respiratory Rate 18 24 13 Blood Pressure 139/94 H 143/95 H 146/101 H Pulse Oximetry 100 100 100 07/06/18 19:45 07/06/18 20:00 07/06/18 20:15 Temperature 99.2 F Pulse Rate 94 H 92 H 93 H Respiratory Rate 19 17 18 Blood Pressure 125/78 122/77 123/81 Pulse Oximetry 99 100 100 07/06/18 20:30 07/06/18 20:45 07/06/18 21:00 Temperature Pulse Rate 96 H 100 H 103 H Respiratory Rate 16 19 19 Blood Pressure 130/87 132/98 H 134/95 H Pulse Oximetry 100 99 98 07/06/18 21:15 07/06/18 21:30 07/06/18 21:45 Temperature Pulse Rate 100 H 97 H 99 H Respiratory Rate 19 18 18 Blood Pressure 131/96 H 126/86 142/93 H Pulse Oximetry 99 99 98 09/17/18 22:00 07/06/18 22:15 07/06/18 22:30 Temperature Pulse Rate 99 H 100 H 100 H Respiratory Rate 19 20 20 Blood Pressure 142/99 H 144/99 H 145/101 H Pulse Oximetry 98 98 99 07/06/18 22:45 07/06/18 23:00 07/06/18 23:15 Temperature Pulse Rate 101 H 101 H 99 H Respiratory Rate 20 19 20 Blood Pressure 148/97 H 149/99 H 146/105 H Pulse Oximetry 98 98 99 07/06/18 23:22 07/06/18 23:30 07/06/18 23:45 Temperature Pulse Rate 97 H 96 H Respiratory Rate 20 20 20 Blood Pressure 148/99 H 145/94 H Pulse Oximetry 99 99 99 07/07/18 00:00 07/07/18 00:15 07/07/18 00:30 Temperature 98.8 F Pulse Rate 93 H 91 H Respiratory Rate 19 19 Blood Pressure 135/91 H 128/86 134/89 Pulse Oximetry 99 98 07/07/18 00:45 07/07/18 01:00 07/07/18 01:15 Temperature Pulse Rate 92 H 91 H 92 H Respiratory Rate 20 19 22 Blood Pressure 131/84 137/92 H Pulse Oximetry 100 100 100 07/07/18 01:30 07/07/18 01:45 07/07/18 02:00 Temperature Pulse Rate 91 H 91 H 91 H Respiratory Rate 19 19 19 Blood Pressure 130/85 133/86 127/88 Pulse Oximetry 100 100 100 07/07/18 02:15 07/07/18 02:30 07/07/18 02:45 Temperature Pulse Rate 92 H 92 H 92 H Respiratory Rate 20 1 L 0 L Blood Pressure 135/93 H 134/92 H 138/95 H Pulse Oximetry 100 100 100 07/07/18 03:00 07/07/18 03:15 07/07/18 03:30 Temperature Pulse Rate 95 H 100 H 93 H Respiratory Rate 26 H 28 H 20 Blood Pressure 143/102 H 146/106 H 133/89 Pulse Oximetry 99 100 100 07/07/18 03:45 07/07/18 03:48 07/07/18 04:00 Temperature 99.1 F Pulse Rate 92 H 92 H 92 H Respiratory Rate 18 18 17 Blood Pressure 127/85 122/81 Pulse Oximetry 100 100 100 07/07/18 04:15 07/07/18 04:30 07/07/18 04:45 Temperature Pulse Rate 92 H 92 H 90 Respiratory Rate 29 H 20 19 Blood Pressure 120/84 123/79 124/82 Pulse Oximetry 98 95 97 07/07/18 05:00 07/07/18 05:15 07/07/18 05:30 Temperature Pulse Rate 90 89 89 Respiratory Rate 17 18 19 Blood Pressure 130/85 134/90 132/89 Pulse Oximetry 98 98 99 07/07/18 05:45 07/07/18 06:00 07/07/18 06:15 Temperature Pulse Rate 90 90 Respiratory Rate 21 18 Blood Pressure 132/87 138/95 H 139/91 H Pulse Oximetry 99 100 07/07/18 06:30 07/07/18 06:45 07/07/18 07:00 Temperature Pulse Rate 93 H 90 90 Respiratory Rate 23 19 20 Blood Pressure 141/97 H 135/87 135/89 Pulse Oximetry 100 100 100 Intake & Output 07/06/18 07/07/18 07/07/18 18:59 06:59 18:59 Intake Total 1370 / 1370 4921.5 / 4921.5 Output Total 670 / 670 840 / 840 Balance 700 / 700 4081.5 / 4081.5 Intake: IV 1100 / 1100 4571.5 / 4571.5 LR 1000 mL Inj 1,000 ML @ 200 1000 / 1000 3000 / 3000 mls/hr IV.CONT .Q5H SU Rx#: [id number] Diprivan 1000 mg/100 ml Inj 1, 5 / 5 000 mg In 100 ml @ 5 MCG/KG/MIN 1.8 mls/hr IV.CONT TITRATE PRN Rx#:[id number] Azithromycin Inj 500 MG In NS 250 / 250 Inj 250 ML @ 250 mls/hr IV.SIG Q24H SU Rx#:[id number] Maxipime Inj 2,000 MG In NS Inj 200 / 200 100 ML @ 200 mls/hr IV.SIG Q8H SU Rx#:[id number] Cerebyx Inj 100 MGPE In NS Inj 104 / 104 50 ML @ 208 mls/hr IV.SIG Q8H SU Rx#:[id number] Cerebyx Inj 1,000 MGPE In NS 70 / 70 Inj 50 ML @ 280 mls/hr IV.SIG ONCE ONE Rx#:[id number] Vancomycin Inj 1,250 MG In NS 262.5 / 262.5 Inj 250 ML @ 250 mls/hr IV.SIG Q24H [facility] Rx#:[id number] Keppra Inj 500 MG In NS Inj 100 210 / 210 ML @ 400 mls/hr IV.SIG Q12H [facility] Rx#:[id number] Flagyl 500 MG Inj 100 ML @ 100 100 / 100 300 / 300 mls/hr IV.SIG Q6H [facility] Rx#: [id number] Tube Irrigant 270 / 270 350 / 350 Output: Urine 80 / 80 Urine Amount (Catheter) 590 / 590 840 / 840 Indwelling Urethral Catheter 590 / 590 840 / 840 Other: Date of Last Bowel Movement 07/07/18 # Bowel Movements 1 Narrative: drowsy seems to open eyes and look around moves all 4 not follow commands - Urinary Catheter Management Indwelling Urethral Catheter Cath placed during this visit: yes Reason for continuing: Hourly intake/output Insertion date: 07/05/18 Insertion time: 15:20 Objective Laboratory Results - last 24 hr 07/06/18 07/06/18 07/06/18 12:30 12:52 12:52 WBC RBC Hgb Hct MCV MCH MCHC RDW Plt Count MPV Neut % (Auto) Lymph % (Auto) [place] % (Auto) Eos % (Auto) Baso % (Auto) Neut # (Auto) Lymph # (Auto) [place] # (Auto) Eos # (Auto) Baso # (Auto) WBC Differential Differential Comment APTT Puncture Site Patient Temperature O2 Saturation ABG pH ABG pCO2 ABG pO2 ABG HCO3 ABG O2 Content ABG Base Excess ABG Methemoglobin [place] Test Hemoglobin Carboxyhemoglobin O2 Delivery Device Vent Setting Inspired O2 Critical Value Sodium Potassium Chloride Carbon Dioxide Anion Gap BUN Creatinine Estimated GFR POC Glucose 143 H Random Glucose Calcium Prot Corrected Calcium Phosphorus Magnesium Total Bilirubin AST ALT Alkaline Phosphatase Total Creatine Kinase 779 H CK-MB (CK-2) 5.5 H CK-MB (CK-2) % 0.7 Troponin I 1.22 H* D Total Protein Albumin CSF Volume (1) CSF Supernat Color (1) CSF Gross Blood (1) CSF Volume (2) CSF Supernat Color (2) CSF Gross Blood (2) CSF Volume (3) CSF Supernat Color (3) CSF Gross Blood (3) CSF Volume (4) CSF Supernat Color (4) CSF Gross Blood (4) CSF WBC (4) CSF RBC (4) CSF Neutrophils % CSF Lymphocytes % CSF Monocytes % CSF Glucose CSF LDH CSF Lactic Acid CSF Total Protein CSF N.mening B/E.coli K1 CSF N.meningitidis A/Y Carbamazepine 2.4 L Bacterial Ag Source H.influenzae Type B Ag N. meningitidis C/W 135 Group B Strep Antigen S. pneumoniae Antigen 07/06/18 07/06/18 07/06/18 12:52 16:50 17:26 WBC RBC Hgb Hct MCV MCH MCHC RDW Plt Count MPV Neut % (Auto) Lymph % (Auto) [place] % (Auto) Eos % (Auto) Baso % (Auto) Neut # (Auto) Lymph # (Auto) [place] # (Auto) Eos # (Auto) Baso # (Auto) WBC Differential Differential Comment APTT 39.2 H 26.5 D Puncture Site Patient Temperature O2 Saturation ABG pH ABG pCO2 ABG pO2 ABG HCO3 ABG O2 Content ABG Base Excess ABG Methemoglobin [place] Test Hemoglobin Carboxyhemoglobin O2 Delivery Device Vent Setting Inspired O2 Critical Value Sodium Potassium Chloride Carbon Dioxide Anion Gap BUN Creatinine Estimated GFR POC Glucose 166 H Random Glucose Calcium Prot Corrected Calcium Phosphorus Magnesium Total Bilirubin AST ALT Alkaline Phosphatase Total Creatine Kinase CK-MB (CK-2) CK-MB (CK-2) % Troponin I Total Protein Albumin CSF Volume (1) CSF Supernat Color (1) CSF Gross Blood (1) CSF Volume (2) CSF Supernat Color (2) CSF Gross Blood (2) CSF Volume (3) CSF Supernat Color (3) CSF Gross Blood (3) CSF Volume (4) CSF Supernat Color (4) CSF Gross Blood (4) CSF WBC (4) CSF RBC (4) CSF Neutrophils % CSF Lymphocytes % CSF Monocytes % CSF Glucose CSF LDH CSF Lactic Acid CSF Total Protein CSF N.mening B/E.coli K1 CSF N.meningitidis A/Y Carbamazepine Bacterial Ag Source H.influenzae Type B Ag N. meningitidis C/W 135 Group B Strep Antigen S. pneumoniae Antigen 07/06/18 07/06/18 07/06/18 18:30 18:30 18:30 WBC RBC Hgb Hct MCV MCH MCHC RDW Plt Count MPV Neut % (Auto) Lymph % (Auto) [place] % (Auto) Eos % (Auto) Baso % (Auto) Neut # (Auto) Lymph # (Auto) [place] # (Auto) Eos # (Auto) Baso # (Auto) WBC Differential Differential Comment APTT Puncture Site Patient Temperature O2 Saturation ABG pH ABG pCO2 ABG pO2 ABG HCO3 ABG O2 Content ABG Base Excess ABG Methemoglobin [place] Test Hemoglobin Carboxyhemoglobin O2 Delivery Device Vent Setting Inspired O2 Critical Value Sodium Potassium Chloride Carbon Dioxide Anion Gap BUN Creatinine Estimated GFR POC Glucose Random Glucose Calcium Prot Corrected Calcium Phosphorus Magnesium Total Bilirubin AST ALT Alkaline Phosphatase Total Creatine Kinase CK-MB (CK-2) CK-MB (CK-2) % Troponin I Total Protein Albumin CSF Volume (1) 2.6 CSF Supernat Color (1) Clear CSF Gross Blood (1) 0 CSF Volume (2) 2.1 CSF Supernat Color (2) Clear CSF Gross Blood (2) 0 CSF Volume (3) 2.0 CSF Supernat Color (3) Clear CSF Gross Blood (3) 0 CSF Volume (4) 3.8 CSF Supernat Color (4) Clear CSF Gross Blood (4) 0 CSF WBC (4) 7 CSF RBC (4) 0 CSF Neutrophils % 0 CSF Lymphocytes % 83 CSF Monocytes % 17 CSF Glucose Cancelled CSF LDH CSF Lactic Acid CSF Total Protein CSF N.mening B/E.coli K1 Cancelled CSF N.meningitidis A/Y Cancelled Carbamazepine Bacterial Ag Source Cancelled H.influenzae Type B Ag Cancelled N. meningitidis C/W 135 Cancelled Group B Strep Antigen Cancelled S. pneumoniae Antigen Cancelled 07/06/18 07/06/18 07/06/18 18:30 18:30 18:30 WBC RBC Hgb Hct MCV MCH MCHC RDW Plt Count MPV Neut % (Auto) Lymph % (Auto) [place] % (Auto) Eos % (Auto) Baso % (Auto) Neut # (Auto) Lymph # (Auto) [place] # (Auto) Eos # (Auto) Baso # (Auto) WBC Differential Differential Comment APTT Puncture Site Patient Temperature O2 Saturation ABG pH ABG pCO2 ABG pO2 ABG HCO3 ABG O2 Content ABG Base Excess ABG Methemoglobin [place] Test Hemoglobin Carboxyhemoglobin O2 Delivery Device Vent Setting Inspired O2 Critical Value Sodium Potassium Chloride Carbon Dioxide Anion Gap BUN Creatinine Estimated GFR POC Glucose Random Glucose Calcium Prot Corrected Calcium Phosphorus Magnesium Total Bilirubin AST ALT Alkaline Phosphatase Total Creatine Kinase CK-MB (CK-2) CK-MB (CK-2) % Troponin I Total Protein Albumin CSF Volume (1) CSF Supernat Color (1) CSF Gross Blood (1) CSF Volume (2) CSF Supernat Color (2) CSF Gross Blood (2) CSF Volume (3) CSF Supernat Color (3) CSF Gross Blood (3) CSF Volume (4) CSF Supernat Color (4) CSF Gross Blood (4) CSF WBC (4) CSF RBC (4) CSF Neutrophils % CSF Lymphocytes % CSF Monocytes % CSF Glucose 89 H CSF LDH Cancelled 24 CSF Lactic Acid Cancelled 2.5 CSF Total Protein 33.8 CSF N.mening B/E.coli K1 CSF N.meningitidis A/Y Carbamazepine Bacterial Ag Source H.influenzae Type B Ag N. meningitidis C/W 135 Group B Strep Antigen S. pneumoniae Antigen 07/06/18 07/07/18 07/07/18 23:44 00:45 03:30 WBC 16.7 H RBC 3.62 L Hgb 11.0 L Hct 34.2 L MCV 94.5 MCH 30.5 MCHC 32.2 RDW 13.5 Plt Count 150 MPV 10.1 Neut % (Auto) 80.6 H Lymph % (Auto) 11.5 [place] % (Auto) 7.3 Eos % (Auto) 0.2 Baso % (Auto) 0.4 Neut # (Auto) 13.4 H Lymph # (Auto) 1.9 [place] # (Auto) 1.2 H Eos # (Auto) 0.0 Baso # (Auto) 0.1 WBC Differential . Differential Comment Auto diff final APTT Puncture Site Patient Temperature O2 Saturation ABG pH ABG pCO2 ABG pO2 ABG HCO3 ABG O2 Content ABG Base Excess ABG Methemoglobin [place] Test Hemoglobin Carboxyhemoglobin O2 Delivery Device Vent Setting Inspired O2 Critical Value Sodium 145 Potassium 3.6 Chloride 112 H Carbon Dioxide 25.5 Anion Gap 8 BUN 15 Creatinine 0.64 Estimated GFR Greater than 89 POC Glucose 153 H Random Glucose 142 H Calcium 7.4 L* Prot Corrected Calcium 8.5 Phosphorus 2.2 L D Magnesium 1.7 Total Bilirubin 0.7 AST 33 ALT 25 Alkaline Phosphatase 183 H Total Creatine Kinase 604 H CK-MB (CK-2) 3.5 CK-MB (CK-2) % 0.6 Troponin I Total Protein 5.2 L Albumin 2.0 L CSF Volume (1) CSF Supernat Color (1) CSF Gross Blood (1) CSF Volume (2) CSF Supernat Color (2) CSF Gross Blood (2) CSF Volume (3) CSF Supernat Color (3) CSF Gross Blood (3) CSF Volume (4) CSF Supernat Color (4) CSF Gross Blood (4) CSF WBC (4) CSF RBC (4) CSF Neutrophils % CSF Lymphocytes % CSF Monocytes % CSF Glucose CSF LDH CSF Lactic Acid CSF Total Protein CSF N.mening B/E.coli K1 CSF N.meningitidis A/Y Carbamazepine 3.4 L Bacterial Ag Source H.influenzae Type B Ag N. meningitidis C/W 135 Group B Strep Antigen S. pneumoniae Antigen 07/07/18 07/07/18 05:27 05:55 WBC RBC Hgb Hct MCV MCH MCHC RDW Plt Count MPV Neut % (Auto) Lymph % (Auto) [place] % (Auto) Eos % (Auto) Baso % (Auto) Neut # (Auto) Lymph # (Auto) [place] # (Auto) Eos # (Auto) Baso # (Auto) WBC Differential Differential Comment APTT Puncture Site Right radial Patient Temperature 98.6 O2 Saturation 94 ABG pH 7.47 H ABG pCO2 30 L ABG pO2 90 ABG HCO3 21 L ABG O2 Content 14.2 ABG Base Excess -1.7 ABG Methemoglobin 1.7 [place] Test Present Hemoglobin 10.6 L Carboxyhemoglobin 1.3 O2 Delivery Device Ventilator Vent Setting Prvc-ac Inspired O2 35 Critical Value No Sodium Potassium Chloride Carbon Dioxide Anion Gap BUN Creatinine Estimated GFR POC Glucose 140 H Random Glucose Calcium Prot Corrected Calcium Phosphorus Magnesium Total Bilirubin AST ALT Alkaline Phosphatase Total Creatine Kinase CK-MB (CK-2) CK-MB (CK-2) % Troponin I Total Protein Albumin CSF Volume (1) CSF Supernat Color (1) CSF Gross Blood (1) CSF Volume (2) CSF Supernat Color (2) CSF Gross Blood (2) CSF Volume (3) CSF Supernat Color (3) CSF Gross Blood (3) CSF Volume (4) CSF Supernat Color (4) CSF Gross Blood (4) CSF WBC (4) CSF RBC (4) CSF Neutrophils % CSF Lymphocytes % CSF Monocytes % CSF Glucose CSF LDH CSF Lactic Acid CSF Total Protein CSF N.mening B/E.coli K1 CSF N.meningitidis A/Y Carbamazepine Bacterial Ag Source H.influenzae Type B Ag N. meningitidis C/W 135 Group B Strep Antigen S. pneumoniae Antigen Microbiology 07/06/18 18:30 Gram Stain - Final Lumbar Puncture 07/05/18 18:30 Gram Stain - Final Sputum - Endotracheal Sputum Culture - Preliminary gram negative rods 07/05/18 15:34 Urine Culture - Preliminary Catheterized Urine No growth in 24 hours 07/05/18 15:50 Aerobic Blood Culture - Preliminary Blood - Peripheral No growth in 1 day Anaerobic Blood Culture - Preliminary No growth in 1 day 07/05/18 15:55 Aerobic Blood Culture - Preliminary Blood - Peripheral No growth in 1 day Anaerobic Blood Culture - Preliminary No growth in 1 day Review/Management - Review/Management Plan: imp slowly awakening keep off sedatives should awaken mri may have some left medial temporal lobe atrophy cbz 3.4 inc dose eeg neg LP neg
[2018-07-07] MEDS: carBAMazepine 200 MG Tablet PO SCH ×2 (08:09→20:53)
[2018-07-07] MEDS: Famotidine PF Inj 20 MG/2 ML Vial IV.PUSH SCH ×2 (08:10→20:52)
[2018-07-07] MEDS: Baclofen 10 MG Tablet PO SCH ×3 (08:10→18:08)
[2018-07-07] MEDS: Senna/Docusate Sodium 8.6/50 MG Tablet PO SCH ×2 (08:13→20:54)
[2018-07-07] MEDS: Polyethylene Glycol 3350 17 GM Packet PO SCH ×2 (08:13→20:55)
[2018-07-07] MEDS: Chlorhexidine 0.12% Oral Kit 15 ML UDC OROPHARYNG SCH ×2 (08:35→20:54)
--- NOTE | 2018-07-07 08:36 | P.PNCC ---
Subjective Subjective Remarks/Hospital Course: Hospital Course: 68yF with history of epilepsy and medication non-compliance who was recently admitted last week for seizures in the setting of medication noncompliance, presents by EMS after being found unresponsive outside on the ground for an unknown amount of time. She was intubated in the emergency department. She has elevated CK, trop. She has a subtherapeutic tegretol level. No additional information is available from the patient. ROS unobtainable. Subjective: 07/06: remains encephalopathic and unresponsive. off all sedation x >12hrs. EEG done last night with severe encephalopathy, but no ictal activity. carbamazepine level redone overnight, but prior to addition of home tegretol. AM level sent and pending. persistent encephalopathy without seizures is quite concerning: will order MRI today to [facility]. may require LP later today if no other cause of encephalopathy is found. 07/07: more awake. weakly following commands. off sedation. LP not consistent with infection. Objective Vital Signs / I&O: Vital Signs 07/06/18 09:00 07/06/18 10:58 07/06/18 12:00 Temperature 37.6 C H Pulse Rate 87 92 H Respiratory Rate 17 18 Blood Pressure 145/94 H Pulse Oximetry 99 97 07/06/18 15:15 07/06/18 16:00 07/06/18 16:21 Temperature 36.9 C Pulse Rate 101 H 106 H Respiratory Rate 20 22 Blood Pressure 138/82 Pulse Oximetry 100 07/06/18 16:22 07/06/18 18:45 07/06/18 19:00 Temperature 37.2 C Pulse Rate 95 H Respiratory Rate 21 18 Blood Pressure 124/84 139/94 H Pulse Oximetry 99 100 07/06/18 19:15 07/06/18 19:30 07/06/18 19:45 Temperature Pulse Rate 97 H 98 H 94 H Respiratory Rate 24 13 19 Blood Pressure 143/95 H 146/101 H 125/78 Pulse Oximetry 100 100 99 07/06/18 20:00 07/06/18 20:15 07/06/18 20:30 Temperature 37.3 C Pulse Rate 92 H 93 H 96 H Respiratory Rate 17 18 16 Blood Pressure 122/77 123/81 130/87 Pulse Oximetry 100 100 100 07/06/18 20:45 07/06/18 21:00 07/06/18 21:15 Temperature Pulse Rate 100 H 103 H 100 H Respiratory Rate 19 19 19 Blood Pressure 132/98 H 134/95 H 131/96 H Pulse Oximetry 99 98 99 07/06/18 21:30 07/06/18 21:45 07/06/18 22:00 Temperature Pulse Rate 97 H 99 H 99 H Respiratory Rate 18 18 19 Blood Pressure 126/86 142/93 H 142/99 H Pulse Oximetry 99 98 98 07/06/18 22:15 07/06/18 22:30 07/06/18 22:45 Temperature Pulse Rate 100 H 100 H 101 H Respiratory Rate 20 20 20 Blood Pressure 144/99 H 145/101 H 148/97 H Pulse Oximetry 98 99 98 07/06/18 23:00 07/06/18 23:15 07/06/18 23:22 Temperature Pulse Rate 101 H 99 H Respiratory Rate 19 20 20 Blood Pressure 149/99 H 146/105 H Pulse Oximetry 98 99 99 07/06/18 23:30 07/06/18 23:45 07/07/18 00:00 Temperature 37.1 C Pulse Rate 97 H 96 H 93 H Respiratory Rate 20 20 19 Blood Pressure 148/99 H 145/94 H 135/91 H Pulse Oximetry 99 99 99 07/07/18 00:15 07/07/18 00:30 07/07/18 00:45 Temperature Pulse Rate 91 H 92 H Respiratory Rate 19 20 Blood Pressure 128/86 134/89 131/84 Pulse Oximetry 98 100 07/07/18 01:00 07/07/18 01:15 07/07/18 01:30 Temperature Pulse Rate 91 H 92 H 91 H Respiratory Rate 19 22 19 Blood Pressure 137/92 H 130/85 Pulse Oximetry 100 100 100 07/07/18 01:45 07/07/18 02:00 07/07/18 02:15 Temperature Pulse Rate 91 H 91 H 92 H Respiratory Rate 19 19 20 Blood Pressure 133/86 127/88 135/93 H Pulse Oximetry 100 100 100 07/07/18 02:30 07/07/18 02:45 07/07/18 03:00 Temperature Pulse Rate 92 H 92 H 95 H Respiratory Rate 1 L 0 L 26 H Blood Pressure 134/92 H 138/95 H 143/102 H Pulse Oximetry 100 100 99 07/07/18 03:15 07/07/18 03:30 07/07/18 03:45 Temperature Pulse Rate 100 H 93 H 92 H Respiratory Rate 28 H 20 18 Blood Pressure 146/106 H 133/89 127/85 Pulse Oximetry 100 100 100 07/07/18 03:48 07/07/18 04:00 07/07/18 04:15 Temperature 37.3 C Pulse Rate 92 H 92 H 92 H Respiratory Rate 18 17 29 H Blood Pressure 122/81 120/84 Pulse Oximetry 100 100 98 07/07/18 04:30 07/07/18 04:45 07/07/18 05:00 Temperature Pulse Rate 92 H 90 90 Respiratory Rate 20 19 17 Blood Pressure 123/79 124/82 130/85 Pulse Oximetry 95 97 98 07/07/18 05:15 07/07/18 05:30 07/07/18 05:45 Temperature Pulse Rate 89 89 Respiratory Rate 18 19 Blood Pressure 134/90 132/89 132/87 Pulse Oximetry 98 99 07/07/18 06:00 07/07/18 06:15 07/07/18 06:30 Temperature Pulse Rate 90 90 93 H Respiratory Rate 21 18 23 Blood Pressure 138/95 H 139/91 H 141/97 H Pulse Oximetry 99 100 100 07/07/18 06:45 07/07/18 07:00 07/07/18 08:18 Temperature Pulse Rate 90 90 93 H Respiratory Rate 19 20 28 H Blood Pressure 135/87 135/89 Pulse Oximetry 100 100 Intake & Output 07/06/18 07/07/18 07/07/18 18:59 06:59 18:59 Intake Total 1370 / 1370 4921.5 / 4921.5 Output Total 670 / 670 840 / 840 Balance 700 / 700 4081.5 / 4081.5 Intake: IV 1100 / 1100 4571.5 / 4571.5 LR 1000 mL Inj 1,000 ML @ 200 1000 / 1000 3000 / 3000 mls/hr IV.CONT .Q5H [facility] Rx#: [id number] Diprivan 1000 mg/100 ml Inj 1, 5 / 5 000 mg In 100 ml @ 5 MCG/KG/MIN 1.8 mls/hr IV.CONT TITRATE PRN Rx#:[id number] Azithromycin Inj 500 MG In NS 250 / 250 Inj 250 ML @ 250 mls/hr IV.SIG Q24H [facility] Rx#:[id number] Maxipime Inj 2,000 MG In NS Inj 200 / 200 100 ML @ 200 mls/hr IV.SIG Q8H [facility] Rx#:[id number] Cerebyx Inj 100 MGPE In NS Inj 104 / 104 50 ML @ 208 mls/hr IV.SIG Q8H [facility] Rx#:[id number] Cerebyx Inj 1,000 MGPE In NS 70 / 70 Inj 50 ML @ 280 mls/hr IV.SIG ONCE ONE Rx#:[id number] Vancomycin Inj 1,250 MG In NS 262.5 / 262.5 Inj 250 ML @ 250 mls/hr IV.SIG Q24H [facility] Rx#:[id number] Keppra Inj 500 MG In NS Inj 100 210 / 210 ML @ 400 mls/hr IV.SIG Q12H [facility] Rx#:[id number] Flagyl 500 MG Inj 100 ML @ 100 100 / 100 300 / 300 mls/hr IV.SIG Q6H [facility] Rx#: [id number] Tube Irrigant 270 / 270 350 / 350 Output: Urine 80 / 80 Urine Amount (Catheter) 590 / 590 840 / 840 Indwelling Urethral Catheter 590 / 590 840 / 840 Other: Date of Last Bowel Movement 07/07/18 # Bowel Movements 1 Result Diagrams: 07/07/18 03:30 07/07/18 00:45 Objective Remarks: gen: middle-aged women who appears much older than stated age, lying in bed, somnolent but arousing. intubated. off sedation. heent: nc. at. perrl. mucous membranes moist. neck: no jvd. trachea midline. chest: equal chest rise. prvc. clear to auscultation cv: normal rate, regular rhythm. sinus. abd: soft, nontender, nondistended. no guarding. extr: no edema. distal pulses 2+. multiple abrasions on lower extremities. neuro: RASS -2. intubated, off propofol x 36h. weakly follows commands. moves all extremities. no focal deficits. Assessment and Plan - Assessment and Plan Plan: Assessment: 68yF with history of epilepsy and medication non-compliance presents with subtherapeutic anti-epileptic levels and acute metabolic encephalopathy. clinically starting to improve. will attempt to wean mechanical ventilation. continue to hold sedation. Neuro: Acute metabolic encephalopathy- resolving. Status Epilepticus- resolved Seizure Disorder Medication non-compliance frequent neuro checks avoiding long-acting sedatives continue home tegretol and keppra check tegretol level today. CT head: negative for acute disease MRI 07/06: old ischemic disease. no acute findings. LP 07/06: not consistent with infectious etiology Neuro: Dr. Christy following. Resp: Acute hypoxic and hypercarbic respiratory failure- improving vent bundle hob elevated nebs wean fio2 for goal spo2 > 90% start SBTs today. wean to extubate if possible. CV: Type II NSTEMI secondary to demand ischemia troponin elevation most likely combination of rhabdo and demand ischemia (MB ratio < 4%) no EKG changes to suggest ischemia/infarction unlikely to be ACS trend troponins. Renal: Acute Rhabdomyolysis- improving. d/c lugo. saline lock ivf. ok to stop trending CK. trend daily Cr, electrolytes FEN/GI: Acute protein calorie malnutrition- severe Acute intravascular volume depletion- resolved Severe dehydration- resolved ICU Electrolyte Protocol daily bmp, mg, phos Heme/ID: Severe sepsis with end-organ dysfunction HCAP Aspiration Pneumonia in light of fever, leukocytosis, and persistent severe encephalopathy, will switch empiric zosyn to cefepime/flagyl. continue vancomycin, azithromycin. sputum, blood, urine cultures daily cbc sputum culture with GNRs: further speciation to follow. d/c vanc at 48h if no GPCs. Endo: SSI Prophylaxis: pepcid, scd's, start lovenox. Lines: 07/05 right IJ TLC: obtain piv and d/c CVL. Dispo: remain in ICU. critically ill.
[2018-07-07 11:20] LABS: Phenytoin (Dilantin) 11.7 mcg/mL (10.0-20.0)
[2018-07-07 11:38] LABS: CKMB Percent 0.5 % (0.0-4.0); Creatine Kinase MB 2.9 ng/mL (0.5-3.6)
[2018-07-07] MEDS ORDERED: Labetalol HCl Inj 100 MG/20 ML Vial IV.PUSH PRN (18:02)
[2018-07-07] MEDS: Vancomycin Inj 1,250 MG in Sodium Chlor 0.9% Inj 250 ML IV.SIG SCH (18:10)
[2018-07-07] MEDS: Azithromycin Inj 500 MG in Sodium Chlor 0.9% Inj 250 ML IV.SIG SCH (18:51)
--- NOTE | 2018-07-07 22:08 | XR ---
EXAM DATE: 07/07/2018 9:48 PM EDT AGE/SEX: 68 years / Female INDICATIONS: OG tube placement. CLINICAL DATA: This is the patient's subsequent encounter. Patient reports that signs and symptoms h ave been present for 1 day and indicates a pain score of Nonresponsive. MEDICAL/SURGICAL HISTORY: Non-responsive. Non-responsive. COMPARISON: C, CHEST 1V SINGLE AP, 07/05/2018. . FINDINGS: Endotracheal tube in good position. NG enters stomach. Right central line in superior vena cava. Mode rate edema pattern with bilateral effusions and basilar atelectasis and consolidation. CONCLUSION: OG tube tip enters stomach. Endotracheal tube and right central line unchanged. Worsening bilateral a irspace disease and pleural effusions since July 05. Electronically signed by: Derick Garcia MD 07/07/2018 10:07 PM EDT
[2018-07-08] MEDS: Chlorhexidine Gluconate 2% 1 Pack (2 Cloths) TOPICAL SCH (04:12)
[2018-07-08] MEDS: Fosphenytoin Inj 100 MGPE in Sodium Chlor 0.9% Inj 50 ML IV.SIG SCH ×3 (04:13→20:02)
[2018-07-08] MEDS: Oral Hygiene Kit OROPHARYNG SCH ×3 (04:13→17:22)
[2018-07-08 04:59] LABS: Baso % (Auto) 0.2 % (0.0-2.0); Eos % (Auto) 0.1 % (0.0-4.0); Hematocrit 29.8 % (35.0-46.0); Lymph # (Auto) 1.6 th/mm3 (1.0-4.8); Lymph % (Auto) 8.4 % (9.0-44.0); Mean Corpuscular HGB Conc 33.4 % (32.0-36.0); Mean Corpuscular Hemoglobin 31.1 pg (27.0-34.0); Mean Platelet Volume 10.4 fL (7.0-11.0); Mono # (Auto) 1.5 th/mm3 (0.0-0.9); Mono % (Auto) 8.1 % (0.0-8.0); Neut # (Auto) 15.8 th/mm3 (1.8-7.7); Neut % (Auto) 83.2 % (16.0-70.0); Platelet Count 144 th/mm3 (150-450)
[2018-07-08 05:31] LABS: Alanine Aminotransferase 21 U/L (10-53); Alkaline Phosphatase 169 U/L (45-117); Anion Gap 12 meq/L (5-15); Aspartate Aminotransferase 29 U/L (15-37); Blood Urea Nitrogen 7 mg/dL (7-18); Calcium 7.5 mg/dL (8.5-10.1); Chloride 104 meq/L (98-107); Glomerular Filtration Rate Greater Than 89 mL/min (>89); Glucose,Random 110 mg/dL (74-106); Magnesium 1.5 mg/dL (1.5-2.5); Phenytoin (Dilantin) 13.6 mcg/mL (10.0-20.0); Sodium 139 meq/L (136-145); Total Protein 5.2 g/dL (6.4-8.2)
[2018-07-08 05:33] LABS: Potassium 2.7 meq/L (3.5-5.1)
[2018-07-08] MEDS: Potassium Chlor 40 mEq Premix 40 MEQ/100 ML PIGGYBACK IV.SIG PRN ×2 (05:47→09:52)
--- NOTE | 2018-07-08 07:17 | P.PNNEU ---
Subjective Active Medications: Active Medications Acetaminophen (Tylenol) 650 mg PO Q6H PRN PRN Reason: TEMPERATURE > 101 F Albuterol (Duoneb Neb (Prn)) 1 ampul NEB Q2HR NEB PRN PRN Reason: WHEEZING Albuterol (Duoneb Neb (Su)) 1 ampul NEB Q6HR NEB [facility] Last Admin: 07/08/18 03:44 Dose: 1 ampul Baclofen (Lioresal) 5 mg PO TID [facility] Last Admin: 07/07/18 18:08 Dose: 5 mg Bisacodyl (Dulcolax Supp) 10 mg RECTAL DAILY PRN PRN Reason: if no BM in last 24h Buspirone HCl (Buspar) 7.5 mg PO BID [facility] Last Admin: 07/07/18 20:53 Dose: 7.5 mg Carbamazepine (Tegretol) 300 mg PO BID [facility] Last Admin: 07/07/18 20:53 Dose: 300 mg Chlorhexidine Gluconate (Peridex 0.12% Oral Kit) 15 ml OROPHARYNG BID@0800, 2000 [facility] Last Admin: 07/07/18 20:54 Dose: 15 ml Chlorhexidine Gluconate (Chlorhexidine 2% Cloth) 3 pack TOPICAL DAILY@0400 [facility] Stop: 07/11/18 03:59 Last Admin: 07/08/18 04:12 Dose: 3 pack Chlorhexidine Gluconate (Chlorhexidine 2% Cloth) 3 pack TOPICAL DAILY@0400 PRN PRN Reason: Extra cloth needed Stop: 07/11/18 03:59 Citalopram Hydrobromide (Celexa) 40 mg PO DAILY [facility] Last Admin: 07/07/18 08:10 Dose: 40 mg Dextrose (D50w Syringe) 50 ml IV.PUSH UNSCH PRN PRN Reason: PER HYPOGLYCEMIA PROTOCOL Famotidine (Pepcid Pf Inj) 20 mg IV.PUSH Q12HR [facility] Last Admin: 07/07/18 20:52 Dose: 20 mg Glucagon (Glucagon Inj) 1 mg IM ONCE PRN PRN Reason: blood sugar < 60, no iv access Levetiracetam 500 mg/ Sodium (Chloride) 105 mls @ 400 mls/hr IV.SIG Q12H [facility] Last Infusion: 07/07/18 22:15 Dose: Infused Magnesium Sulfate Inj 4 gm/ (Sodium Chloride) 100 mls @ 50 mls/hr IV.SIG UNSCH PRN PRN Reason: For Magnesium 0.9 - 1.1 mg/dL Magnesium Sulfate Inj 2 gm/ (Sodium Chloride) 100 mls @ 50 mls/hr IV.SIG UNSCH PRN PRN Reason: For Magnesium 1.2 - 1.6 mg/dL Potassium Chloride (Kcl 40 Meq Premix Inj) 40 meq in 100 mls @ 25 mls/hr IV.SIG Q2H PRN PRN Reason: For Potassium 2.8 - 3.2 mEq/L Last Admin: 07/08/18 05:47 Dose: 25 mls/hr Potassium Chloride (Kcl 20 Meq Premix Inj) 20 meq in 100 mls @ 50 mls/hr IV.SIG Q2H PRN PRN Reason: For Potassium 3.3 - 3.5 mEq/L Potassium Chloride (Kcl 40 Meq Premix Inj) 40 meq in 100 mls @ 25 mls/hr IV.SIG UNSCH PRN PRN Reason: For Potassium 3.3 - 3.5 mEq/L Potassium Chloride (Kcl 20 Meq Premix Inj) 20 meq in 100 mls @ 50 mls/hr IV.SIG Q2H PRN PRN Reason: For Potassium 2.8 - 3.2 mEq/L Potassium Phosphate 30 mmol/ (Sodium Chloride) 260 mls @ 42 mls/hr IV.SIG UNSCH PRN PRN Reason: SEE LABEL COMMENTS Sodium Phosphate 30 mmol/ (Sodium Chloride) 260 mls @ 42 mls/hr IV.SIG UNSCH PRN PRN Reason: For Phosphorus < 2.5 mg/dL Azithromycin 500 mg/ Sodium (Chloride) 250 mls @ 250 mls/hr IV.SIG Q24H [facility] Last Infusion: 07/07/18 22:16 Dose: Infused Metronidazole/Sodium Chloride (Flagyl 500 Mg Inj) 100 mls @ 100 mls/hr IV.SIG Q6H [facility] Last Infusion: 07/08/18 05:22 Dose: Infused Cefepime HCl 2,000 mg/ Sodium (Chloride) 100 mls @ 200 mls/hr IV.SIG Q8H [facility] Last Infusion: 07/08/18 05:23 Dose: Infused Fosphenytoin Sodium 100 mgpe/ (Sodium Chloride) 52 mls @ 208 mls/hr IV.SIG Q8H [facility] Last Infusion: 07/08/18 05:23 Dose: Infused Vancomycin HCl 1,250 mg/ (Sodium Chloride) 262.5 mls @ 250 mls/hr IV.SIG Q24H [facility] Last Infusion: 07/07/18 19:15 Dose: Infused Insulin Human Regular (Novolin R Inj) 1 units SQ Q6HR [facility]; Protocol Last Admin: 07/08/18 05:22 Dose: Not Given Labetalol HCl (Trandate Inj) 10 mg IV.PUSH Q20M PRN PRN Reason: sbp > 180 or dbp > 110 Lactulose (Lactulose Liq) 30 ml PO BID [facility] Last Admin: 07/07/18 20:54 Dose: 30 ml Magnesium Oxide (Mag-Ox) 800 mg PO UNSCH PRN PRN Reason: For Magnesium 1.2 - 1.6 mg/dL Miscellaneous (Pill Splitter) 1 each OTHER [facility] Miscellaneous Information ([facility] Ordered Lab Info) 1 each OTHER ONCE ONE Stop: 07/08/18 17:46 Ondansetron HCl (Zofran Inj) 4 mg IV.PUSH Q6H PRN PRN Reason: NAUSEA OR VOMITING Pharmacy Profile Note (Vancomycin Consult Pharmacy) 1 each OTHER UNSCH PRN PRN Reason: Pharmacy to dose Polyethylene Glycol (Miralax) 17 gm PO BID [facility] Last Admin: 07/07/18 20:55 Dose: Not Given Potassium Bicarb/Potassium Chloride (K-Lyte Cl Eff) 50 meq PO UNSCH PRN PRN Reason: For Potassium 3.3 - 3.5 mEq/L Last Admin: 07/06/18 03:19 Dose: 50 meq Potassium Phosphate (K-Phos Original) 2,000 mg PO Q4H PRN PRN Reason: Phosphorus Less Than 2.5 mg/dL Last Admin: 07/07/18 05:30 Dose: 2,000 mg Potassium Phosphate (K-Phos Original) 2,000 mg PO UNSCH PRN PRN Reason: SEE LABEL COMMENTS Senna/Docusate Sodium (Skylar-Colace) 1 tab PO BID [facility] Last Admin: 07/07/18 20:54 Dose: 1 tab Sodium Chloride (Ns Flush) 2 ml IV.FLUSH UNSCH PRN PRN Reason: FLUSH AFTER USING IV ACCESS Topiramate (Topamax) 25 mg PO HS PRN PRN Reason: Hypertension Allergies/Adverse Reactions: Allergies Allergy/AdvReac Type Severity Reaction Status Date / Time aspirin Allergy Severe Seizures/ Verified 03/10/18 11:21 HIVES cyclobenzaprine Allergy Severe Verified 03/10/18 11:21 fish AdvReac Unknown unknown Uncoded 12/04/12 15:28 reaction at age 7 Physical Exam Vital signs: Vital Signs 07/07/18 07:30 07/07/18 07:45 07/07/18 08:00 Temperature Pulse Rate 97 H 93 H 92 H Respiratory Rate 43 H 24 24 Blood Pressure 140/98 H 139/90 140/91 H Pulse Oximetry 100 100 100 07/07/18 08:15 07/07/18 08:18 07/07/18 08:30 Temperature Pulse Rate 93 H 93 H 99 H Respiratory Rate 25 H 28 H 29 H Blood Pressure 141/97 H 149/92 H Pulse Oximetry 100 100 07/07/18 08:49 07/07/18 09:00 07/07/18 09:12 Temperature Pulse Rate 102 H 106 H 107 H Respiratory Rate 33 H 32 H 32 H Blood Pressure 156/86 H 167/111 H 161/103 H Pulse Oximetry 97 99 100 07/07/18 09:15 07/07/18 09:30 07/07/18 09:45 Temperature Pulse Rate 105 H 117 H 126 H Respiratory Rate 29 H 37 H 33 H Blood Pressure 156/106 H 200/130 H 200/134 H Pulse Oximetry 100 94 L 85 L 07/07/18 10:00 07/07/18 10:15 07/07/18 10:30 Temperature 98.2 F Pulse Rate 113 H 127 H 122 H Respiratory Rate 27 H 38 H 30 H Blood Pressure 156/86 H 175/92 H 158/98 H Pulse Oximetry 100 97 99 07/07/18 10:45 07/07/18 11:00 07/07/18 11:15 Temperature Pulse Rate 108 H 103 H 103 H Respiratory Rate 24 23 24 Blood Pressure 130/66 114/63 114/67 Pulse Oximetry 96 96 97 07/07/18 11:30 07/07/18 11:45 07/07/18 12:00 Temperature Pulse Rate 100 H 100 H 100 H Respiratory Rate 20 19 22 Blood Pressure 111/66 121/72 Pulse Oximetry 97 98 98 07/07/18 12:15 07/07/18 12:38 07/07/18 12:45 Temperature Pulse Rate 98 H 98 H Respiratory Rate 22 22 22 Blood Pressure 137/94 H 138/92 H Pulse Oximetry 99 100 100 07/07/18 13:00 07/07/18 13:15 07/07/18 14:00 Temperature Pulse Rate 96 H 97 H 93 H Respiratory Rate 20 23 19 Blood Pressure 143/95 H 143/97 H Pulse Oximetry 99 99 99 07/07/18 15:00 07/07/18 15:34 07/07/18 16:00 Temperature 98.9 F Pulse Rate 96 H 97 H 98 H Respiratory Rate 20 19 19 Blood Pressure Pulse Oximetry 99 100 99 07/07/18 17:00 07/07/18 17:28 07/07/18 17:29 Temperature Pulse Rate 102 H 103 H 104 H Respiratory Rate 23 23 23 Blood Pressure 170/112 H 173/107 H 161/102 H Pulse Oximetry 99 98 99 07/07/18 17:30 07/07/18 17:33 07/07/18 17:45 Temperature Pulse Rate 104 H 103 H 103 H Respiratory Rate 25 H 23 23 Blood Pressure 164/110 H 170/112 H 167/113 H Pulse Oximetry 98 99 99 07/07/18 17:57 07/07/18 18:00 07/07/18 18:17 Temperature Pulse Rate 104 H 104 H 102 H Respiratory Rate 23 25 H 23 Blood Pressure 167/111 H 171/110 H 163/108 H Pulse Oximetry 99 99 100 07/07/18 18:30 07/07/18 19:31 07/07/18 20:00 Temperature 98.4 F Pulse Rate 101 H 102 H 102 H Respiratory Rate 22 22 24 Blood Pressure 161/105 H 158/101 H Pulse Oximetry 99 100 99 07/07/18 22:41 07/08/18 00:00 07/08/18 03:45 Temperature 98.1 F Pulse Rate 97 H 96 H Respiratory Rate 24 35 H 18 Blood Pressure 154/82 H Pulse Oximetry 100 98 100 07/08/18 04:00 Temperature 98.1 F Pulse Rate 97 H Respiratory Rate 20 Blood Pressure 153/99 H Pulse Oximetry 99 Intake & Output 07/07/18 07/08/18 07/08/18 18:59 06:59 18:59 Intake Total 1956 / 1956 1121.5 / 1121.5 Output Total 785 / 785 1100 / 1100 Balance 1172 / 1172 21.5 / 21.5 Intake: IV 1956 / 1956 1121.5 / 1121.5 LR 1000 mL Inj 1,000 ML @ 200 1500 / 1500 mls/hr IV.CONT .Q5H [facility] Rx#: [id number] Azithromycin Inj 500 MG In NS 250 / 250 Inj 250 ML @ 250 mls/hr IV.SIG Q24H [facility] Rx#:[id number] Maxipime Inj 2,000 MG In NS Inj 100 / 100 200 / 200 100 ML @ 200 mls/hr IV.SIG Q8H [facility] Rx#:[id number] Cerebyx Inj 100 MGPE In NS Inj 52 / 52 104 / 104 50 ML @ 208 mls/hr IV.SIG Q8H [facility] Rx#:[id number] Vancomycin Inj 1,250 MG In NS 262.5 / 262.5 Inj 250 ML @ 250 mls/hr IV.SIG Q24H [facility] Rx#:[id number] Keppra Inj 500 MG In NS Inj 100 105 / 105 105 / 105 ML @ 400 mls/hr IV.SIG Q12H [facility] Rx#:[id number] Flagyl 500 MG Inj 100 ML @ 100 200 / 200 200 / 200 mls/hr IV.SIG Q6H [facility] Rx#: [id number] Output: Urine 10 / 10 Urine Amount (Catheter) 775 / 775 1100 / 1100 Female External 1100 / 1100 Indwelling Urethral Catheter 775 / 775 Other: Date of Last Bowel Movement 07/07/18 07/08/18 # Bowel Movements 2 4 Narrative: on vent opens eyes and rt to threat not follow most commands did close eyes for me moves all well - Urinary Catheter Management Indwelling Urethral Catheter Cath placed during this visit: yes, but has since been removed by the nurse Reason for continuing: Decision to DC catheter Insertion date: 07/05/18 Insertion time: 15:20 Removal date: 07/07/18 Removal time: 16:37 Female External Cath placed during this visit: yes Reason for continuing: Not indwelling catheter Insertion date: 07/07/18 Objective Laboratory Results - last 24 hr 07/05/18 07/07/18 07/07/18 15:55 09:18 14:50 WBC RBC Hgb Hct MCV MCH MCHC RDW Plt Count MPV Neut % (Auto) Lymph % (Auto) [place] % (Auto) Eos % (Auto) Baso % (Auto) Neut # (Auto) Lymph # (Auto) [place] # (Auto) Eos # (Auto) Baso # (Auto) WBC Differential Differential Comment Sodium Potassium Chloride Carbon Dioxide Anion Gap BUN Creatinine Estimated GFR POC Glucose 131 H Random Glucose Calcium Phosphorus Magnesium Total Bilirubin AST ALT Alkaline Phosphatase Total Creatine Kinase 585 H CK-MB (CK-2) 2.9 CK-MB (CK-2) % 0.5 Total Protein Albumin Phenytoin 11.7 Levetiracetam 3.7 L 07/07/18 07/07/18 07/08/18 18:29 23:49 04:30 WBC 19.0 H RBC 3.20 L Hgb 10.0 L Hct 29.8 L MCV 93.0 MCH 31.1 MCHC 33.4 RDW 13.0 Plt Count 144 L MPV 10.4 Neut % (Auto) 83.2 H Lymph % (Auto) 8.4 L [place] % (Auto) 8.1 H Eos % (Auto) 0.1 Baso % (Auto) 0.2 Neut # (Auto) 15.8 H Lymph # (Auto) 1.6 [place] # (Auto) 1.5 H Eos # (Auto) 0.0 Baso # (Auto) 0.0 WBC Differential . Differential Comment Auto diff final Sodium Potassium Chloride Carbon Dioxide Anion Gap BUN Creatinine Estimated GFR POC Glucose 127 H 121 H Random Glucose Calcium Phosphorus Magnesium Total Bilirubin AST ALT Alkaline Phosphatase Total Creatine Kinase CK-MB (CK-2) CK-MB (CK-2) % Total Protein Albumin Phenytoin Levetiracetam 07/08/18 07/08/18 04:30 05:21 WBC RBC Hgb Hct MCV MCH MCHC RDW Plt Count MPV Neut % (Auto) Lymph % (Auto) [place] % (Auto) Eos % (Auto) Baso % (Auto) Neut # (Auto) Lymph # (Auto) [place] # (Auto) Eos # (Auto) Baso # (Auto) WBC Differential Differential Comment Sodium 139 Potassium 2.7 L* D Chloride 104 D Carbon Dioxide 23.0 Anion Gap 12 BUN 7 Creatinine 0.44 L Estimated GFR Greater than 89 POC Glucose 117 H Random Glucose 110 H Calcium 7.5 L Phosphorus 2.0 L Magnesium 1.5 Total Bilirubin 1.1 H AST 29 ALT 21 Alkaline Phosphatase 169 H Total Creatine Kinase CK-MB (CK-2) CK-MB (CK-2) % Total Protein 5.2 L Albumin 2.0 L Phenytoin 13.6 Levetiracetam Microbiology 07/08/18 00:10 Stool Occult Blood (KIMMY) - Final Stool Hemoccult negative 07/05/18 18:30 Gram Stain - Final Sputum - Endotracheal Sputum Culture - Final Klebsiella pneumoniae Escherichia coli 07/05/18 15:50 Aerobic Blood Culture - Preliminary Blood - Peripheral No growth in 2 days Anaerobic Blood Culture - Preliminary No growth in 2 days 07/05/18 15:55 Aerobic Blood Culture - Preliminary Blood - Peripheral No growth in 2 days Anaerobic Blood Culture - Preliminary No growth in 2 days 07/06/18 18:30 Gram Stain - Final Lumbar Puncture CSF Culture - Preliminary No growth in 24 hours 07/05/18 15:34 Urine Culture - Final Catheterized Urine 50-100,000 cfu/mL mixed gram positive nicole (probable contaminants) Review/Management - Review/Management Plan: imp slowly awakening keep off sedatives should awaken mri may have some left medial temporal lobe atrophy cbz 3.4 inc dose eeg neg LP neg 07/08/18 should awaken if cbz therapeutic will dc dilantin
[2018-07-08] MEDS: Polyethylene Glycol 3350 17 GM Packet PO SCH ×2 (08:08→20:12)
[2018-07-08] MEDS: Baclofen 10 MG Tablet PO SCH ×3 (08:08→17:21)
[2018-07-08] MEDS: carBAMazepine 200 MG Tablet PO SCH ×2 (08:08→20:12)
[2018-07-08] MEDS: Senna/Docusate Sodium 8.6/50 MG Tablet PO SCH ×2 (08:09→20:12)
[2018-07-08] MEDS: Famotidine PF Inj 20 MG/2 ML Vial IV.PUSH SCH ×2 (08:09→20:12)
[2018-07-08] MEDS: Chlorhexidine 0.12% Oral Kit 15 ML UDC OROPHARYNG SCH ×2 (08:09→20:11)
--- NOTE | 2018-07-08 10:39 | MG ---
cc: Petey Rosa MD DESCRIPTION: Rhythmic theta bursts. Occasional frontal sharp transients with inter-ictus, 1-2 Hz high amplitude delta activity 20-70 microvolts. Bisynchronous waveforms noted. Occasional chewing glossokinetic artifact. Single EKG showing sinus rhythm. INTERPRETATION: Moderate encephalopathy, improved from previous EEG, however. Clinical correlation. MD ODALIS Rivero/sheila , 10:11 AM , 10:16 AM
--- NOTE | 2018-07-08 14:33 | P.DIET ---
Nutritional Evaluation Screening comments: Pt has been NPO x [address] if needed.
[2018-07-08] MEDS: Potassium Phosphate 500 MG Soluble Tablet PO PRN (14:54)
--- NOTE | 2018-07-08 16:17 | P.PNCC ---
Subjective Subjective Remarks/Hospital Course: Hospital Course: 68yF with history of epilepsy and medication non-compliance who was recently admitted last week for seizures in the setting of medication noncompliance, presents by EMS after being found unresponsive outside on the ground for an unknown amount of time. She was intubated in the emergency department. She has elevated CK, trop. She has a subtherapeutic tegretol level. No additional information is available from the patient. ROS unobtainable. Subjective: 07/06: remains encephalopathic and unresponsive. off all sedation x >12hrs. EEG done last night with severe encephalopathy, but no ictal activity. carbamazepine level redone overnight, but prior to addition of home tegretol. AM level sent and pending. persistent encephalopathy without seizures is quite concerning: will order MRI today to [facility]. may require LP later today if no other cause of encephalopathy is found. 07/07: more awake. weakly following commands. off sedation. LP not consistent with infection. 07/08: still very slow to awaken. follows commands this AM, but still very somnolent. has not been on any sedation. failed SBT today for tachypnea and RR in the 40s with respiratory distress. Objective Vital Signs / I&O: Vital Signs 07/07/18 17:00 07/07/18 17:28 07/07/18 17:29 Temperature Pulse Rate 102 H 103 H 104 H Respiratory Rate 23 23 23 Blood Pressure 170/112 H 173/107 H 161/102 H Pulse Oximetry 99 98 99 07/07/18 17:30 07/07/18 17:33 07/07/18 17:45 Temperature Pulse Rate 104 H 103 H 103 H Respiratory Rate 25 H 23 23 Blood Pressure 164/110 H 170/112 H 167/113 H Pulse Oximetry 98 99 99 07/07/18 17:57 07/07/18 18:00 07/07/18 18:17 Temperature Pulse Rate 104 H 104 H 102 H Respiratory Rate 23 25 H 23 Blood Pressure 167/111 H 171/110 H 163/108 H Pulse Oximetry 99 99 100 07/07/18 18:30 07/07/18 19:31 07/07/18 20:00 Temperature 36.9 C Pulse Rate 101 H 102 H 102 H Respiratory Rate 22 22 24 Blood Pressure 161/105 H 158/101 H Pulse Oximetry 99 100 99 07/07/18 22:41 07/08/18 00:00 07/08/18 03:45 Temperature 36.7 C Pulse Rate 97 H 96 H Respiratory Rate 24 35 H 18 Blood Pressure 154/82 H Pulse Oximetry 100 98 100 07/08/18 04:00 07/08/18 07:55 07/08/18 08:00 Temperature 36.7 C 37.6 C H Pulse Rate 97 H 97 H Respiratory Rate 20 24 22 Blood Pressure 153/99 H 155/98 H Pulse Oximetry 99 100 99 07/08/18 09:00 07/08/18 09:56 07/08/18 12:00 Temperature 37.8 C H Pulse Rate 99 H 98 H 92 H Respiratory Rate 21 21 Blood Pressure 139/79 Pulse Oximetry 98 07/08/18 12:48 Temperature Pulse Rate Respiratory Rate 27 H Blood Pressure Pulse Oximetry 99 Intake & Output 07/07/18 07/08/18 07/08/18 18:59 06:59 18:59 Intake Total 1956 1121.5 / 1121.5 457 / 457 Output Total 785 / 785 1100 / 1100 Balance 1172 / 1172 21.5 / 21.5 457 / 457 Intake: IV 1956 1121.5 / 1121.5 457 / 457 LR 1000 mL Inj 1,000 ML @ 200 1500 / 1500 mls/hr IV.CONT .Q5H BRODY Rx#: [id number] Azithromycin Inj 500 MG In NS 250 / 250 Inj 250 ML @ 250 mls/hr IV.SIG Q24H BRODY Rx#:[id number] Maxipime Inj 2,000 MG In NS Inj 100 / 100 200 / 200 100 / 100 100 ML @ 200 mls/hr IV.SIG Q8H BRODY Rx#:[id number] Cerebyx Inj 100 MGPE In NS Inj 52 / 52 104 / 104 52 / 52 50 ML @ 208 mls/hr IV.SIG Q8H BRODY Rx#:[id number] KCl 40 mEq Premix Inj 40 meq In 100 / 100 100 ml @ 25 mls/hr IV.SIG Q2H PRN Rx#:[id number] Vancomycin Inj 1,250 MG In NS 262.5 / 262.5 Inj 250 ML @ 250 mls/hr IV.SIG Q24H BRODY Rx#:[id number] Keppra Inj 500 MG In NS Inj 100 105 / 105 105 / 105 105 / 105 ML @ 400 mls/hr IV.SIG Q12H BRODY Rx#:[id number] Flagyl 500 MG Inj 100 ML @ 100 200 / 200 200 / 200 100 / 100 mls/hr IV.SIG Q6H BRODY Rx#: [id number] Output: Urine 10 / 10 Urine Amount (Catheter) 775 / 775 1100 / 1100 Female External 1100 / 1100 Indwelling Urethral Catheter 775 / 775 Other: Date of Last Bowel Movement 07/07/18 07/08/18 07/08/18 # Bowel Movements 2 4 Result Diagrams: 07/08/18 04:30 07/08/18 04:30 Objective Remarks: gen: middle-aged women who appears much older than stated age, lying in bed, somnolent but arousing. intubated. off sedation. heent: nc. at. perrl. mucous membranes moist. neck: no jvd. trachea midline. chest: equal chest rise. prvc. clear to auscultation cv: normal rate, regular rhythm. sinus. abd: soft, nontender, nondistended. no guarding. extr: no edema. distal pulses 2+. multiple abrasions on lower extremities. neuro: RASS -2. intubated, off sedation x 3 days. weakly follows commands. moves all extremities. no focal deficits. Assessment and Plan - Assessment and Plan Plan: Assessment: 68yF with history of epilepsy and medication non-compliance presents with subtherapeutic anti-epileptic levels and acute metabolic encephalopathy. clinically continues to improve, but very slow progress. continue daily SBTs. extubate when passes SBT and mental status is improved. Neuro: Acute metabolic encephalopathy- resolving. 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 no acute findings. LP 07/06: not consistent with infectious etiology Neuro: Dr. Christy following. Resp: Acute hypoxic and hypercarbic respiratory failure- improving vent bundle hob elevated nebs wean fio2 for goal spo2 > 90% daily SBTs. failing for tachypnea. CV: Type II NSTEMI secondary to demand ischemia troponin elevation most likely combination of rhabdo and demand ischemia (MB ratio < 4%) no EKG changes to suggest ischemia/infarction unlikely to be ACS Renal: Acute Rhabdomyolysis- improving. saline lock ivf. ok to stop trending CK. trend daily Cr, electrolytes FEN/GI: Acute protein calorie malnutrition- severe Acute intravascular volume depletion- resolved Severe dehydration- resolved ICU Electrolyte Protocol daily bmp, mg, phos start tube feeds. Heme/ID: Severe sepsis with end-organ dysfunction HCAP Aspiration Pneumonia d/c vancomycin, cefepime, azithro, flagyl. start Rocephin 2gm iv q24h for klebsiella and e. coli pneumonia. stop date 07/12 (7 day course) daily cbc sputum culture with kleb and e.coli. Endo: SSI Prophylaxis: pepcid, scd's, lovenox Lines: piv's Dispo: remain in ICU. critically ill.
[2018-07-08] MEDS ORDERED: Pharmacy Ordered Lab Info OTHER ONE (17:45)
[2018-07-08 19:15] LABS: Potassium 3.1 meq/L (3.5-5.1)
[2018-07-08 19:21] LABS: Phosphorus 1.9 mg/dL (2.5-4.9)
[2018-07-08 19:23] LABS: Carbamazepine (Tegretol) 6.3 mcg/mL (4.0-12.0); Vancomycin,Trough 4.6 mcg/mL (5.0-10.0)
[2018-07-08 19:23] LABS: Enterovirus (PCR)Source CSF; Enterovirus RNA Qual (PCR) Negative (Negative)
[2018-07-09] MEDS: Oral Hygiene Kit OROPHARYNG SCH ×4 (02:37→18:12)
[2018-07-09] MEDS: Fosphenytoin Inj 100 MGPE in Sodium Chlor 0.9% Inj 50 ML IV.SIG SCH ×3 (04:56→20:15)
[2018-07-09] MEDS: Chlorhexidine Gluconate 2% 1 Pack (2 Cloths) TOPICAL SCH (04:57)
[2018-07-09 05:01] LABS: Baso # (Auto) 0.1 th/mm3 (0.0-0.2); Baso % (Auto) 0.3 % (0.0-2.0); Eos # (Auto) 0.2 th/mm3 (0.0-0.4); Eos % (Auto) 1.3 % (0.0-4.0); Hematocrit 29.8 % (35.0-46.0); Hemoglobin 9.8 gm/dL (11.6-15.3); Lymph # (Auto) 1.3 th/mm3 (1.0-4.8); Lymph % (Auto) 8.8 % (9.0-44.0); Mean Corpuscular HGB Conc 32.8 % (32.0-36.0); Mean Corpuscular Hemoglobin 31.1 pg (27.0-34.0); Mean Corpuscular Volume 94.7 fL (80.0-100.0); Mean Platelet Volume 10.6 fL (7.0-11.0); Mono # (Auto) 1.5 th/mm3 (0.0-0.9); Mono % (Auto) 9.9 % (0.0-8.0); Neut # (Auto) 12.1 th/mm3 (1.8-7.7); Neut % (Auto) 79.7 % (16.0-70.0); Platelet Count 161 th/mm3 (150-450); Red Blood Count 3.14 mil/mm3 (4.00-5.30); Red Cell Distribution Width 13.4 % (11.6-17.2); White Blood Count 15.2 th/mm3 (4.0-11.0)
[2018-07-09 06:02] LABS: Alanine Aminotransferase 22 U/L (10-53); Albumin 2.1 g/dL (3.4-5.0); Alkaline Phosphatase 168 U/L (45-117); Anion Gap 15 meq/L (5-15); Aspartate Aminotransferase 29 U/L (15-37); Blood Urea Nitrogen 6 mg/dL (7-18); Calcium 7.6 mg/dL (8.5-10.1); Carbamazepine (Tegretol) 4.4 mcg/mL (4.0-12.0); Carbon Dioxide 22.4 meq/L (21.0-32.0); Chloride 101 meq/L (98-107); Glomerular Filtration Rate Greater Than 89 mL/min (>89); Glucose,Random 83 mg/dL (74-106); Magnesium 1.7 mg/dL (1.5-2.5); Phenytoin (Dilantin) 11.6 mcg/mL (10.0-20.0); Sodium 138 meq/L (136-145); Total Protein 5.6 g/dL (6.4-8.2)
[2018-07-09 06:09] LABS: Potassium 2.8 meq/L (3.5-5.1)
--- NOTE | 2018-07-09 07:46 | P.PNNEU ---
Subjective Active Medications: Active Medications Acetaminophen (Tylenol) 650 mg PO Q6H PRN PRN Reason: TEMPERATURE > 101 F Albuterol (Duoneb Neb (Prn)) 1 ampul NEB Q2HR NEB PRN PRN Reason: WHEEZING Albuterol (Duoneb Neb (Su)) 1 ampul NEB Q6HR NEB [facility] Last Admin: 07/09/18 03:45 Dose: 1 ampul Baclofen (Lioresal) 5 mg PO TID [facility] Last Admin: 07/08/18 17:21 Dose: 5 mg Bisacodyl (Dulcolax Supp) 10 mg RECTAL DAILY PRN PRN Reason: if no BM in last 24h Buspirone HCl (Buspar) 7.5 mg PO BID [facility] Last Admin: 07/08/18 20:11 Dose: 7.5 mg Carbamazepine (Tegretol) 300 mg PO BID [facility] Last Admin: 07/08/18 20:12 Dose: 300 mg Chlorhexidine Gluconate (Peridex 0.12% Oral Kit) 15 ml OROPHARYNG BID@0800, 2000 [facility] Last Admin: 07/08/18 20:11 Dose: 15 ml Chlorhexidine Gluconate (Chlorhexidine 2% Cloth) 3 pack TOPICAL DAILY@0400 [facility] Stop: 07/11/18 03:59 Last Admin: 07/09/18 04:57 Dose: 3 pack Chlorhexidine Gluconate (Chlorhexidine 2% Cloth) 3 pack TOPICAL DAILY@0400 PRN PRN Reason: Extra cloth needed Stop: 07/11/18 03:59 Citalopram Hydrobromide (Celexa) 40 mg PO DAILY [facility] Last Admin: 07/08/18 08:09 Dose: 40 mg Dextrose (D50w Syringe) 50 ml IV.PUSH UNSCH PRN PRN Reason: PER HYPOGLYCEMIA PROTOCOL Famotidine (Pepcid Pf Inj) 20 mg IV.PUSH Q12HR [facility] Last Admin: 07/08/18 20:12 Dose: 20 mg Glucagon (Glucagon Inj) 1 mg IM ONCE PRN PRN Reason: blood sugar < 60, no iv access Levetiracetam 500 mg/ Sodium (Chloride) 105 mls @ 400 mls/hr IV.SIG Q12H [facility] Last Infusion: 07/08/18 20:44 Dose: Infused Magnesium Sulfate Inj 4 gm/ (Sodium Chloride) 100 mls @ 50 mls/hr IV.SIG UNSCH PRN PRN Reason: For Magnesium 0.9 - 1.1 mg/dL Magnesium Sulfate Inj 2 gm/ (Sodium Chloride) 100 mls @ 50 mls/hr IV.SIG UNSCH PRN PRN Reason: For Magnesium 1.2 - 1.6 mg/dL Potassium Chloride (Kcl 40 Meq Premix Inj) 40 meq in 100 mls @ 25 mls/hr IV.SIG Q2H PRN PRN Reason: For Potassium 2.8 - 3.2 mEq/L Last Infusion: 07/08/18 13:52 Dose: Infused Potassium Chloride (Kcl 20 Meq Premix Inj) 20 meq in 100 mls @ 50 mls/hr IV.SIG Q2H PRN PRN Reason: For Potassium 3.3 - 3.5 mEq/L Potassium Chloride (Kcl 40 Meq Premix Inj) 40 meq in 100 mls @ 25 mls/hr IV.SIG UNSCH PRN PRN Reason: For Potassium 3.3 - 3.5 mEq/L Potassium Chloride (Kcl 20 Meq Premix Inj) 20 meq in 100 mls @ 50 mls/hr IV.SIG Q2H PRN PRN Reason: For Potassium 2.8 - 3.2 mEq/L Potassium Phosphate 30 mmol/ (Sodium Chloride) 260 mls @ 42 mls/hr IV.SIG UNSCH PRN PRN Reason: SEE LABEL COMMENTS Sodium Phosphate 30 mmol/ (Sodium Chloride) 260 mls @ 42 mls/hr IV.SIG UNSCH PRN PRN Reason: For Phosphorus < 2.5 mg/dL Fosphenytoin Sodium 100 mgpe/ (Sodium Chloride) 52 mls @ 208 mls/hr IV.SIG Q8H SU Last Infusion: 07/09/18 05:14 Dose: Infused Ceftriaxone Sodium 2,000 mg/ (Sodium Chloride) 100 mls @ 200 mls/hr IV.SIG Q24H SU Stop: 07/12/18 23:59 Last Infusion: 07/08/18 17:52 Dose: Infused Insulin Human Regular (Novolin R Inj) 1 units SQ Q6HR [facility]; Protocol Last Admin: 07/09/18 06:10 Dose: Not Given Labetalol HCl (Trandate Inj) 10 mg IV.PUSH Q20M PRN PRN Reason: sbp > 180 or dbp > 110 Lactulose (Lactulose Liq) 30 ml PO BID SU Last Admin: 07/08/18 20:12 Dose: Not Given Magnesium Oxide (Mag-Ox) 800 mg PO UNSCH PRN PRN Reason: For Magnesium 1.2 - 1.6 mg/dL Miscellaneous (Pill Splitter) 1 each OTHER UNSCH [facility] Ondansetron HCl (Zofran Inj) 4 mg IV.PUSH Q6H PRN PRN Reason: NAUSEA OR VOMITING Polyethylene Glycol (Miralax) 17 gm PO BID [facility] Last Admin: 07/08/18 20:12 Dose: Not Given Potassium Bicarb/Potassium Chloride (K-Lyte Cl Eff) 50 meq PO UNSCH PRN PRN Reason: For Potassium 3.3 - 3.5 mEq/L Last Admin: 07/06/18 03:19 Dose: 50 meq Potassium Phosphate (K-Phos Original) 2,000 mg PO Q4H PRN PRN Reason: Phosphorus Less Than 2.5 mg/dL Last Admin: 07/08/18 14:54 Dose: 2,000 mg Potassium Phosphate (K-Phos Original) 2,000 mg PO UNSCH PRN PRN Reason: SEE LABEL COMMENTS Senna/Docusate Sodium (Skylar-Colace) 1 tab PO BID [facility] Last Admin: 07/08/18 20:12 Dose: Not Given Sodium Chloride (Ns Flush) 2 ml IV.FLUSH UNSCH PRN PRN Reason: FLUSH AFTER USING IV ACCESS Topiramate (Topamax) 25 mg PO HS PRN PRN Reason: Hypertension Allergies/Adverse Reactions: Allergies Allergy/AdvReac Type Severity Reaction Status Date / Time aspirin Allergy Severe Seizures/ Verified 03/10/18 11:21 HIVES cyclobenzaprine Allergy Severe Verified 03/10/18 11:21 fish AdvReac Unknown unknown Uncoded 12/04/12 15:28 reaction at age 7 Physical Exam Vital signs: Vital Signs 07/08/18 07:55 07/08/18 08:00 07/08/18 09:00 Temperature 99.7 F H Pulse Rate 97 H 99 H Respiratory Rate 24 22 Blood Pressure 155/98 H Pulse Oximetry 100 99 07/08/18 09:56 07/08/18 12:00 07/08/18 12:48 Temperature 100.0 F H Pulse Rate 98 H 92 H Respiratory Rate 21 21 27 H Blood Pressure 139/79 Pulse Oximetry 98 99 07/08/18 16:00 07/08/18 16:39 07/08/18 16:41 Temperature 99.3 F Pulse Rate 100 H 93 H Respiratory Rate 27 H 27 H 25 H Blood Pressure 158/107 H Pulse Oximetry 100 100 07/08/18 19:45 07/08/18 19:51 07/08/18 20:00 Temperature 99.2 F Pulse Rate 101 H 108 H Respiratory Rate 26 H 23 22 Blood Pressure 165/102 H Pulse Oximetry 100 99 07/08/18 23:41 07/09/18 00:00 07/09/18 03:45 Temperature 99.0 F Pulse Rate 93 H 93 H Respiratory Rate 21 18 21 Blood Pressure 149/85 H Pulse Oximetry 100 94 L 07/09/18 04:00 07/09/18 04:05 Temperature 99.1 F Pulse Rate 93 H Respiratory Rate 19 21 Blood Pressure 150/94 H Pulse Oximetry 100 100 Intake & Output 07/08/18 07/09/18 07/09/18 18:59 06:59 18:59 Intake Total 657 / 657 569 / 569 Output Total 550 / 550 640 / 640 Balance 107 / 107 -71 / -71 Weight 64 kg Intake: IV 657 / 657 209 / 209 Maxipime Inj 2,000 MG In NS Inj 100 / 100 100 ML @ 200 mls/hr IV.SIG Q8H SU Rx#:[id number] Cerebyx Inj 100 MGPE In NS Inj 52 / 52 104 / 104 50 ML @ 208 mls/hr IV.SIG Q8H SU Rx#:[id number] KCl 40 mEq Premix Inj 40 meq In 200 / 200 100 ml @ 25 mls/hr IV.SIG Q2H PRN Rx#:[id number] Rocephin Inj 2,000 MG In NS Inj 100 / 100 100 ML @ 200 mls/hr IV.SIG Q24H SU Rx#:[id number] Keppra Inj 500 MG In NS Inj 100 105 / 105 105 / 105 ML @ 400 mls/hr IV.SIG Q12H SU Rx#:[id number] Flagyl 500 MG Inj 100 ML @ 100 100 / 100 mls/hr IV.SIG Q6H SU Rx#: [id number] Tube Feeding 240 / 240 Water Bolus Amount 120 / 120 Output: Urine Amount (Catheter) 550 / 550 640 / 640 Female External 550 / 550 640 / 640 Other: Date of Last Bowel Movement 07/08/18 07/08/18 # Incontinent Bowel Movements 5 5 Narrative: awake on vent moves all well and follows all commands - Urinary Catheter Management Indwelling Urethral Catheter Cath placed during this visit: yes, but has since been removed by the nurse Reason for continuing: Decision to DC catheter Insertion date: 07/05/18 Insertion time: 15:20 Removal date: 07/07/18 Removal time: 16:37 Female External Cath placed during this visit: yes Reason for continuing: Not indwelling catheter Insertion date: 07/07/18 Objective Laboratory Results - last 24 hr 07/06/18 07/06/18 07/08/18 18:30 18:30 11:14 WBC RBC Hgb Hct MCV MCH MCHC RDW Plt Count MPV Neut % (Auto) Lymph % (Auto) [place] % (Auto) Eos % (Auto) Baso % (Auto) Neut # (Auto) Lymph # (Auto) [place] # (Auto) Eos # (Auto) Baso # (Auto) WBC Differential Differential Comment Sodium Potassium Chloride Carbon Dioxide Anion Gap BUN Creatinine Estimated GFR POC Glucose 114 H Random Glucose Calcium Phosphorus Magnesium Total Bilirubin AST ALT Alkaline Phosphatase Total Protein Albumin CSF Herpes I DNA (PCR) Negative CSF Herpes II DNA (PCR) Negative Vancomycin Trough Phenytoin Carbamazepine Enterovirus Source Csf Enterovirus RNA (PCR) Negative 07/08/18 07/08/18 07/09/18 17:24 18:15 00:20 WBC RBC Hgb Hct MCV MCH MCHC RDW Plt Count MPV Neut % (Auto) Lymph % (Auto) [place] % (Auto) Eos % (Auto) Baso % (Auto) Neut # (Auto) Lymph # (Auto) [place] # (Auto) Eos # (Auto) Baso # (Auto) WBC Differential Differential Comment Sodium Potassium 3.1 L Chloride Carbon Dioxide Anion Gap BUN Creatinine Estimated GFR POC Glucose 103 109 Random Glucose Calcium Phosphorus 1.9 L Magnesium Total Bilirubin AST ALT Alkaline Phosphatase Total Protein Albumin CSF Herpes I DNA (PCR) CSF Herpes II DNA (PCR) Vancomycin Trough 4.6 L Phenytoin Carbamazepine 6.3 Enterovirus Source Enterovirus RNA (PCR) 07/09/18 07/09/18 07/09/18 03:43 03:43 05:51 WBC 15.2 H RBC 3.14 L Hgb 9.8 L Hct 29.8 L MCV 94.7 MCH 31.1 MCHC 32.8 RDW 13.4 Plt Count 161 MPV 10.6 Neut % (Auto) 79.7 H Lymph % (Auto) 8.8 L [place] % (Auto) 9.9 H Eos % (Auto) 1.3 Baso % (Auto) 0.3 Neut # (Auto) 12.1 H Lymph # (Auto) 1.3 [place] # (Auto) 1.5 H Eos # (Auto) 0.2 Baso # (Auto) 0.1 WBC Differential . Differential Comment Auto diff final Sodium 138 Potassium 2.8 L* Chloride 101 Carbon Dioxide 22.4 Anion Gap 15 BUN 6 L Creatinine 0.48 L Estimated GFR Greater than 89 POC Glucose 98 Random Glucose 83 Calcium 7.6 L Phosphorus 2.0 L Magnesium 1.7 Total Bilirubin 0.5 AST 29 ALT 22 Alkaline Phosphatase 168 H Total Protein 5.6 L Albumin 2.1 L CSF Herpes I DNA (PCR) CSF Herpes II DNA (PCR) Vancomycin Trough Phenytoin 11.6 Carbamazepine 4.4 Enterovirus Source Enterovirus RNA (PCR) Microbiology 07/06/18 18:30 Fungal Smear - Final Cerebral Spinal Fluid - Lumbar Puncture No fungal elements seen 07/05/18 15:50 Aerobic Blood Culture - Preliminary Blood - Peripheral No growth in 3 days Anaerobic Blood Culture - Preliminary No growth in 3 days 07/05/18 15:55 Aerobic Blood Culture - Preliminary Blood - Peripheral No growth in 3 days Anaerobic Blood Culture - Preliminary No growth in 3 days 07/06/18 18:30 Acid Fast Bacilli Smear - Final Cerebral Spinal Fluid - Lumbar Puncture No acid fast bacilli seen 07/06/18 18:30 Gram Stain - Final Lumbar Puncture CSF Culture - Preliminary No growth in 48 hours Review/Management - Review/Management Plan: imp slowly awakening keep off sedatives should awaken mri may have some left medial temporal lobe atrophy cbz 3.4 inc dose eeg neg LP neg 07/08/18 should awaken if cbz therapeutic will dc dilantin 07/09/18 much better extubate today hopefully agrees she has hx sz she does cbz level 4.4 hard to bump on 300 bid keppra top low dose should do well unclear if on dil at home
[2018-07-09] MEDS: Chlorhexidine 0.12% Oral Kit 15 ML UDC OROPHARYNG SCH ×2 (09:22→20:16)
--- NOTE | 2018-07-09 09:38 | P.DIET ---
Nutritional Evaluation Type of nutrition evaluation: initial Nutrition consult regarding: Tube Feeding Objective - Diagnosis AMS, Rhabdomyolitis - Objective Body Mass Index: 22.8 % IBW: 108 (IBW = 130#) Body Weight Used for Calculations: Actual (64 kg) Energy Needs - Lower Range (kCal/kg): 25 Energy Needs - Upper Range (kCal/kg): 30 Lower Limit kCal/kg (kCals): 1,600 Upper Limit kCal/kg (kCals): 1,920 Lower Limit Protein Factor (Grams per Kg): 1.0 Upper Limit Protein Factor (Grams per Kg): 1.5 Lower Protein Needs (Protein): 64 Upper Protein Needs (Protein): 96 Dietitian Reviewed in Medical Record: Curent medications, Intake & Output, Labs , Medical history, Tube feeding Diet Order: NPO Objective Comments: K 2.8 (+) BM Assessment Assessment: Pt is intubated and needs TFing to meet nutritional needs. Current order is for Jevity 1.5 with a goal rate of 60 mls/hr and the pt is receiving 20 mls/hr at this time. To meet nutritional needs with Jevity 1.5, recommend goal rate of 55 mls/hr to provide 1980 kcals, 84 gms protein and 1003 mls of free water. Recommendations: Jevity 1.5 @ 55 mls/hr goal Dietitian to Monitor: Lab values, Intake & Output, Tube feeding tolerance, Weight change, Medical course
[2018-07-09] MEDS: Polyethylene Glycol 3350 17 GM Packet PO SCH ×2 (10:24→20:16)
[2018-07-09] MEDS: Baclofen 10 MG Tablet PO SCH ×3 (10:24→18:36)
[2018-07-09] MEDS: Senna/Docusate Sodium 8.6/50 MG Tablet PO SCH ×2 (10:25→20:17)
[2018-07-09] MEDS: Famotidine PF Inj 20 MG/2 ML Vial IV.PUSH SCH ×2 (10:25→20:16)
[2018-07-09] MEDS: carBAMazepine 200 MG Tablet PO SCH ×2 (10:25→20:17)
--- NOTE | 2018-07-09 13:36 | P.PNCC ---
Subjective Subjective Remarks/Hospital Course: Hospital Course: 68yF with history of epilepsy and medication non-compliance who was recently admitted last week for seizures in the setting of medication noncompliance, presents by EMS after being found unresponsive outside on the ground for an unknown amount of time. She was intubated in the emergency department. She has elevated CK, trop. She has a subtherapeutic tegretol level. No additional information is available from the patient. ROS unobtainable. Subjective: 07/06: remains encephalopathic and unresponsive. off all sedation x >12hrs. EEG done last night with severe encephalopathy, but no ictal activity. carbamazepine level redone overnight, but prior to addition of home tegretol. AM level sent and pending. persistent encephalopathy without seizures is quite concerning: will order [facility]. may require LP later today if no other cause of encephalopathy is found. 07/07: more awake. weakly following commands. off sedation. LP not consistent with infection. 07/08: still very slow to awaken. follows commands this AM, but still very somnolent. has not been on any sedation. failed SBT today for tachypnea and RR in the 40s with respiratory distress. 07/09: Awake and alert orally intubated on mechanical ventilation at the time of my evaluation this morning. Following commands. Initiated on CPAP trial. Objective Vital Signs / I&O: Vital Signs 07/08/18 16:00 07/08/18 16:39 07/08/18 16:41 Temperature 99.3 F Pulse Rate 100 H 93 H Respiratory Rate 27 H 27 H 25 H Blood Pressure 158/107 H Pulse Oximetry 100 100 07/08/18 19:45 07/08/18 19:51 07/08/18 20:00 Temperature 99.2 F Pulse Rate 101 H 108 H Respiratory Rate 26 H 23 22 Blood Pressure 165/102 H Pulse Oximetry 100 99 07/08/18 23:41 07/09/18 00:00 07/09/18 03:45 Temperature 99.0 F Pulse Rate 93 H 93 H Respiratory Rate 21 18 21 Blood Pressure 149/85 H Pulse Oximetry 100 94 L 07/09/18 04:00 07/09/18 04:05 07/09/18 08:06 Temperature 99.1 F Pulse Rate 93 H 94 H Respiratory Rate 19 21 24 Blood Pressure 150/94 H Pulse Oximetry 100 100 07/09/18 09:01 Temperature Pulse Rate Respiratory Rate Blood Pressure Pulse Oximetry 99 Intake & Output 07/08/18 07/09/18 07/09/18 18:59 06:59 18:59 Intake Total 657 / 657 569 / 569 157 / 157 Output Total 550 / 550 640 / 640 Balance 107 / 107 -71 / -71 157 / 157 Weight 64 kg Intake: IV 657 / 657 209 / 209 157 / 157 Maxipime Inj 2,000 MG In NS Inj 100 / 100 100 ML @ 200 mls/hr IV.SIG Q8H [facility]ODY Rx#:[id number] Cerebyx Inj 100 MGPE In NS Inj 52 / 52 104 / 104 52 / 52 50 ML @ 208 mls/hr IV.SIG Q8H [facility]ODY Rx#:[id number] KCl 40 mEq Premix Inj 40 meq In 200 / 200 100 ml @ 25 mls/hr IV.SIG Q2H PRN Rx#:[id number] Rocephin Inj 2,000 MG In NS Inj 100 / 100 100 ML @ 200 mls/hr IV.SIG Q24H [facility]ODY Rx#:[id number] Keppra Inj 500 MG In NS Inj 100 105 / 105 105 / 105 105 / 105 ML @ 400 mls/hr IV.SIG Q12H [facility]ODY Rx#:[id number] Flagyl 500 MG Inj 100 ML @ 100 100 / 100 mls/hr IV.SIG Q6H [facility]ODY Rx#: [id number] Tube Feeding 240 / 240 Water Bolus Amount 120 / 120 Output: Urine Amount (Catheter) 550 / 550 640 / 640 Female External 550 / 550 640 / 640 Other: Date of Last Bowel Movement 07/08/18 07/08/18 # Incontinent Bowel Movements 5 5 Result Diagrams: 07/09/18 03:43 07/09/18 03:43 Objective Remarks: gen: middle-aged women who appears much older than stated age, lying in bed, awake, alert, intubated. off sedation. heent: nc. at. perrl. mucous membranes moist. neck: no jvd. trachea midline. chest: equal chest rise. prvc. clear to auscultation cv: normal rate, regular rhythm. sinus. abd: soft, nontender, nondistended. no guarding. extr: no edema. distal pulses 2+. multiple abrasions on lower extremities. neuro: RASS 0. intubated, off sedation x 4 days. follows commands. moves all extremities. no focal deficits. Assessment and Plan - Assessment and Plan Plan: Assessment: 68yF with history of epilepsy and medication non-compliance presents with subtherapeutic anti-epileptic levels and acute metabolic encephalopathy. clinically continues to improve, but very slow progress. continue daily SBTs. extubate when passes SBT and mental status is improved. Neuro: Acute metabolic encephalopathy- resolving. 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 no acute findings. LP 07/06: not consistent with infectious etiology Neuro: Dr. Christy following. Resp: Acute hypoxic and hypercarbic respiratory failure- Tolerated CPAP trial, extubated. Bronchodilators as needed. CV: Type II NSTEMI secondary to demand ischemia troponin elevation most likely combination of rhabdo and demand ischemia (MB ratio < 4%) no EKG changes to suggest ischemia/infarction unlikely to be ACS Renal: Acute Rhabdomyolysis- improving. saline lock ivf. ok to stop trending CK. trend daily Cr, electrolytes FEN/GI: Acute protein calorie malnutrition- severe Acute intravascular volume depletion- resolved Severe dehydration- resolved Start advance p.o. diet as tolerated ICU Electrolyte Protocol daily bmp, mg, phos Heme/ID: Severe sepsis with end-organ dysfunction HCAP Aspiration Pneumonia off vancomycin, cefepime, azithro, flagyl. Continue Rocephin 2gm iv q24h for klebsiella and e. coli pneumonia. stop date (7 day course) daily cbc sputum culture with kleb and e.coli. Endo: SSI Prophylaxis: pepcid, scd's, lovenox Lines: piv's Extubated on 07/09, tolerating well. Will consult and transfer to hospitalist service for further medical management.
[2018-07-09] MEDS: Potassium Chlor 20 mEq Premix 20 MEQ/100 ML PIGGYBACK IV.SIG PRN ×3 (16:00→22:41)
[2018-07-10] MEDS: Oral Hygiene Kit OROPHARYNG SCH ×4 (00:21→18:17)
[2018-07-10] MEDS: Fosphenytoin Inj 100 MGPE in Sodium Chlor 0.9% Inj 50 ML IV.SIG SCH (03:51)
[2018-07-10] MEDS: Chlorhexidine Gluconate 2% 1 Pack (2 Cloths) TOPICAL SCH (04:15)
[2018-07-10 07:22] LABS: Alanine Aminotransferase 24 U/L (10-53); Albumin 2.2 g/dL (3.4-5.0); Alkaline Phosphatase 192 U/L (45-117); Anion Gap 15 meq/L (5-15); Aspartate Aminotransferase 34 U/L (15-37); Blood Urea Nitrogen 5 mg/dL (7-18); Calcium 7.9 mg/dL (8.5-10.1); Carbamazepine (Tegretol) 6.1 mcg/mL (4.0-12.0); Carbon Dioxide 21.2 meq/L (21.0-32.0); Chloride 104 meq/L (98-107); Glomerular Filtration Rate Greater Than 89 mL/min (>89); Glucose,Random 84 mg/dL (74-106); Phosphorus 1.5 mg/dL (2.5-4.9); Potassium 3.8 meq/L (3.5-5.1); Total Protein 5.9 g/dL (6.4-8.2)
[2018-07-10 07:27] LABS: Sodium 140 meq/L (136-145)
--- NOTE | 2018-07-10 07:55 | P.PNNEU ---
Subjective Subjective Comments: off vent Active Medications: Active Medications Acetaminophen (Tylenol) 650 mg PO Q6H PRN PRN Reason: TEMPERATURE > 101 F Albuterol (Duoneb Neb (Prn)) 1 ampul NEB Q2HR NEB PRN PRN Reason: WHEEZING Last Admin: 07/10/18 03:57 Dose: 1 ampul Baclofen (Lioresal) 5 mg PO TID [facility] Last Admin: 07/09/18 18:36 Dose: 5 mg Bisacodyl (Dulcolax Supp) 10 mg RECTAL DAILY PRN PRN Reason: if no BM in last 24h Buspirone HCl (Buspar) 7.5 mg PO BID [facility] Last Admin: 07/09/18 20:16 Dose: 7.5 mg Carbamazepine (Tegretol) 300 mg PO BID [facility] Last Admin: 07/09/18 20:17 Dose: 300 mg Chlorhexidine Gluconate (Peridex 0.12% Oral Kit) 15 ml OROPHARYNG BID@0800, 2000 [facility] Last Admin: 07/09/18 20:16 Dose: Not Given Chlorhexidine Gluconate (Chlorhexidine 2% Cloth) 3 pack TOPICAL DAILY@0400 [facility] Stop: 07/11/18 03:59 Last Admin: 07/10/18 04:15 Dose: 3 pack Chlorhexidine Gluconate (Chlorhexidine 2% Cloth) 3 pack TOPICAL DAILY@0400 PRN PRN Reason: Extra cloth needed Stop: 07/11/18 03:59 Citalopram Hydrobromide (Celexa) 40 mg PO DAILY [facility] Last Admin: 07/09/18 10:21 Dose: 40 mg Dextrose (D50w Syringe) 50 ml IV.PUSH UNSCH PRN PRN Reason: PER HYPOGLYCEMIA PROTOCOL Famotidine (Pepcid Pf Inj) 20 mg IV.PUSH Q12HR [facility] Last Admin: 07/09/18 20:16 Dose: 20 mg Glucagon (Glucagon Inj) 1 mg IM ONCE PRN PRN Reason: blood sugar < 60, no iv access Levetiracetam 500 mg/ Sodium (Chloride) 105 mls @ 400 mls/hr IV.SIG Q12H [facility] Last Infusion: 07/09/18 21:20 Dose: Infused Magnesium Sulfate Inj 4 gm/ (Sodium Chloride) 100 mls @ 50 mls/hr IV.SIG UNSCH PRN PRN Reason: For Magnesium 0.9 - 1.1 mg/dL Magnesium Sulfate Inj 2 gm/ (Sodium Chloride) 100 mls @ 50 mls/hr IV.SIG UNSCH PRN PRN Reason: For Magnesium 1.2 - 1.6 mg/dL Potassium Chloride (Kcl 40 Meq Premix Inj) 40 meq in 100 mls @ 25 mls/hr IV.SIG Q2H PRN PRN Reason: For Potassium 2.8 - 3.2 mEq/L Last Infusion: 07/08/18 13:52 Dose: Infused Potassium Chloride (Kcl 20 Meq Premix Inj) 20 meq in 100 mls @ 50 mls/hr IV.SIG Q2H PRN PRN Reason: For Potassium 3.3 - 3.5 mEq/L Last Infusion: 07/10/18 01:00 Dose: Infused Potassium Chloride (Kcl 40 Meq Premix Inj) 40 meq in 100 mls @ 25 mls/hr IV.SIG UNSCH PRN PRN Reason: For Potassium 3.3 - 3.5 mEq/L Potassium Chloride (Kcl 20 Meq Premix Inj) 20 meq in 100 mls @ 50 mls/hr IV.SIG Q2H PRN PRN Reason: For Potassium 2.8 - 3.2 mEq/L Potassium Phosphate 30 mmol/ (Sodium Chloride) 260 mls @ 42 mls/hr IV.SIG UNSCH PRN PRN Reason: SEE LABEL COMMENTS Sodium Phosphate 30 mmol/ (Sodium Chloride) 260 mls @ 42 mls/hr IV.SIG UNSCH PRN PRN Reason: For Phosphorus < 2.5 mg/dL Fosphenytoin Sodium 100 mgpe/ (Sodium Chloride) 52 mls @ 208 mls/hr IV.SIG Q8H [facility] Last Infusion: 07/10/18 04:16 Dose: Infused Ceftriaxone Sodium 2,000 mg/ (Sodium Chloride) 100 mls @ 200 mls/hr IV.SIG Q24H [facility] Stop: 07/12/18 23:59 Last Infusion: 07/09/18 18:40 Dose: Infused Insulin Human Regular (Novolin R Inj) 1 units SQ Q6HR [facility]; Protocol Last Admin: 07/10/18 06:40 Dose: Not Given Labetalol HCl (Trandate Inj) 10 mg IV.PUSH Q20M PRN PRN Reason: sbp > 180 or dbp > 110 Lactulose (Lactulose Liq) 30 ml PO BID [facility] Last Admin: 07/09/18 20:16 Dose: 30 ml Magnesium Oxide (Mag-Ox) 800 mg PO UNSCH PRN PRN Reason: For Magnesium 1.2 - 1.6 mg/dL Miscellaneous (Pill Splitter) 1 each OTHER UNSCH [facility] Ondansetron HCl (Zofran Inj) 4 mg IV.PUSH Q6H PRN PRN Reason: NAUSEA OR VOMITING Polyethylene Glycol (Miralax) 17 gm PO BID [facility] Last Admin: 07/09/18 20:16 Dose: Not Given Potassium Bicarb/Potassium Chloride (K-Lyte Cl Eff) 50 meq PO UNSCH PRN PRN Reason: For Potassium 3.3 - 3.5 mEq/L Last Admin: 07/06/18 03:19 Dose: 50 meq Potassium Phosphate (K-Phos Original) 2,000 mg PO Q4H PRN PRN Reason: Phosphorus Less Than 2.5 mg/dL Last Admin: 07/08/18 14:54 Dose: 2,000 mg Potassium Phosphate (K-Phos Original) 2,000 mg PO UNSCH PRN PRN Reason: SEE LABEL COMMENTS Senna/Docusate Sodium (Skylar-Colace) 1 tab PO BID [facility] Last Admin: 07/09/18 20:17 Dose: 1 tab Sodium Chloride (Ns Flush) 2 ml IV.FLUSH UNSCH PRN PRN Reason: FLUSH AFTER USING IV ACCESS Topiramate (Topamax) 25 mg PO HS PRN PRN Reason: Hypertension Allergies/Adverse Reactions: Allergies Allergy/AdvReac Type Severity Reaction Status Date / Time aspirin Allergy Severe Seizures/ Verified 03/10/18 11:21 HIVES cyclobenzaprine Allergy Severe Verified 03/10/18 11:21 fish AdvReac Unknown unknown Uncoded 12/04/12 15:28 reaction at age 7 Physical Exam Vital signs: Vital Signs 07/09/18 08:00 07/09/18 08:06 07/09/18 09:00 Temperature Pulse Rate 97 H 94 H 100 H Respiratory Rate 30 H 24 34 H Blood Pressure 146/88 H 176/101 H Pulse Oximetry 96 99 07/09/18 09:01 07/09/18 10:00 07/09/18 11:00 Temperature Pulse Rate 94 H 93 H Respiratory Rate 26 H 28 H Blood Pressure 144/90 H 162/94 H Pulse Oximetry 99 97 99 07/09/18 12:00 07/09/18 13:00 07/09/18 14:00 Temperature Pulse Rate 95 H 94 H 96 H Respiratory Rate 25 H 25 H 26 H Blood Pressure 151/96 H 156/94 H 149/95 H Pulse Oximetry 97 97 97 07/09/18 15:00 07/09/18 15:59 07/09/18 16:00 Temperature Pulse Rate 96 H 102 H 99 H Respiratory Rate 26 H 20 30 H Blood Pressure 155/90 H 157/100 H Pulse Oximetry 94 L 99 07/09/18 16:44 07/09/18 17:00 07/09/18 18:00 Temperature Pulse Rate 98 H 97 H 98 H Respiratory Rate 29 H 24 23 Blood Pressure 145/83 H 144/89 H 147/89 H Pulse Oximetry 94 L 94 L 94 L 07/09/18 19:00 07/09/18 20:00 07/09/18 20:51 Temperature 97.7 F Pulse Rate 100 H 99 H 97 H Respiratory Rate 31 H 27 H 24 Blood Pressure 147/89 H 154/90 H Pulse Oximetry 94 L 94 L 95 07/10/18 00:00 07/10/18 03:57 07/10/18 04:00 Temperature 99.7 F H 98.8 F Pulse Rate 97 H 98 H 96 H Respiratory Rate 29 H 32 H 26 H Blood Pressure 152/95 H 157/104 H Pulse Oximetry 95 100 07/10/18 07:00 Temperature Pulse Rate Respiratory Rate Blood Pressure Pulse Oximetry 95 Intake & Output 07/09/18 07/10/18 07/10/18 18:59 06:59 18:59 Intake Total 767 / 767 509 / 509 Output Total 650 / 650 800 / 800 Balance 117 / 117 -291 / -291 Weight 64 kg Intake: IV 257 / 257 509 / 509 Cerebyx Inj 100 MGPE In NS Inj 52 / 52 104 / 104 50 ML @ 208 mls/hr IV.SIG Q8H [facility] Rx#:[id number] KCl 20 mEq Premix Inj 20 meq In 300 / 300 100 ml @ 50 mls/hr IV.SIG Q2H PRN Rx#:[id number] Rocephin Inj 2,000 MG In NS Inj 100 / 100 100 ML @ 200 mls/hr IV.SIG Q24H [facility] Rx#:[id number] Keppra Inj 500 MG In NS Inj 100 105 / 105 105 / 105 ML @ 400 mls/hr IV.SIG Q12H [facility] Rx#:[id number] Tube Feeding 240 / 240 Tube Irrigant 150 / 150 Water Bolus Amount 120 / 120 Output: Urine 10 / 10 Urine Amount (Catheter) 640 / 640 800 / 800 Female External 640 / 640 800 / 800 Other: Date of Last Bowel Movement 07/08/18 07/08/18 # Bowel Movements 4 # Incontinent Bowel Movements 5 Narrative: speech strong 5/5 ble - Urinary Catheter Management Indwelling Urethral Catheter Cath placed during this visit: yes, but has since been removed by the nurse Reason for continuing: Decision to DC catheter Insertion date: 07/05/18 Insertion time: 15:20 Removal date: 07/07/18 Removal time: 16:37 Female External Cath placed during this visit: yes Reason for continuing: Not indwelling catheter Insertion date: 07/07/18 Objective Laboratory Results - last 24 hr 07/06/18 07/09/18 07/10/18 18:30 23:22 06:00 Sodium 140 Potassium 3.8 D Chloride 104 Carbon Dioxide 21.2 Anion Gap 15 BUN 5 L Creatinine 0.48 L Estimated GFR Greater than 89 POC Glucose 105 Random Glucose 84 Calcium 7.9 L Phosphorus 1.5 L Magnesium 2.0 Total Bilirubin 0.7 AST 34 ALT 24 Alkaline Phosphatase 192 H Total Protein 5.9 L Albumin 2.2 L CSF VDRL Non-reactive Carbamazepine 6.1 Microbiology 07/06/18 18:30 Gram Stain - Final Lumbar Puncture CSF Culture - Final No growth in 72 hours 07/05/18 15:50 Aerobic Blood Culture - Preliminary Blood - Peripheral No growth in 4 days Anaerobic Blood Culture - Preliminary No growth in 4 days 07/05/18 15:55 Aerobic Blood Culture - Preliminary Blood - Peripheral No growth in 4 days Anaerobic Blood Culture - Preliminary No growth in 4 days Review/Management - Review/Management Plan: imp slowly awakening keep off sedatives should awaken mri may have some left medial temporal lobe atrophy cbz 3.4 inc dose eeg neg LP neg 07/08/18 should awaken if cbz therapeutic will dc dilantin 9/20/18 much better extubate today hopefully agrees she has hx sz she does cbz level 4.4 hard to bump on 300 bid keppra top low dose should do well unclear if on dil at home 07/10/18 much better was on tegretol for yrs 200 tid and keppra just added no o/p neurologist not on dil at home so will dc it change to po keppra 1000 bid dc dil inc tegretol to 400 bid oob can dc when steady on feet and if dc over weekend have her call my office friday i will be out of town
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
[2018-07-10] MEDS: Chlorhexidine 0.12% Oral Kit 15 ML UDC OROPHARYNG SCH ×2 (11:02→20:48)
[2018-07-10] MEDS: carBAMazepine 200 MG Tablet PO SCH ×2 (11:03→20:34)
[2018-07-10] MEDS: Pantoprazole Sodium 20 MG DR Tablet PO SCH (11:03)
[2018-07-10] MEDS: Polyethylene Glycol 3350 17 GM Packet PO SCH ×2 (11:03→20:26)
[2018-07-10] MEDS: Senna/Docusate Sodium 8.6/50 MG Tablet PO SCH ×2 (11:03→20:37)
[2018-07-10] MEDS: Propranolol 40 MG Tablet PO SCH ×2 (11:03→20:34)
[2018-07-10] MEDS: levETIRAcetam 500 MG Tablet PO SCH ×2 (11:03→20:37)
[2018-07-10] MEDS: Baclofen 10 MG Tablet PO SCH ×3 (11:03→18:17)
[2018-07-10 14:21] LABS: Baso # (Auto) 0.1 th/mm3 (0.0-0.2); Baso % (Auto) 0.7 % (0.0-2.0); Eos # (Auto) 0.5 th/mm3 (0.0-0.4); Eos % (Auto) 2.3 % (0.0-4.0); Hematocrit 35.7 % (35.0-46.0); Hemoglobin 11.8 gm/dL (11.6-15.3); Lymph # (Auto) 1.7 th/mm3 (1.0-4.8); Lymph % (Auto) 8.8 % (9.0-44.0); Mean Corpuscular Hemoglobin 30.7 pg (27.0-34.0); Mono # (Auto) 2.1 th/mm3 (0.0-0.9); Mono % (Auto) 10.6 % (0.0-8.0); Neut # (Auto) 15.4 th/mm3 (1.8-7.7); Neut % (Auto) 77.6 % (16.0-70.0); Platelet Count 363 th/mm3 (150-450); Red Blood Count 3.83 mil/mm3 (4.00-5.30); Red Cell Distribution Width 13.7 % (11.6-17.2); White Blood Count 19.8 th/mm3 (4.0-11.0)
[2018-07-10 15:10] LABS: Platelet Estimate Normal (Normal); Platelet Morphology Normal (Normal)
[2018-07-11] MEDS: Oral Hygiene Kit OROPHARYNG SCH ×4 (01:03→15:13)
[2018-07-11 04:44] LABS: Baso # (Auto) 0.1 th/mm3 (0.0-0.2); Baso % (Auto) 0.6 % (0.0-2.0); Eos # (Auto) 0.6 th/mm3 (0.0-0.4); Eos % (Auto) 3.1 % (0.0-4.0); Hematocrit 34.5 % (35.0-46.0); Hemoglobin 11.6 gm/dL (11.6-15.3); Lymph # (Auto) 2.2 th/mm3 (1.0-4.8); Lymph % (Auto) 11.8 % (9.0-44.0); Mean Corpuscular HGB Conc 33.5 % (32.0-36.0); Mean Corpuscular Hemoglobin 31.2 pg (27.0-34.0); Mean Corpuscular Volume 93.1 fL (80.0-100.0); Mean Platelet Volume 8.5 fL (7.0-11.0); Neut # (Auto) 13.6 th/mm3 (1.8-7.7); Neut % (Auto) 73.5 % (16.0-70.0); Platelet Count 372 th/mm3 (150-450); Red Blood Count 3.71 mil/mm3 (4.00-5.30); Red Cell Distribution Width 13.4 % (11.6-17.2); White Blood Count 18.5 th/mm3 (4.0-11.0)
[2018-07-11 04:56] LABS: Anion Gap 12 meq/L (5-15); Aspartate Aminotransferase 29 U/L (15-37); Blood Urea Nitrogen 8 mg/dL (7-18); Calcium 7.6 mg/dL (8.5-10.1); Carbon Dioxide 22.2 meq/L (21.0-32.0); Chloride 108 meq/L (98-107); Glomerular Filtration Rate Greater Than 89 mL/min (>89); Glucose,Random 103 mg/dL (74-106); Magnesium 1.9 mg/dL (1.5-2.5); Phosphorus 2.1 mg/dL (2.5-4.9); Potassium 3.7 meq/L (3.5-5.1); Sodium 142 meq/L (136-145)
[2018-07-11 04:59] LABS: Alanine Aminotransferase 26 U/L (10-53); Alkaline Phosphatase 191 U/L (45-117); Carbamazepine (Tegretol) 8.7 mcg/mL (4.0-12.0); Total Protein 5.8 g/dL (6.4-8.2)
[2018-07-11] MEDS: Propranolol 40 MG Tablet PO SCH ×2 (09:35→20:48)
[2018-07-11] MEDS: Chlorhexidine 0.12% Oral Kit 15 ML UDC OROPHARYNG SCH ×2 (09:35→20:49)
[2018-07-11] MEDS: Pantoprazole Sodium 20 MG DR Tablet PO SCH (09:36)
[2018-07-11] MEDS: Polyethylene Glycol 3350 17 GM Packet PO SCH ×2 (09:36→20:49)
[2018-07-11] MEDS: carBAMazepine 200 MG Tablet PO SCH ×2 (09:36→20:48)
[2018-07-11] MEDS: levETIRAcetam 500 MG Tablet PO SCH ×2 (09:36→20:48)
[2018-07-11] MEDS: Senna/Docusate Sodium 8.6/50 MG Tablet PO SCH ×2 (09:36→20:48)
[2018-07-11] MEDS: Baclofen 10 MG Tablet PO SCH ×3 (09:36→18:36)
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
--- NOTE | 2018-07-11 13:30 | XR ---
EXAM DATE: 07/11/2018 1:28 PM EDT AGE/SEX: 68 years / Female INDICATIONS: Shortness of breath. CLINICAL DATA: This is the patient's initial encounter. Patient reports that signs and symptoms have been present for 3 days and indicates a pain score of 0/10. MEDICAL/SURGICAL HISTORY: None. None. COMPARISON: [facility] [place], CHEST 1V SINGLE AP, 07/07/2018. . FINDINGS: There is bilateral lower lobe consolidation and patchy right middle lobe and upper lobe airspace dise ase. Probable bilateral effusions. Cardiomegaly. There is improved aeration of the left lung. The anna tral line, endotracheal tube and enteric tubes have been removed. CONCLUSION: Improved aeration on the left otherwise stable bilateral infiltrates. Electronically signed by: Azam Ramirez MD 07/11/2018 1:29 PM EDT
[2018-07-11] MEDS ORDERED: Sodium Phosphate Inj 30 MMOL in Sodium Chlor 0.9% Inj 250 ML IV.SIG ONE (14:00)
[2018-07-11] MEDS: MethylPREDNISolone Sod Succinate Inj 40 MG/ML Vial IV.PUSH SCH ×2 (14:00→23:04)
[2018-07-12] MEDS: Oral Hygiene Kit OROPHARYNG SCH ×4 (01:02→17:11)
[2018-07-12] MEDS: MethylPREDNISolone Sod Succinate Inj 40 MG/ML Vial IV.PUSH SCH ×3 (06:02→22:03)
[2018-07-12] MEDS: levETIRAcetam 500 MG Tablet PO SCH ×2 (08:36→22:00)
[2018-07-12] MEDS: Pantoprazole Sodium 20 MG DR Tablet PO SCH (08:36)
[2018-07-12] MEDS: Baclofen 10 MG Tablet PO SCH ×3 (08:36→17:16)
[2018-07-12] MEDS: carBAMazepine 200 MG Tablet PO SCH ×2 (08:36→22:00)
[2018-07-12] MEDS: Propranolol 40 MG Tablet PO SCH ×2 (08:36→22:02)
[2018-07-12] MEDS: Polyethylene Glycol 3350 17 GM Packet PO SCH ×2 (08:37→22:02)
[2018-07-12] MEDS: Senna/Docusate Sodium 8.6/50 MG Tablet PO SCH ×2 (08:37→22:03)
[2018-07-12] MEDS: Chlorhexidine 0.12% Oral Kit 15 ML UDC OROPHARYNG SCH ×2 (08:37→21:56)
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
[2018-07-12] MEDS: traZODone 100 MG Tablet PO SCH (22:02)
[2018-07-13 05:36] LABS: Baso # (Auto) 0.1 th/mm3 (0.0-0.2); Baso % (Auto) 0.5 % (0.0-2.0); Eos % (Auto) 0.3 % (0.0-4.0); Hematocrit 32.6 % (35.0-46.0); Hemoglobin 11.2 gm/dL (11.6-15.3); Lymph % (Auto) 13.8 % (9.0-44.0); Mean Corpuscular HGB Conc 34.4 % (32.0-36.0); Mean Corpuscular Hemoglobin 31.8 pg (27.0-34.0); Mean Corpuscular Volume 92.6 fL (80.0-100.0); Mean Platelet Volume 8.7 fL (7.0-11.0); Mono # (Auto) 1.3 th/mm3 (0.0-0.9); Mono % (Auto) 8.8 % (0.0-8.0); Neut # (Auto) 11.3 th/mm3 (1.8-7.7); Neut % (Auto) 76.6 % (16.0-70.0); Platelet Count 417 th/mm3 (150-450); Red Blood Count 3.52 mil/mm3 (4.00-5.30); Red Cell Distribution Width 13.5 % (11.6-17.2); White Blood Count 14.7 th/mm3 (4.0-11.0)
[2018-07-13] MEDS: Oral Hygiene Kit OROPHARYNG SCH ×4 (05:53→16:42)
[2018-07-13] MEDS: MethylPREDNISolone Sod Succinate Inj 40 MG/ML Vial IV.PUSH SCH ×2 (05:54→21:32)
[2018-07-13 06:01] LABS: Alanine Aminotransferase 44 U/L (10-53); Albumin 2.1 g/dL (3.4-5.0); Alkaline Phosphatase 208 U/L (45-117); Anion Gap 10 meq/L (5-15); Aspartate Aminotransferase 41 U/L (15-37); Blood Urea Nitrogen 15 mg/dL (7-18); Calcium 7.7 mg/dL (8.5-10.1); Carbamazepine (Tegretol) 6.9 mcg/mL (4.0-12.0); Carbon Dioxide 27.8 meq/L (21.0-32.0); Chloride 107 meq/L (98-107); Glomerular Filtration Rate Greater Than 89 mL/min (>89); Glucose,Random 113 mg/dL (74-106); Phosphorus 3.5 mg/dL (2.5-4.9); Potassium 3.9 meq/L (3.5-5.1); Sodium 145 meq/L (136-145)
[2018-07-13] MEDS: Chlorhexidine 0.12% Oral Kit 15 ML UDC OROPHARYNG SCH ×2 (08:27→21:33)
[2018-07-13] MEDS: Pantoprazole Sodium 20 MG DR Tablet PO SCH (08:28)
[2018-07-13] MEDS: levETIRAcetam 500 MG Tablet PO SCH ×2 (08:28→21:32)
[2018-07-13] MEDS: Propranolol 40 MG Tablet PO SCH ×2 (08:28→21:30)
[2018-07-13] MEDS: carBAMazepine 200 MG Tablet PO SCH ×2 (08:28→21:32)
[2018-07-13] MEDS: Baclofen 10 MG Tablet PO SCH (08:28)
[2018-07-13] MEDS: Senna/Docusate Sodium 8.6/50 MG Tablet PO SCH ×2 (08:29→21:36)
[2018-07-13] MEDS: Polyethylene Glycol 3350 17 GM Packet PO SCH ×2 (08:29→21:36)
[2018-07-13 08:40] LABS: Lymphocytes 20 % (9-44); Monocytes 8 % (0-8); Myelocytes 1 % (0-0); Platelet Estimate Normal (Normal); Platelet Morphology Normal (Normal)
--- NOTE | 2018-07-13 09:13 | P.PNNEU ---
Subjective Subjective Comments: no more sz Active Medications: Active Medications Acetaminophen (Tylenol) 650 mg PO Q6H PRN PRN Reason: TEMPERATURE > 101 F Albuterol (Duoneb Neb (Prn)) 1 ampul NEB Q2HR NEB PRN PRN Reason: WHEEZING Last Admin: 07/10/18 03:57 Dose: 1 ampul Albuterol (Duoneb Neb (Su)) 1 ampul NEB Q6HR WHILE AWAKE NEB [facility] Last Admin: 07/13/18 07:22 Dose: 1 ampul Baclofen (Lioresal) 5 mg PO TID [facility] Last Admin: 07/13/18 08:28 Dose: 5 mg Bisacodyl (Dulcolax Supp) 10 mg RECTAL DAILY PRN PRN Reason: if no BM in last 24h Buspirone HCl (Buspar) 7.5 mg PO BID [facility] Last Admin: 07/13/18 08:29 Dose: 7.5 mg Carbamazepine (Tegretol) 400 mg PO BID [facility] Last Admin: 07/13/18 08:28 Dose: 400 mg Chlorhexidine Gluconate (Peridex 0.12% Oral Kit) 15 ml OROPHARYNG BID@0800, 1999 [facility] Last Admin: 07/13/18 08:27 Dose: Not Given Citalopram Hydrobromide (Celexa) 40 mg PO DAILY [facility] Last Admin: 07/13/18 08:28 Dose: 40 mg Clonidine HCl (Catapres) 0.1 mg PO Q6H PRN PRN Reason: SBP> OR = 180, DBP> OR = 100 Last Admin: 07/12/18 17:16 Dose: 0.1 mg Dextrose (D50w Syringe) 50 ml IV.PUSH UNSCH PRN PRN Reason: PER HYPOGLYCEMIA PROTOCOL Glucagon (Glucagon Inj) 1 mg IM ONCE PRN PRN Reason: blood sugar < 60, no iv access Levetiracetam (Keppra) 1,000 mg PO BID [facility] Last Admin: 07/13/18 08:28 Dose: 1,000 mg Methylprednisolone Sodium Succinate (Solumedrol Inj) 40 mg IV.PUSH Q8HR [facility] Last Admin: 07/13/18 05:54 Dose: 40 mg Miscellaneous (Pill Splitter) 1 each OTHER UNSCH [facility] Nicotine (Habitrol 21 Mg Patch.24 Hr) 1 patch T-DERMAL DAILY [facility] Last Admin: 07/13/18 08:29 Dose: 1 patch Ondansetron HCl (Zofran Inj) 4 mg IV.PUSH Q6H PRN PRN Reason: NAUSEA OR VOMITING Pantoprazole Sodium (Protonix) 20 mg PO DAILY [facility] Last Admin: 07/13/18 08:28 Dose: 20 mg Polyethylene Glycol (Miralax) 17 gm PO BID [facility] Last Admin: 07/13/18 08:29 Dose: Not Given Propranolol HCl (Inderal) 40 mg PO BID [facility] Last Admin: 07/13/18 08:28 Dose: 40 mg Senna/Docusate Sodium (Skylar-Colace) 1 tab PO BID [facility] Last Admin: 07/13/18 08:29 Dose: Not Given Sodium Chloride (Ns Flush) 2 ml IV.FLUSH UNSCH PRN PRN Reason: FLUSH AFTER USING IV ACCESS Last Admin: 07/13/18 05:55 Dose: 2 ml Topiramate (Topamax) 25 mg PO HS PRN PRN Reason: Hypertension Last Admin: 07/11/18 20:48 Dose: 25 mg Trazodone HCl (Desyrel) 100 mg PO HS [facility] Last Admin: 07/12/18 22:02 Dose: 100 mg Allergies/Adverse Reactions: Allergies Allergy/AdvReac Type Severity Reaction Status Date / Time aspirin Allergy Severe Seizures/ Verified 03/10/18 11:21 HIVES cyclobenzaprine Allergy Severe Verified 03/10/18 11:21 fish AdvReac Unknown unknown Uncoded 12/04/12 15:28 reaction at age 7 Physical Exam Vital signs: Vital Signs 07/12/18 11:57 07/12/18 13:39 07/12/18 13:58 Temperature 97.4 F L Pulse Rate 70 75 69 Respiratory Rate 20 16 Blood Pressure 134/90 Pulse Oximetry 94 L 07/12/18 16:00 07/12/18 20:00 07/12/18 20:40 Temperature 97.7 F 97.4 F L Pulse Rate 76 74 91 H Respiratory Rate 18 18 18 Blood Pressure 158/102 H 144/84 H Pulse Oximetry 95 95 94 L 07/13/18 00:00 07/13/18 04:00 07/13/18 07:24 Temperature 98 F Pulse Rate 72 61 77 Respiratory Rate 18 18 16 Blood Pressure 142/81 H 171/98 H Pulse Oximetry 96 98 98 Intake & Output 07/12/18 07/13/18 07/13/18 18:59 06:59 18:59 Intake Total 100 / 100 Balance 100 / 100 Weight 64 kg Intake: IV 100 / 100 Rocephin Inj 2,000 MG In NS Inj 100 / 100 100 ML @ 200 mls/hr IV.SIG Q24H SU Rx#:[id number] Other: # Voids 1 2 Date of Last Bowel Movement 07/12/18 # Bowel Movements 2 Narrative: awake alert cheerful moves all well nl speech remembers me - Urinary Catheter Management Indwelling Urethral Catheter Cath placed during this visit: yes, but has since been removed by the nurse Reason for continuing: Decision to DC catheter Insertion date: 07/05/18 Insertion time: 15:20 Removal date: 07/07/18 Removal time: 16:37 Female External Cath placed during this visit: yes Reason for continuing: Not indwelling catheter Insertion date: 07/07/18 Objective Laboratory Results - last 24 hr 07/13/18 07/13/18 03:45 03:45 WBC 14.7 H RBC 3.52 L Hgb 11.2 L Hct 32.6 L MCV 92.6 MCH 31.8 MCHC 34.4 RDW 13.5 Plt Count 417 MPV 8.7 Prelim Diff (Auto) Slide review pending Neut % (Auto) 76.6 H Lymph % (Auto) 13.8 [place] % (Auto) 8.8 H Eos % (Auto) 0.3 Baso % (Auto) 0.5 Neut # (Auto) 11.3 H Lymph # (Auto) 2.0 [place] # (Auto) 1.3 H Eos # (Auto) 0.0 Baso # (Auto) 0.1 WBC Differential Manual diff final Seg Neuts % (Manual) 70 Band Neuts % (Manual) 1 Lymphocytes % (Manual) 20 Monocytes % (Manual) 8 Myelocytes % (Man) 1 H Abs Neuts (Manual) 10.6 H Differential Comment . Platelet Estimate Normal Platelet Morphology Normal Sodium 145 Potassium 3.9 Chloride 107 Carbon Dioxide 27.8 Anion Gap 10 BUN 15 Creatinine 0.53 Estimated GFR Greater than 89 Random Glucose 113 H Calcium 7.7 L Phosphorus 3.5 D Magnesium 2.0 Total Bilirubin 0.3 AST 41 H ALT 44 Alkaline Phosphatase 208 H Total Protein 6.0 L Albumin 2.1 L Carbamazepine 6.9 Review/Management - Review/Management Plan: imp slowly awakening keep off sedatives should awaken mri may have some left medial temporal lobe atrophy cbz 3.4 inc dose eeg neg LP neg 07/08/18 should awaken if cbz therapeutic will dc dilantin 07/09/18 much better extubate today hopefully agrees she has hx sz she does cbz level 4.4 hard to bump on 300 bid keppra top low dose should do well unclear if on dil at home 07/10/18 much better was on tegretol for yrs 200 tid and keppra just added no o/p neurologist not on dil at home so will dc it change to po keppra 1000 bid dc dil inc tegretol to 400 bid oob can dc when steady on feet and if dc over weekend have her call my office friday i will be out of town 07/13/18 doing well cbz 6.9 oob ok to dc may need rehab to get strength up can fu office few weeks lives with boyfriend
[2018-07-13] MEDS ORDERED: Baclofen 10 MG Tablet PO PRN (12:49)
--- NOTE | 2018-07-13 12:52 | P.DCO ---
- Physical Therapy Order: Evaluate and treat, Improve ambulation, Strength and gait training - Occupational Therapy Order: Evaluate and treat, Improve ADL, Gross motor coordination, Fine motor coordination - Home Health Nursing Order: Medical education, Signs/symptoms of disease process, Oxygen administration education, Medication education-adverse effect, Nursing assessment with vital signs - Case Management Consult Yes - Certification I have seen patient Fiona Bone on 07/13/18. My clinical findings support the need for the requested home health care services because: Limited mobility due to disease progression, Patient has SOB, Deconditioned with increased weakness, Limited ability to care for self I certify that my clinical findings support that this patient is homebound because: Unsafe to leave home unassisted
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
[2018-07-13] MEDS: amLODIPine 5 MG Tablet PO SCH (13:37)
[2018-07-13] MEDS: traZODone 100 MG Tablet PO SCH (21:32)
[2018-07-14] MEDS: Oral Hygiene Kit OROPHARYNG SCH ×5 (02:22→23:31)
[2018-07-14] MEDS: Chlorhexidine 0.12% Oral Kit 15 ML UDC OROPHARYNG SCH ×2 (08:35→21:29)
[2018-07-14] MEDS: Pantoprazole Sodium 20 MG DR Tablet PO SCH (08:38)
[2018-07-14] MEDS: Propranolol 40 MG Tablet PO SCH ×2 (08:38→21:28)
[2018-07-14] MEDS: carBAMazepine 200 MG Tablet PO SCH ×2 (08:38→21:28)
[2018-07-14] MEDS: Polyethylene Glycol 3350 17 GM Packet PO SCH ×2 (08:39→21:29)
[2018-07-14] MEDS: amLODIPine 5 MG Tablet PO SCH (08:39)
[2018-07-14] MEDS: levETIRAcetam 500 MG Tablet PO SCH ×2 (08:39→21:28)
[2018-07-14] MEDS: MethylPREDNISolone Sod Succinate Inj 40 MG/ML Vial IV.PUSH SCH (08:40)
[2018-07-14] MEDS: Senna/Docusate Sodium 8.6/50 MG Tablet PO SCH ×2 (08:40→21:28)
--- NOTE | 2018-07-14 09:51 | XR ---
EXAM DATE: 07/14/2018 9:41 AM EDT AGE/SEX: 68 years / Female INDICATIONS: Short of breath, evaluate pneumonia CLINICAL DATA: This is the patient's subsequent encounter. Patient reports that signs and symptoms h ave been present for 1 week and indicates a pain score of Nonresponsive. MEDICAL/SURGICAL HISTORY: . lethargic, rhabdomyolysis Non-responsive. COMPARISON: . FINDINGS: The examination demonstrates cardiomegaly. There are large bilateral effusions and diffuse interstiti al prominence. Exam would suggest congestive failure. This appears somewhat worse when compared to pr evious dated 07/11/2018. CONCLUSION: Congestive failure. Electronically signed by: Zurdo Pulido MD 07/14/2018 9:50 AM EDT
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
[2018-07-14] MEDS: predniSONE 20 MG Tablet PO SCH (21:28)
[2018-07-14] MEDS: traZODone 100 MG Tablet PO SCH (21:28)
[2018-07-15] MEDS: Oral Hygiene Kit OROPHARYNG SCH ×3 (04:56→15:01)
[2018-07-15 06:59] LABS: Baso # (Auto) 0.1 th/mm3 (0.0-0.2); Baso % (Auto) 0.5 % (0.0-2.0); Eos # (Auto) 0.1 th/mm3 (0.0-0.4); Eos % (Auto) 0.5 % (0.0-4.0); Hemoglobin 10.8 gm/dL (11.6-15.3); Lymph # (Auto) 2.1 th/mm3 (1.0-4.8); Lymph % (Auto) 15.1 % (9.0-44.0); Mean Corpuscular HGB Conc 33.7 % (32.0-36.0); Mean Corpuscular Hemoglobin 31.5 pg (27.0-34.0); Mean Corpuscular Volume 93.6 fL (80.0-100.0); Mean Platelet Volume 8.2 fL (7.0-11.0); Mono # (Auto) 1.2 th/mm3 (0.0-0.9); Mono % (Auto) 8.8 % (0.0-8.0); Neut # (Auto) 10.4 th/mm3 (1.8-7.7); Neut % (Auto) 75.1 % (16.0-70.0); Platelet Count 404 th/mm3 (150-450); Red Blood Count 3.42 mil/mm3 (4.00-5.30); Red Cell Distribution Width 13.5 % (11.6-17.2); White Blood Count 13.9 th/mm3 (4.0-11.0)
[2018-07-15 07:31] LABS: Anion Gap 7 meq/L (5-15); Blood Urea Nitrogen 14 mg/dL (7-18); Calcium 7.4 mg/dL (8.5-10.1); Carbon Dioxide 34.1 meq/L (21.0-32.0); Chloride 104 meq/L (98-107); Glomerular Filtration Rate Greater Than 89 mL/min (>89); Glucose,Random 112 mg/dL (74-106); Magnesium 1.7 mg/dL (1.5-2.5); Phosphorus 3.9 mg/dL (2.5-4.9); Potassium 3.4 meq/L (3.5-5.1); Sodium 145 meq/L (136-145)
[2018-07-15 08:05] VITALS: O2SAT 92
[2018-07-15 08:20] LABS: Lymphocytes 13 % (9-44); Monocytes 8 % (0-8); Myelocytes 4 % (0-0)
[2018-07-15 08:21] LABS: Platelet Estimate Normal (Normal); Platelet Morphology Normal (Normal); RBC Morphology Normal (Normal)
[2018-07-15 08:38] LABS: Total Protein 5.8 g/dL (6.4-8.2)
[2018-07-15] MEDS: Chlorhexidine 0.12% Oral Kit 15 ML UDC OROPHARYNG SCH (08:42)
[2018-07-15] MEDS: Senna/Docusate Sodium 8.6/50 MG Tablet PO SCH (08:43)
[2018-07-15] MEDS: amLODIPine 5 MG Tablet PO SCH (08:44)
[2018-07-15] MEDS: carBAMazepine 200 MG Tablet PO SCH (08:44)
[2018-07-15] MEDS: Propranolol 40 MG Tablet PO SCH (08:44)
[2018-07-15] MEDS: levETIRAcetam 500 MG Tablet PO SCH (08:44)
[2018-07-15] MEDS: predniSONE 20 MG Tablet PO SCH (08:44)
[2018-07-15] MEDS: Polyethylene Glycol 3350 17 GM Packet PO SCH (08:45)
[2018-07-15] MEDS: Pantoprazole Sodium 20 MG DR Tablet PO SCH (08:45)
--- NOTE | 2018-07-15 09:21 | XR ---
EXAM DATE: 07/15/2018 6:00 AM EDT AGE/SEX: 68 years / Female INDICATIONS: Congestive heart failure. CLINICAL DATA: This is the patient's subsequent encounter. Patient reports that signs and symptoms h ave been present for 2 weeks and indicates a pain score of 0/10. MEDICAL/SURGICAL HISTORY: None. None. COMPARISON: [facility] [place], CHEST 1V SINGLE AP, 07/14/2018. . FINDINGS: Persistent bilateral pleural effusions and associated airspace disease in the lower lung zones. Cardi ac silhouette is enlarged with persistent diffuse interstitial prominence and indistinct central bony vascularity. Remainder of the exam is unchanged. CONCLUSION: 1. Stable pulmonary vascular congestion pattern with small bilateral pleural effusions and presumed compressive atelectasis at the lung bases. Electronically signed by: Felice Murdock MD 07/15/2018 9:20 AM EDT
[2018-07-15] MEDS ORDERED: Mag Sulf 1 gm/100 ml Premix 100 ML IV.SIG ONE (11:00)
--- NOTE | 2018-07-15 12:19 | P.DS ---
Date of admission: 07/05/18 17:09 Primary care physician: Yasmine Navarro Brief History from admission: 68yF with history of epilepsy and medication non-compliance who was recently admitted last week for seizures in the setting of medication noncompliance, presents by EMS after being found unresponsive outside on the ground for an unknown amount of time. She was intubated in the emergency department. She has elevated CK, trop. She has a subtherapeutic tegretol level. No additional information is available from the patient. ROS unobtainable. DS: Medications - Discharge Medications Prescriptions: amlodipine 5 mg PO DAILY #90 tab carbamazepine 400 mg PO BID #120 tab levetiracetam [Keppra] 1,000 mg PO BID 30 Days #120 tab potassium chloride [K-Tab] 10 meq PO BID #60 tab torsemide 20 mg PO DAILY #30 tab DS: Summary Hospital Course: Acute metabolic encephalopathy/Status Epilepticus/ Seizure Disorder 68yF with history of epilepsy and medication non-compliance presents with subtherapeutic anti-epileptic levels and acute metabolic encephalopathy. -performed neuro checks -avoiding long-acting sedatives. Resume trazodone and monitor. -continue home Tegretol and Keppra per neurology. Cleared for discharge. 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 no acute findings. -LP 07/06: not consistent with infectious etiology Acute hypoxic and hypercarbic respiratory failure Extubated 07/09. Has wheezing on exam. Improved. Repeat CXR inficative of CHF. Echo with EF 30-35%. -standing and as needed nebs. -oxygen via nasal cannula. Wean as tolerated. Will need home oxygen. -PT/OT. Likely d/c with [facility]. -incentive spirometry. -prednisone. -Lasix 40 mg IV BID started 07/14. Will switch to Torsemide upon discharge. Add KCL 10meq BID upon discharge as well. Type II NSTEMI Troponin elevation most likely combination of rhabdo and demand ischemia. No EKG changes to suggest ischemia/infarction. No chest pain. -telemetry. -resume ASA. -treatment of CHF as above. Acute Rhabdomyolysis -resolved with IVFs. Severe sepsis with end-organ dysfunction/HCAP Aspiration Pneumonia Off vancomycin, cefepime, azithro, Flagyl and Rocephin. -sputum culture with kleb and e.coli. -had low grade fever 07/14. Monitor. Prophylaxis: Lovenox Discussed at length with patient. She has her oxygen in her room. She talked to her boyfriend. She is happy to go home with home health today. Discussed with CM. - Time Spent with Patient Total time spent providing and/or coordinating discharge services: Less than 30 minutes - Quality: VTE Deep Vein Thrombosis/Pulmonary Embolism Present on Admission: No Exam Vital signs: Vital Signs 07/14/18 15:35 07/14/18 15:46 07/14/18 16:00 Temperature 98.3 F Pulse Rate 66 78 68 Respiratory Rate 18 18 Blood Pressure 156/83 H Pulse Oximetry 97 07/14/18 20:00 07/14/18 20:10 07/14/18 20:30 Temperature 97.7 F Pulse Rate 72 69 69 Respiratory Rate 18 14 Blood Pressure 154/78 H Pulse Oximetry 94 L 97 07/15/18 00:00 07/15/18 03:40 07/15/18 04:00 Temperature 97.8 F 98 F Pulse Rate 68 67 Respiratory Rate 18 18 18 Blood Pressure 118/59 L 127/71 Pulse Oximetry 94 L 95 07/15/18 04:30 07/15/18 07:00 07/15/18 08:00 Temperature 97.4 F L Pulse Rate 68 65 Respiratory Rate 12 18 Blood Pressure 150/91 H Pulse Oximetry 92 L 07/15/18 08:05 Temperature Pulse Rate 69 Respiratory Rate 16 Blood Pressure Pulse Oximetry 92 L Intake & Output 07/14/18 07/15/18 07/15/18 18:59 06:59 18:59 Intake Total 100 / 100 Output Total 4 / 4 Balance -4 / -4 100 / 100 Weight 64.9 kg Intake: IV 100 / 100 Magnesium Sulfate 1 gm/D5W 100 100 / 100 ml Premix 100 ML @ 100 mls/hr IV.SIG ONCE ONE Rx#:[id number] Output: Urine 3 / 3 Stool 1 / Other: # Voids 1 1 Date of Last Bowel Movement 07/14/18 Results Procedures completed during hospitalization: None. Labs on day of discharge: Labs from last 24 hours 07/15/18 07/15/18 06:14 06:14 WBC 13.9 H RBC 3.42 L Hgb 10.8 L Hct 32.0 L MCV 93.6 MCH 31.5 MCHC 33.7 RDW 13.5 Plt Count 404 MPV 8.2 Prelim Diff (Auto) Slide review pending Neut % (Auto) 75.1 H Lymph % (Auto) 15.1 [place] % (Auto) 8.8 H Eos % (Auto) 0.5 Baso % (Auto) 0.5 Neut # (Auto) 10.4 H Lymph # (Auto) 2.1 [place] # (Auto) 1.2 H Eos # (Auto) 0.1 Baso # (Auto) 0.1 WBC Differential Manual diff final Seg Neuts % (Manual) 75 H Lymphocytes % (Manual) 13 Monocytes % (Manual) 8 Myelocytes % (Man) 4 H Abs Neuts (Manual) 11.0 H Differential Comment . Platelet Estimate Normal Platelet Morphology Normal RBC Morphology Normal Sodium 145 Potassium 3.4 L Chloride 104 Carbon Dioxide 34.1 H Anion Gap 7 BUN 14 Creatinine 0.54 Estimated GFR Greater than 89 Random Glucose 112 H Calcium 7.4 L* Prot Corrected Calcium 8.1 L Phosphorus 3.9 Magnesium 1.7 Total Protein 5.8 L Preliminary micro results at discharge 07/06/18 18:30 Fungal Culture - Preliminary Cerebral Spinal Fluid - Lumbar Puncture No growth in 1 week 07/06/18 18:30 Mycobacterial Culture - Preliminary Cerebral Spinal Fluid - Lumbar Puncture No growth in 1 week - Impressions ITS Impressions Head CT 07/05/18 15:16 CONCLUSION: 1. No acute intracranial abnormality. 2. Extensive chronic small vessel ischemic change. . Head MRI 07/06/18 00:00 CONCLUSION: 1. Severe diffuse small vessel ischemic disease throughout the periventricular and subcortical white matter bilaterally. 2. Diffuse bilateral pontine ischemic changes. 3. No acute infarct, acute hemorrhage, midline shift or extra-axial fluid collections. 4. No abnormal enhancing mass lesion. Chest X-Ray 07/15/18 06:00 CONCLUSION: 1. Stable pulmonary vascular congestion pattern with small bilateral pleural effusions and presumed compressive atelectasis at the lung bases. Discharge Plan - Discharge Disposition Patient Disposition: W/Home Health Service - Discharge Condition Condition: Stable - Discharge Order Discharge Orders: Discharge Order (Routine); Ordered 07/15/18 Ordered By: Helen Zarate - Discharge Details Anticipated Discharge Date: 07/15/18 - Physicians Team Primary Care Provider: Yasmine Navarro Attending Provider: Helen Zarate Other Providers: Shady Christy MD ; [facility] ; [facility], ; [facility]
[2018-07-15 13:01] VITALS: BP 150/83; RESP 18; TEMP 97.8
[2018-07-15 13:58] VITALS: PULSE 61
== END 2018-07-15 15:17 | disposition home health service (06) ==
LOC: NEPE 15:06 → NEDA 17:09 → HIMC 18:02 → N05 07-10 15:13
PROVIDERS: ADMIT Hospitalist; ATTEND Hospitalist